=== PATIENT | male | born 2005 | race African-American/Black ===

== ENCOUNTER 2024-01-08 08:56 | Inpatient (IN) | payer OTHER, SELFPAY ==
[2024-01-08] VITALS (93 sets, daily range): BP systolic 120–158; BP diastolic 67–102; PULSE 71–142; TEMP 36.8–36.9; O2SAT 98–100; BMI 41.2; BMI 34.7
--- NOTE | 2024-01-08 09:20 | ECG_ITS ---
[facility] Test Date: 2024-01-08 Pat Name: ZAY MCFARLAND Department: Room: - Gender: Male Reel [employer]ade [employer]: : 2005 Requested By: Order Number: [id number] Reading MD: CECY ROBLEDO Measurements Intervals [place] Rate: 77 P: 54 AR: 160 QRS: 63 QRSD: 92 T: 13 QT: 366 QTc: 397 Interpretive Statements 1100 Sinus rhythm 4068 Nonspecific Tw[place] abnormality 9130 borderline ECG Compared to ECG 06/11/2020 11:23:34 No significant changes Electronically Signed On 01-08-2024 18:09:57 EDT by CECY ROBLEDO
--- NOTE | 2024-01-08 09:21 | CT_ITS ---
The [address] [address] Patient Name: ZAY MCFARLAND MRN: [id number] date: 2005 Sex: M Assigned Patient Location: ER Current Patient Location: ER Accession/Order Number: [id number] Exam Date: 01/08/2024 09:25 Report Date: 01/08/2024 11:32 At the request of: STEPHEN BERMAN Procedure: CT head/brain wo con CT head without contrast, 01/08/2024. HISTORY: Headache. Nausea and vomiting. COMPARISON: None. TECHNIQUE: Noncontrast axial CT images obtained through the head. Reconstructions obtained in the sagittal and coronal planes. Dose reduction techniques were achieved by using automated exposure control and/or adjustment of mA and/or kV according to patient size and/or use of iterative reconstruction technique. FINDINGS: The paranasal sinuses are clear. Mastoid air cells are clear. Skull base intact. No skull fracture or skull lesions. Orbital contents are unremarkable. Extracranial soft tissue structures are unremarkable. The ventricles are normal in size. There is no hydrocephalus. No mass effect. No shift of midline. There is some artifact in the posterior fossa and in the middle cranial fossa. No acute hemorrhage. No masses. No edema. [place] matter and white matter differentiation appears to be intact. CT/CT head/brain wo con IMPRESSION: Normal CT of the head. Electronically authenticated by: SOL HINSON Date: 01/08/2024 11:32
[2024-01-08 09:23] LABS: Glucometer 290 mg/dL (74-106)
[2024-01-08 09:32] LABS: Basophils Absolute Auto 0.1 10^3/uL (0.0-0.1); Basophils Percent Auto 0.5 % (0.2-2.0); Eosinophils Absolute Auto 0.1 10^3/uL (0.0-0.7); Eosinophils Percent Auto 0.7 % (0.9-7.0); Hematocrit 51.5 % (42.0-54.0); Hemoglobin 17.3 g/dL (14.0-18.0); Immature Granulocytes Abs Auto 0.08 10^3/uL (0.00-0.03); Immature Granulocytes Pct Auto 0.7 % (0.0-0.5); Lymphocytes Absolute Auto 1.6 10^3/uL (1.2-3.8); Lymphocytes Percent Auto 13.1 % (20.5-60.0); Mean Corpuscular HGB Conc 33.6 g/dL (29.9-35.2); Mean Corpuscular Hemoglobin 29.5 pg (25.9-34.0); Mean Corpuscular Volume 87.7 fL (80.0-94.0); Mean Platelet Volume 11.8 fL (9.5-13.5); Monocytes Absolute Auto 0.7 10^3/uL (0.3-0.8); Monocytes Percent Auto 5.9 % (1.7-12.0); Neutrophils Absolute Auto 9.5 10^3/uL (1.4-6.5); Neutrophils Percent Auto 79.1 % (43.0-75.0); Platelet Count 328 10^3/uL (150-450); Red Blood Count 5.87 10^6/uL (4.70-6.10); Red Cell Distribution Width 13.1 % (11.0-15.0)
[2024-01-08 09:33] LABS: Bilirubin Urine SMALL (NEGATIVE); Blood Urine LARGE (NEGATIVE); Clarity Urine CLEAR (CLEAR); Color Urine LT. YELLOW (YELLOW); Glucose Urine UA >=1000 mg/dL (NEGATIVE); Ketones Urine >=80 mg/dL (NEGATIVE); Leukocyte Esterase Urine NEGATIVE (NEGATIVE); Nitrite Urine NEGATIVE (NEGATIVE); Protein Urine 100 mg/dL (NEG/TRACE); Specific Gravity Urine >=1.030 (1.005-1.025); Urobilinogen Urine 0.2 EU/dL (0.2-1.0)
[2024-01-08 09:37] LABS: PCO2 VBG 34.5 mmHg (40.0-52.0); pH VBG 7.103 (7.330-7.430)
[2024-01-08 09:42] LABS: Urine Microscopic Indicated YES
[2024-01-08 09:44] LABS: Bacteria Urine TRACE #/HPF (NONE SEEN); RBC Urine 0-2 #/HPF (0-2); WBC Urine 0-2 #/HPF (NONE SEEN)
[2024-01-08 09:45] LABS: Cast Seen? SEEN #/LPF (NONE SEEN); Crystals Seen? None Seen #/HPF (None Seen); Hyaline Casts Urine FEW; Mucus Urine TRACE (NONE SEEN); Squamous Epithelial Cell Urine FEW #/LPF (NONE/RARE); Transitional Epi Cells Urine RARE #/LPF (NONE SEEN); Urine Culture Indicated NO
[2024-01-08] MEDS: KETOROLAC TROMETHAMINE 30 MG/ML VIAL 15 MG IVP (09:47)
[2024-01-08] MEDS: FAMOTIDINE/PF 20 MG/2 ML VIAL IV (09:47)
[2024-01-08] MEDS: ONDANSETRON PF 4 MG/2 ML VIAL IV (09:47)
[2024-01-08] MEDS: 0.9 % SODIUM CHLORIDE 1,000 ML 1000 ML IV ×3 (09:48→12:11)
[2024-01-08 09:51] LABS: Lactate/Lactic Acid 1.3 mmol/L (0.4-2.0)
[2024-01-08 10:00] LABS: Alanine Aminotransferase 67 U/L (16-63); Albumin Globulin Ratio 0.9; Albumin Level 4.3 g/dL (3.4-5.0); Alkaline Phosphatase 133 U/L (46-116); Anion Gap 28.6; Aspartate Amino Transferase 43 U/L (15-37); Bilirubin Total 0.8 mg/dL (0.2-1.0); Calcium 9.5 mg/dL (8.5-10.1); Carbon Dioxide 12.8 mmol/L (21.0-32.0); Chloride 98 mmol/L (98-107); Estimated GFR (African America >60 (>=60); Estimated GFR (Non-African Ame 56 (>=60); Globulin 4.9 g/dL; Glucose 310 mg/dL (74-106); Phosphorus 3.2 mg/dL (2.6-4.7); Potassium 4.4 mmol/L (3.5-5.1); Sodium 135 mmol/L (136-145); Total Protein 9.2 g/dL (6.4-8.2)
--- NOTE | 2024-01-08 10:07 | ED.NAVMDI1 ---
HPI - Nausea/Vomiting/Diarrhea General Chief complaint: Nausea/Vomiting/Diarrhea Stated complaint: ABDOMINAL PAIN, NAUSEA, VOMITING Time Seen by Provider: 01/08/24 09:14 Source: patient Mode of arrival: walk-in Limitations: no limitations History of Present Illness HPI Narrative: The patient is a known insulin dependent diabetic patient is coming to us after he has been having 4 to 5 days history of nausea vomiting, this was preceded by headache as well the headache was frontal associated with no other symptoms, patient also is complaining of generalized abdominal pain he mentioned that he has been able to take his medication but has not been able to eat and drink for the last 4 to 5 days Patient mucous membranes look dry Related Data Home Medications ?Medication ?Instructions ?Recorded ?Confirmed dapagliflozin propanediol 10 mg 10 mg PO QDAY 01/08/24 01/08/24 tablet (Farxiga) fluoxetine 20 mg capsule 20 mg PO QAM 01/08/24 01/08/24 insulin glargine 100 unit/mL (3 55 unit subcut .qhs 01/08/24 01/08/24 mL) subcutaneous pen (Lantus Solostar U-100 Insulin) metformin 500 mg tablet 1,000 mg PO .q12 01/08/24 01/08/24 semaglutide 1 mg/dose (4 mg/3 mL) 1 mg subcut QWEEK 01/08/24 01/08/24 subcutaneous pen injector (Ozempic) sitagliptin phosphate 100 mg 100 mg PO QAM 01/08/24 01/08/24 tablet (Januvia) Allergies Allergy/AdvReac Type Severity Reaction Status Date / Time No Known Drug Allergies Allergy Verified 01/08/24 09:07 Review of Systems ROS Status of ROS 10 or more systems reviewed and unremarkable except as noted in history and below Exam Narrative Exam Narrative: Nurses notes and vital signs reviewed and patient is not hypoxic. General: Well-appearing and in no apparent distress. With dry mucous membrane Skin: Warm, dry, no pallor noted. No rash. Head: Normocephalic, atraumatic. Neck: Supple, non-tender. Eye: Pupils are equal, round and EOMI. No scleral icterus. Ears, Nose, Mouth, and Throat: TM are clear, no nasal mucosal hypertrophy Dry mucous membranes, no posterior oropharynx erythema, uvula is mid-line Cardiovascular: Regular Rate and Rhythm without murmur, gallop or rub. Respiratory: No accessory muscle use or respiratory distress. Lungs are clear to auscultation, no wheezing, rales or rhonchi Chest Wall: no tenderness Back: No midline thoracic or lumbar vertebral tenderness. No CVA tenderness Musculoskeletal: normal ROM, no calf or popliteal tenderness, no lower extremity edema/swelling GI: Abdomen is soft, non-distended. Normal bowel sounds. No masses appreciated. No tenderness to palpation. No rebound, guarding, or rigidity noted. Neurological: A&O x4. No cranial nerve dysfunction observed. No truncal ataxia. Moves all extremities. Sensation intact. Psychiatric: Cooperative and interactive. Normal mood and affect. Constitutional Vital Signs, click to edit/add: Last Vital Signs Temp 98.2 F 01/08/24 09:03 Pulse 83 01/08/24 10:14 Resp 18 01/08/24 10:14 BP 158/85 H 01/08/24 10:14 Pulse Ox 100 01/08/24 09:03 O2 Del Method Room Air 01/08/24 09:03 Course Vital Signs Vital signs: Vital Signs Temperature 98.2 F 01/08/24 09:03 Pulse Rate 115 H 01/08/24 09:03 Respiratory Rate 20 01/08/24 09:03 Blood Pressure 155/102 H 01/08/24 09:03 Pulse Oximetry 100 01/08/24 09:03 Oxygen Delivery Method Room Air 01/08/24 09:03 Temperature 98.2 F 01/08/24 09:03 Pulse Rate 83 01/08/24 10:14 Respiratory Rate 18 01/08/24 10:14 Blood Pressure 158/85 H 01/08/24 10:14 Pulse Oximetry 100 01/08/24 09:03 Oxygen Delivery Method Room Air 01/08/24 09:03 MDM - Nausea/Vomiting/Diarrhea MDM Narrative Medical decision making narrative: The patient EKG in the ER showing sinus rhythm with a heart rate of [address] elevation or depression The patient presenting to us with a possible DKA his dry mucous membrane as well as his symptoms could be secondary to the Chemistry came after a while after the patient was started already on 1 L of IV fluid normal saline and it is showing a potassium 4.4 with a blood sugar of 300 The patient does have a anion gap of 25 CT head showed no acute pathology Bicarb in the chemistry is decreased in addition to a pH of 7.1 on the VBG's The patient was started on a second liter of fluid I spoke with and discussed the case the patient will be admitted for insulin drip after provided with 10 units of regular insulin IV in the ER Patient also will be provided with another liter of normal saline CT abdomen obtained because of the patient history of abdominal pain Lab Data Labs: Lab Results 01/08/24 01/08/24 01/08/24 Range/Units 09:07 09:09 09:15 WBC 12.0 H (4.0-11.0) 10^3/uL RBC 5.87 (4.70-6.10) 10^6/uL Hgb 17.3 (14.0-18.0) g/dL Hct 51.5 (42.0-54.0) % MCV 87.7 (80.0-94.0) fL MCH 29.5 (25.9-34.0) pg MCHC 33.6 (29.9-35.2) g/dL RDW 13.1 (11.0-15.0) % Plt Count 328 (150-450) 10^3/uL MPV 11.8 (9.5-13.5) fL Neut % (Auto) 79.1 H (43.0-75.0) % Lymph % (Auto) 13.1 L (20.5-60.0) % [place] % (Auto) 5.9 (1.7-12.0) % Eos % (Auto) 0.7 L (0.9-7.0) % Baso % (Auto) 0.5 (0.2-2.0) % Neut # (Auto) 9.5 H (1.4-6.5) 10^3/uL Lymph # (Auto) 1.6 (1.2-3.8) 10^3/uL [place] # (Auto) 0.7 (0.3-0.8) 10^3/uL Eos # (Auto) 0.1 (0.0-0.7) 10^3/uL Baso # (Auto) 0.1 (0.0-0.1) 10^3/uL Abs Immat Gran (auto) 0.08 H (0.00-0.03) 10^3/uL Imm/Tot Granulo (auto) 0.7 H (0.0-0.5) % VBG pH 7.103 L (7.330-7.430) VBG pCO2 34.5 L (40.0-52.0) mmHg Sodium 135 L (136-145) mmol/L Potassium 4.4 (3.5-5.1) mmol/L Chloride 98 (98-107) mmol/L Carbon Dioxide 12.8 L (21.0-32.0) mmol/L Anion Gap 28.6 BUN 10.0 (6.4-19.3) mg/dL Creatinine 1.60 H (0.70-1.30) mg/dL Est GFR ( Amer) >60 (>=60) Est GFR (Non-Af Amer) 56 L (>=60) BUN/Creatinine Ratio 6.3 Glucose 310 H (74-106) mg/dL Lactate 1.3 (0.4-2.0) mmol/L Calcium 9.5 (8.5-10.1) mg/dL Phosphorus 3.2 (2.6-4.7) mg/dL Magnesium 1.9 (1.8-2.4) mg/dL Total Bilirubin 0.8 (0.2-1.0) mg/dL AST 43 H (15-37) U/L ALT 67 H (16-63) U/L Alkaline Phosphatase 133 H (46-116) U/L Total Protein 9.2 H (6.4-8.2) g/dL Albumin 4.3 (3.4-5.0) g/dL Globulin 4.9 g/dL Albumin/Globulin Ratio 0.9 Urine Color Lt. yellow (YELLOW) Urine Clarity Clear (CLEAR) Urine pH 6.0 (5.0-9.0) Ur Specific [place] >=1.030 A (1.005-1.025) Urine Protein 100 A (NEG/TRACE) mg/dL Urine Glucose (UA) >=1000 A (NEGATIVE) mg/dL Urine Ketones >=80 A (NEGATIVE) mg/dL Urine Occult Blood Large A (NEGATIVE) Urine Nitrite Negative (NEGATIVE) Urine Bilirubin Small A (NEGATIVE) Urine Urobilinogen 0.2 (0.2-1.0) EU/dL Ur Leukocyte Esterase Negative (NEGATIVE) Urine RBC 0-2 (0-2) #/HPF Urine WBC 0-2 A (NONE SEEN) #/HPF Ur Squamous Epith Cells Few A (NONE/RARE) #/LPF Ur Transition Epith Cell Rare A (NONE SEEN) #/LPF Urine Crystals None seen (None Seen) #/HPF Urine Bacteria Trace A (NONE SEEN) #/HPF Urine Casts Seen A (NONE SEEN) #/LPF Hyaline Casts Few Urine Mucus Trace A (NONE SEEN) Ur Culture Indicated? No POC Glucose 290 H (74-106) mg/dL 01/08/24 Range/Units 10:50 WBC (4.0-11.0) 10^3/uL RBC (4.70-6.10) 10^6/uL Hgb (14.0-18.0) g/dL Hct (42.0-54.0) % MCV (80.0-94.0) fL MCH (25.9-34.0) pg MCHC (29.9-35.2) g/dL RDW (11.0-15.0) % Plt Count (150-450) 10^3/uL MPV (9.5-13.5) fL Neut % (Auto) (43.0-75.0) % Lymph % (Auto) (20.5-60.0) % [place] % (Auto) (1.7-12.0) % Eos % (Auto) (0.9-7.0) % Baso % (Auto) (0.2-2.0) % Neut # (Auto) (1.4-6.5) 10^3/uL Lymph # (Auto) (1.2-3.8) 10^3/uL [place] # (Auto) (0.3-0.8) 10^3/uL Eos # (Auto) (0.0-0.7) 10^3/uL Baso # (Auto) (0.0-0.1) 10^3/uL Abs Immat Gran (auto) (0.00-0.03) 10^3/uL Imm/Tot Granulo (auto) (0.0-0.5) % VBG pH (7.330-7.430) VBG pCO2 (40.0-52.0) mmHg Sodium (136-145) mmol/L Potassium (3.5-5.1) mmol/L Chloride (98-107) mmol/L Carbon Dioxide (21.0-32.0) mmol/L Anion Gap BUN (6.4-19.3) mg/dL Creatinine (0.70-1.30) mg/dL Est GFR ( Amer) (>=60) Est GFR (Non-Af Amer) (>=60) BUN/Creatinine Ratio Glucose (74-106) mg/dL Lactate (0.4-2.0) mmol/L Calcium (8.5-10.1) mg/dL Phosphorus (2.6-4.7) mg/dL Magnesium (1.8-2.4) mg/dL Total Bilirubin (0.2-1.0) mg/dL AST (15-37) U/L ALT (16-63) U/L Alkaline Phosphatase (46-116) U/L Total Protein (6.4-8.2) g/dL Albumin (3.4-5.0) g/dL Globulin g/dL Albumin/Globulin Ratio Urine Color (YELLOW) Urine Clarity (CLEAR) Urine pH (5.0-9.0) Ur Specific [place] (1.005-1.025) Urine Protein (NEG/TRACE) mg/dL Urine Glucose (UA) (NEGATIVE) mg/dL Urine Ketones (NEGATIVE) mg/dL Urine Occult Blood (NEGATIVE) Urine Nitrite (NEGATIVE) Urine Bilirubin (NEGATIVE) Urine Urobilinogen (0.2-1.0) EU/dL Ur Leukocyte Esterase (NEGATIVE) Urine RBC (0-2) #/HPF Urine WBC (NONE SEEN) #/HPF Ur Squamous Epith Cells (NONE/RARE) #/LPF Ur Transition Epith Cell (NONE SEEN) #/LPF Urine Crystals (None Seen) #/HPF Urine Bacteria (NONE SEEN) #/HPF Urine Casts (NONE SEEN) #/LPF Hyaline Casts Urine Mucus (NONE SEEN) Ur Culture Indicated? POC Glucose 274 H (74-106) mg/dL Discharge Plan Discharge Chief Complaint: Nausea/Vomiting/Diarrhea Clinical Impression: Diabetic keto-acidosis Qualifiers: Diabetes mellitus type: type 1 Diabetes mellitus complication detail: without coma Qualified Code(s): E10.10 - Type 1 diabetes mellitus with ketoacidosis without coma Patient Disposition: Admitted As Inpatient Time of Disposition Decision: 11:24 Condition: Good
[2024-01-08 10:18] LABS: BUN Creatinine Ratio 6.3; Magnesium 1.9 mg/dL (1.8-2.4)
--- NOTE | 2024-01-08 10:44 | CT_ITS ---
[address] [address] Patient Name: ZAY MCFARLAND MRN: [id number] date: 2005 Sex: M Assigned Patient Location: ER Current Patient Location: ED.MAIN Accession/Order Number: [id number] Exam Date: 01/08/2024 10:58 Report Date: 01/08/2024 11:25 At the request of: STEPHEN BERMAN Procedure: CT abdomen pelvis wo con EXAM: CT abdomen pelvis wo con HISTORY: abd pain and acidosis COMPARISON: None. TECHNIQUE: Axial soft tissue windows of the abdomen and pelvis with coronal and sagittal reformats. CT dose reduction technique was used including Automated Exposure Control. Findings: Lack of intravenous contrast limits evaluation. ABDOMEN: There is fatty infiltration of the liver. The gallbladder, knee, pancreas, and adrenal glands are unremarkable. No renal stones or collecting system dilatation. The bilateral ureters are nondilated. Evaluation of the bowel is limited given the absence of oral contrast. No bowel obstruction. The appendix is nondilated. The aorta is normal caliber. No enlarged abdominal lymph nodes or free abdominal fluid. Small fat-containing umbilicus hernia. Pelvis: Unremarkable bladder. The prostate is nonenlarged. No enlarged pelvic lymph nodes or free pelvic fluid. No aggressive sclerotic or lytic osseous lesions.] Femoral neck. CT/CT abdomen pelvis wo con IMPRESSION: 1. No acute abdominal or pelvic abnormality. 2. Fatty liver. Electronically authenticated by: DIMAS ENCINAS Date: 01/08/2024 11:25
[2024-01-08 10:51] LABS: Glucometer 274 mg/dL (74-106)
[2024-01-08] MEDS: INSULIN REGULAR, HUMAN (100 UNIT/ML) 10 ML MDV 10 UNIT IV (11:29)
[2024-01-08] MEDS: MORPHINE SULFATE 4 MG/ML VIAL IV (11:52)
[2024-01-08 11:56] LABS: Glucometer 207 mg/dL (74-106)
[2024-01-08 12:19] LABS: Estimated Average Glucose 266 mg/dL; Glycohemoglobin A1C 10.9 % (4.5-6.2)
[2024-01-08 12:22] LABS: Anion Gap 27.5; BUN Creatinine Ratio 7.4; Carbon Dioxide 11.3 mmol/L (21.0-32.0); Chloride 103 mmol/L (98-107); Estimated GFR (African America >60 (>=60); Estimated GFR (Non-African Ame >60 (>=60); Glucose 272 mg/dL (74-106); Magnesium 1.8 mg/dL (1.8-2.4); Phosphorus 2.8 mg/dL (2.6-4.7); Potassium 4.8 mmol/L (3.5-5.1); Sodium 137 mmol/L (136-145)
[2024-01-08 13:31] LABS: Glucometer 159 mg/dL (74-106)
[2024-01-08] MEDS: DEXTROSE 5 %-0.45 % SOD CHLORD 1,000 ML 200 ML IV ×3 (13:54→23:36)
[2024-01-08] MEDS: INSULIN REGULAR IN 0.9 % NACL 100 UNIT/100 ML PLAST..BAG 7.2 UNIT IV (14:04)
[2024-01-08] MEDS: ENOXAPARIN SODIUM 40 MG/0.4 ML SYRINGE SUBQ (14:07)
[2024-01-08 14:11] LABS: Acetone SMALL (NEGATIVE)
[2024-01-08 14:35] LABS: Glucometer 200 mg/dL (74-106)
--- NOTE | 2024-01-08 14:58 | P.HP_ITS ---
HPI H&P: HPI History of Present Illness Chief complaint: ABDOMINAL PAIN, NAUSEA, VOMITING, DKA Narrative: 18-year-old male with history of type 2 diabetes presented to ER with generalized weakness, nausea, vomiting and generalized abdominal pain for past 1 week. He is on insulin and oral hypoglycemics for type 2 diabetes and admitted to me that he is not always compliant with his diet and medications. He has prior history of DKA when he was originally diagnosed with type 2 diabetes 3 years ago. While his blood glucose were not significantly elevated, his workup is consistent with diabetic ketoacidosis. This is likely because he is using Farxiga and SGLT2 inhibitors are associated with euglycemic diabetic ketoacidosis. Patient received aggressive IV hydration in ER and after receiving 3 L of normal saline boluses, he was started on D5 half saline at 200 an hour along with IV insulin infusion as his blood glucose is less than 250. He will be treated as per DKA protocol with insulin infusion, and needs close monitoring in ICU with Accu-Cheks every 1 hour, BMP every 4 hour. He has not voided yet for us and appears clinically dry. Patient reports subjectively feeling better compared to when he arrived to ER. His venous blood gas showed pH of 7.1 with an anion gap of 8, bicarb of just 11. Opioid HPI Opioid Management Most Recent Pain and Opioid Data: Last Pain Scale 5 01/08/24 09:47 Last Pain Assessment 01/08/24 14:53 Last MAR Pain Assessment 01/08/24 11:52 Last ORT Total Score 8 01/08/24 12:55 Last ORT Risk Category High Risk 01/08/24 12:55 Review of Systems ROS Status of ROS 10 or more systems reviewed and unremark able except as noted in history and below PFSH PFS Medical History (Updated 01/08/24 @ 15:03 by Shaikh Vickie MD) Diabetes type 2, controlled ?E11.9 - Type 2 diabetes mellitus without complications (ICD-10) Surgical History (Updated 01/08/24 @ 13:17 by Kori Lagunas) History of hip surgery ?Z98.890 - Other specified postprocedural states (ICD-10) Family History (Updated 01/08/24 @ 13:18 by Kori Lagunas) Father Family history of diabetes mellitus Social History (Updated 01/08/24 @ 13:18 by Kori Lagunas) Within the past year, how often did you have a drink containing alcohol: never Score interpretation: A score less than 4 is consistent with normal alcohol consumption. Do you use any of these nicotine containing products: vaping products Non-prescribed substance use: denies use Highest level of school completed/degree received: high school graduate Meds Home Medications and Allergies Home Medications ?Medication ?Instructions ?Recorded ?Confirmed ?Type dapagliflozin propanediol 10 mg 10 mg PO QDAY 01/08/24 01/08/24 History tablet (Farxiga) fluoxetine 20 mg capsule 20 mg PO QAM 01/08/24 01/08/24 History insulin glargine 100 unit/mL (3 55 unit subcut .qhs 01/08/24 01/08/24 History mL) subcutaneous pen (Lantus Solostar U-100 Insulin) metformin 500 mg tablet 1,000 mg PO .q12 01/08/24 01/08/24 History semaglutide 1 mg/dose (4 mg/3 mL) 1 mg subcut QWEEK 01/08/24 01/08/24 History subcutaneous pen injector (Ozempic) sitagliptin phosphate 100 mg 100 mg PO QAM 01/08/24 01/08/24 History tablet (Januvia) Allergies Allergy/AdvReac Type Severity Reaction Status Date / Time No Known Drug Allergies Allergy Verified 01/08/24 09:07 Exam Constitutional Vital Signs, click to edit/add: Last Vital Signs Temp 98.2 F 01/08/24 09:03 Pulse 91 H 01/08/24 14:50 Resp 13 01/08/24 14:50 BP 144/80 H 01/08/24 13:55 Pulse Ox 100 01/08/24 13:00 O2 Del Method Room Air 01/08/24 12:55 Documenting provider has reviewed patient's vital signs: yes Common normals: no apparent distress and oriented x3 General appearance: cooperative HENMT Common normals: normocephalic and head/scalp atraumatic Head and scalp: normocephalic and atraumatic Eye Common normals: conjunctivae normal and no scleral icterus Conjunctiva: conjunctiva(e) normal Respiratory Common normals: normal respiratory effort and clear to auscultation bilaterally Effort & inspection: able to speak in complete sentences Auscultation: clear to auscultation bilaterally Cardio Common normals: regular rate, S1 normal heart sound and S2 normal heart sound Rate: regular rate Heart sounds: S1 normal and S2 normal GI Common normals: Normal to inspection, nondistended, normoactive bowel sounds present, soft to palpation, non-tender and no hepatosplenomegaly Palpation: soft and no hepatosplenomegaly Extremity Common normals: no clubbing, cyanosis or edema Neuro Common normals: oriented x3, moves all extremities and no focal motor deficits Psych Common normals: mental status grossly normal, denies hallucinations, denies homicidal ideation and denies suicidal ideation Results Labs Labs: Short CBC 01/08/24 Range/Units 09:07 WBC 12.0 H (4.0-11.0) 10^3/uL Hgb 17.3 (14.0-18.0) g/dL Hct 51.5 (42.0-54.0) % Plt Count 328 (150-450) 10^3/uL BMP 01/08/24 01/08/24 09:07 11:36 Sodium 135 L 137 Potassium 4.4 4.8 Chloride 98 103 Carbon Dioxide 12.8 L 11.3 L BUN 10.0 10.0 Creatinine 1.60 H 1.36 H Glucose 310 H 272 H Calcium 9.5 9.0 Liver Function 01/08/24 Range/Units 09:07 Total Bilirubin 0.8 (0.2-1.0) mg/dL AST 43 H (15-37) U/L ALT 67 H (16-63) U/L Alkaline Phosphatase 133 H (46-116) U/L Albumin 4.3 (3.4-5.0) g/dL Urine 01/08/24 Range/Units 09:15 Urine Color Lt. yellow (YELLOW) Urine Clarity Clear (CLEAR) Urine pH 6.0 (5.0-9.0) Ur Specific [place] >=1.030 A (1.005-1.025) Urine Protein 100 A (NEG/TRACE) mg/dL Urine Glucose (UA) >=1000 A (NEGATIVE) mg/dL ABG ABG results: 01/08/24 09:07 VBG pH 7.103 L VBG pCO2 34.5 L Assessment and Plan Assessment and Plan (1) Diabetic keto-acidosis: Assessment and Plan: Diabetic ketoacidosis with severe metabolic acidosis. Patient needs close inpatient monitoring and treatment for DKA with IV insulin, aggressive IV hydration, serial monitoring of BMP to ensure serum electrolytes are within normal range while on insulin drip. Currently on D5 half saline along with IV insulin drip. Continue with Accu-Cheks every 1 hour. Qualifiers: Diabetes mellitus complication detail: without coma Diabetes mellitus type: type 1 Qualified Code(s): E10.10 - Type 1 diabetes mellitus with ketoacidosis without coma (2) Poorly controlled type 2 diabetes mellitus: Assessment and Plan: A1c checked and is indicated for poorly controlled type 2 diabetes. Patient admits to being noncompliant with his medications. Discussed importance of compliance and educated patient on type 2 diabetes (3) Metabolic acidosis due to diabetes mellitus: Assessment and Plan: Presented with severe metabolic acidosis and DKA due to diabetes. Currently on IV insulin, IV fluids as per diabetic ketoacidosis protocol (4) Abnormal liver enzymes: Assessment and Plan: Mild elevation, likely secondary to dehydration and diabetic ketoacidosis. Monitor for now. If worsening transaminitis will consider ultrasound. No acute intra-abdominal finding on CT abdomen pelvis except for fatty liver disease.
[2024-01-08 15:51] LABS: Anion Gap 26.2; BUN Creatinine Ratio 6.2; Calcium 8.4 mg/dL (8.5-10.1); Carbon Dioxide 8.9 mmol/L (21.0-32.0); Chloride 104 mmol/L (98-107); Estimated GFR (African America >60 (>=60); Estimated GFR (Non-African Ame >60 (>=60); Glucose 231 mg/dL (74-106); Magnesium 1.6 mg/dL (1.8-2.4); Phosphorus 2.1 mg/dL (2.6-4.7); Potassium 4.1 mmol/L (3.5-5.1); Sodium 135 mmol/L (136-145)
[2024-01-08 15:55] LABS: Lactate/Lactic Acid 0.6 mmol/L (0.4-2.0)
--- NOTE | 2024-01-08 16:10 | PC.NURSE ---
1600 BG 188, insulin drip decreased per DKA protocol.
[2024-01-08] MEDS: PANTOPRAZOLE SODIUM 40 MG VIAL IV (16:44)
--- NOTE | 2024-01-08 18:40 | DIETREC ---
Recommend 2500 kcal CCD diet d/t pt's size and nutritional needs.
[2024-01-08 20:06] LABS: Anion Gap 15.5; BUN Creatinine Ratio 4.9; Calcium 8.2 mg/dL (8.5-10.1); Carbon Dioxide 17.1 mmol/L (21.0-32.0); Chloride 105 mmol/L (98-107); Estimated GFR (African America >60 (>=60); Estimated GFR (Non-African Ame >60 (>=60); Glucose 175 mg/dL (74-106); Magnesium 1.6 mg/dL (1.8-2.4); Phosphorus 2.1 mg/dL (2.6-4.7); Potassium 3.6 mmol/L (3.5-5.1); Sodium 134 mmol/L (136-145)
[2024-01-08 23:57] LABS: Anion Gap 15.6; BUN Creatinine Ratio 4.4; Calcium 8.2 mg/dL (8.5-10.1); Chloride 104 mmol/L (98-107); Estimated GFR (African America >60 (>=60); Estimated GFR (Non-African Ame >60 (>=60); Glucose 221 mg/dL (74-106); Magnesium 1.5 mg/dL (1.8-2.4); Phosphorus 2.2 mg/dL (2.6-4.7); Potassium 3.6 mmol/L (3.5-5.1); Sodium 134 mmol/L (136-145)
[2024-01-09] VITALS (87 sets, daily range): BP systolic 114–156; BP diastolic 69–82; PULSE 64–144; TEMP 36.8–37.1; O2SAT 96–98
[2024-01-09] MEDS: ACETAMINOPHEN 325 MG TABLET 650 MG PO (00:13)
[2024-01-09 03:47] LABS: Basophils Absolute Auto 0.1 10^3/uL (0.0-0.1); Basophils Percent Auto 0.9 % (0.2-2.0); Eosinophils Absolute Auto 0.2 10^3/uL (0.0-0.7); Eosinophils Percent Auto 2.9 % (0.9-7.0); Hematocrit 41.2 % (42.0-54.0); Hemoglobin 13.7 g/dL (14.0-18.0); Immature Granulocytes Abs Auto 0.03 10^3/uL (0.00-0.03); Immature Granulocytes Pct Auto 0.4 % (0.0-0.5); Lymphocytes Absolute Auto 1.7 10^3/uL (1.2-3.8); Lymphocytes Percent Auto 23.6 % (20.5-60.0); Mean Corpuscular HGB Conc 33.3 g/dL (29.9-35.2); Mean Corpuscular Hemoglobin 29.1 pg (25.9-34.0); Mean Corpuscular Volume 87.7 fL (80.0-94.0); Mean Platelet Volume 11.4 fL (9.5-13.5); Monocytes Absolute Auto 0.5 10^3/uL (0.3-0.8); Monocytes Percent Auto 7.7 % (1.7-12.0); Neutrophils Absolute Auto 4.5 10^3/uL (1.4-6.5); Neutrophils Percent Auto 64.5 % (43.0-75.0); Platelet Count 250 10^3/uL (150-450); Red Cell Distribution Width 13.2 % (11.0-15.0)
[2024-01-09 04:02] LABS: Alanine Aminotransferase 42 U/L (16-63); Albumin Globulin Ratio 0.8; Albumin Level 2.8 g/dL (3.4-5.0); Alkaline Phosphatase 93 U/L (46-116); Anion Gap 17.8; Aspartate Amino Transferase 18 U/L (15-37); BUN Creatinine Ratio 4.4; Bilirubin Total 0.7 mg/dL (0.2-1.0); Calcium 8.3 mg/dL (8.5-10.1); Carbon Dioxide 15.7 mmol/L (21.0-32.0); Chloride 103 mmol/L (98-107); Estimated GFR (African America >60 (>=60); Estimated GFR (Non-African Ame >60 (>=60); Globulin 3.6 g/dL; Glucose 239 mg/dL (74-106); Magnesium 1.4 mg/dL (1.8-2.4); Potassium 3.5 mmol/L (3.5-5.1); Sodium 133 mmol/L (136-145); Total Protein 6.4 g/dL (6.4-8.2)
[2024-01-09] MEDS: DEXTROSE 5 %-0.45 % SOD CHLORD 1,000 ML 200 ML IV (04:31)
[2024-01-09 07:28] LABS: Glucometer 223 mg/dL (74-106)
--- NOTE | 2024-01-09 07:53 | P.PN_ITS ---
Progress Note: Subjective Subjective Interval history: Patient denies any issues overnight. Overall is doing well. no nausea or vomiting. He reports that he is hungry this morning. It has been 4-5 days without insulin at home. He also does not check his sugars. discussed ha1c of 10.9. Exam Narrative Exam Narrative: General: Patient is alert, and oriented to person, place and time with normal affect, proper hygiene Skin: no visible rashes, or ulcers Head: atraumatic, acephalic Eyes: PERRLA, no nystagmus present, conjunctiva clear, no scleral icterus Nose: symmetric, no discharge, no maxillary or frontal sinus tenderness Mouth/Throat: no erythema, exudate, or tonsillar enlargement, normal dentition Neck: no masses palpated, normal thyroid, no JVD or audible carotid bruits Heart: Normal rate and rhythm, no murmurs/rubs/gallops Lungs: no audible wheezes, crackles and normal breath sounds all lung odon[place] Abdomen: Normal audible bowel sounds, no distension, No palpable masses, no organomegaly, no rebound/guarding/ or rigidity Musculoskeletal: no swelling bilateral lower extremities Neuro: CN II-X grossly intact Constitutional Vital Signs, click to edit/add: Last Vital Signs Temp 98.7 F 01/09/24 03:39 Pulse 71 01/09/24 06:00 Resp 17 01/09/24 05:40 BP 114/69 01/09/24 05:23 Pulse Ox 98 01/09/24 03:39 O2 Del Method Room Air 01/09/24 03:39 Progress Note: Objective Labs Labs: Short CBC 01/08/24 01/09/24 Range/Units 09:07 03:35 WBC 12.0 H 7.0 (4.0-11.0) 10^3/uL Hgb 17.3 13.7 L (14.0-18.0) g/dL Hct 51.5 41.2 L (42.0-54.0) % Plt Count 328 250 (150-450) 10^3/uL BMP 01/08/24 01/08/24 01/08/24 09:07 11:36 15:31 Sodium 135 L 137 135 L Potassium 4.4 4.8 4.1 Chloride 98 103 104 Carbon Dioxide 12.8 L 11.3 L 8.9 L BUN 10.0 10.0 8.0 Creatinine 1.60 H 1.36 H 1.30 Glucose 310 H 272 H 231 H Calcium 9.5 9.0 8.4 L 01/08/24 01/08/24 01/09/24 19:42 23:36 03:35 Sodium 134 L 134 L 133 L Potassium 3.6 3.6 3.5 Chloride 105 104 103 Carbon Dioxide 17.1 L 18.0 L 15.7 L BUN 7.0 6.0 L 6.0 L Creatinine 1.43 H 1.37 H 1.37 H Glucose 175 H 221 H 239 H Calcium 8.2 L 8.2 L 8.3 L Liver Function 01/08/24 01/09/24 Range/Units 09:07 03:35 Total Bilirubin 0.8 0.7 (0.2-1.0) mg/dL AST 43 H 18 (15-37) U/L ALT 67 H 42 (16-63) U/L Alkaline Phosphatase 133 H 93 (46-116) U/L Albumin 4.3 2.8 L (3.4-5.0) g/dL Urine 01/08/24 Range/Units 09:15 Urine Color Lt. yellow (YELLOW) Urine Clarity Clear (CLEAR) Urine pH 6.0 (5.0-9.0) Ur Specific [place] >=1.030 A (1.005-1.025) Urine Protein 100 A (NEG/TRACE) mg/dL Urine Glucose (UA) >=1000 A (NEGATIVE) mg/dL Progress Note: A&P Assessment and Plan (1) Diabetic keto-acidosis: Assessment and Plan: Anion Gap is 15 this morning, currently on 1 of insulin drip. slight decrease in mag and potassium. Sugars 280. Also has D5 1/2 normal saline. Stop fluids and drip. Start Levemir 25 units BID, may also start 2,000 diet. SSI for accuchecks qachs. Qualifiers: Diabetes mellitus complication detail: without coma Diabetes mellitus type: type 1 Qualified Code(s): E10.10 - Type 1 diabetes mellitus with ketoacidosis without coma (2) Poorly controlled type 2 diabetes mellitus: Assessment and Plan: ha1c 10.9, has working glucometer. Will resume home medications tomorrow. (3) Metabolic acidosis due to diabetes mellitus: Assessment and Plan: Anion gap normal range, symptoms subsided while on insulin drip and fluids. (4) Abnormal liver enzymes: Assessment and Plan: resolved with DKA Plan Stop drip, monitor labs, replace electrolytes. Hopeful discharge home tomorrow.
[2024-01-09 08:06] LABS: Anion Gap 19.9; BUN Creatinine Ratio 2.3; Calcium 8.3 mg/dL (8.5-10.1); Carbon Dioxide 15.9 mmol/L (21.0-32.0); Chloride 104 mmol/L (98-107); Estimated GFR (African America >60 (>=60); Estimated GFR (Non-African Ame >60 (>=60); Glucose 248 mg/dL (74-106); Magnesium 1.5 mg/dL (1.8-2.4); Phosphorus 1.9 mg/dL (2.6-4.7); Potassium 3.8 mmol/L (3.5-5.1); Sodium 136 mmol/L (136-145)
[2024-01-09] MEDS: MAGNESIUM SULFATE IN WATER 2 GM/50 ML PREMIX IV (09:50)
[2024-01-09] MEDS: INSULIN DETEMIR 300 UNIT/3 ML INSULN.PEN 25 UNIT SUBQ ×2 (10:44→21:04)
[2024-01-09] MEDS: INSULIN ASPART 300 UNIT/3 ML PEN SUBQ ×3 (11:14→21:04)
[2024-01-09 12:02] LABS: Magnesium 1.8 mg/dL (1.8-2.4); Phosphorus 2.1 mg/dL (2.6-4.7)
[2024-01-09] MEDS: PANTOPRAZOLE SODIUM 40 MG VIAL IV (16:17)
[2024-01-09] MEDS: ENOXAPARIN SODIUM 40 MG/0.4 ML SYRINGE SUBQ (16:17)
[2024-01-10] VITALS (8 sets, daily range): BP systolic 118–136; BP diastolic 73–83; PULSE 61–75; TEMP 36.8; O2SAT 96–98
[2024-01-10 06:26] LABS: Basophils Absolute Auto 0.1 10^3/uL (0.0-0.1); Basophils Percent Auto 1.2 % (0.2-2.0); Eosinophils Absolute Auto 0.3 10^3/uL (0.0-0.7); Eosinophils Percent Auto 3.6 % (0.9-7.0); Hematocrit 42.7 % (42.0-54.0); Hemoglobin 14.5 g/dL (14.0-18.0); Immature Granulocytes Pct Auto 1.5 % (0.0-0.5); Lymphocytes Absolute Auto 1.8 10^3/uL (1.2-3.8); Mean Corpuscular Hemoglobin 29.2 pg (25.9-34.0); Mean Corpuscular Volume 85.9 fL (80.0-94.0); Mean Platelet Volume 12.1 fL (9.5-13.5); Monocytes Absolute Auto 0.5 10^3/uL (0.3-0.8); Monocytes Percent Auto 6.8 % (1.7-12.0); Neutrophils Absolute Auto 4.2 10^3/uL (1.4-6.5); Neutrophils Percent Auto 60.9 % (43.0-75.0); Platelet Count 233 10^3/uL (150-450); Red Blood Count 4.97 10^6/uL (4.70-6.10); White Blood Count 6.9 10^3/uL (4.0-11.0)
[2024-01-10 06:39] LABS: Alanine Aminotransferase 38 U/L (16-63); Albumin Globulin Ratio 0.8; Alkaline Phosphatase 91 U/L (46-116); Aspartate Amino Transferase 18 U/L (15-37); BUN Creatinine Ratio 5.1; Bilirubin Total 0.6 mg/dL (0.2-1.0); Calcium 8.9 mg/dL (8.5-10.1); Carbon Dioxide 17.4 mmol/L (21.0-32.0); Chloride 103 mmol/L (98-107); Estimated GFR (African America >60 (>=60); Estimated GFR (Non-African Ame >60 (>=60); Globulin 3.6 g/dL; Glucose 212 mg/dL (74-106); Potassium 3.4 mmol/L (3.5-5.1); Sodium 139 mmol/L (136-145); Total Protein 6.6 g/dL (6.4-8.2)
[2024-01-10] MEDS: FLUOXETINE HCL 20 MG CAPSULE PO (08:14)
[2024-01-10] MEDS: INSULIN ASPART 300 UNIT/3 ML PEN SUBQ ×2 (08:14→11:38)
[2024-01-10] MEDS: INSULIN DETEMIR 300 UNIT/3 ML INSULN.PEN 25 UNIT SUBQ (08:14)
--- NOTE | 2024-01-10 08:14 | PM.DS1 ---
DS: Providers Provider Date of admission: 01/08/24 12:42 Primary care physician: Non-Staff PhysicianMD Attending physician on admission: Shaikh Vickie Attending physician on discharge: Dee Edmondson DS: Diagnosis Discharge Diagnosis (1) Diabetic keto-acidosis: Qualifiers: Diabetes mellitus complication detail: without coma Diabetes mellitus type: type 1 Qualified Code(s): E10.10 - Type 1 diabetes mellitus with ketoacidosis without coma (2) Poorly controlled type 2 diabetes mellitus: (3) Metabolic acidosis due to diabetes mellitus: (4) Abnormal liver enzymes: DS: Summary Hospital Course Hospital Course: 18-year-old male with history of type 2 diabetes presented to ER with generalized weakness, nausea, vomiting and generalized abdominal pain for past 1 week. He is on insulin and oral hypoglycemics for type 2 diabetes and admitted to me that he is not always compliant with his diet and medications. He has prior history of DKA when he was originally diagnosed with type 2 diabetes 3 years ago. While his blood glucose were not significantly elevated, his workup is consistent with diabetic ketoacidosis. Patient received aggressive IV hydration in ER and after receiving 3 L of normal saline boluses, he was started on D5 half saline at 200 an hour along with IV insulin infusion as his blood glucose is less than 250. He will be treated as per DKA protocol with insulin infusion, and needs close monitoring in ICU with Accu-Cheks every 1 hour, BMP every 4 hour. His venous blood gas showed pH of 7.1 with an anion gap of 8, bicarb of just 11. He was maintained for 24 hours on insulin drip, Anion Gap normalized and insulin drip stopped. I started Levemir 25 units BID along with SSI. He received 71 units total yesterday of insulin on diabetic diet. I discussed with him to increase his Lantus dosage to 75 units at night time. All other home medications will stay the same, his ha1c was 10.9. At the time of discharge he is not having any n/v/d, eating normally without complaints. He would benefit from intense diabetes management by [facility] in the future. He may return to the ER any other worsening signs or symptoms. Liver functions are normal, were slight elevation on admission most likely from nausea and vomiting. Status at Discharge Functional status at discharge: independent ambulation Overall status at discharge: patient is back to baseline Time Spent with Patient Time attestation: Total time spent providing and/or coordinating discharge services: Time spent: greater than 30 minutes Exam Narrative Exam Narrative: General: Patient is alert, and oriented to person, place and time with normal affect, proper hygiene Skin: no visible rashes, or ulcers Head: atraumatic, acephalic Heart: Normal rate and rhythm, no murmurs/rubs/gallops Lungs: no audible wheezes, crackles and normal breath sounds all lung odonnell Abdomen: Normal audible bowel sounds, no distension, No palpable masses, no organomegaly, no rebound/guarding/ or rigidity Musculoskeletal: no swelling bilateral lower extremities Neuro: CN II-X grossly intac Constitutional Vital Signs, click to edit/add: Last Vital Signs Temp 98.3 F 01/09/24 19:52 Pulse 63 01/10/24 07:46 Resp 18 01/10/24 03:23 BP 118/73 01/10/24 03:23 Pulse Ox 96 01/10/24 03:23 O2 Del Method Room Air 01/09/24 19:52 DS: Data Data Completed and Pending Labs on day of discharge: Labs from last 24 hours 01/10/24 01/09/24 06:05 11:26 WBC 6.9 RBC 4.97 Hgb 14.5 Hct 42.7 MCV 85.9 MCH 29.2 MCHC 34.0 RDW 13.0 Plt Count 233 MPV 12.1 Neut % (Auto) 60.9 Lymph % (Auto) 26.0 [place] % (Auto) 6.8 Eos % (Auto) 3.6 Baso % (Auto) 1.2 Neut # (Auto) 4.2 Lymph # (Auto) 1.8 [place] # (Auto) 0.5 Eos # (Auto) 0.3 Baso # (Auto) 0.1 Abs Immat Gran (auto) 0.10 H Imm/Tot Granulo (auto) 1.5 H Sodium 139 Potassium 3.4 L Chloride 103 Carbon Dioxide 17.4 L Anion Gap 22.0 BUN 6.0 L Creatinine 1.17 Est GFR ( Amer) >60 Est GFR (Non-Af Amer) >60 BUN/Creatinine Ratio 5.1 Glucose 212 H Calcium 8.9 Phosphorus 2.1 L Magnesium 1.8 Total Bilirubin 0.6 AST 18 ALT 38 Alkaline Phosphatase 91 Total Protein 6.6 Albumin 3.0 L Globulin 3.6 Albumin/Globulin Ratio 0.8 Discharge Plan Discharge Disposition: Home, Self-Care Condition: Good Discharge Medications: Continued Ozempic 1 mg/dose (4 mg/3 mL) pen injector 1 mg SUBCUT QWEEK Rx Instructions: Mondays metformin 500 mg tablet 1,000 mg PO .q12 30 Days Qty: 120 0RF fluoxetine 20 mg capsule 20 mg PO QAM 30 Days Qty: 30 0RF Januvia 100 mg tablet 100 mg PO QAM 30 Days Qty: 30 0RF dapagliflozin propanediol [Farxiga] 10 mg tablet 10 mg PO QDAY 30 Days Qty: 30 0RF Changed insulin glargine [Lantus Solostar U-100 Insulin] 100 unit/mL (3 mL) insulin pen 75 unit SUBCUT .qhs 30 Days Qty: 8 0RF Activity: increase activity as tolerated Diet: diabetic diet Print Language: Yoruba Forms: Portal Instructions Follow Up Appointments: Please call PCP office tomorrow to get appointment in 5-7 days
--- NOTE | 2024-01-11 15:16 | CM.DCFOLLOWU ---
Patient is at the [facility]
== END 2024-01-10 12:48 | disposition home or self-care (01) | DRG 420 ==
LOC: ER 11:39 → ICU 12:46 → MS 01-09 12:05
PROVIDERS: Admitting Provider Internal Medicine; Emergency Provider Emergency Medicine; Visit Provider Family Medicine
DX: E11.10 Type 2 diabetes mellitus with ketoacidosis without coma (principal); R74.9 Abnormal serum enzyme level, unspecified; Z91.119 Patient's noncompliance with dietary regimen due to unspecified reason; Z91.148 Patient's other noncompliance with medication regimen for other reason; Z79.4 Long term (current) use of insulin; Z79.84 Long term (current) use of oral hypoglycemic drugs
CPT/HCPCS: 36415; 70450; 74176; 80048; 80053; 81001; 82009; 82800; 82948; 83036; 83605; 83690; 83735; 84100; 85025; 93005; 96361; 96365; 96366; 96372; 96375; 96376; 99285; J1650; J1817; J1885; J2270; J2405; J3475

== ENCOUNTER 2024-03-30 17:41 | Inpatient (IN) | payer OTHER, SELFPAY ==
[2024-03-30 17:44] VITALS: BP 145/75; PULSE 74; TEMP 36.6; O2SAT 98; BMI 34.3
--- OUTSIDE RECORDS SUMMARY | 2024-03-30 17:52 | XMS_ITS | CCD ---
Author Organization [facility] ion Partnership [facility] Care Team Providers Care [employer] Ramp Agent Name Role Phone MARIA ISABEL ROMAN Consulting Unavailable MARIA ISABEL ROMAN Attending Unavailable [facility] Primary Care Unavailable MARIA ISABEL ROMAN Admitting Unavailable [place] Consulting Unavailable Levi INTERACTIVE MEDIA MARKETING DIRECTOR-Marlyn RIVER Primary Care Provid er MARLYN SIMS Attending Unavailable MARLYN SIMS Referring Unavailable MARLYN SIMS Primary Care Unavailable MARLYN SIMS Attending Unavailable MARLYN SIMS Referring Unavailable SIMSBETO MILLERERIStevie Dyson Primary Care Unavailable MARLYN SIMS Attending Unavailable MARLYN SIMS Referring Unavailable MARLYN SIMS Primary Care Unavailable MARLYN SIMS Attending Unavailable MARLYN SIMS Referring Unavailable SIMSBETO MILLERERIStevie Dyson Primary Care Unavailable MARLYN SIMS Attending Unavailable MARLYN SIMS Referring Unavailable BETO SIMSERIStevie Dyson Primary Care Unavailable Unallocated Gerry SCHAFFERs Provider Primary Care Provi kaela PJ SHANNON Attending Unavailable PJ SHANNON Referring Unavailable MARLYN SIMS Primary Care Unavailable KENNY ARROYO Attending Unavailable CARLOS VENTURA Admitting Unavailable XU PABON Consulting Unavailable MARLYN SIMS Primary Care Unavailable NANCI NARANJO Attending Unavailab CARLOS Flores Admitting Unavailable MARLYN SIMS Primary Care Unavailable LEVI RASMUSSEN Attending Unavailable MARLYN SIMS Primary Care Unavailable Medications Current Medications Medication Drug Class(es) Dates Sig (Normalized) Sig (Original) cetirizine hydrochloride 10 mg oral tablet (4 sources) Histamine-1 Receptor Antagonist Start: 08-26-2023 take 1 tablet by mouth in the morning cetirizine (ZyrTEC) 10 MG tablet Take 10 mg by mouth in the morning. 08/26/2023 Active dapagliflozin 10 mg oral tablet (5 sources) Sodium-Glucose Cotransporter 2 Inhibitor Start: 05-26-2023 take 1 tablet by mouth in the morning dapagliflozin propanediol (FARXIGA) 10 mg tablet Indications: Type 2 diabetes mellitus with hyperglycemia, without long-term current use of insulin ([facility]) Take 1 tablet (10 mg total) by mouth in the morning. 30 tablet 4 05/26/2023 Active dextromethorphan hydrobromide 1.5 mg/ml / pyrilamine maleate 1.5 mg/ml oral solution (1 source) Uncompetitive D-kjcwng-V-asparta te Receptor Antagonist, Sigma-1 Agonist Start: 08-05-2023 take 10 mL by mouth every eight hours as needed for cough and cough pyrilamine-dextrom ethorphan 7.5-7.5 mg/5 mL liquid Indications: Acute cough Take 10 mL by mouth every 8 (eight) hours as needed (cough). 120 mL 0 08/05/2023 Active docusate sodium 100 mg oral capsule (4 sources) Start: 02-29-2024 take 1 capsule by mouth in the morning Docusate Sodium (DSS) 100 MG capsule Take 100 mg by mouth in the morning and 100 mg in the evening. 02/29/2024 Active 0.5 ml dulaglutide 3 mg/ml auto-injector (3 sources) GLP-1 Receptor Agonist Start: 05-26-2023 End: 06-10-2023 dulaglutide (TRULICITY) 1.5 mg/0.5 mL pen injector Indications: Type 2 diabetes mellitus with hyperglycemia, without long-term current use of insulin ([facility]) Inject 1.5 mg under the skin every 7 days. 2 mL 4 06/10/2023 Active FLUoxetine 40 mg oral capsule (6 sources) Serotonin Reuptake Inhibitor Start: 01-13-2024 take 1 capsule by mouth in the morning FLUoxetine (PROzac) 40 MG capsule Take 40 mg by mouth in the morning. 01/13/2024 Active Start: 05-26-2023 take 1 capsule by mo ut in the morning FLUoxetine (PROzac) 20 mg capsule Indications: Current mild episode of major depressive disorder without prior episode ([facility]) Take 1 capsule (20 mg total) by mouth in the morning. 90 capsule 4 05/26/2023 Active 3 ml insulin glargine 100 unt/ml pen injector (6 sources) Insulin Analog Start: 01-12-2024 insulin glargi ne (Lantus SoloStar) 100 UNIT/ML pen Inject 75 Units under the skin at bedtime 01/12/2024 Active Start: 01-12-2024 insulin glargi ne (LANTUS SOLOSTAR U-100 INSULIN) 100 unit/mL (3 mL) insulin pen Inject 75 Units under the skin nightly. 15 mL 12 01/12/2024 Active Start: 05-26-2023 insulin glargi ne (LANTUS SOLOSTAR U-100 INSULIN) 100 unit/mL (3 mL) insulin pen Indications: Type 2 diabetes mellitus with hyperglycemia, without long-term current use of insulin ([facility]) Inject 35 Units under the skin nightly. 15 mL 2 05/26/2023 Active Start: 05-26-2023 insulin glargi ne (LANTUS SOLOSTAR U-100 INSULIN) 100 unit/mL (3 mL) insulin pen Indications: Type 2 diabetes mellitus with hyperglycemia, without long-term current use of insulin ([facility]) Inject 35 Units under the skin nightly. 15 mL 2 05/26/2023 Active loratadine 10 mg oral tablet (2 sources) take 1 tablet by mouth in the morning loratadine (CLARITIN) 10 mg tablet Take 1 tablet (10 mg total) by mouth in the morning. 0 Active metFORMIN hydrochloride 500 mg oral tablet (8 sources) Biguanide Start: 11-04-2023 End: 06-05-2024 take 2 tablets by mouth in the morning metFORMIN (Glucophage) 500 MG tablet Indications: Type 2 diabetes mellitus with hyperglycemia, without long-term current use of insulin ([facility]) Take 2 tablets (1,000 mg) by mouth in the morning and 2 tablets (1,000 mg) in the evening. Take with meals. 360 tablet 1 03/07/2024 06/05/2024 Active Start: 05-26-2023 take 2 tablets by mo uth in the morning, then take 2 tablets by mouth at bedtime metFORMIN (GLUCOPHAGE) 500 mg tablet Indications: Type 2 diabetes mellitus with hyperglycemia, without long-term current use of insulin ([facility]) Take 2 tablets (1,000 mg total) by mouth in the morning and 2 tablets (1,000 mg total) before bedtime. 60 tablet 4 05/26/2023 Active oxymetazoline hydrochloride 0.5 mg/ml nasal spray (1 source) Start: 08-05-2023 oxymetazoline (AFRIN) 0.05 % nasal mist Indications: Epistaxis Administer 2 sprays into each nostril daily as needed for congestion (nose bleeds). 14.7 mL 0 08/05/2023 Active SITagliptin 100 mg oral tablet (8 sources) Dipeptidyl Peptidase 4 Inhibitor Start: 11-04-2023 End: 06-05-2024 take 1 tablet by mouth in the morning SITagliptin (Januvia) 100 MG tablet Indications: Type 2 diabetes mellitus with hyperglycemia, without long-term current use of insulin ([facility]) Take 1 tablet (100 mg) by mouth in the morning. 30 tablet 1 03/07/2024 06/05/2024 Active Start: 05-26-2023 take 1 tablet by rodri th once daily in the morning SITagliptin phosphate (JANUVIA) 100 mg tablet Indications: Type 2 diabetes mellitus with hyperglycemia, without long-term current use of insulin ([facility]) Take 1 tablet (100 mg total) by mouth in the morning. Once daily . 90 tablet 4 05/26/2023 Active Completed/Discontinued Medications Medication Drug Class(es) Dates Sig (Normalized) Sig (Original) benzoyl peroxide 100 mg/ml medicated liquid soap (1 source) Start: 12-20-2020 End: 06-10-2023 benzoyl peroxide 10 % cleanser Indications: Acne vulgaris Apply 1 application topically 2 (two) times a day. 187 mL 6 12/20/2020 06/10/2023 Discontinued (Therapy completed) blood-glucose meter,continuous (FREESTYLE NISHA 3 READER) misc (1 source) Start: 11-04-2023 End: 02-29-2024 blood-glucose meter,continuous (FREESTYLE NISHA 3 READER) [facility] [place] Indications: Type 2 diabetes mellitus with microalbuminuria, without long-term current use of insulin ([facility]) 1 Device by miscellaneous route in the morning. 1 each 11/04/2023 02/29/2024 Discontinued (Therapy completed) blood-glucose sensor (FREESTYLE NISHA 3 SENSOR) device (1 source) Start: 11-04-2023 End: 02-29-2024 blood-glucose sensor (FREESTYLE NISHA 3 SENSOR) device Indications: Type 2 diabetes mellitus with microalbuminuria, without long-term current use of insulin ([facility]) 1 application. by miscellaneous route every 10 days. 3 each 6 11/04/2023 02/29/2024 Discontinued (Therapy completed) sodium bicarbonate 325 mg oral tablet (1 source) Start: 02-28-2024 End: 02-29-2024 take 1 tablet by mouth in the morning, then take 1 tablet by mouth at bedtime sodium bicarbonate 325 mg tablet Take 1 tablet (325 mg total) by mouth in the morning and 1 tablet (325 mg total) before bedtime. Do all this for 7 days. 14 tablet 02/28/2024 02/29/2024 Discontinued (Therapy completed) Problems Active Problems Problem Classification Problem Date Documented Da te Episodic/Chronic Administrative/social admission (2 sources) Patient encounter status; Translations: [Dietary counseling and surveillance] 03-07-2024 Episodic Anxiety disorders (1 source) Mental health problem Onset: 01-10-2024 Chronic Attention-deficit, conduct, and disruptive behavior disorders (3 sources) Attention deficit hyperactivity disorder, combined type; Translations: [Attention-deficit hyperactivity disorder, combined type] Onset: 12-29-2016 09-24-2021 Chronic Diabetes mellitus with complications (9 sources) Type 2 diabetes mellitus; Translations: [Type 2 diabetes mellitus with hyperglycemia] Onset: 08-26-2023 06-10-2023 Chronic Diabetes mellitus with complications (1 source) Type 2 diabetes mellitus with ketoacidosis without coma; Translations: [TYPE 2 DM KETOACIDOSIS W/O COMA] Onset: 06-13-2020 Fluid and electrolyte disorders (3 sources) Hypokalemia; Translations: [Hypokalemia] Onset: 01-11-2024 01-11-2024 Episodic Mood disorders (2 sources) Major depressive disorder, single episode, mild; Translations: [Depression] Onset: 05-26-2023 Chronic Nausea and vomiting (3 sources) Nausea with vomiting, unspecified; Translations: [NAUSEA WITH VOMITING UNSPECIFIED] Onset: 06-11-2020 Episodic Nutritional deficiencies (2 sources) Vitamin D deficiency; Translations: [Vitamin D deficiency, unspecified] 03-07-2024 Chronic Other bone disease and musculoskeletal deformities (3 sources) Slipped right upper capital femoral epiphysis; Translations: [Unspecified slipped upper femoral epiphysis (nontraumatic), right hip] Onset: 05-08-2020 05-08-2020 Chronic Other connective tissue disease (1 source) Disease suspected; Translations: [Other symptoms and signs involving the nervous system] Onset: 01-11-2024 01-11-2024 Episodic Other connective tissue disease (1 source) Pain in upper limb Onset: 03-28-2024 Episodic Other gastrointestinal disorders (1 source) Other constipation; Translations: [Other constipation] Onset: 02-29-2024 Episodic Other gastrointestinal disorders (1 source) Constipation; Translations: [Other constipation] 02-29-2024 Episodic Other lower respiratory disease (1 source) H/O: asthma; Translations: [Personal history of other diseases of the respiratory system] Onset: 01-11-2024 01-11-2024 Episodic Other nutritional; endocrine; and metabolic disorders (1 source) Severe obesity; Translations: [Class 2 severe obesity due to excess calories with serious comorbidity in adult] Onset: 01-11-2024 01-11-2024 Chronic Other nutritional; endocrine; and metabolic disorders (2 sources) Obesity caused by energy imbalance; Translations: [Class 1 obesity due to excess calories without serious comorbidity with body mass index (BMI) of 34.0 to 34.9 in adult] 03-07-2024 Chronic Other skin disorders (1 source) Localized swelling, mass and lump, left upper limb; Translations: [Localized swelling, mass and lump, left upper limb] Onset: 03-28-2024 Episodic Other skin disorders (1 source) Skin problem Onset: 03-22-2024 Episodic Other upper respiratory disease (1 source) Allergic rhinitis due to pollen; Translations: [Allergic rhinitis due to pollen] Onset: 08-26-2023 Chronic Other upper respiratory disease (1 source) Bleeding from nose; Translations: [Epistaxis] 08-05-2023 Episodic Screening and history of mental health and substance abuse codes (1 source) Personal history of other mental and behavioral disorders; Translations: [Personal history of other mental disorders] Onset: 01-11-2024 01-11-2024 Episodic Skin and subcutaneous tissue infections (1 source) Cutaneous abscess, unspecified; Translations: [Cutaneous abscess, unspecified] Onset: 03-22-2024 Episodic Suicide and intentional self-inflicted injury (1 source) Suicidal thoughts; Translations: [Suicidal ideations] Onset: 01-11-2024 01-11-2024 Episodic Unclassified (1 source) PERSONAL HISTORY OF COVID-19; Translations: [PERSONAL HISTORY OF COVID-19] Onset: 06-13-2020 Unclassified (1 source) CONTACT W/AND (SUSP) EXPOS COVID-19; Translations: [CONTACT W/AND (SUSP) EXPOS COVID-19] Onset: 06-13-2020 Unclassified (1 source) pain when bm Onset: 02-29-2024 Unclassified (2 sources) High Blood Sugar - Symptomatic Onset: 11-04-2023 Unclassified (1 source) Acute cough; Translations: [Acute cough] Onset: 08-05-2023 Unclassified (1 source) Nose Bleed Onset: 08-05-2023 Unclassified (1 source) EMS Onset: 01-10-2024 Past or Other Problems Problem Classification Problem Date Documented Da te Episodic/Chronic Diabetes mellitus without complication (1 source) Hyperglycemia, unspecified; Translations: [Hyperglycemia, unspecified] Onset: 11-04-2023 Episodic Genitourinary symptoms and ill-defined conditions (1 source) Proteinuria, unspecified; Translations: [Proteinuria, unspecified] Onset: 08-26-2023 Episodic Heart valve disorders (3 sources) Heart murmur; Translations: [Cardiac murmur, unspecified] Onset: 09-24-2021 09-24-2021 Episodic Mood disorders (3 sources) Mood disorders Onset: 05-26-2023 Resolved: 02-29-2024 05-26-2023 Other aftercare (1 source) 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 of insulin; Translations: [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 of insulin] Onset: 05-26-2023 Episodic Other lower respiratory disease (2 sources) Cough; Translations: [Acute cough] Onset: 08-05-2023 08-05-2023 Episodic Other upper respiratory disease (1 source) Epistaxis; Translations: [Epistaxis] Onset: 08-05-2023 Episodic Other upper respiratory disease (1 source) Pain in throat Onset: 08-05-2023 Episodic Other upper respiratory infections (2 sources) Sore throat symptom; Translations: [Acute pharyngitis, unspecified] Onset: 08-05-2023 08-05-2023 Episodic Unclassified (3 sources) Onset: 06-01-2023 Resolved: 02-29-2024 06-01-2023 Results Test Name Value Interpretation Reference Range Facility Glucose (Bld) [Mass/Vol]Orde red By: Alyssa Natarajan on 03-07-2024 Glucose Blood, POC 264 mg/dL [facility] CBC AND AUTO DIFFon 02-28-20 ABSOLUTE BASOPHIL 0.1 X10E9/L Normal 0.0-0.2 [facility] Comment on above: Performed By: #### D SALAS #### [facility] ([id number]) [address] [place] [address] 54107 ABSOLUTE NEUTROPHIL 4.2 X10E9/L Normal 1.5-6.6 [facility] Comment on above: Performed By: #### D SALAS #### [facility] ([id number]) [address] [place] [address] 76102 Basophils/100 WBC (Bld) 0.9 % Normal [facility] Comment on above: Performed By: #### D SALAS #### [facility] ([id number]) [address] [place] [address] 34227 Eosinophils (Bld) [#/Vol] 0.2 10*3/uL Normal 0.0-0.4 [facility] Comment on above: Performed By: #### D SALAS #### [facility] ([id number]) [address] [place] [address] 39332 Eosinophils/100 WBC (Bld) 2.3 % Normal [facility] Comment on above: Performed By: #### D SALAS #### [facility] ([id number]) [address] [place] [address] 94944 Erythrocyte distribution width (RBC) [Ratio] 15.0 % Normal 11.5-15.0 [facility] Comment on above: Performed By: #### D SALAS #### [facility] ([id number]) [address] [place] [address] 87183 Hematocrit (Bld) [Volume fraction] 43.5 % Normal 39-49 [facility] Comment on above: Performed By: #### D SALAS #### [facility] ([id number]) [address] [place] [address] 03442 Hemoglobin (Bld) [Mass/Vol] 14.4 g/dL Normal 13.0-17.0 [facility] Comment on above: Performed By: #### D SALAS #### [facility] ([id number]) [address] [place] [address] 81081 Lymphocytes (Bld) [#/Vol] 1.9 10*3/uL Normal 1.0-3.5 [facility] Comment on above: Performed By: #### D SALAS #### [facility] ([id number]) [address] [place] [address] 51623 Lymphocytes/100 WBC (Bld) 27.5 % Normal [facility] Comment on above: Performed By: #### D SALAS #### [facility] ([id number]) [address] [place] [address] 00695 MCH (RBC) [Entitic mass] 29.5 pg Normal 27-34 [facility] Comment on above: Performed By: #### D SALAS #### [facility] ([id number]) [address] [place] [address] [place] [address] MCHC (RBC) [Mass/Vol] 33.2 g/dL Normal 32-36 [facility] Comment on above: Performed By: #### D SALAS #### [facility] ([id number]) [address] [place] [address] 01441 MCV (RBC) [Entitic vol] 89 fL Normal 80-100 [facility] Comment on above: Performed By: #### D SALAS #### [facility] ([id number]) [address] [place] [address] 30025 Monocytes (Bld) [#/Vol] 0.5 10*3/uL Normal 0-0.9 [facility] Comment on above: Performed By: #### D SALAS #### [facility] ([id number]) [address] [place] [address] 81445 Monocytes/100 WBC (Bld) 7.5 % Normal [facility] Comment on above: Performed By: #### D SALAS #### [facility] ([id number]) [address] [place] [address] 77561 Neutrophils/100 WBC (Bld) 61.8 % Normal [facility] Comment on above: Performed By: #### D SALAS #### [facility] ([id number]) [address] [place] [address] 97090 Platelet mean volume (Bld) [Entitic vol] 10.3 fL Normal 7-12 [facility] Comment on above: Performed By: #### D SALAS #### [facility] ([id number]) [address] [place] [address] 38140 Platelets (Bld) [#/Vol] 169 10*3/uL Normal 150-450 [facility] Comment on above: Performed By: #### D SALAS #### [facility] ([id number]) [address] [place] [address] 91852 RBC COUNT 4.89 X10E12/L Normal 4.10-5.70 [facility] Comment on above: Performed By: #### D SALAS #### [facility] ([id number]) [address] [place] [address] 90214 WBC (Bld) [#/Vol] 6.7 10*3/uL Normal 4.0-11.0 [facility] Comment on above: Performed By: #### D SALAS #### [facility] ([id number]) [address] [place] [address] 84040 COMPREHENSIVE METABOLIC PANE Al 02-28-2024 Albumin [Mass/Vol] 3.3 g/dL Normal 3.2-5.3 [facility] Comment on above: Performed By: #### C ANA CABALLERO, 98316-5 ####[facility] ([id number])[address] [place] [address] 45249 ALP [Catalytic activity/Vol] 90 U/L Normal 39-130 [facility] Comment on above: Performed By: #### C ANA CABALLERO, 81220-5 ####[facility] ([id number])[address] [place] [address] 72314 ALT [Catalytic activity/Vol] 13 U/L Normal 0-40 [facility] Comment on above: Performed By: #### C ANA CABALLERO, 85811-3 ####[facility] ([id number])[address] [place] [address] 71676 Anion gap [Moles/Vol] 12 mmol/L Normal 5-15 [facility] Comment on above: Performed By: #### C ANA CABALLERO, 67441-9 ####[facility] ([id number])[address] [place] [address] 49554 AST [Catalytic activity/Vol] 10 U/L Normal 0-41 [facility] Comment on above: Performed By: #### C ANA CABALLERO, ####[facility] ([id number])[address] [place] [address] 44808 Bilirubin [Mass/Vol] 1.2 mg/dL Normal 0.3-1.2 [facility] Comment on above: Performed By: #### C ANA CABALLERO, ####[facility] ([id number])[address] [place] [address] 93482 Calcium [Mass/Vol] 9.6 mg/dL Normal 8.5-10.5 [facility] Comment on above: Performed By: #### C ANA CABALLERO, ####[facility] ([id number])[address] [place] [address] 68048 Chloride [Moles/Vol] 105 mmol/L Normal 98-109 [facility] Comment on above: Performed By: #### C ANA CABALLERO, ####[facility] ([id number])[address] [place] [address] 05040 CO2 [Moles/Vol] 19 mmol/L Low 22-32 [facility] Comment on above: Performed By: #### C ANA CABALLERO, ####[facility] ([id number])[address] [place] [address] 42717 Creatinine [Mass/Vol] 1.02 mg/dL Normal 0.70-1.20 [facility] Comment on above: Result Comment: METH OD TRACEABLE TO IDMS STANDARD Performed By: #### C ANA CABALLERO, ####[facility] ([id number])[address] [place] [address] 19121 eGFR (CKD-EPI) NON-RACE DEPENDENT >90 Normal >59 [facility] Comment on above: Result Comment: Reported eGFR is based on the CKD-EPI 2020 equation that does not use a race coefficient. Performed By: #### C ANA CABALLERO, ####[facility] ([id number])[address] [place] [address] 20378 Glucose [Mass/Vol] 215 mg/dL High 65-99 [facility] Comment on above: Performed By: #### C ANA CABALLERO, ####[facility] ([id number])[address] [place] [address] 48898 Potassium [Moles/Vol] 2.8 mmol/L Low 3.5-5.0 [facility] Comment on above: Performed By: #### C ANA CABALLERO, ####[facility] ([id number])[address] [place] [address] 45963 Protein [Mass/Vol] 6.5 g/dL Normal 6.0-8.0 [facility] Comment on above: Performed By: #### C ANA CABALLERO, ####[facility] ([id number])[address] [place] [address] 66796 Sodium [Moles/Vol] 136 mmol/L Normal 134-146 [facility] Comment on above: Performed By: #### C ANA CABALLERO, ####[facility] ([id number])[address] [place] [address] [place] [address] Urea nitrogen [Mass/Vol] mg/dL Low 5-23 [facility] Comment on above: Performed By: #### C ANA CABALLERO, ####[facility] ([id number])[address] [place] [address] 90410 MAGNESIUMon 02-28-2024 Magnesium [Mass/Vol] 1.7 mg/dL Low 1.8-2.6 [facility] Comment on above: Performed By: #### C MP, CBCA, ####[facility] ([id number])[address] [place] [address] 52717 POTASSIUMon 02-28-2024 Potassium [Moles/Vol] 3.5 mmol/L Normal 3.5-5.0 [facility] Comment on above: Performed By: #### 2 823-3 ####[facility] ([id number])[address] [place] [address] 47892 Beta hydroxybutyrate [Moles/ Vol]on 02-27-2024 BetaHydroxybutyrate 3.23 mmol/L High 0.02-0.27 [facility] Comment on above: Performed By: #### D SALAS #### [facility] ([id number]) [address] [place] [address] 36194 BetaHydroxybutyrate 2.63 mmol/L High 0.02-0.27 [facility] Comment on above: Performed By: #### V BG #### [facility] ([id number]) [address] [place] [address] 84718 CBC AND AUTO DIFFon 02-27-20 24 ABSOLUTE BASOPHIL 0.0 X10E9/L Normal 0.0-0.2 [facility] Comment on above: Performed By: #### V BG #### [facility] ([id number]) [address] [place] [address] 07294 ABSOLUTE NEUTROPHIL 3.2 X10E9/L Normal 1.5-6.6 [facility] Comment on above: Performed By: #### V BG #### [facility] ([id number]) [address] [place] [address] 85247 Basophils/100 WBC (Bld) 0.9 % Normal [facility] Comment on above: Performed By: #### V BG #### [facility] ([id number]) [address] [place] [address] 17493 Eosinophils (Bld) [#/Vol] 0.1 10*3/uL Normal 0.0-0.4 [facility] Comment on above: Performed By: #### V BG #### [facility] ([id number]) [address] [place] [address] 35440 Eosinophils/100 WBC (Bld) 2.2 % Normal [facility] Comment on above: Performed By: #### V BG #### [facility] ([id number]) [address] [place] [address] 40878 Erythrocyte distribution width (RBC) [Ratio] 14.8 % Normal 11.5-15.0 [facility] Comment on above: Performed By: #### V BG #### [facility] ([id number]) [address] [place] [address] 81493 Hematocrit (Bld) [Volume fraction] 44.8 % Normal 39-49 [facility] Comment on above: Performed By: #### V BG #### [facility] ([id number]) [address] [place] [address] 86146 Hemoglobin (Bld) [Mass/Vol] 15.2 g/dL Normal 13.0-17.0 [facility] Comment on above: Performed By: #### V BG #### [facility] ([id number]) [address] [place] [address] 33689 Lymphocytes (Bld) [#/Vol] 1.4 10*3/uL Normal 1.0-3.5 [facility] Comment on above: Performed By: #### V BG #### [facility] ([id number]) [address] [place] [address] 02586 Lymphocytes/100 WBC (Bld) 26.5 % Normal [facility] Comment on above: Performed By: #### V BG #### [facility] ([id number]) [address] [place] [address] 75294 MCH (RBC) [Entitic mass] 29.9 pg Normal 27-34 [facility] Comment on above: Performed By: #### V BG #### [facility] ([id number]) [address] [place] [address] 82877 MCHC (RBC) [Mass/Vol] 34.0 g/dL Normal 32-36 [facility] Comment on above: Performed By: #### V BG #### [facility] ([id number]) [address] [place] [address] 13407 MCV (RBC) [Entitic vol] 88 fL Normal 80-100 [facility] Comment on above: Performed By: #### V BG #### [facility] ([id number]) [address] [place] [address] 29030 Monocytes (Bld) [#/Vol] 0.5 10*3/uL Normal 0-0.9 [facility] Comment on above: Performed By: #### V BG #### [facility] ([id number]) [address] [place] [address] 00989 Monocytes/100 WBC (Bld) 9.4 % Normal [facility] Comment on above: Performed By: #### V BG #### [facility] ([id number]) [address] [place] [address] 85963 Neutrophils/100 WBC (Bld) 61.0 % Normal [facility] Comment on above: Performed By: #### V BG #### [facility] ([id number]) [address] [place] [address] 51450 Platelet mean volume (Bld) [Entitic vol] 10.1 fL Normal 7-12 [facility] Comment on above: Performed By: #### V BG #### [facility] ([id number]) [address] [place] [address] 62608 Platelets (Bld) [#/Vol] 187 10*3/uL Normal 150-450 [facility] Comment on above: Performed By: #### V BG #### [facility] ([id number]) [address] [place] [address] 37373 RBC COUNT 5.08 X10E12/L Normal 4.10-5.70 [facility] Comment on above: Performed By: #### V BG #### [facility] ([id number]) [address] [place] [address] 06219 WBC (Bld) [#/Vol] 5.3 10*3/uL Normal 4.0-11.0 [facility] Comment on above: Performed By: #### V BG #### [facility] ([id number]) [address] [place] [address] 50268 COMPREHENSIVE METABOLIC PANE Al 02-27-2024 Albumin [Mass/Vol] 3.3 g/dL Normal 3.2-5.3 [facility] Comment on above: Performed By: #### V BG #### [facility] ([id number]) [address] [place] [address] 69402 ALP [Catalytic activity/Vol] 92 U/L Normal 39-130 [facility] Comment on above: Performed By: #### V BG #### [facility] ([id number]) [address] [place] [address] 88844 ALT [Catalytic activity/Vol] 13 U/L Normal 0-40 [facility] Comment on above: Performed By: #### V BG #### [facility] ([id number]) [address] [place] [address] 92538 Anion gap [Moles/Vol] 7 mmol/L Normal 5-15 [facility] Comment on above: Performed By: #### V BG #### [facility] ([id number]) [address] [place] [address] 78316 AST [Catalytic activity/Vol] 12 U/L Normal 0-41 [facility] Comment on above: Performed By: #### V BG #### [facility] ([id number]) [address] [place] [address] 75682 Bilirubin [Mass/Vol] 1.1 mg/dL Normal 0.3-1.2 [facility] Comment on above: Performed By: #### V BG #### [facility] ([id number]) [address] [place] [address] 69734 Calcium [Mass/Vol] 9.3 mg/dL Normal 8.5-10.5 [facility] Comment on above: Performed By: #### V BG #### [facility] ([id number]) [address] [place] [address] 09863 Chloride [Moles/Vol] 114 mmol/L High 98-109 [facility] Comment on above: Performed By: #### V BG #### [facility] ([id number]) [address] [place] [address] 12896 CO2 [Moles/Vol] 17 mmol/L Low 22-32 [facility] Comment on above: Performed By: #### V BG #### [facility] ([id number]) [address] [place] [address] 50708 Creatinine [Mass/Vol] 1.03 mg/dL Normal 0.70-1.20 [facility] Comment on above: Result Comment: METH OD TRACEABLE TO IDMS STANDARD Performed By: #### V BG #### [facility] ([id number]) [address] [place] [address] 98662 eGFR (CKD-EPI) NON-RACE DEPENDENT >90 Normal >59 [facility] Comment on above: Result Comment: Reported eGFR is based on the CKD-EPI 2020 equation that does not use a race coefficient. Performed By: #### V BG #### [facility] ([id number]) [address] [place] [address] 83615 Glucose [Mass/Vol] 121 mg/dL High 65-99 [facility] Comment on above: Performed By: #### V BG #### [facility] ([id number]) [address] [place] [address] 30409 Potassium [Moles/Vol] 3.4 mmol/L Low 3.5-5.0 [facility] Comment on above: Performed By: #### V BG #### [facility] ([id number]) [address] [place] [address] 16069 Protein [Mass/Vol] 6.9 g/dL Normal 6.0-8.0 [facility] Comment on above: Performed By: #### V BG #### [facility] ([id number]) [address] [place] [address] 68334 Sodium [Moles/Vol] 138 mmol/L Normal 134-146 [facility] Comment on above: Performed By: #### V BG #### [facility] ([id number]) [address] [place] [address] 09142 Urea nitrogen [Mass/Vol] 6 mg/dL Normal 5-23 [facility] Comment on above: Performed By: #### V BG #### [facility] ([id number]) [address] [place] [address] 96311 ELECTROLYTESon 02-27-2024 Anion gap [Moles/Vol] 12 mmol/L Normal 5-15 [facility] Comment on above: Performed By: #### D SALAS #### [facility] ([id number]) [address] [place] [address] 66109 Chloride [Moles/Vol] 105 mmol/L Normal 98-109 [facility] Comment on above: Performed By: #### D SALAS #### [facility] ([id number]) [address] [place] [address], [place] [address] CO2 [Moles/Vol] 18 mmol/L Low 22-32 [facility] Comment on above: Performed By: #### D SALAS #### [facility] ([id number]) [address] [place] [address], [place] [address] Potassium [Moles/Vol] 3.5 mmol/L Normal 3.5-5.0 [facility] Comment on above: Performed By: #### D SALAS #### [facility] ([id number]) [address] [place] [address], [place] [address] Sodium [Moles/Vol] 135 mmol/L Normal 134-146 [facility] Comment on above: Performed By: #### D SALAS #### [facility] ([id number]) [address] [place] [address], [place] [address] Anion gap [Moles/Vol] 6 mmol/L Normal 5-15 [facility] Comment on above: Performed By: #### D SALAS #### [facility] ([id number]) [address] [place] [address], [place] [address] Chloride [Moles/Vol] 114 mmol/L High 98-109 [facility] Comment on above: Performed By: #### D SALAS #### [facility] ([id number]) [address] [place] [address], [place] [address] CO2 [Moles/Vol] 20 mmol/L Low 22-32 [facility] Comment on above: Performed By: #### D SALAS #### [facility] ([id number]) [address] [place] [address], [place] [address] Potassium [Moles/Vol] 3.7 mmol/L Normal 3.5-5.0 [facility] Comment on above: Performed By: #### D SALAS #### [facility] ([id number]) [address] [place] [address] 31035 Sodium [Moles/Vol] 140 mmol/L Normal 134-146 [facility] Comment on above: Performed By: #### D SALAS #### [facility] ([id number]) [address] [place] [address] 47051 Anion gap [Moles/Vol] 8 mmol/L Normal 5-15 [facility] Comment on above: Performed By: #### V BG #### [facility] ([id number]) [address] [place] [address] 74405 Chloride [Moles/Vol] 115 mmol/L High 98-109 [facility] Comment on above: Performed By: #### V BG #### [facility] ([id number]) [address] [place] [address] [place] [address] CO2 [Moles/Vol] 16 mmol/L Low 22-32 [facility] Comment on above: Performed By: #### V BG #### [facility] ([id number]) [address] [place] [address] [place] [address] Potassium [Moles/Vol] 3.8 mmol/L Normal 3.5-5.0 [facility] Comment on above: Performed By: #### V BG #### [facility] ([id number]) [address] [place] [address] [place] [address] Sodium [Moles/Vol] 139 mmol/L Normal 134-146 [facility] Comment on above: Performed By: #### V BG #### [facility] ([id number]) [address] [place] [address] 65271 Anion gap [Moles/Vol] 9 mmol/L Normal 5-15 [facility] Comment on above: Performed By: #### N UM #### [facility] ([id number]) [address] [place] [address] 92975 Chloride [Moles/Vol] 114 mmol/L High 98-109 [facility] Comment on above: Performed By: #### N UM #### [facility] ([id number]) [address] [place] [address] 15799 CO2 [Moles/Vol] 16 mmol/L Low 22-32 [facility] Comment on above: Performed By: #### N UM #### [facility] ([id number]) [address] [place] [address] 36385 Potassium [Moles/Vol] 3.8 mmol/L Normal 3.5-5.0 [facility] Comment on above: Performed By: #### N UM #### [facility] ([id number]) [address] [place] [address] 80742 Performed By: #### B MP, CBCA, 6873-4, 5643-2, 73562-5 #### [facility] ([id number]) [address] [place] [address] 24307 Sodium [Moles/Vol] 139 mmol/L Normal 134-146 [facility] Comment on above: Performed By: #### N UM #### [facility] ([id number]) [address] [place] [address] 96159 Glucose Glucometer (dC) [M ass/Vol]on 02-27-2024 Glucose [Mass/Vol] 219 mg/dL High 65-99 [facility] Glucose [Mass/Vol] 223 mg/dL High 65-99 [facility] Glucose [Mass/Vol] 163 mg/dL High 65-99 [facility] Glucose [Mass/Vol] 145 mg/dL High 65-99 [facility] Glucose [Mass/Vol] 155 mg/dL High 65-99 [facility] Glucose [Mass/Vol] 147 mg/dL High 65-99 [facility] Glucose [Mass/Vol] 164 mg/dL High 65-99 [facility] Glucose [Mass/Vol] 141 mg/dL High 65-99 [facility] Glucose [Mass/Vol] 107 mg/dL High 65-99 [facility] Glucose [Mass/Vol] 106 mg/dL High 65-99 [facility] Glucose [Mass/Vol] 151 mg/dL High 65-99 [facility] Glucose [Mass/Vol] 167 mg/dL High 65-99 [facility] Glucose [Mass/Vol] 163 mg/dL High 65-99 [facility] Glucose [Mass/Vol] 150 mg/dL High 65-99 [facility] MAGNESIUMon 02-27-2024 Magnesium [Mass/Vol] 2.3 mg/dL Normal 1.8-2.6 [facility] Comment on above: Performed By: #### D SALAS #### [facility] ([id number]) [address] [place] [address] 92030 Magnesium [Mass/Vol] 1.6 mg/dL Low 1.8-2.6 [facility] Comment on above: Performed By: #### V BG #### [facility] ([id number]) [address] [place] [address] 71804 Beta hydroxybutyrate [Moles/ Vol]on 02-26-2024 BetaHydroxybutyrate 4.16 mmol/L High 0.02-0.27 [facility] Comment on above: Performed By: #### N UM #### [facility] ([id number]) [address] [place] [address] 00693 BetaHydroxybutyrate 10.51 mmol/L High 0.02-0.27 [facility] Comment on above: Performed By: #### B MP, CBCA, 6873-4, 5643-2, 65822-3 #### [facility] ([id number]) [address] [place] [address] 87566 C REACTIVE PROTEINon 024 CRP [Mass/Vol] mg/L Normal 0.000-0.744 [facility] Comment on above: Performed By: #### B MP, CBCA, 6873-4, 5643-2, 69079-8 #### [facility] ([id number]) [address] [place] [address] 50846 CBC AND AUTO DIFFon 02-26-20 24 ABSOLUTE BASOPHIL 0.0 X10E9/L Normal 0.0-0.2 [facility] Comment on above: Performed By: #### B MP, CBCA, 6873-4, 5643-2, #### [facility] ([id number]) [address] [place] [address] 82524 ABSOLUTE NEUTROPHIL 5.7 X10E9/L Normal 1.5-6.6 [facility] Comment on above: Performed By: #### B MP, CBCA, 6873-4, 5643-2, #### [facility] ([id number]) [address] [place] [address] 98421 Basophils/100 WBC (Bld) 0.5 % Normal [facility] Comment on above: Performed By: #### B MP, CBCA, 6873-4, 5643-2, #### [facility] ([id number]) [address] [place] [address] 61053 Eosinophils (Bld) [#/Vol] 0.1 10*3/uL Normal 0.0-0.4 [facility] Comment on above: Performed By: #### B MP, CBCA, 6873-4, 5643-2, 41348-3 #### [facility] ([id number]) [address] [place] [address] 22104 Eosinophils/100 WBC (Bld) 0.8 % Normal [facility] Comment on above: Performed By: #### B MP, CBCA, 6873-4, 5643-2, 56865-7 #### [facility] ([id number]) [address] [place] [address] 80776 Erythrocyte distribution width (RBC) [Ratio] 15.1 % High 11.5-15.0 [facility] Comment on above: Performed By: #### B MP, CBCA, 6873-4, 5643-2, #### [facility] ([id number]) [address] [place] [address] 24454 Hematocrit (Bld) [Volume fraction] 51.9 % High 39-49 [facility] Comment on above: Performed By: #### B MP, CBCA, 6873-4, 5643-2, #### [facility] ([id number]) [address] [place] [address] 81119 Hemoglobin (Bld) [Mass/Vol] 17.5 g/dL High 13.0-17.0 [facility] Comment on above: Performed By: #### B ADA, CBCA, 6873-4, 5643-, 60120-8 #### [facility] ([id number]) [address] [place] [address] 38537 Lymphocytes (Bld) [#/Vol] 1.2 10*3/uL Normal 1.0-3.5 [facility] Comment on above: Performed By: #### B MP, CBCA, 6873-4, 5643-2, 73999-8 #### [facility] ([id number]) [address] [place] [address] 34981 Lymphocytes/100 WBC (Bld) 16.1 % Normal [facility] Comment on above: Performed By: #### B MP, CBCA, 6873-4, 5643-2, 46139-5 #### [facility] ([id number]) [address] [place] [address] 86984 MCH (RBC) [Entitic mass] 30.5 pg Normal 27-34 [facility] Comment on above: Performed By: #### B ADA, CBCA, 73-4, 43-2, #### [facility] ([id number]) [address] [place] [address] 77610 MCHC (RBC) [Mass/Vol] 33.8 g/dL Normal 32-36 [facility] Comment on above: Performed By: #### B ADA, CBCA, 73-4, 43-2, #### [facility] ([id number]) [address] [place] [address] 06032 MCV (RBC) [Entitic vol] 90 fL Normal 80-100 [facility] Comment on above: Performed By: #### B ADA, CBCA, 6872-, 5642-, #### [facility] ([id number]) [address] [place] [address] 18491 Monocytes (Bld) [#/Vol] 0.6 10*3/uL Normal 0-0.9 [facility] Comment on above: Performed By: #### B ADA, CBCA, 73-, 5642-, #### [facility] ([id number]) [address] [place] [address] 28000 Monocytes/100 WBC (Bld) 8.2 % Normal [facility] Comment on above: Performed By: #### B ADA, CBCA, 73-4, 5642-, 58161-4 #### [facility] ([id number]) [address] [place] [address] 64081 Neutrophils/100 WBC (Bld) 74.4 % Normal [facility] Comment on above: Performed By: #### B ADA, CBCA, 6873-4, 5643-2, 52901-4 #### [facility] ([id number]) [address] [place] [address] 00404 Platelet mean volume (Bld) [Entitic vol] 9.3 fL Normal 7-12 [facility] Comment on above: Performed By: #### B MP, CBCA, 6873-4, 5643-2, 85301-2 #### [facility] ([id number]) [address] [place] [address] 27275 Platelets (Bld) [#/Vol] 219 10*3/uL Normal 150-450 [facility] Comment on above: Performed By: #### B MP, CBCA, 6873-4, 5643-2, #### [facility] ([id number]) [address] [place] [address] 83969 RBC COUNT 5.76 X10E12/L High 4.10-5.70 [facility] Comment on above: Performed By: #### B MP, CBCA, 6873-4, 5643-2, 21802-7 #### [facility] ([id number]) [address] [place] [address] 03196 WBC (Bld) [#/Vol] 7.7 10*3/uL Normal 4.0-11.0 [facility] Comment on above: Performed By: #### B MP, CBCA, 6873-4, 5643-2, 25690-4 #### [facility] ([id number]) [address] [place] [address] 58809 COMPREHENSIVE METABOLIC PANE Al 02-26-2024 Albumin [Mass/Vol] 4.3 g/dL Normal 3.2-5.3 [facility] Comment on above: Performed By: #### B MP, CBCA, 6873-4, 5643-2, 22101-8 #### [facility] ([id number]) [address] [place] [address] 70021 ALP [Catalytic activity/Vol] 126 U/L Normal 39-130 [facility] Comment on above: Performed By: #### B ADA, ANA, 6873-4, 5643-2, 35893-5 #### [facility] ([id number]) [address] [place] [address] 94388 ALT [Catalytic activity/Vol] 17 U/L Normal 0-40 [facility] Comment on above: Performed By: #### B ADA, CBCTerry, 6873-4, 5643-2, 81918-3 #### [facility] ([id number]) [address] [place] [address] 47250 Anion gap [Moles/Vol] 18 mmol/L High 5-15 [facility] Comment on above: Performed By: #### B ADA, CBCTerry, 6873-4, 5643-2, 00894-5 #### [facility] ([id number]) [address] [place] [address] 21708 AST [Catalytic activity/Vol] 10 U/L Normal 0-41 [facility] Comment on above: Performed By: #### B ADA, CBCA, 6873-4, 5643-2, 42247-5 #### [facility] ([id number]) [address] [place] [address] 18009 Bilirubin [Mass/Vol] 1.2 mg/dL Normal 0.3-1.2 [facility] Comment on above: Performed By: #### B ADA, CBCTerry, 6873-4, 5643-2, 20624-5 #### [facility] ([id number]) [address] [place] [address] 63199 Calcium [Mass/Vol] 10.1 mg/dL Normal 8.5-10.5 [facility] Comment on above: Performed By: #### B ADA, CBCA, 6873-4, 5643-2, 13548-3 #### [facility] ([id number]) [address] [place] [address] 14973 Chloride [Moles/Vol] 103 mmol/L Normal 98-109 [facility] Comment on above: Performed By: #### B ANA CABALLERO, 6873-4, 5643-2, 28753-1 #### [facility] ([id number]) [address] [place] [address] 56568 CO2 [Moles/Vol] 12 mmol/L Low 22-32 [facility] Comment on above: Performed By: #### B ANA CABALLERO, 6873-4, 56-2, 71517-6 #### [facility] ([id number]) [address] [place] [address] 53662 Creatinine [Mass/Vol] 1.45 mg/dL High 0.70-1.20 [facility] Comment on above: Result Comment: METH OD TRACEABLE TO IDMS STANDARD Performed By: #### B ANA CABALLERO, 6873-4, 5643-2, 39378-2 #### [facility] ([id number]) [address] [place] [address] 50398 GFR/1.73 sq M.predicted among non-blacks MDRD (S/P/Bld) [Vol rate/Area] 71 mL/min/{1.73_m2} Normal >59 [facility] Comment on above: Result Comment: Reported eGFR is based on the CKD-EPI 2020 equation that does not use a race coefficient. Performed By: #### B ANA CABALLERO, 6873-4, 5643-2, 51399-7 #### [facility] ([id number]) [address] [place] [address] 28533 Glucose [Mass/Vol] 256 mg/dL High 65-99 [facility] Comment on above: Performed By: #### B ADA, ANA, 6873-4, 5643-2, 29460-4 #### [facility] ([id number]) [address] [place] [address] 13072 Potassium [Moles/Vol] 4.1 mmol/L Normal 3.5-5.0 [facility] Comment on above: Performed By: #### B ADA, CBCA, 6873-4, 5643-2, 19990-4 #### [facility] ([id number]) [address] [place] [address] [place] [address] Protein [Mass/Vol] 8.6 g/dL High 6.0-8.0 [facility] Comment on above: Performed By: #### B ADA, CBCA, 6873-4, 56-2, 44361-1 #### [facility] ([id number]) [address] [place] [address] 50084 Sodium [Moles/Vol] 133 mmol/L Low 134-146 [facility] Comment on above: Performed By: #### B ADA, CBCA, 6873-4, 5643-2, 74874-7 #### [facility] ([id number]) [address] [place] [address] 82645 Urea nitrogen [Mass/Vol] 8 mg/dL Normal 5-23 [facility] Comment on above: Performed By: #### B ADA, CBCA, 6873-4, 5643-2, 41209-1 #### [facility] ([id number]) [address] [place] [address], [place] [address] ELECTROLYTESon 02-26-2024 Anion gap [Moles/Vol] 8 mmol/L Normal 5-15 [facility] Comment on above: Performed By: #### N UM #### [facility] ([id number]) [address] [place] [address] 32534 Chloride [Moles/Vol] 115 mmol/L High 98-109 [facility] Comment on above: Performed By: #### N UM #### [facility] ([id number]) [address] [place] [address] 36845 CO2 [Moles/Vol] 16 mmol/L Low 22-32 [facility] Comment on above: Performed By: #### N UM #### [facility] ([id number]) [address] [place] [address] 04391 Potassium [Moles/Vol] 3.6 mmol/L Normal 3.5-5.0 [facility] Comment on above: Performed By: #### N UM #### [facility] ([id number]) [address] [place] [address] 19533 Sodium [Moles/Vol] 139 mmol/L Normal 134-146 [facility] Comment on above: Performed By: #### N UM #### [facility] ([id number]) [address] [place] [address] [place] [address] Anion gap [Moles/Vol] 12 mmol/L Normal 5-15 [facility] Comment on above: Performed By: #### B ANA CABALLERO, 6873-4, 5643-2, 66394-1 #### [facility] ([id number]) [address] [place] [address] 53855 Chloride [Moles/Vol] 113 mmol/L High 98-109 [facility] Comment on above: Performed By: #### B ADA CBCA, 6873-4, 5643-2, 11945-9 #### [facility] ([id number]) [address] [place] [address] 07608 CO2 [Moles/Vol] 14 mmol/L Low 22-32 [facility] Comment on above: Performed By: #### B MISSY CABALLEROA, 6873-4, 5643-2, 74978-5 #### [facility] ([id number]) [address] [place] [address] [place] [address] Potassium [Moles/Vol] 3.6 mmol/L Normal 3.5-5.0 [facility] Comment on above: Performed By: #### B ADA, ANA, 6873-4, 5643-2, #### [facility] ([id number]) [address] [place] [address] 18845 Sodium [Moles/Vol] 139 mmol/L Normal 134-146 [facility] Comment on above: Performed By: #### B ADA, CBCA, 6873-4, 5643-2, #### [facility] ([id number]) [address] [place] [address] Anion gap [Moles/Vol] 13 mmol/L Normal 5-15 [facility] Comment on above: Performed By: #### B ADA, CBCTerry, 6873-4, 5643-2, #### [facility] ([id number]) [address] [place] [address] 22547 Chloride [Moles/Vol] 109 mmol/L Normal 98-109 [facility] Comment on above: Performed By: #### B ADA, CBCA, 6873-4, 5643-2, #### [facility] ([id number]) [address] [place] [address] 60352 CO2 [Moles/Vol] 15 mmol/L Low 22-32 [facility] Comment on above: Performed By: #### B ADA, CBCA, 6873-4, 5643-2, #### [facility] ([id number]) [address] [place] [address] 21216 Sodium [Moles/Vol] 137 mmol/L Normal 134-146 [facility] Comment on above: Performed By: #### B ADA, CBCA, 6873-4, 5643-2, #### [facility] ([id number]) [address] [place] [address], [place] [address] Anion gap [Moles/Vol] 18 mmol/L High 5-15 [facility] Comment on above: Performed By: #### B ADA, ANA, 6873-4, 5643-2, 58616-5 #### [facility] ([id number]) [address] [place] [address], [place] [address] Chloride [Moles/Vol] 106 mmol/L Normal 98-109 [facility] Comment on above: Performed By: #### B ANA CABALLERO, 6873-4, 5643-2, 13751-5 #### [facility] ([id number]) [address] [place] [address], [place] [address] CO2 [Moles/Vol] 11 mmol/L Low 22-32 [facility] Comment on above: Performed By: #### B ANA CABALLERO, 6873-4, 5643-2, 59304-1 #### [facility] ([id number]) [address] [place] [address], [place] [address] Potassium [Moles/Vol] 3.8 mmol/L Normal 3.5-5.0 [facility] Comment on above: Performed By: #### B ANA CABALLERO, 6873-4, 5643-2, 74209-2 #### [facility] ([id number]) [address] [place] [address], [place] [address] Sodium [Moles/Vol] 135 mmol/L Normal 134-146 [facility] Comment on above: Performed By: #### B ANA CABALLERO, 6873-4, 5643-2, 03495-4 #### [facility] ([id number]) [address] [place] [address], [place] [address] Anion gap [Moles/Vol] 17 mmol/L High 5-15 [facility] Comment on above: Performed By: #### B MP, CBCTerry, 6873-4, 5643-2, 42288-3 #### [facility] ([id number]) [address] [place] [address] 29048 Chloride [Moles/Vol] 106 mmol/L Normal 98-109 [facility] Comment on above: Performed By: #### B ADA, ANA, 6873-4, 5643-2, 47089-0 #### [facility] ([id number]) [address] [place] [address] 85115 CO2 [Moles/Vol] 11 mmol/L Low 22-32 [facility] Comment on above: Performed By: #### B ANA CABALLERO, 6873-4, 5643-2, 32324-8 #### [facility] ([id number]) [address] [place] [address] 70411 Potassium [Moles/Vol] 3.8 mmol/L Normal 3.5-5.0 [facility] Comment on above: Performed By: #### B ANA CABALLERO, 6873-4, 5643-2, 79748-9 #### [facility] ([id number]) [address] [place] [address] 72481 Sodium [Moles/Vol] 134 mmol/L Normal 134-146 [facility] Comment on above: Performed By: #### B ADA CBCTerry, 6873-4, 5643-2, 23129-7 #### [facility] ([id number]) [address] [place] [address] 27944 Glucose Glucometer (dC) [M ass/Vol]on 02-26-2024 Glucose [Mass/Vol] 122 mg/dL High 65-99 [facility] Glucose [Mass/Vol] 104 mg/dL High 65-99 [facility] Glucose [Mass/Vol] 141 mg/dL High 65-99 [facility] Glucose [Mass/Vol] 142 mg/dL High 65-99 [facility] Glucose [Mass/Vol] 188 mg/dL High 65-99 [facility] Glucose [Mass/Vol] 194 mg/dL High 65-99 [facility] Glucose [Mass/Vol] 235 mg/dL High 65-99 [facility] Glucose [Mass/Vol] 256 mg/dL High 65-99 [facility] Glucose [Mass/Vol] 242 mg/dL High 65-99 [facility] Glucose [Mass/Vol] 228 mg/dL High 65-99 [facility] Glucose [Mass/Vol] 202 mg/dL High 65-99 [facility] HA1C CONFIRMATION - NO JOSEG Sanchez 02-26-2024 HbA1c (Bld) [Mass fraction] 15.4 % High <=5.6 [facility] Comment on above: Result Comment: NOTE INTERPRETIVE INFORMATION: Hemoglobin A1c HbA1c values of 5.7-6.4 percent indicate an increased risk for developing diabetes mellitus. HbA1c values greater than or equal to 6.5 percent are diagnostic of diabetes mellitus. For diagnosis of diabetes in individuals without unequivocal hyperglycemia, results should be confirmed by repeat testing. Performed By: #### B ADA, CBCA, 6873-4, 5643-2, 96741-0 #### [facility] ([id number]) [address] [place] [address] 07496 HGB A1C (GLYCO-HGB)on 2023 AVERAGE GLUCOSE >398 Normal [facility] Comment on above: Performed By: #### B MP, CBCA, 6873-4, 5643-2, 64775-7 #### [facility] ([id number]) [address] [place] [address] 18642 HbA1c (Bld) [Mass fraction] % High 4.4-5.6 [facility] Comment on above: Result Comment: NOTE ADA Guidelines Result HgbA1c Normal : less than 5.7 % Prediabetes : 5.7 % to 6.4 % Diabetes : > 6.4 % Use with caution in patients with abnormal hemoglobin variants as the half-life of red blood cells and in vivo glycation rates are affected. Performed By: #### B ANA CABALLERO, 6873-4, 5643-2, 43071-3 #### [facility] ([id number]) [address] [place] [address] 58278 HbA1c (Bld) [Mass fraction]o n 02-26-2024 Glucose [Mass/Vol] 395 mg/dL Normal [facility] Comment on above: Result Comment: NOTE Performed By: [facility] [address] [place] [address] Manager Package: Juan Manuel Greene MD, PhD CLIA Number: [id number] Performed By: #### B ANA CABALLERO, 6873-4, 5643-2, 08678-3 #### [facility] ([id number]) [address] [place] [address] 12605 Lactate (P meredith) [Moles/Vol]o n 02-26-2024 LACTATE W/REFLEX 0.9 mmol/L Normal 0.4-2.0 [facility] Comment on above: Result Comment: Result did not trigger repeat Lactate, re-order if needed. Performed By: #### B ANA CABALLERO, 6873-4, 5643-2, 16361-9 #### [facility] ([id number]) [address] [place] [address] 10224 MAGNESIUMon 02-26-2024 Magnesium [Mass/Vol] 2.0 mg/dL Normal 1.8-2.6 [facility] Comment on above: Performed By: #### B ANA CABALLERO, 6873-4, 5643-2, 00797-0 #### [facility] ([id number]) [address] [place] [address] 76050 PHOSPHORUSon 02-26-2024 Phosphate [Mass/Vol] 2.7 mg/dL Normal 2.4-4.9 [facility] Comment on above: Performed By: #### B MP, CBCA, 6873-4, 5643-2, 58201-1 #### [facility] ([id number]) [address] [facility] [place] [address] SARS/FLU A+B/RSV by NAAT/Mol ecularon 02-26-2024 SARS/FLU A+B/RSV by NAAT/Molecular FLU A PCR Negative (qualifier value) FLU B PCR Negative (qualifier value) RSV by PCR Negative (qualifier value) SARS CoV 2 Not detected (qualifier value) NOTE The Xpert Xpress SARS-CoV-2/Flu/RSV Plus test is a rapid, multiplexed real-time RT-PCR test intended for the simultaneous qualitative detection and differentiation of SARS-CoV-2, influenza A, influenza B and respiratory syncytial virus (RSV) viral RNA from individuals suspected of respiratory viral infection consistent with COVID-19 by their healthcare provider. This test has not been validated in asymptomatic patients. The Xpert Xpress SARS-CoV-2 test is intended for use by qualified and trained operators who are performing tests using either [employer] or [employer] systems and is limited to laboratories that meet the CLIA requirements to perform high and moderate complexity tests. The Xpert Xpress SARS-CoV-2/Flu/RSV Plus is only for use under the Food and Drug Administration's Emergency Use Authorization. Results are for the simultaneous detection and differentiation of SARS-CoV-2, influenza A, influenza B and RSV nucleic acids in clinical specimens. SARS-CoV-2, influenza A, influenza B and RSV RNA identified by this test are generally detectable in upper respiratory samples during the acute phase of infection. Positive results are indicative of the presence of the identified virus, but do not rule out bacterial infection or co-infection with other pathogens not detected by this test. Clinical correlation with patient history and other diagnostic information is necessary to determine patient infection status. The agent detected may not be the definite cause of disease. Negative results do not preclude SARS-CoV-2, influenza A, influenza B and RSV infection and should not be used as the sole basis for treatment or other patient management decisions. Negative results must be combined with clinical observations, patient history and epidemiological information. An Invalid result may occur with specimen-associated inhibition unable to be resolved with specimen repeat. Fact Sheet for Healthcare Providers: https://www.fda.gov /media/305831/downl oad Fact Sheet for Patients: https://www.fda.gov /media/521714/downl oad Normal [facility] Comment on above: Performed By: #### B ANA CABALLERO, 6873-4, 5643-2, 57445-2 #### [facility] ([id number]) [address] [place] [address] 58806 VENOUS BLOOD GASon 4 LINDASY'S TEST Normal [facility] Comment on above: Performed By: #### B ANA CABALLERO, 6873-4, 5643-2, #### [facility] ([id number]) [address] [place] [address] 44288 BASE,DEFICIT 16.0 MMOL/L High 0.0-2.0 [facility] Comment on above: Performed By: #### B ANA CABALLERO, 6873-4, 5643-2, #### [facility] ([id number]) [address] [place] [address] 61920 Body temperature 98.6 [degF] Normal 37.0 [facility] Comment on above: Performed By: #### B ANA CABALLERO, 6873-4, 5643-2, 54620-6 #### [facility] ([id number]) [address] [place] [address] 42844 HCO3 (Bld) [Moles/Vol] 10.9 mmol/L Low 20.0-24.0 [facility] Comment on above: Performed By: #### B ANA CABALLERO, 6873-4, 5643-2, 23000-8 #### [facility] ([id number]) [address] [place] [address] 02406 INSP. O2 CONC. 21 % Normal [facility] Comment on above: Performed By: #### B ADA, CBCA, 6873-4, 5643-2, 01571-7 #### [facility] ([id number]) [address] [place] [address], [place] [address] Oxygen saturation in Blood 57.0 % Low >80.0 [facility] Comment on above: Performed By: #### B ADA, CBCA, 6873-4, 5643-2, #### [facility] ([id number]) [address] [place] [address] [place] [address] [facility] Comment on above: Performed By: #### B ADA, CBCA, 6873-4, 5643-2, #### [facility] ([id number]) [address] [place] [address] [place] [address] PCO2, VENOUS 28.9 MMHG Low 35-50 [facility] Comment on above: Performed By: #### B ADA, CBCA, 6873-4, 5643-2, #### [facility] ([id number]) [address] [place] [address], [place] [address] PH, VENOUS 7.184 Low 7.320-7.420 [facility] Comment on above: Performed By: #### B ADA, CBCA, 6873-4, 5643-2, #### [facility] ([id number]) [address] [place] [address] [place] [address] PO2, VENOUS 36 MMHG Normal 30-50 [facility] Comment on above: Performed By: #### B ADA, CBCA, 6873-4, 5643-2, 89293-1 #### [facility] ([id number]) [address] [place] [address], [place] [address] SAMPLE SITE N/A Normal [facility] Comment on above: Performed By: #### B ADA, CBCA, 6873-4, 5643-2, 53729-1 #### [facility] ([id number]) [address] [place] [address] 60369 SAMPLE TYPE VENOUS Normal [facility] Comment on above: Performed By: #### B MP, CBCA, 6873-4, 5643-2, 65557-4 #### [facility] ([id number]) [address] [place] [address] 49113 CBC AND AUTO DIFFon 01-12-20 24 ABSOLUTE BASOPHIL 0.1 X10E9/L Normal 0.0-0.2 [facility] Comment on above: Performed By: #### B MP, CBCA, 6873-4, 5643-2, #### [facility] ([id number]) [address] [place] [address] 32011 ABSOLUTE NEUTROPHIL 4.9 X10E9/L Normal 1.5-6.6 [facility] Comment on above: Performed By: #### B MP, CBCA, 6873-4, 5643-2, 66018-1 #### [facility] ([id number]) [address] [place] [address] 31487 Basophils/100 WBC (Bld) 0.9 % Normal [facility] Comment on above: Performed By: #### B MP, CBCA, 6873-4, 5643-2, 10755-2 #### [facility] ([id number]) [address] [place] [address] 64761 Eosinophils (Bld) [#/Vol] 0.3 10*3/uL Normal 0.0-0.4 [facility] Comment on above: Performed By: #### B MP, CBCA, 6873-4, 5643-2, 93571-5 #### [facility] ([id number]) [address] [place] [address] 69790 Eosinophils/100 WBC (Bld) 3.7 % Normal [facility] Comment on above: Performed By: #### B ADA, CBCA, 6873-4, 5643-2, 04591-3 #### [facility] ([id number]) [address] [place] [address] 50986 Erythrocyte distribution width (RBC) [Ratio] 14.0 % Normal 11.5-15.0 [facility] Comment on above: Performed By: #### B MP, CBCA, 73-4, 5643-2, #### [facility] ([id number]) [address] [place] [address] 94176 Hematocrit (Bld) [Volume fraction] 43.7 % Normal 39-49 [facility] Comment on above: Performed By: #### B ADA, CBCA, 6873-4, 5642-2, #### [facility] ([id number]) [address] [place] [address] 03896 Hemoglobin (Bld) [Mass/Vol] 14.7 g/dL Normal 13.0-17.0 [facility] Comment on above: Performed By: #### B ADA, CBCA, 6873-4, 5642-, 44499-8 #### [facility] ([id number]) [address] [place] [address] 93585 Lymphocytes (Bld) [#/Vol] 2.4 10*3/uL Normal 1.0-3.5 [facility] Comment on above: Performed By: #### B MP, CBCA, 6873-4, 5643-2, 77800-2 #### [facility] ([id number]) [address] [place] [address] 37817 Lymphocytes/100 WBC (Bld) 29.1 % Normal [facility] Comment on above: Performed By: #### B ADA, CBCA, 6873-4, 5643-2, #### [facility] ([id number]) [address] [place] [address] 91277 MCH (RBC) [Entitic mass] 29.2 pg Normal 27-34 [facility] Comment on above: Performed By: #### B MP, CBCA, 6873-4, 5643-2, 35257-0 #### [facility] ([id number]) [address] [place] [address] 19821 MCHC (RBC) [Mass/Vol] 33.6 g/dL Normal 32-36 [facility] Comment on above: Performed By: #### B ADA, CBCA, 6873-4, 43-, #### [facility] ([id number]) [address] [place] [address] 35007 MCV (RBC) [Entitic vol] 87 fL Normal 80-100 [facility] Comment on above: Performed By: #### B MP, CBCA, 6873-4, 56-, #### [facility] ([id number]) [address] [place] [address] 83406 Monocytes (Bld) [#/Vol] 0.5 10*3/uL Normal 0-0.9 [facility] Comment on above: Performed By: #### B MP, CBCA, 6873-4, 5643-, #### [facility] ([id number]) [address] [place] [address] 32035 Monocytes/100 WBC (Bld) 6.3 % Normal [facility] Comment on above: Performed By: #### B MP, CBCA, 6873-4, 5643-, 77128-4 #### [facility] ([id number]) [address] [place] [address] 35095 Neutrophils/100 WBC (Bld) 60.0 % Normal [facility] Comment on above: Performed By: #### B MP, CBCA, 6873-4, 5643-2, 61170-1 #### [facility] ([id number]) [address] [place] [address] 88766 Platelet mean volume (Bld) [Entitic vol] 10.7 fL Normal 7-12 [facility] Comment on above: Performed By: #### B MP, CBCA, 6873-4, 5643-2, 50879-9 #### [facility] ([id number]) [address] [place] [address] 68296 Platelets (Bld) [#/Vol] 252 10*3/uL Normal 150-450 [facility] Comment on above: Performed By: #### B MP, CBCA, 6873-4, 5643-2, 48309-4 #### [facility] ([id number]) [address] [place] [address] 05208 RBC COUNT 5.03 X10E12/L Normal 4.10-5.70 [facility] Comment on above: Performed By: #### B MP, CBCA, 6873-4, 5643-2, 75661-4 #### [facility] ([id number]) [address] [place] [address] 18314 WBC (Bld) [#/Vol] 8.1 10*3/uL Normal 4.0-11.0 [facility] Comment on above: Performed By: #### B MP, CBCA, 6873-4, 5643-2, 03642-5 #### [facility] ([id number]) [address] [place] [address] 90733 COMPREHENSIVE METABOLIC PANE Al 01-12-2024 Albumin [Mass/Vol] 3.7 g/dL Normal 3.2-5.3 [facility] Comment on above: Performed By: #### B MP, CBCA, 6873-4, 5643-2, #### [facility] ([id number]) [address] [place] [address] 43715 ALP [Catalytic activity/Vol] 85 U/L Normal 39-130 [facility] Comment on above: Performed By: #### B ADA, CBCA, 6873-4, 5643-2, 62613-0 #### [facility] ([id number]) [address] [place] [address] 92226 ALT [Catalytic activity/Vol] 30 U/L Normal 0-40 [facility] Comment on above: Performed By: #### B ADA, CBCA, 6873-4, 5643-2, 05838-1 #### [facility] ([id number]) [address] [place] [address] 86952 Anion gap [Moles/Vol] 11 mmol/L Normal 5-15 [facility] Comment on above: Performed By: #### B ADA, CBCA, 6873-4, 5643-2, 14881-7 #### [facility] ([id number]) [address] [place] [address] 31097 AST [Catalytic activity/Vol] 16 U/L Normal 0-41 [facility] Comment on above: Performed By: #### B ADA, CBCA, 6873-4, 5643-2, 12867-8 #### [facility] ([id number]) [address] [place] [address] 81846 Bilirubin [Mass/Vol] 0.9 mg/dL Normal 0.3-1.2 [facility] Comment on above: Performed By: #### B ADA, CBCA, 6873-4, 5643-2, 44931-0 #### [facility] ([id number]) [address] [place] [address] 48306 Calcium [Mass/Vol] 9.0 mg/dL Normal 8.5-10.5 [facility] Comment on above: Performed By: #### B ANA CABALLERO, 6873-4, 5643-2, 36412-7 #### [facility] ([id number]) [address] [place] [address] 78451 Chloride [Moles/Vol] 105 mmol/L Normal 98-109 [facility] Comment on above: Performed By: #### B ADA, ANA, 6873-4, 5643-2, 21300-8 #### [facility] ([id number]) [address] [place] [address] 60180 CO2 [Moles/Vol] 20 mmol/L Low 22-32 [facility] Comment on above: Performed By: #### B ADA, ANA, 6873-4, 5643-2, 40702-3 #### [facility] ([id number]) [address] [place] [address] 23146 Creatinine [Mass/Vol] 0.88 mg/dL Normal 0.70-1.20 [facility] Comment on above: Result Comment: METH OD TRACEABLE TO IDMS STANDARD Performed By: #### B ANA CABALLERO, 6873-4, 5643-2, 05564-5 #### [facility] ([id number]) [address] [place] [address] 72472 eGFR (CKD-EPI) NON-RACE DEPENDENT >90 Normal >59 [facility] Comment on above: Result Comment: Reported eGFR is based on the CKD-EPI 2021 equation that does not use a race coefficient. Performed By: #### B ANA CABALLERO, 6873-4, 5643-2, 89859-3 #### [facility] ([id number]) [address] [place] [address] 79582 Glucose [Mass/Vol] 175 mg/dL High 65-99 [facility] Comment on above: Performed By: #### B ADA, ANA, 6873-4, 5643-2, 18849-1 #### [facility] ([id number]) [address] [place] [address] 03530 Potassium [Moles/Vol] 3.2 mmol/L Low 3.5-5.0 [facility] Comment on above: Performed By: #### B ADA, CBCA, 6873-4, 5643-2, 90054-4 #### [facility] ([id number]) [address] [place] [address] 14795 Protein [Mass/Vol] 7.2 g/dL Normal 6.0-8.0 [facility] Comment on above: Performed By: #### B ADA, CBCA, 6873-4, 5643-2, 95742-4 #### [facility] ([id number]) [address] [place] [address] 40299 Sodium [Moles/Vol] 136 mmol/L Normal 134-146 [facility] Comment on above: Performed By: #### B ADA, CBCA, 6873-4, 5643-2, 44719-0 #### [facility] ([id number]) [address] [place] [address] 30134 Urea nitrogen [Mass/Vol] 6 mg/dL Normal 5-23 [facility] Comment on above: Performed By: #### B ADA, CBCA, 6873-4, 5643-2, 50611-3 #### [facility] ([id number]) [address] [place] [address] 87135 ELECTROLYTESon 01-12-2024 Anion gap [Moles/Vol] 8 mmol/L Normal 5-15 [facility] Comment on above: Performed By: #### B ADA, CBCA, 6873-4, 5643-2, 47153-6 #### [facility] ([id number]) [address] [place] [address] 99769 Chloride [Moles/Vol] 108 mmol/L Normal 98-109 [facility] Comment on above: Performed By: #### B ADA, ANA, 6873-4, 5643-2, 48276-6 #### [facility] ([id number]) [address] [place] [address] 10346 CO2 [Moles/Vol] 22 mmol/L Normal 22-32 [facility] Comment on above: Performed By: #### B ADA, ANA, 6873-4, 5643-2, 27758-7 #### [facility] ([id number]) [address] [place] [address] 80625 Potassium [Moles/Vol] 3.6 mmol/L Normal 3.5-5.0 [facility] Comment on above: Performed By: #### B ANA CABALLERO, 6873-4, 5643-2, 37184-5 #### [facility] ([id number]) [address] [place] [address] 01010 Sodium [Moles/Vol] 138 mmol/L Normal 134-146 [facility] Comment on above: Performed By: #### B ANA CABALLERO, 6873-4, 5643-2, 19590-9 #### [facility] ([id number]) [address] [place] [address] 07909 Glucose Glucometer (BldC) [M ass/Vol]on 01-12-2024 Glucose [Mass/Vol] 151 mg/dL High 65-99 [facility] Glucose [Mass/Vol] 164 mg/dL High 65-99 [facility] MAGNESIUMon 01-12-2024 Magnesium [Mass/Vol] 1.7 mg/dL Low 1.8-2.6 [facility] Comment on above: Performed By: #### B ANA CABALLERO, 6873-4, 5643-2, 48086-1 #### [facility] ([id number]) [address] [place] [address] 63984 POTASSIUMon 01-12-2024 Potassium [Moles/Vol] 3.6 mmol/L Normal 3.5-5.0 [facility] Comment on above: Performed By: #### B ANA CABALLERO, 6873-4, 5643-2, 95362-2 #### [facility] ([id number]) [address] [place] [address] 47677 BASIC METABOLIC PANLon 01-10 Anion gap [Moles/Vol] 16 mmol/L High 5-15 [facility] Comment on above: Performed By: #### B ADA, ANA, 6873-4, 5643-2, 76322-8 #### [facility] ([id number]) [address] [place] [address] 88920 Calcium [Mass/Vol] 8.9 mg/dL Normal 8.5-10.5 [facility] Comment on above: Performed By: #### B ANA CABALLERO, 6873-4, 5643-2, #### [facility] ([id number]) [address] [place] [address] 38492 Chloride [Moles/Vol] 103 mmol/L Normal 98-109 [facility] Comment on above: Performed By: #### B ANA CABLALERO, 6873-4, 5643-2, 32173-6 #### [facility] ([id number]) [address] [place] [address] 03662 CO2 [Moles/Vol] 16 mmol/L Low 22-32 [facility] Comment on above: Performed By: #### B ADA, CBCTerry, 6873-4, 5643-2, 96563-8 #### [facility] ([id number]) [address] [place] [address] 77763 Creatinine [Mass/Vol] 1.05 mg/dL Normal 0.70-1.20 [facility] Comment on above: Result Comment: METH OD TRACEABLE TO IDMS STANDARD Performed By: #### B ANA CABALLERO, 6873-4, 5643-2, 18105-5 #### [facility] ([id number]) [address] [place] [address] 93509 eGFR (CKD-EPI) NON-RACE DEPENDENT >90 Normal >59 [facility] Comment on above: Result Comment: Reported eGFR is based on the CKD-EPI 2020 equation that does not use a race coefficient. Performed By: #### B ADA, ANA, 6873-4, 5643-2, 25133-8 #### [facility] ([id number]) [address] [place] [address] 29244 Glucose [Mass/Vol] 272 mg/dL High 65-99 [facility] Comment on above: Performed By: #### B ANA CABALLERO, 6873-4, 5643-2, 90862-7 #### [facility] ([id number]) [address] [place] [address] 93939 Potassium [Moles/Vol] 3.1 mmol/L Low 3.5-5.0 [facility] Comment on above: Performed By: #### B ANA CABALLERO, 6873-4, 5643-, 22907-3 #### [facility] ([id number]) [address] [place] [address] 96012 Sodium [Moles/Vol] 135 mmol/L Normal 134-146 [facility] Comment on above: Performed By: #### B ADA, ANA, 6873-4, 5643-2, 25436-8 #### [facility] ([id number]) [address] [place] [address] 93067 Urea nitrogen [Mass/Vol] 6 mg/dL Normal 5-23 [facility] Comment on above: Performed By: #### B ANA CABALLERO, 6873-4, 5643-2, 83632-0 #### [facility] ([id number]) [address] [place] [address] 60101 Beta hydroxybutyrate [Moles/ Vol]on 01-11-2024 BetaHydroxybutyrate 4.83 mmol/L High 0.02-0.27 [facility] Comment on above: Performed By: #### B MP, CBCA, 6873-4, 5643-2, 15685-1 #### [facility] ([id number]) [address] [place] [address] 35852 BetaHydroxybutyrate 6.27 mmol/L High 0.02-0.27 [facility] [facility] Comment on above: Performed By: #### B MP, CBCA, 6873-4, 5643-2, 03919-8 #### [facility] ([id number]) [address] [place] [address] 80170 CBC AND AUTO DIFFon 01-11-20 ABSOLUTE BASOPHIL 0.0 X10E9/L Normal 0.0-0.2 [facility] Comment on above: Performed By: #### B MP, CBCA, 6873-4, 5643-2, 02638-8 #### [facility] ([id number]) [address] [place] [address] 31314 ABSOLUTE NEUTROPHIL 4.4 X10E9/L Normal 1.5-6.6 [facility] Comment on above: Performed By: #### B MP, CBCA, 6873-4, 5643-2, 23477-5 #### [facility] ([id number]) [address] [place] [address] 87079 Basophils/100 WBC (Bld) 0.6 % Normal [facility] Comment on above: Performed By: #### B MP, CBCA, 6873-4, 5643-2, 19472-6 #### [facility] ([id number]) [address] [place] [address] 56356 Eosinophils (Bld) [#/Vol] 0.2 10*3/uL Normal 0.0-0.4 [facility] Comment on above: Performed By: #### B MP, CBCA, 6873-4, 5643-2, 70193-1 #### [facility] ([id number]) [address] [place] [address] 50188 Eosinophils/100 WBC (Bld) 2.8 % Normal [facility] Comment on above: Performed By: #### B MP, CBCA, 73-4, 5643-2, #### [facility] ([id number]) [address] [place] [address] 66773 Erythrocyte distribution width (RBC) [Ratio] 14.1 % Normal 11.5-15.0 [facility] Comment on above: Performed By: #### B MP, CBCA, 73-4, 5642-, #### [facility] ([id number]) [address] [place] [address] 42001 Hematocrit (Bld) [Volume fraction] 40.5 % Normal 39-49 [facility] Comment on above: Performed By: #### B MP, CBCA, 73-4, 5642-, #### [facility] ([id number]) [address] [place] [address] 59195 Hemoglobin (Bld) [Mass/Vol] 13.6 g/dL Normal 13.0-17.0 [facility] Comment on above: Performed By: #### B MP, CBCA, 6873-4, 5643-2, 87148-9 #### [facility] ([id number]) [address] [place] [address] 66374 Lymphocytes (Bld) [#/Vol] 1.9 10*3/uL Normal 1.0-3.5 [facility] Comment on above: Performed By: #### B MP, CBCA, 6873-4, 5643-2, #### [facility] ([id number]) [address] [place] [address] 14712 Lymphocytes/100 WBC (Bld) 26.1 % Normal [facility] Comment on above: Performed By: #### B MP, CBCA, 6873-4, 5643-2, #### [facility] ([id number]) [address] [place] [address] 39166 MCH (RBC) [Entitic mass] 29.1 pg Normal 27-34 [facility] Comment on above: Performed By: #### B MP, CBCA, 73-4, 5642-, #### [facility] ([id number]) [address] [place] [address] 22834 MCHC (RBC) [Mass/Vol] 33.6 g/dL Normal 32-36 [facility] Comment on above: Performed By: #### B MP, CBCA, 73-4, 5642-, #### [facility] ([id number]) [address] [place] [address] 84510 MCV (RBC) [Entitic vol] 87 fL Normal 80-100 [facility] Comment on above: Performed By: #### B MP, CBCA, 73-4, 43-, #### [facility] ([id number]) [address] [place] [address] 03444 Monocytes (Bld) [#/Vol] 0.7 10*3/uL Normal 0-0.9 [facility] Comment on above: Performed By: #### B MP, CBCA, 73-4, 5643-2, #### [facility] ([id number]) [address] [place] [address] 51076 Monocytes/100 WBC (Bld) 9.2 % Normal [facility] Comment on above: Performed By: #### B MP, CBCA, 6873-4, 5643-2, 92633-5 #### [facility] ([id number]) [address] [place] [address] 28644 Neutrophils/100 WBC (Bld) 61.3 % Normal [facility] Comment on above: Performed By: #### B MP, CBCA, 6873-4, 5643-2, 37100-2 #### [facility] ([id number]) [address] [place] [address] 91129 Platelet mean volume (Bld) [Entitic vol] 9.6 fL Normal 7-12 [facility] Comment on above: Performed By: #### B MP, CBCA, 6873-4, 5643-2, 89066-8 #### [facility] ([id number]) [address] [place] [address] 36826 Platelets (Bld) [#/Vol] 235 10*3/uL Normal 150-450 [facility] Comment on above: Performed By: #### B MP, CBCA, 6873-4, 5643-2, 14929-2 #### [facility] ([id number]) [address] [place] [address] 43032 RBC COUNT 4.68 X10E12/L Normal 4.10-5.70 [facility] Comment on above: Performed By: #### B MP, CBCA, 6873-4, 5643-2, 43093-1 #### [facility] ([id number]) [address] [place] [address] 41753 WBC (Bld) [#/Vol] 7.2 10*3/uL Normal 4.0-11.0 [facility] Comment on above: Performed By: #### B MP, CBCA, 6873-4, 5643-2, 96420-6 #### [facility] ([id number]) [address] [place] [address] [place] [address] COMPREHENSIVE METABOLIC PANE Al 01-11-2024 Albumin [Mass/Vol] 3.4 g/dL Normal 3.2-5.3 [facility] Comment on above: Performed By: #### B ADA, CBCA, 6873-4, 5643-2, 08276-5 #### [facility] ([id number]) [address] [place] [address] 21266 ALP [Catalytic activity/Vol] 79 U/L Normal 39-130 [facility] Comment on above: Performed By: #### B ADA, CBCA, 6873-4, 5643-2, 98504-2 #### [facility] ([id number]) [address] [place] [address] 48734 ALT [Catalytic activity/Vol] 30 U/L Normal 0-40 [facility] Comment on above: Performed By: #### B ADA, CBCA, 6873-4, 5643-2, 04223-3 #### [facility] ([id number]) [address] [place] [address] 02258 Anion gap [Moles/Vol] 13 mmol/L Normal 5-15 [facility] Comment on above: Performed By: #### B ADA, CBCA, 6873-4, 5643-2, 22873-4 #### [facility] ([id number]) [address] [place] [address] 64093 AST [Catalytic activity/Vol] 15 U/L Normal 0-41 [facility] Comment on above: Performed By: #### B ADA, CBCA, 6873-4, 5643-2, 25189-7 #### [facility] ([id number]) [address] [place] [address] 11293 Bilirubin [Mass/Vol] 1.1 mg/dL Normal 0.3-1.2 [facility] Comment on above: Performed By: #### B ADA, CBCA, 6873-4, 5643-2, 25985-9 #### [facility] ([id number]) [address] [place] [address] 73468 Calcium [Mass/Vol] 8.6 mg/dL Normal 8.5-10.5 [facility] Comment on above: Performed By: #### B ADA, ANA, 6873-4, 5643-2, 63519-1 #### [facility] ([id number]) [address] [place] [address] 16967 Chloride [Moles/Vol] 105 mmol/L Normal 98-109 [facility] Comment on above: Performed By: #### B ADA, ANA, 6873-4, 5643-2, 20320-2 #### [facility] ([id number]) [address] [place] [address] 36335 Creatinine [Mass/Vol] 0.91 mg/dL Normal 0.70-1.20 [facility] Comment on above: Result Comment: METH OD TRACEABLE TO IDMS STANDARD Performed By: #### B ADA, ANA, 6873-4, 5643-2, 41908-8 #### [facility] ([id number]) [address] [place] [address] 59208 eGFR (CKD-EPI) NON-RACE DEPENDENT >90 Normal >59 [facility] Comment on above: Result Comment: Reported eGFR is based on the CKD-EPI 2020 equation that does not use a race coefficient. Performed By: #### B ADA, ANA, 6873-4, 5643-2, 09354-5 #### [facility] ([id number]) [address] [place] [address] 98145 Glucose [Mass/Vol] 227 mg/dL High 65-99 [facility] Comment on above: Performed By: #### B ADA, ANA, 6873-4, 5643-2, 93961-4 #### [facility] ([id number]) [address] [place] [address] 74692 Potassium [Moles/Vol] 2.7 mmol/L Critically low 3.5-5.0 [facility] Comment on above: Performed By: #### B ADA, CBCA, 6873-4, 5643-2, 12496-7 #### [facility] ([id number]) [address] [place] [address] 98818 Protein [Mass/Vol] 6.8 g/dL Normal 6.0-8.0 [facility] Comment on above: Performed By: #### B ADA, CBCA, 6873-4, 5643-2, 11326-8 #### [facility] ([id number]) [address] [place] [address] 44016 Sodium [Moles/Vol] 135 mmol/L Normal 134-146 [facility] Comment on above: Performed By: #### B ADA, CBCA, 6873-4, 5643-2, 27754-9 #### [facility] ([id number]) [address] [place] [address] 75528 Urea nitrogen [Mass/Vol] 6 mg/dL Normal 5-23 [facility] Comment on above: Performed By: #### B ADA, CBCA, 6873-4, 5643-2, 45580-8 #### [facility] ([id number]) [address] [place] [address] 31288 ELECTROLYTESon 01-11-2024 Anion gap [Moles/Vol] 9 mmol/L Normal 5-15 [facility] Comment on above: Performed By: #### B ADA, CBCA, 6873-4, 5643-2, 71587-8 #### [facility] ([id number]) [address] [place] [address] 18473 Chloride [Moles/Vol] 108 mmol/L Normal 98-109 [facility] Comment on above: Performed By: #### B ADA, ANA, 6873-4, 5643-2, 26531-4 #### [facility] ([id number]) [address] [place] [address], [place] [address] CO2 [Moles/Vol] 22 mmol/L Normal 22-32 [facility] Comment on above: Performed By: #### B ADA, CBCTerry, 6873-4, 5643-2, #### [facility] ([id number]) [address] [place] [address] [place] [address] Potassium [Moles/Vol] 3.4 mmol/L Low 3.5-5.0 [facility] Comment on above: Performed By: #### B ADA, CBCTerry, 6873-4, 5643-2, #### [facility] ([id number]) [address] [place] [address] [place] [address] Sodium [Moles/Vol] 139 mmol/L Normal 134-146 [facility] Comment on above: Performed By: #### B ADA, ANA, 6873-4, 5643-2, #### [facility] ([id number]) [address] [place] [address] [place] [address] Anion gap [Moles/Vol] 10 mmol/L Normal 5-15 [facility] Comment on above: Performed By: #### B ADA, CBCTerry, 6873-4, 5643-2, 61204-4 #### [facility] ([id number]) [address] [place] [address], [place] [address] Chloride [Moles/Vol] 105 mmol/L Normal 98-109 [facility] Comment on above: Performed By: #### B ADA, CBCA, 6873-4, 5643-2, 32364-4 #### [facility] ([id number]) [address] [place] [address] [place] [address] CO2 [Moles/Vol] 20 mmol/L Low 22-32 [facility] Comment on above: Performed By: #### B ADA, ANA, 6873-4, 5643-2, 53668-2 #### [facility] ([id number]) [address] [place] [address] 01012 Potassium [Moles/Vol] 3.6 mmol/L Normal 3.5-5.0 [facility] Comment on above: Performed By: #### B ADA, CBCTerry, 6873-4, 5643-2, #### [facility] ([id number]) [address] [place] [address] 43717 Sodium [Moles/Vol] 135 mmol/L Normal 134-146 [facility] Comment on above: Performed By: #### B ADA, ANA, 6873-4, 5643-2, #### [facility] ([id number]) [address] [place] [address] 11800 Anion gap [Moles/Vol] 12 mmol/L Normal 5-15 [facility] Comment on above: Performed By: #### B ADA, ANA, 6873-4, 5643-2, 07035-4 #### [facility] ([id number]) [address] [place] [address] 45684 Chloride [Moles/Vol] 107 mmol/L Normal 98-109 [facility] Comment on above: Performed By: #### B ADA, CBCTerry, 6873-4, 5643-2, 75163-9 #### [facility] ([id number]) [address] [place] [address] 56958 CO2 [Moles/Vol] 18 mmol/L Low 22-32 [facility] Comment on above: Performed By: #### B ADA, CBCTerry, 6873-4, 5643-2, 19719-4 #### [facility] ([id number]) [address] [place] [address] 79122 Potassium [Moles/Vol] 4.0 mmol/L Normal 3.5-5.0 [facility] Comment on above: Performed By: #### B ADA, CBCA, 6873-4, 5643-2, 29419-6 #### [facility] ([id number]) [address] [place] [address] 69028 Sodium [Moles/Vol] 137 mmol/L Normal 134-146 [facility] Comment on above: Performed By: #### B AAD, CBCA, 6873-4, 5643-2, 87546-8 #### [facility] ([id number]) [address] [place] [address] 77271 Potassium [Moles/Vol] 3.8 mmol/L Normal 3.5-5.0 [facility] Comment on above: Performed By: #### B ADA, CBCA, 6873-4, 5643-2, 50217-5 #### [facility] ([id number]) [address] [place] [address] 66566 Sodium [Moles/Vol] 136 mmol/L Normal 134-146 [facility] Comment on above: Performed By: #### B ADA, CBCA, 6873-4, 5643-2, 77539-2 #### [facility] ([id number]) [address] [place] [address] 70867 CO2 [Moles/Vol] 17 mmol/L Low 22-32 [facility] Comment on above: Performed By: #### B ADA, CBCA, 6873-4, 5643-2, 94865-0 #### [facility] ([id number]) [address] [place] [address] 31419 Glucose Glucometer (BldC) [M ass/Vol]on 01-11-2024 Glucose [Mass/Vol] 216 mg/dL High 65-99 [facility] Glucose [Mass/Vol] 245 mg/dL High 65-99 [facility] Glucose [Mass/Vol] 299 mg/dL High 65-99 [facility] Glucose [Mass/Vol] 310 mg/dL High 65-99 [facility] Glucose [Mass/Vol] 288 mg/dL High 65-99 [facility] Glucose [Mass/Vol] 249 mg/dL High 65-99 [facility] Glucose [Mass/Vol] 218 mg/dL High 65-99 [facility] Glucose [Mass/Vol] 238 mg/dL High 65-99 [facility] Glucose [Mass/Vol] 226 mg/dL High 65-99 [facility] Glucose [Mass/Vol] 259 mg/dL High 65-99 [facility] HGB A1C (GLYCO-HGB)on 2023 Glucose [Mass/Vol] 335 mg/dL Normal [facility] Comment on above: Performed By: #### B ADA, CBCA, 6873-4, 5643-2, 67727-4 #### [facility] ([id number]) [address] [place] [address] 53196 HbA1c (Bld) [Mass fraction] 13.3 % High 4.4-5.6 [facility] Comment on above: Result Comment: NOTE ADA Guidelines Result HgbA1c Normal : less than 5.7 % Prediabetes : 5.7 % to 6.4 % Diabetes : > 6.4 % Use with caution in patients with abnormal hemoglobin variants as the half-life of red blood cells and in vivo glycation rates are affected. Performed By: #### B MP, CBCA, 6873-4, 5643-2, 87856-4 #### [facility] ([id number]) [address] [place] [address] 50851 MAGNESIUMon 01-11-2024 Magnesium [Mass/Vol] 1.8 mg/dL Normal 1.8-2.6 [facility] Comment on above: Performed By: #### B ADA, CBCA, 6873-4, 5643-2, 89615-7 #### [facility] ([id number]) [address] [place] [address] 43260 VENOUS BLOOD GASon 4 LINDSAY'S TEST Normal [facility] Comment on above: Performed By: #### B ADA, CBCA, 6873-4, 5643-2, #### [facility] ([id number]) [address] [place] [address] 14742 BASE,DEFICIT 9.0 MMOL/L High 0.0-2.0 [facility] Comment on above: Performed By: #### B ADA, CBCA, 6873-4, 5643-2, #### [facility] ([id number]) [address] [place] [address] 90692 Body temperature 98.6 [degF] Normal 37.0 [facility] Comment on above: Performed By: #### B ADA, CBCA, 6873-4, 5643-2, 68122-3 #### [facility] ([id number]) [address] [place] [address] 93654 HCO3 (Bld) [Moles/Vol] 15.7 mmol/L Low 20.0-24.0 [facility] Comment on above: Performed By: #### B ADA, CBCA, 6873-4, 5643-2, 98201-1 #### [facility] ([id number]) [address] [place] [address] 42550 INSP. O2 CONC. 21 % Normal [facility] Comment on above: Performed By: #### B ADA, CBCA, 6873-4, 5643-2, #### [facility] ([id number]) [address] [place] [address] 67129 Oxygen saturation in Blood 79.0 % Low >80.0 [facility] Comment on above: Performed By: #### B ANA CABALLERO, 6873-4, 5643-2, #### [facility] ([id number]) [address] [place] [address] [place] [address] [facility] Comment on above: Performed By: #### B ADA, ANA, 6873-4, 5643-2, #### [facility] ([id number]) [address] [place] [address] 64235 PCO2, VENOUS 30.6 MMHG Low 35-50 [facility] Comment on above: Performed By: #### B ANA CABALLERO, 6873-4, 5643-2, #### [facility] ([id number]) [address] [place] [address] [place] [address] PH, VENOUS 7.318 Low 7.320-7.420 [facility] Comment on above: Performed By: #### B ANA CABALLERO, 6873-4, 5643-2, #### [facility] ([id number]) [address] [place] [address] 77540 PO2, VENOUS 46 MMHG Normal 30-50 [facility] Comment on above: Performed By: #### B ANA CABALLERO, 6873-4, 5643-2, #### [facility] ([id number]) [address] [place] [address] SAMPLE SITE N/A [facility] Comment on above: Performed By: #### B ANA CABALLERO, 6873-4, 5643-2, #### [facility] ([id number]) [address] [place] [address] 03367 SAMPLE TYPE VENOUS Normal [facility] Comment on above: Performed By: #### B ADA, CBCA, 6873-4, 5643-2, 05802-0 #### [facility] ([id number]) [address] [place] [address] 73044 BASIC METABOLIC PANLon 01-09 Anion gap [Moles/Vol] 16 mmol/L High 5-15 [facility] Comment on above: Performed By: #### B ADA, CBCA, 6873-4, 5643-2, #### [facility] ([id number]) [address] [place] [address] 51237 Calcium [Mass/Vol] 9.4 mg/dL Normal 8.5-10.5 [facility] Comment on above: Performed By: #### B ADA, CBCA, 6873-4, 5643-2, #### [facility] ([id number]) [address] [place] [address] 39183 Chloride [Moles/Vol] 101 mmol/L Normal 98-109 [facility] Comment on above: Performed By: #### B ADA, CBCA, 6873-4, 5642-, #### [facility] ([id number]) [address] [place] [address] 90165 CO2 [Moles/Vol] 14 mmol/L Low 22-32 [facility] Comment on above: Performed By: #### B ADA, CBCA, 6873-4, 5643-2, 42712-9 #### [facility] ([id number]) [address] [place] [address] 74007 Creatinine [Mass/Vol] 1.13 mg/dL Normal 0.70-1.20 [facility] Comment on above: Result Comment: METH OD TRACEABLE TO IDMS STANDARD Performed By: #### B ADA, CBCA, 6873-4, 5643-2, #### [facility] ([id number]) [address] [place] [address] 79184 eGFR (CKD-EPI) NON-RACE DEPENDENT >90 Normal >59 [facility] Comment on above: Result Comment: Reported eGFR is based on the CKD-EPI 2020 equation that does not use a race coefficient. Performed By: #### B ANA CABALLERO, 6873-4, 5643-2, #### [facility] ([id number]) [address] [place] [address] 61278 Glucose [Mass/Vol] 394 mg/dL High 65-99 [facility] Comment on above: Performed By: #### B ANA CABALLERO, 6873-4, 56-, #### [facility] ([id number]) [address] [place] [address] 39289 Potassium [Moles/Vol] 3.3 mmol/L Low 3.5-5.0 [facility] Comment on above: Performed By: #### B ANA CABALLERO, 6873-4, 5643-, #### [facility] ([id number]) [address] [place] [address] 51747 Sodium [Moles/Vol] 131 mmol/L Low 134-146 [facility] Comment on above: Performed By: #### B ANA CABALLERO, 6873-4, 5643-, #### [facility] ([id number]) [address] [place] [address] 91960 Urea nitrogen [Mass/Vol] 7 mg/dL Normal 5-23 [facility] Comment on above: Performed By: #### B ANA CABALLERO, 6873-4, 5643-, 13317-7 #### [facility] ([id number]) [address] [place] [address] 39048 Beta hydroxybutyrate [Moles/ Vol]on 01-10-2024 BetaHydroxybutyrate 6.67 mmol/L High 0.02-0.27 [facility] Comment on above: Performed By: #### B MP, CBCA, 6873-4, 5643-2, 26416-5 #### [facility] ([id number]) [address] [place] [address] 41053 CBC AND AUTO DIFFon 01-10-20 ABSOLUTE BASOPHIL 0.0 X10E9/L Normal 0.0-0.2 [facility] Comment on above: Performed By: #### B MP, CBCA, 6873-4, 5643-2, 56123-9 #### [facility] ([id number]) [address] [place] [address] 64953 ABSOLUTE NEUTROPHIL 5.6 X10E9/L Normal 1.5-6.6 [facility] Comment on above: Performed By: #### B MP, CBCA, 6873-4, 5643-2, 74506-7 #### [facility] ([id number]) [address] [place] [address] 60009 Basophils/100 WBC (Bld) 0.3 % Normal [facility] Comment on above: Performed By: #### B MP, CBCA, 6873-4, 5643-2, 26340-2 #### [facility] ([id number]) [address] [place] [address] 80551 Eosinophils (Bld) [#/Vol] 0.1 10*3/uL Normal 0.0-0.4 [facility] Comment on above: Performed By: #### B MP, CBCA, 6873-4, 5643-2, 20725-4 #### [facility] ([id number]) [address] [place] [address] 95115 Eosinophils/100 WBC (Bld) 1.5 % Normal [facility] Comment on above: Performed By: #### B MP, CBCA, 6873-4, 5643-2, 54768-7 #### [facility] ([id number]) [address] [place] [address] 02705 Erythrocyte distribution width (RBC) [Ratio] 13.9 % Normal 11.5-15.0 [facility] Comment on above: Performed By: #### B MP, CBCA, 6873-4, 5643-2, #### [facility] ([id number]) [address] [place] [address] 65907 Hematocrit (Bld) [Volume fraction] 43.9 % Normal 39-49 [facility] Comment on above: Performed By: #### B MP, CBCA, 6873-4, 5643-2, #### [facility] ([id number]) [address] [place] [address] 37219 Hemoglobin (Bld) [Mass/Vol] 14.7 g/dL Normal 13.0-17.0 [facility] Comment on above: Performed By: #### B ADA, CBCA, 6873-4, 5643-, #### [facility] ([id number]) [address] [place] [address] 18179 Lymphocytes (Bld) [#/Vol] 1.5 10*3/uL Normal 1.0-3.5 [facility] Comment on above: Performed By: #### B MP, CBCA, 6873-4, 5643-2, 39686-2 #### [facility] ([id number]) [address] [place] [address] 81304 Lymphocytes/100 WBC (Bld) 18.5 % Normal [facility] Comment on above: Performed By: #### B MP, CBCA, 6873-4, 5643-2, 75741-9 #### [facility] ([id number]) [address] [place] [address] 31412 MCH (RBC) [Entitic mass] 29.1 pg Normal 27-34 [facility] Comment on above: Performed By: #### B ADA, CBCA, 6873-4, 5643-2, #### [facility] ([id number]) [address] [place] [address] 36803 MCHC (RBC) [Mass/Vol] 33.4 g/dL Normal 32-36 [facility] Comment on above: Performed By: #### B ADA, CBCA, 73-4, 5643-2, #### [facility] ([id number]) [address] [place] [address] 31278 MCV (RBC) [Entitic vol] 87 fL Normal 80-100 [facility] Comment on above: Performed By: #### B ADA, CBCA, 73-4, 5642-, #### [facility] ([id number]) [address] [place] [address] 48485 Monocytes (Bld) [#/Vol] 0.6 10*3/uL Normal 0-0.9 [facility] Comment on above: Performed By: #### B ADA, CBCA, 73-4, 5642-, 58040-8 #### [facility] ([id number]) [address] [place] [address] 61905 Monocytes/100 WBC (Bld) 7.7 % Normal [facility] Comment on above: Performed By: #### B MP, CBCA, 73-4, 43-, 42450-7 #### [facility] ([id number]) [address] [place] [address] 75416 Neutrophils/100 WBC (Bld) 72.0 % Normal [facility] Comment on above: Performed By: #### B MP, CBCA, 73-4, 5643-2, 90056-1 #### [facility] ([id number]) [address] [place] [address] 02727 Platelet mean volume (Bld) [Entitic vol] 10.0 fL Normal 7-12 [facility] Comment on above: Performed By: #### B MP, CBCA, 6873-4, 43-2, #### [facility] ([id number]) [address] [place] [address] 37705 Platelets (Bld) [#/Vol] 253 10*3/uL Normal 150-450 [facility] Comment on above: Performed By: #### B MP, CBCA, 6873-4, 5642-2, #### [facility] ([id number]) [address] [place] [address] 13617 RBC COUNT 5.04 X10E12/L Normal 4.10-5.70 [facility] Comment on above: Performed By: #### B MP, CBCA, 6873-4, 56-, #### [facility] ([id number]) [address] [place] [address] 76366 WBC (Bld) [#/Vol] 7.8 10*3/uL Normal 4.0-11.0 [facility] Comment on above: Performed By: #### B MP, CBCA, 6873-4, 5643-2, 74821-5 #### [facility] ([id number]) [address] [place] [address] 72649 DRUG SCREEN, URINEon 024 AMPHETAMINE/METHAMP Negative Normal NEG [facility] Comment on above: Result Comment: AMPH /METH screening cut off = 1000 ng/mL Performed By: #### D SALAS #### [facility] ([id number]) [address] [place] [address] 15721 BARBITURATES Negative Normal NEG [facility] Comment on above: Result Comment: Earlene iturates screening cut off value = 200 ng/mL Performed By: #### D SALAS #### [facility] ([id number]) [address] [place] [address] 88450 BENZODIAZEPINES Negative Normal NEG [facility] Comment on above: Result Comment: Kareem odiazepines screening cut off value = 200 ng/mL Performed By: #### D SALAS #### [facility] ([id number]) [address] [place] [address] 09352 CANNABINOIDS Negative Normal NEG [facility] Comment on above: Result Comment: Catalina abinoids/THC screening cut off value = 50 ng/mL Performed By: #### D SALAS #### [facility] ([id number]) [address] [place] [address] 53897 COCAINE METABOLITE Negative Normal NEG [facility] Comment on above: Result Comment: Coca ine screening cut off value = 300 ng/mL Performed By: #### D SALAS #### [facility] ([id number]) [address] [place] [address] 07842 ECSTASY Negative Normal [facility] Comment on above: Result Comment: Ecst asy screening cut off value = 500 ng/mL This report is intended for use in clinical monitoring or management of patients. Performed By: #### D SALAS #### [facility] ([id number]) [address] [place] [address] 81402 METHADONE Negative Normal NEG [facility] Comment on above: Result Comment: Meth adone screening cut off value = 300 ng/mL. Performed By: #### D SALAS #### [facility] ([id number]) [address] [place] [address] 78188 OPIATES Negative Normal NEG [facility] Comment on above: Result Comment: Opia miguel screening cut off value = 300 ng/mL NOTE: This test is used for the detection of codeine, hydrocodone (>1000 ng/mL), morphine and hydromorphone (>900 ng/mL) in urine. Performed By: #### D SALAS #### [facility] ([id number]) [address] [place] [address] 53725 OXYCODONE Negative Normal NEG [facility] Comment on above: Result Comment: Oxyc odone screening cut off value = 300 ng/mL NOTE: This test is used for the detection of oxycodone and oxymorphone in urine. Performed By: #### D SALAS #### [facility] ([id number]) [address] [place] [address] 09240 PHENCYCLIDINE Negative Normal NEG [facility] Comment on above: Result Comment: Phen cyclidine screening cut off value = 25 ng/mL Performed By: #### D SALAS #### [facility] ([id number]) [address] [place] [address] 03710 ETHANOLon 01-10-2024 Ethanol [Mass/Vol] mg/dL Normal 0.00-0.08 [facility] Comment on above: Result Comment: This report is intended for use in clinical monitoring or management of patients. Performed By: #### B ANA CABALLERO, 6873-4, 5643-2, 26028-6 #### [facility] ([id number]) [address] [place] [address] 99770 Glucose Glucometer (BldC) [M ass/Vol]on 01-10-2024 Glucose [Mass/Vol] 316 mg/dL High 65-99 [facility] MAGNESIUMon 01-10-2024 Magnesium [Mass/Vol] 1.6 mg/dL Low 1.8-2.6 [facility] Comment on above: Performed By: #### B ANA CABALLERO, 6873-4, 5643-2, 97653-7 #### [facility] ([id number]) [address] [place] [address] 16105 URN MACROSCOPIC NURon 2023 BILIRUBIN TERRELL Small Abnormal NEG [facility] Comment on above: Performed By: #### N UM #### [facility] ([id number]) [address] [place] [address] 49997 BLOOD/HGB TERRELL Negative Normal NEG [facility] Comment on above: Performed By: #### N UM #### [facility] ([id number]) [address] [place] [address] 18764 GLUCOSE TERRELL 500 mg/dL Abnormal NEG [facility] Comment on above: Performed By: #### N UM #### [facility] ([id number]) [address] [place] [address] 44353 KETONES TERRELL >=160 Abnormal NEG [facility] Comment on above: Performed By: #### N UM #### [facility] ([id number]) [address] [place] [address] [place] [address] LEUKOCYTE ESTERASE TERRELL Negative Normal NEG [facility] Comment on above: Performed By: #### N UM #### [facility] ([id number]) [address] [place] [address] 96552 NITRITE TERRELL Negative Normal NEG [facility] Comment on above: Performed By: #### N UM #### [facility] ([id number]) [address] [place] [address] 22255 PH TERRELL 5.5 Normal 5.0-8.5 [facility] Comment on above: Performed By: #### N UM #### [facility] ([id number]) [address] [place] [address] 60652 PROTEIN TERRELL 30 mg/dL Abnormal NEG [facility] Comment on above: Performed By: #### N UM #### [facility] ([id number]) [address] [place] [address] 91541 SPECIFIC GRAVITY TERRELL 1.015 Normal 1.003-1.035 [facility] Comment on above: Performed By: #### N UM #### [facility] ([id number]) [address] [place] [address] 06038 UROBILINOGEN TERRELL 0.2 eu/dL Normal <1.1 [facility] Comment on above: Performed By: #### N UM #### [facility] ([id number]) [address] [place] [address] 43611 VENOUS BLOOD GASon 4 LINDSAY'S TEST Normal [facility] Comment on above: Performed By: #### V BG #### [facility] ([id number]) [address] [place] [address] 99076 BASE,DEFICIT 11.0 MMOL/L High 0.0-2.0 [facility] Comment on above: Performed By: #### V BG #### [facility] ([id number]) [address] [place] [address] 11433 Body temperature 98.6 [degF] Normal 37.0 [facility] Comment on above: Performed By: #### V BG #### [facility] ([id number]) [address] [place] [address] 31753 HCO3 (Bld) [Moles/Vol] 13.5 mmol/L Low 20.0-24.0 [facility] Comment on above: Performed By: #### V BG #### [facility] ([id number]) [address] [place] [address] 22439 INSP. O2 CONC. 21 % Normal [facility] Comment on above: Performed By: #### V BG #### [facility] ([id number]) [address] [place] [address] 82810 Oxygen saturation in Blood 92.0 % Normal >80.0 [facility] Comment on above: Performed By: #### V BG #### [facility] ([id number]) [address] [place] [address] [place] [address] [facility] Comment on above: Performed By: #### V BG #### [facility] ([id number]) [address] [place] [address] 64625 PCO2, VENOUS 27.3 MMHG Low 35-50 [facility] Comment on above: Performed By: #### V BG #### [facility] ([id number]) [address] [place] [address] [place] [address] PH, VENOUS 7.303 Low 7.320-7.420 [facility] Comment on above: Performed By: #### V BG #### [facility] ([id number]) [address] [place] [address] 16900 PO2, VENOUS 69 MMHG High 30-50 [facility] Comment on above: Performed By: #### V BG #### [facility] ([id number]) [address] [place] [address] [place] [address] SAMPLE SITE N/A Normal [facility] Comment on above: Performed By: #### V BG #### [facility] ([id number]) [address] [place] [address] 58274 SAMPLE TYPE VENOUS Normal [facility] Comment on above: Performed By: #### V BG #### [facility] ([id number]) [address] [place] [address] 09136 POCT Influenza A/Influenza B /SARS-COV-2 [facility] 08-05-2023 External Poct Influenza A Antigen Negative [facility] External Poct Influenza B Antigen Negative [facility] SARS-CoV-2 (COVID-19) Ag IA.rapid Ql (Resp) Negative [facility] POCT rapid strep Aon 024 S. pyogenes Ag IA Ql (Unsp spec) Negative Negative [facility] ACETONE SERUMon 06-11-2020 ACETONE SMALL Abnormal NEGATIVE [facility] Comment on above: Performed By: #### A CETON #### [facility] [address] [place] [address] 33521 Latisha Gena AMYLASEon 06-11-2020 Amylase [Catalytic activity/Vol] U/L Critically low 31-110 [facility] Comment on above: Performed By: #### B MP, LIPA, ELLA, LIVER #### [facility] [address] [place] [address] 26564 Latisha Gena CBC AUTO DIFFon 06-11-2020 Basophils (Bld) [#/Vol] 0.1 103/ul Normal 0.0-0.1 [facility] Comment on above: Performed By: #### C BC #### [facility] [address] [place], [place] [phone] Latisha Gena Basophils/100 WBC (Bld) 0.4 % Normal 0.2-2.0 [facility] Comment on above: Performed By: #### C BC #### [facility] [address] [place] [address] 41238 Latisha Gena Eosinophils (Bld) [#/Vol] 0.0 103/ul Normal 0.0-0.7 [facility] Comment on above: Performed By: #### C BC #### [facility] [address] [place], [place] [phone] Latisha Gena Eosinophils/100 WBC (Bld) 0.1 % Critically low 0.9-7.0 [facility] Comment on above: Performed By: #### C BC #### [facility] [address] [place] [address] 30719 Latisha Gena Erythrocyte distribution width (RBC) [Ratio] 14.8 % Normal 11.0-15.0 [facility] Comment on above: Performed By: #### C BC #### [facility] [address] [place], [place] [phone] Latisha Gena Hematocrit (Bld) [Volume fraction] 51.7 % Normal 42.0-54.0 [facility] Comment on above: Performed By: #### C BC #### [facility] [address] [id number] Latisha Gena Hemoglobin (Bld) [Mass/Vol] 16.6 g/dL Normal 14.0-18.0 [facility] Comment on above: Performed By: #### C BC #### [facility] [address] [id number] Latisha Gena IG # 0.10 10e3/ul Critically high 0.00-0.03 [facility] Comment on above: Performed By: #### C BC #### [facility] [address] [id number] Latisha Gena IG % 0.6 % Critically high 0.0-0.5 [facility] Comment on above: Performed By: #### C BC #### [facility] [address] [place], [place] [phone] Latisha Gena Lymphocytes (Bld) [#/Vol] 0.9 103/ul Critically low 1.2-3.8 [facility] Comment on above: Performed By: #### C BC #### [facility] [address] [place], [place] [address] Latisha Gena Lymphocytes/100 WBC (Bld) 5.2 % Critically low 20.5-60.0 [facility] Comment on above: Performed By: #### C BC #### [facility] [address] [place], [place] [phone] Latisha Avery MANUAL DIFF REQ NO Normal [facility] Comment on above: Performed By: #### C BC #### [facility] [address] [place], [place] [phone] Latisha Gena MCH (RBC) [Entitic mass] 28.5 pg Normal 25.9-34.0 [facility] Comment on above: Performed By: #### C BC #### [facility] [address] [id number] Latisha Gena MCHC (RBC) [Mass/Vol] 32.1 g/dL Normal 29.9-35.2 [facility] Comment on above: Performed By: #### C BC #### [facility] [address] [place], [place] [address] Latisha Gena MCV (RBC) [Entitic vol] 88.7 fL Normal 76.3-90.1 [facility] Comment on above: Performed By: #### C BC #### [facility] [address] [place], [place] [address] Latisha Gena Monocytes (Bld) [#/Vol] 0.7 103/ul Normal 0.3-0.8 [facility] Comment on above: Performed By: #### C BC #### [facility] [address] [place] [address] 31472 Latisha Gena Monocytes/100 WBC (Bld) 4.3 % Normal 1.7-12.0 [facility] Comment on above: Performed By: #### C BC #### [facility] [address] [place] [address] 91651 Latisha Gena Neutrophils (Bld) [#/Vol] 14.6 103/ul Critically high 1.4-6.5 [facility] Comment on above: Performed By: #### C BC #### [facility] [address] [place] [address] 94056 Latisha Gena Neutrophils/100 WBC (Bld) 89.4 % Critically high 43.0-75.0 [facility] Comment on above: Performed By: #### C BC #### [facility] [address] [place] [address] 60352 Latisha Gena Platelet mean volume (Bld) [Entitic vol] 12.0 fL Normal 9.5-13.5 [facility] Comment on above: Performed By: #### C BC #### [facility] [address] [place] [address] 35859 Latisha Gena Platelets (Bld) [#/Vol] 404 103/ul Normal 150-450 [facility] Comment on above: Performed By: #### C BC #### [facility] [address] [place] [address] 60222 Latisha Gena RBC (Bld) [#/Vol] 5.83 106/ul Critically high 3.30-5.40 [facility] Comment on above: Performed By: #### C BC #### [facility] [address] [place] [address] Latisha Gena WBC (Bld) [#/Vol] 16.3 103/ul Critically high 4.0-11.0 [facility] Comment on above: Performed By: #### C BC #### [facility] [address] [place] [address] Latishaashly Avery ER URINE PROFILEon 1 Bilirubin [Mass/Vol] SMALL Abnormal NEGATIVE [facility] Comment on above: Performed By: #### ANGE FAMRO #### [facility] [address] [place] [address] Latisha Gena BLOOD MODERATE Abnormal NEGATIVE [facility] Comment on above: Performed By: #### ANGE FAMRO #### [facility] [address] [place] [address] Latisha Gena Clarity (U) CLEAR Normal CLEAR [facility] Comment on above: Performed By: #### ANGE FAMRO #### [facility] [address] [place] [address] Latisha Gena Color (U) LT. YELLOW Normal YELLOW [facility] Comment on above: Performed By: #### ANGE FAMRO #### [facility] [address] [place] [address] Latisha Gena ERUAHD A micrscopic examination will be performed if indicated. Normal [facility] Comment on above: Performed By: #### ANGE FAMRO #### [facility] [address] [place] [address] Latisha Gena Glucose [Mass/Vol] >1000 Abnormal NEGATIVE [facility] Comment on above: Performed By: #### ANGE FAMRO #### [facility] [address] [place] [address] Latisha Gena Ketones Ql (U) >=80 Abnormal NEGATIVE [facility] Comment on above: Performed By: #### KALEB FAM #### [facility] [address] [place], [place] [phone] Latisha Gena Nitrite Ql (U) Negative Normal NEGATIVE [facility] Comment on above: Performed By: #### KAELB FAM #### [facility] [address] [place], [place] [phone] Latisha Gena pH (Bld) 5.5 Normal 5-9 [facility] Comment on above: Performed By: #### KALEB FAM #### [facility] [address] [place], [place] [phone] Latisha Gena Protein (U) [Mass/Vol] 100 mg/dL Abnormal NEGAT ROMY/ TRACE [facility] Comment on above: Performed By: #### KALEB FAM #### [facility] [address] [place], [place] [address] Latisha Gena SPEC GRAVITY >=1.030 Abnormal 1.005-<=1.025 [facility] Comment on above: Performed By: #### KALEB FAM #### [facility] [address] [place], [place] [address] Latisha Gena UR MICRO IND INDICATED Normal [facility] Comment on above: Performed By: #### KALEB FAM #### [facility] [address] [place], [place] [address] Latisha Gena Urobilinogen Qn (U) 0.2 EU/dl Normal 0.2 - 1.0 [facility] Comment on above: Performed By: #### KALEB FAM #### [facility] [address] [place], [place] [phone] Latisha Gena WBC (Bld) [#/Vol] Negative Normal NEGATIVE [facility] Comment on above: Performed By: #### KALEB FAM #### [facility] [address] [place], [place] [address] Latisha Gena LIPASEon 06-11-2020 Lipase [Catalytic activity/Vol] 88.0 U/L Normal 23.0-300.0 [facility] Comment on above: Performed By: #### B MP, LIPA, ELLA, LIVER #### [facility] [address] [place], [place] [address] Latishaashly Floweren LIVER PROFILEon 06-11-2020 Albumin [Mass/Vol] 4.5 g/dL Normal 3.5-5.0 [facility] Comment on above: Performed By: #### B [id number] #### [facility] [address] [id number] Latisha Gena Albumin/Globulin [Mass ratio] 0.9 {ratio} Normal [facility] Comment on above: Performed By: #### B [id number] #### [facility] [address] [id number] Latisha Gena ALP [Catalytic activity/Vol] 438 U/L Critically high 65-260 [facility] Comment on above: Performed By: #### B [id number] #### [facility] [address] [place] [address] Latisha Gena ALT [Catalytic activity/Vol] 31 U/L Normal 21-72 [facility] Comment on above: Performed By: #### B [id number] #### [facility] [address] [place], [place] [address] Latisha Gena AST [Catalytic activity/Vol] 10 U/L Critically low 17-59 [facility] Comment on above: Performed By: #### B [id number] #### [facility] [address] [place], [place] [address] Latisha Gena BILI, CONJUGATED 0.2 mg/dL Normal 0.0-0.3 [facility] Comment on above: Performed By: #### B [id number] #### [facility] [address] [place], [place] [address] Latisha Gena Bilirubin Ql (U) 0.6 mg/dL Normal 0.2-1.3 [facility] Comment on above: Performed By: #### B [id number] #### [facility] [address] [id number] Latisha Gena Globulin (S) [Mass/Vol] 4.8 g/dL Normal T [facility] Comment on above: Performed By: #### B [id number] #### [facility] [address] [address] Latishaashly Avery Protein [Mass/Vol] 9.3 g/dL Critically high 6.1-8.2 [facility] Comment on above: Performed By: #### B [id number] #### [facility] [address] [place] [address] Latisha Gena PH VENOUS BLOODon 06-11-2020 PCO2 VENOUS 34.2 mmHg Critically low 40.0-52.0 [facility] Comment on above: Performed By: #### P HVEN #### [facility] [address] [place] [address] Latisha Gena pH VENOUS 7.09 Critically low 7.33-7.43 [facility] Comment on above: Performed By: #### P HVEN #### [facility] [address] [place] [address] Latisha Avery POINT OF CARE GLUCOSEon 05-19 Glucose [Mass/Vol] 496 mg/dL Critically high 74-106 [facility] Comment on above: Performed By: #### B [id number] #### [facility] [address] [place] [address] Latisha Gena Glucose [Mass/Vol] 491 mg/dL Critically high -106 [facility] Comment on above: Performed By: #### P OCGLUC #### [facility] [address] [place] [address] Latisha Gena Glucose [Mass/Vol] 531 mg/dL Critically high 74-106 [facility] Comment on above: Result Comment: Resu lt Not Confirmed Performed By: #### P OCGLUC #### [facility] [address] [place] [address] Latisha Gena PROF CHEM 8 (BAS METB)on Anion gap [Moles/Vol] 33.4 mmol/L Normal [facility] [place] Comment on above: Performed By: #### B [id number] #### [facility] [address] [place], [place] [address] Latisha Gena Calcium [Mass/Vol] 10.4 mg/dL Critically high 8.4-10.2 [facility] Comment on above: Performed By: #### B [id number] #### [facility] [address] [place], [place] [address] Latisha Gena Chloride [Moles/Vol] 99 mmol/L Normal 98-107 [facility] Comment on above: Performed By: #### B [id number] #### [facility] [address] [place], [place] [address] Latisha Gena CO2 [Moles/Vol] 9.7 mmol/L Critically low 22.0-30.0 [facility] Comment on above: Performed By: #### B [id number] #### [facility] [address] [place], [place] [address] Latisha Gena Creatinine [Mass/Vol] 2.20 mg/dL Critically high 0.66-1.25 [facility] Comment on above: Performed By: #### B [id number] #### [facility] [address] [place], [place] [address] Latisha Gena EGFR-AF MARTINIQUAIS 49 mL/min/1.73m2 Critically low >=60 [facility] Comment on above: Performed By: #### B [id number] #### [facility] [address] [place], [place] [address] Latisha Gena EGFR-NON AF MARTINIQUAIS 41 mL/min/1.73m2 Critically low >=60 [facility] Comment on above: Performed By: #### B [id number] #### [facility] [address] [place], [place] [address] Latisha Gena Glucose [Mass/Vol] 584 mg/dL Critically high 74-106 [facility] Comment on above: Result Comment: TEST REPEATED CRITICAL VALUE VERIFIED Performed By: #### B [id number] #### [facility] [address] [place], [place] [address] Latisha Gena Potassium [Moles/Vol] 5.1 mmol/L Critically high 3.4-5.0 [facility] Comment on above: Performed By: #### B [id number] #### [facility] [address] [id number] Latisha Avery Sodium [Moles/Vol] 137 mmol/L Normal 137-145 [facility] Comment on above: Performed By: #### B [id number] #### [facility] [address] [place], [place] [address] Latishaashly Avery Urea nitrogen [Mass/Vol] 21.0 mg/dL Critically high 6.4-19.3 [facility] Comment on above: Performed By: #### B [id number] #### [facility] [address] [place], [place] [address] Latisha Avery Urea nitrogen/Creatinine [Mass ratio] 9.5 mg/mg Normal [facility] Comment on above: Performed By: #### B [email or web address] #### [facility] [address] [place] [address] Latisha Avery Rapid Covid-19 PCR (CVDRPD)o n 06-11-2020 Tourjive LDT Info SEE BELOW Normal [facility] Comment on above: Result Comment: This test is not yet approved or cleared by the [place] Food and Drug Administration (FDA) . This test was developed by [employer], [place]. The performance characteristics of this test were validated by [facility]. The results are not intended to be used as the sole means for clinical diagnosis or patient management decisions. [facility] is authorized under Clinical Laboratory Improvement Amendments (CLIA) to perform high-complexity testing. When diagnostic testing is negative, the possibility of a false negative should be considered in the context of a patients recent exposures and the presence of clinical signs and symptoms consistent with SARS-CoV-2. Performed By: #### B [email or web address] #### [facility] [address] [place], [place] [address] Latisha Avery SARS-CoV-2 NOT DETECTED Normal NOT DETECTED [facility] Comment on above: Result Comment: . Performed By: #### B [email or web address] #### [facility] [address] [place], [place] [address] Latisha Avery URINE MICROSCOPIC ONLYon Bacteria LM.HPF (Urine sed) [#/Area] NONE SEEN Normal NONE SEEN [facility] Comment on above: Performed By: #### ANGE FAMRO #### [facility] [address] [place], [place] [id number] Latisha Gena CAST NONE SEEN Normal NONE SEEN [facility] Comment on above: Performed By: #### ANGE FAMRO #### [facility] [address] [id number] Latisha Gena Crystals LM Nom (Urine sed) NONE SEEN Normal NONE SEEN [facility] Comment on above: Performed By: #### ANGE FAMRO #### [facility] [address] [place] [address] Latisha Gena CULTURE NOT INDICATED Normal [facility] Comment on above: Performed By: #### ANGE FAMRO #### [facility] [address] [place], [place] [id number] Latisha Gena Epithelial cells LM.HPF (Urine sed) [#/Area] FEW Abnormal NONE SEEN /RARE [facility] Comment on above: Performed By: #### ANGE FAMRO #### [facility] [address] [place], [place] [id number] Latisha Gena MUCOUS SMALL Abnormal NONE SEEN [facility] Comment on above: Performed By: #### ANGE FAMRO #### [facility] [address] [place], [place] [id number] Latisha Gena RBC (U) [#/Vol] 0-2 Normal 0-2 [facility] Comment on above: Performed By: #### ANGE FAMRO #### [facility] [address] [place], [place] [phone] Latisha Gena WBC (Bld) [#/Vol] NONE SEEN Normal NONE SEEN [facility] Comment on above: Performed By: #### ANGE FAMRO #### [facility] [address] [place], [place] [id number] Latisha Gena XR CHEST 1 Von 06-11-2020 XR CHEST 1 V EXAM: XR CHEST 1 V HISTORY: CHEST PAIN, UNSPECIFIED COMPARISON: None. TECHNIQUE: Portable AP erect chest FINDINGS: Suboptimal inspiration with low lung volumes. Bronchovascular markings are accentuated. Question mild atelectasis right lung base, no definite pneumonia. Cardiac silhouette is normal. No pleural effusion or pneumothorax. No acute osseous findings. IMPRESSION: Low lung volumes. Question mild atelectasis right lung base, no definite pneumonia. Suggest follow-up PA and lateral films. Electronically authenticated by: HOOD PALMA Date: 2020-06-11 10:47 Normal [facility] Vital Signs Date Time Vital Sign Value Performing Clinician Facility 03-07-2024 13:51-0400 Body height 198.1 cm Pj Shannon MD Work Phone: [facility] 03-07-2024 13:51-0400 Body mass index (BMI) [Ratio] 34.21 kg/m2 Pj Shannon MD Work Phone: [facility] 03-07-2024 13:51-0400 Body weight 134.26 kg Pj Shannon MD Work Phone: [facility] 03-07-2024 13:51-0400 Diastolic blood pressure 82 mm[Hg] Pj Shannon MD Work Phone: [facility] 03-07-2024 13:51-0400 Heart rate 87 /min Pj Shannon MD Work Phone: [facility] 03-07-2024 13:51-0400 Respiratory rate 18 /min Pj Shannon MD Work Phone: [facility] 03-07-2024 13:51-0400 Systolic blood pressure 136 mm[Hg] Pj Shannon MD Work Phone: [facility] 02-29-2024 11:55-0400 Body height 203.2 cm Marlyn Simsmonica MCFARLANDAudio Shack Work Phone: [facility] 02-29-2024 11:55-0400 Body mass index (BMI) [Ratio] 33.18 kg/m2 Marlyn Sims APRN-SELF SEALING FUEL TANK REPAIRER Work Phone: [facility] 02-29-2024 11:55-0400 Body temperature 98.01 [degF] Marlyn Sims APRN-PERICO Work Phone: [facility] 02-29-2024 11:55-0400 Body weight 136.99 kg Marlyn Sims APRN-PERICO Work Phone: [facility] 02-29-2024 11:55-0400 Diastolic blood pressure 80 mm[Hg] Marlyn Sims APRN-PERICO Work Phone: [facility] 02-29-2024 11:55-0400 Heart rate 87 /min Marlyn Sims APRN-PERICO Work Phone: [facility] 02-29-2024 11:55-0400 Respiratory rate 18 /min Marlyn Sims APRN-PERICO Work Phone: [facility] 02-29-2024 11:55-0400 SaO2% (BldA) [Mass fraction] 98 % Marlyn Sims APRN-PERICO Work Phone: [facility] 02-29-2024 11:55-0400 Systolic blood pressure 140 mm[Hg] Marlyn Sims APRN-PERICO Work Phone: [facility] 02-26-2024 12:54-0400 SaO2% (BldA) [Mass fraction] 98 % [facility] Comment on above: Performed By: #### GLORIA, CBCA, 6873-4, 56 [id number], 28440-7 #### [facility] ([id number]) [address] [place] [address], [place] [address] 08-05-2023 08:41-0400 Body height 203.2 cm Marlyn Sims APRN-PERICO Work Phone: [facility] 08-05-2023 08:41-0400 Body mass index (BMI) [Percentile] Per age and sex 99.6 % Marlyn Sims APRN-PERICO Work Phone: [facility] 08-05-2023 08:41-0400 Body mass index (BMI) [Ratio] 41.46 kg/m2 Marlyn Sims APRN-PERICO Work Phone: [facility] 08-05-2023 08:41-0400 Body temperature 98.4 [degF] Marlyn Sims APRN-PERICO Work Phone: [facility] 08-05-2023 08:41-0400 Body weight 171.19 kg Marlyn Sims APRN-PERICO Work Phone: [facility] 08-05-2023 08:41-0400 Diastolic blood pressure 76 mm[Hg] Marlyn Sims APRN-PERICO Work Phone: [facility] 08-05-2023 08:41-0400 Heart rate 63 /min Marlyn Sims APRN-PERICO Work Phone: [facility] 08-05-2023 08:41-0400 Respiratory rate 18 /min Marlyn Sims APRN-PERICO Work Phone: [facility] 08-05-2023 08:41-0400 SaO2% (BldA) [Mass fraction] 98 % Marlyn Sims APRN-PERICO Work Phone: [facility] 08-05-2023 08:41-0400 Systolic blood pressure 126 mm[Hg] Marlyn Sims APRN-PERICO Work Phone: [facility] Encounters Encounter Date Encounter Type Care Provider Facility Start: 03-28-2024 End: 03-28-2024 Emergency department patient visit [facility] Karis [facility] Start: 03-22-2024 End: 03-22-2024 Emergency department patient visit MARLYN J [facility] Start: 03-07-2024 End: 03-07-2024 Keith flowsranjit Shannon MD Work Phone: [facility] Start: 03-07-2024 End: 03-07-2024 Bamboo flowsheet Pj Shannon MD Work Phone: [facility] Start: 03-07-2024 End: 03-07-2024 Office outpatient visit 25 minutes Pj Shannon MD Work Phone: [facility] Comment on above: Type 2 diabetes cory itus with hyperglycemia, without long-term current use of insulin ([facility]) (Primary Dx); Vitamin D deficiency; Encounter for dietary consultation; Class 1 obesity due to excess calories without serious comorbidity with body mass index (BMI) of 34.0 to 34.9 in adult Start: 03-07-2024 End: 03-07-2024 ambulatory PJ SHANNON Not Available Start: 02-29-2024 End: 02-29-2024 ambulatory [facility] Start: 02-29-2024 End: 02-29-2024 Office outpatient visit 15 minutes Marlyn [facility] INTERACTIVE MEDIA MARKETING DIRECTOR-SELF SEALING FUEL TANK REPAIRER [facility] Comment on above: Other constipation ( Primary Dx) Start: 02-26-2024 End: 02-28-2024 Evaluation and management of inpatient [facility] Start: 01-10-2024 End: 01-12-2024 Evaluation and management of inpatient [facility] Start: 11-04-2023 End: 11-04-2023 ambulatory [facility] Start: 08-26-2023 End: 08-26-2023 ambulatory [facility] Start: 08-05-2023 End: 08-05-2023 Office outpatient visit 15 minutes Marlyn Tomasillo INTERACTIVE MEDIA MARKETING DIRECTOR-SELF SEALING FUEL TANK REPAIRER Work Phone: [facility] Comment on above: Epistaxis (Primary D x); Sore throat; Acute cough Start: 08-05-2023 End: 08-05-2023 ambulatory [facility] Start: 06-10-2023 Orders Only Marlyn miller INTERACTIVE MEDIA MARKETING DIRECTOR-SELF SEALING FUEL TANK REPAIRER Work Phone: [facility] Comment on above: Type 2 diabetes cory itus with hyperglycemia, without long-term current use of insulin ([facility]) Start: 05-26-2023 End: 05-26-2023 ambulatory MARLYNELIZABET SIMS [facility] Start: 06-11-2020 End: 06-11-2020 Patient encounter procedure MARIA ISABEL ROMAN Facility: Procedures Date Procedure Procedure Detail Performing Clinician Start: 03-07-2024 Gluc bld gluc mntr d ev cleared fda spec home use Pj Shannon MD Work Phone: Start: 02-29-2024 Adult depression scr eening assessment Marlyn Sims INTERACTIVE MEDIA MARKETING DIRECTOR-SELF SEALING FUEL TANK REPAIRER Work Phone: Start: 08-26-2023 Follow-up visit Follow-up MARLYN SIMS Start: 08-05-2023 POCT INFLUENZA A/INF LUENZA B/SARS-COV-2 VERITOR Marlyn Sims INTERACTIVE MEDIA MARKETING DIRECTOR-SELF SEALING FUEL TANK REPAIRER Work Phone: Start: 08-05-2023 Iaadiadoo streptococ cus group a Marlyn Sims INTERACTIVE MEDIA MARKETING DIRECTOR-SELF SEALING FUEL TANK REPAIRER Work Phone: Start: 08-05-2023 Adult depression scr eening assessment Marlyn Sims INTERACTIVE MEDIA MARKETING DIRECTOR-SELF SEALING FUEL TANK REPAIRER Work Phone: Start: 05-26-2023 Adult depression scr eening assessment Marlyn Sims INTERACTIVE MEDIA MARKETING DIRECTOR-SELF SEALING FUEL TANK REPAIRER Work Phone: Start: 02-17-2023 Microalbumin [Mass/v olume] in Urine by Test strip Marlyn Tomasillo INTERACTIVE MEDIA MARKETING DIRECTOR-SELF SEALING FUEL TANK REPAIRER Work Phone: Start: 06-11-2020 End: 06-11-2020 Microscopic examination of blood, culture MARIA ISABEL ROMAN Comment on above: Performed By: #### B [id number] #### [facility] [address] [place] [address] Latisha Avery Plan of Treatment Date Care Activity Detail Author Start: 12-18-2026 DTaP,Tdap and Td Vaccines (7 - Td or Tdap) DTaP,Tdap and Td Vaccines (7 - Td or Tdap) [facility] Start: 02-28-2025 Adult BMI Follow Up Plan Adult BMI Follow Up Plan [facility] Start: 02-28-2025 Adult BMI Screening Adult BMI Screen ing [facility] Start: 02-28-2025 Depression Screening Depression Scre ening [facility] Start: 02-28-2025 Tobacco Screening Tobacco Screening [facility] Start: 08-04-2024 Adult BMI Screening Adult BMI Screen ing [facility] Start: 08-04-2024 Depression Screening Depression Scre ening [facility] Start: 08-04-2024 Tobacco Screening Tobacco Screening [facility] Start: 06-01-2024 Tobacco Screening Tobacco Screening [facility] Start: 05-28-2024 Hemoglobin A1c measurement Diabetes: Hemoglobin A1C [facility] Start: 05-26-2024 Adult BMI Follow Up Plan Adult BMI Follow Up Plan [facility] Start: 05-26-2024 Adult BMI Screening Adult BMI Screen ing [facility] Start: 05-26-2024 Depression Screening Depression Scre ening [facility] Start: 05-04-2024 End: 05-04-2024 Patient encounter procedure 05/04/2024 1:20 PM EST Office Visit [facility] [address] [place] [address] Pj Shannon MD [address] [place] [address] [facility] Start: 03-07-2024 End: 03-07-2025 25-hydroxyvitamin D3 [Mass/volume] in Serum or Plasma Vitamin D 25 hydroxy Total Lab Routine Vitamin D deficiency Expected: 03/07/2024 (Approximate), Expires: 03/07/2025 [facility] Comment on above: Expected: 03/07/2024 (Approximate), Expires: 03/07/2025 Start: 03-07-2024 End: 03-07-2025 C-peptide C-peptide Lab Routine Type 2 diabetes mellitus with hyperglycemia, without long-term current use of insulin ([facility]) Expected: 03/07/2024 (Approximate), Expires: 03/07/2025 [facility] Work Phone: Comment on above: Expected: 03/07/2024 (Approximate), Expires: 03/07/2025 Start: 03-07-2024 End: 03-07-2025 Lipid 1996 panel - Serum or Plasma Lipid panel Lab Routine Type 2 diabetes mellitus with hyperglycemia, without long-term current use of insulin ([facility]) Expected: 03/07/2024 (Approximate), Expires: 03/07/2025 [facility] Comment on above: Expected: 03/07/2024 (Approximate), Expires: 03/07/2025 Start: 03-07-2024 End: 03-07-2025 Microalbumin/Creatini ne panel in random Urine Microalbumin / creatinine urine ratio Lab Routine Type 2 diabetes mellitus with hyperglycemia, without long-term current use of insulin ([facility]) Expected: 03/07/2024 (Approximate), Expires: 03/07/2025 [facility] Comment on above: Expected: 03/07/2024 (Approximate), Expires: 03/07/2025 Start: 03-07-2024 End: 03-07-2024 Patient encounter procedure 03/07/2024 2:00 PM EDT Office Visit [facility] [address] [place] [address] Pj Shannon MD [address] [place] [address] Arrived [facility] Comment on above: Arrived Start: 03-07-2024 End: 03-07-2025 Renal function panel Renal function panel Lab Routine Type 2 diabetes mellitus with hyperglycemia, without long-term current use of insulin ([facility]) Expected: 03/07/2024 (Approximate), Expires: 03/07/2025 [facility] Comment on above: Expected: 03/07/2024 (Approximate), Expires: 03/07/2025 Start: 02-18-2024 Urine screening for protein [facility] Start: 01-17-2024 COVID-19 Vaccine ( season) COVID-19 Vaccine ( season) [facility] Start: 01-17-2024 Influenza vaccination P [facility] Start: 08-26-2023 End: 08-26-2023 Patient encounter procedure 08/26/2023 3:15 PM EDT [facility] [address] [place] [address] Marlyn Sims, INTERACTIVE MEDIA MARKETING DIRECTOR-SELF SEALING FUEL TANK REPAIRER [address] [place] [address] [facility] Start: 01-16-2023 COVID-19 Vaccine ( season) COVID-19 Vaccine () [facility] Start: 01-16-2023 Influenza vaccination Influenza Vacc ine [facility] Start: 2022 Diabetic foot examination Diabetic Foot Exam [facility] Start: 2014 Glaucoma screening Diabetes: R etinopathy Screening [facility] Start: 2004 Glaucoma screening Diabetic Op hthalmology Exam [facility] Immunizations Immunization Date Immunization Notes Care Provider Fa cility 10-20-2020 SARS-COV-2 (COVID-19 ) Vaccine, Unspecified Marlyn Sims INTERACTIVE MEDIA MARKETING DIRECTOR-SELF SEALING FUEL TANK REPAIRER Work Phone: [facility] 09-29-2020 SARS-COV-2 (COVID-19 ) Vaccine, Unspecified Marlyn Sims INTERACTIVE MEDIA MARKETING DIRECTOR-SELF SEALING FUEL TANK REPAIRER Work Phone: [facility] 12-16-2017 human papilloma viru s vaccine, quadrivalent Marlyn Sims INTERACTIVE MEDIA MARKETING DIRECTOR-SELF SEALING FUEL TANK REPAIRER Work Phone: [facility] 12-18-2016 human papilloma viru s vaccine, quadrivalent Marlyn Sims INTERACTIVE MEDIA MARKETING DIRECTOR-SELF SEALING FUEL TANK REPAIRER Work Phone: [facility] 12-18-2016 meningococcal oligosaccharide (groups A, C, Y and W-135) diphtheria toxoid conjugate vaccine (MCV4O) Marlyn Sims [facility] Work Phone: [facility] 12-18-2016 tetanus toxoid, redu juliane diphtheria toxoid, and acellular pertussis vaccine, adsorbed Marlynelizabet Sims [facility] Work Phone: [facility] 03-31-2011 influenza virus vacc ine, unspecified formulation Marlyn Sims [facility] Work Phone: [facility] 05-30-2010 influenza virus vacc ine, unspecified formulation Marlyn Sims [facility] Work Phone: [facility] 04-01-2010 influenza virus vacc ine, unspecified formulation Marlyn Sims [facility] Work Phone: [facility] 02-05-2009 diphtheria, tetanus toxoids and acellular pertussis vaccine Marlyn Sims [facility] Work Phone: [facility] 02-05-2009 measles, mumps and rubella virus vaccine Marlynelizabet Sims [facility] Work Phone: [facility] 02-05-2009 poliovirus vaccine, inactivated Marlynelizabet Sims [facility] Work Phone: [facility] 02-05-2009 varicella virus vaccine [place] veda Sims [facility] Work Phone: [facility] 02-11-2008 hepatitis A vaccine, adult dosage Marlyn Sims [facility] Work Phone: [facility] 01-27-2007 hepatitis A vaccine, adult dosage Marlyn Sims [facility] Work Phone: [facility] 05-08-2006 diphtheria, tetanus toxoids and acellular pertussis vaccine Marlyn Sims [facility] Work Phone: [facility] 05-08-2006 haemophilus influenz ae type b vaccine, conjugate unspecified formulation Marlyn Sims INTERACTIVE MEDIA MARKETING DIRECTOR-[facility] Work Phone: [facility] 05-08-2006 pneumococcal conjuga te vaccine, 13 valent Marlyn Sims INTERACTIVE MEDIA MARKETING DIRECTOR-[facility] Work Phone: [facility] 01-21-2006 measles, mumps and rubella virus vaccine Marlyn Sims INTERACTIVE MEDIA MARKETING DIRECTOR-[facility] Work Phone: [facility] 01-21-2006 varicella virus vaccine [place] INTERACTIVE MEDIA [facility]ING [facility] Work Phone: [facility] 07-10-2005 diphtheria, tetanus toxoids and acellular pertussis vaccine Marlyn Sims INTERACTIVE MEDIA MARKETING DIRECTOR-[facility] Work Phone: [facility] 07-10-2005 haemophilus influenz ae type b vaccine, conjugate unspecified formulation Marlyn Sims [facility] Work Phone: [facility] 07-10-2005 hepatitis B vaccine, adult dosage Marlyn Levi INTERACTIVE MEDIA MARKETING DIRECTOR-[facility] Work Phone: [facility] 07-10-2005 pneumococcal conjuga te vaccine, 13 valent Marlyn Sims INTERACTIVE MEDIA MARKETING DIRECTOR-[facility] Work Phone: [facility] 07-10-2005 poliovirus vaccine, inactivated Marlyn Sims INTERACTIVE [facility]ING [facility] Work Phone: [facility] 05-08-2005 diphtheria, tetanus toxoids and acellular pertussis vaccine Marlyn Sims INTERACTIVE MEDIA MARKETING DIRECTOR-[facility] Work Phone: [facility] 05-08-2005 haemophilus influenz ae type b vaccine, conjugate unspecified formulation Marlyn Sims INTERACTIVE MEDIA MARKETING DIRECTOR-[facility] Work Phone: [facility] 05-08-2005 hepatitis B vaccine, adult dosage Marlyn Levi INTERACTIVE MEDIA MARKETING DIRECTOR-[facility] Work Phone: [facility] 05-08-2005 pneumococcal conjuga te vaccine, 13 valent Marlyn Sims INTERACTIVE MEDIA MARKETING DIRECTOR-[facility] Work Phone: [facility] 05-08-2005 poliovirus vaccine, inactivated Marlyn Sims INTERACTIVE MEDIA MARKETING DIRECTOR-[facility] Work Phone: [facility] 02-27-2005 diphtheria, tetanus toxoids and acellular pertussis vaccine Marlyn Sims INTERACTIVE MEDIA MARKETING DIRECTOR-[facility] Work Phone: [facility] 02-27-2005 haemophilus influenz ae type b vaccine, conjugate unspecified formulation Marlyn Sims [facility] Work Phone: [facility] 02-27-2005 hepatitis B vaccine, adult dosage Marlyn Sims [facility] Work Phone: [facility] 02-27-2005 pneumococcal conjuga te vaccine, 13 valent Marlyn Sims [facility] Work Phone: [facility] 02-27-2005 poliovirus vaccine, inactivated Marlyn Sims [facility] Work Phone: [facility] Payers Date Payer Category Payer Medicaid [facility] MEDICAID HMO [id number] 2022-Present [phone] [place] [id number] 2022 Medicaid [id number] 2018 Private Health Insurance [facility] MEDICAID [id number] 2004 Unknown [id number] 2004 Unknown [id number] 1286 2004 Unknown [id number]. 1286 2004 Unknown [id number]. 1285 2004 Unknown [id number]. 1286 2004 Unknown [id number]. 1259 2004 Unknown [id number] 6 2004 Unknown [id number]. 1285 2004 Unknown [id number]. 1286 2004 Unknown [id number]. 1286 1976 Unknown [id number]. 593 1959 Unknown [id number] Social History Date Type Detail Facility Start: 12-25-2022 Tobacco smoking status [facility] Never smoked tobacco [facility] History of tobacco use Passive smoker [facility] Start: 12-25-2022 Tobacco use and exposure Smokeless tobacco non-user [facility] Start: 06-01-2023 End: 02-29-2024 Alcohol intake Current non-drinker of alcohol (finding) [facility] Start: 02-10-2020 End: 02-26-2024 History of Social function [facility] Start: 02-10-2020 End: 02-26-2024 Alcohol Use Disorder Identification Test - Consumption [AUDIT-C] [facility] Frequency of Alcohol Consumption Never [facility] Start: 12-25-2022 Tobacco Comment mother smokes, lives with grandmother who does not smoke [facility] Start: 2004 Sex Assigned At Not on file [facility] Has the electric, [employer], oil, or water company threatened to shut off services in your home in past 12Mo No [facility] Are you now , , , , never or living with a partner? Never [facility] How often to you hav e a drink containing alcohol? Never [facility] Do you feel stress - tense, restless, nervous, or anxious, or unable to sleep at night because your mind is troubled all the time - these days [OSQ] Not at all [facility] Start: 02-26-2024 Sexual orientation Heterosexual (finding) [facility] Tobacco smoking stat [facility] Tobacco smoking consumption unknown [facility] Medical Equipment Procedure Code Equipment Code Equipment Origin al Text Equipment Identifier Dates Scr Bn 115mm 8mm Cnn Lng Bn - [id number] Start: 02-15-2020 use 1 TEST STRIP to TEST BLOOD SUGAR up to five times a day [id number] Start: 07-02-2021 1 Pen Needle by miscellaneous route in the morning. [id number] Start: 02-17-2023 1 Pen Needle by miscellaneous route in the morning. [id number] Start: 11-04-2023 Goals Date Patient Goal Desired Activity /State Personal health goal Comment on above: Formatting of this n ote might be different from the original. Evaluation of progress towards goal: patient states he will return to his mother's home. Clinical Notes 08-05-2023 to 03-28-2024 Pj Shannon MD - 03/07/2024 2:00 PM MORRIS Heath - 02/29/2024 11:40 AM MORRIS Heath - 08/05/2023 9:00 AM EDT Note Date & Type Note Facility 03-28-[address] CHEST W CONT PROCEDURE: CT CHEST WITH CONTRAST CLINICAL INDICATION: . Lymphadenopathy, chest or axilla; mass in left axilla. COMPARISON: None TECHNIQUE: CT was performed of the chest using 100 mL Omnipaque 300 intravenous contrast, without complication. Coronal & sagittal MPR images were generated and reviewed. FINDINGS: No acute findings at the thoracic inlet, visualized upper abdomen. Left axillary Nonenlarged heart. No significant calcific coronary arterial disease. No acute aortic pathology. Patent great vessels. Unremarkable pulmonary arteries. No pneumothorax or pleural effusion. Mosaic attenuation of the lungs, most often seen in the setting of small airways disease.. Final moderate parenchymal details obscured by respiratory motion, no suspicious pulmonary lesion identified. No high-grade narrowing osseous spinal canal. No aggressive osseous lesions. Superficial collection spans 4.5 x 4.4 x 6.0 cm, adjacent fat stranding. IMPRESSION: 1. Left axillary peripherally enhancing collection measures up to 6 cm, correlate for clinical signs of abscess.. All CT scans at this facility use dose modulation, iterative reconstruction, and/or weight based dosing when appropriate to reduce radiation dose to as low as reasonably achievable. Finalized by Francisco Winters MD on 03/28/2024 7:52 PM [facility] 03-07-2024 History of Present illness Narrative Zay Garcia is a 18 y.o. male Pj Shannon MD presents with chief complaint of Diabetes and Follow-up HPI: Interim History : 02/2024 Followup visit on 03/07/2024 A1c >15 in the hospital , bg 264, on metformin 500 2 TABLETS twice a day, januvia 100 mg daily, off farxia 10 mg daily. Was in the hospital for recent DKA with A1c greater than 15, I am not sure if he is taking his medication at home, and we have to question his diagnosis now again, his C-peptide before were detectable in May/2022, so I will check it again to rule out type 1 diabetes. Use Ozempic for short term due to weight loss, I told her no need since he is already on Januvia. Interim History : 10/2022 Followup visit on 10/20/2022 A1c 7.1, bg 101, on metformin 500 2 TABLETS twice a day, januvia 100 mg daily, farxia 10 mg daily. Interim History : 05/2022 Followup visit on 05/20/2022 A1c 9.8, bg 168, on metformin 500 2 TABLETS twice a day, januvia 100 mg daily . was sick last month, lab on 04/2022, C PEPTIDE 3.3, TC 187, TG 175, HDL 42, LDL 110, VIT D 22, AL/CR 84, BG 311. Interim History : 10/2021 Followup visit He is OFF Lantus 40, metformin 500 2 TABLETS twice a day, januvia 100 mg daily , A1c 6.6, bg 172 Interim History : 08/06 Followup visit He is currently on Lantus 40, metformin 1000 twice a day, janvia 100 mg daily , CGM AVG 115 Interim History: 04/07 Followup visit 03/25/21 for followup of diabetes. JAMILAH less than 5, insulin antibody less than 0.4, C-peptide 3.2, so on more suggestive side 2, total cholesterol 127 and LDL 71 and triglycerides 103, HDL 35. He is currently on Lantus 70 and Humalog ICR 1:15, ISF 1:15, metformin 1000 twice a day. CGM shows 110 and standard deviation 14. HPI: 02/2021 A new patient came according to recommendation of his grandfather, which is my patient. He has diabetes diagnosed one year ago and he is morbidly obese, body mass index 45. He is only 15 years old. Currently he is on Lantus 80 and Humalog sliding scale 1:15 above 140 and meal insulin ICR 1:20 on average he takes 4-5 units every meal, but he miss sometimes. He states he takes his insulin to the school. He has Dexcom and CGM running 1% low range, 94 in good range, 5% high range, A1c in the office 6.4, blood sugar 120. SUBJECTIVE: MEDICATIONS: Current Outpatient Medications Medication Instructions cetirizine (ZYRTEC) 10 mg, Daily RT dapagliflozin (FARXIGA) 10 mg, Daily DSS 100 mg, 2 times daily FLUoxetine (PROZAC) 40 mg, Daily RT Lantus SoloStar 75 Units, Nightly metFORMIN (GLUCOPHAGE) 1,000 mg, Oral, 2 times daily with meals SITagliptin (JANUVIA) 100 mg, Oral, Daily RT ALLERGIES: No Known Allergies Past Medical History: Diagnosis Date Abnormal gait Arthralgia of pelvic region and thigh Asthma ([facility]) Attention deficit hyperactivity disorder (ADHD), combined type ([facility]) Class 2 severe obesity due to excess calories with serious comorbidity in adult ([facility]) Diabetic ketoacidosis without coma associated with other specified diabetes mellitus ([facility]) Hyperglycemia due to type 1 diabetes mellitus (HCC) ([facility]) Hypokalemia Hyponatremia Murmur Passive suicidal ideations Proteinuria, unspecified 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 REVIEW OF SYMPTOMS: 14 POINT OF SYSTEM REVIEWED AND NEGATIVE OBJECTIVE: Constitutional: Afebrile @ home; no weakness or night sweats SKIN: No change in skin color; no itching, rash or lesions; no hair loss; HEENT: No HAs or injury; no dizziness; No difficulty with vision; no eye pain, discharge or lesions; no hearing loss or difficulty; no nasal discharge, NECK: No pain, limitation of motion, lumps or swollen glands RESP: No cough, wheezing or difficulty breathing. No CP with breathing; CARDIO: No CP , SOB or fatigue, No edema, palpitations or dyspnea with exertion GI: No N/V/D or abd. pain; good appetite with no recent change. No heart burn, liver or gallbladder disease; no rectal bleeding or pain : No urinary pain , frequency or odor. MUSCULOSKELETAL: No muscle pain or cramps; no extremity weakness.No joint pain, stiffness, swelling or limitation of movement NEUROLOGY: No H/O seizures, stroke or fainting. No weakness, tremors. Hematology: No bleeding problems or excessive bruising ENDOCRINE: No increase in hunger, thirst or urination; admits compliance to medical management plan Feet: numbness tingling , ulcers or skin break Lab Results Component Value Date HGBA1C 15.4 (H) 02/26/2024 Lab Results Component Value Date GLU 264 03/07/2024 GLU 215 (H) 02/28/2024 GLU 121 (H) 02/27/2024 Visit Vitals BP 136/82 Pulse 87 Resp 18 Ht 6' 6 Wt 296 lb BMI 34.21 kg/m BSA 2.72 m ASSESSMENT AND PLAN: Assessment/Plan Diagnoses and all orders for this visit: Type 2 diabetes mellitus with hyperglycemia, without long-term current use of insulin ([facility]) - POCT glucose manually resulted - metFORMIN (Glucophage) 500 MG tablet; Take 2 tablets (1,000 mg) by mouth in the morning and 2 tablets (1,000 mg) in the evening. Take with meals. - SITagliptin (Januvia) 100 MG tablet; Take 1 tablet (100 mg) by mouth in the morning. - C-peptide; Future - Microalbumin / creatinine urine ratio; Future - Lipid panel; Future - Renal function panel; Future We will continue with metformin 1000 twice a day, Januvia 100 mg once a day. I am okay to stop Farxiga since he has recent DKA, I will check C-peptide again to re-evaluate his diagnosis, if it is low, then we will start him in insulin. C-peptide was 3.2 in May/2022 Vitamin D deficiency - Vitamin D 25 hydroxy Total; Future Encounter for dietary consultation Class 1 obesity due to excess calories without serious comorbidity with body mass index (BMI) of 34.0 to 34.9 in adult Follow up in about 6 weeks (around 04/18/2024). documented in this encounter [facility] 02-29-2024 History of Present illness Narrative Images from the original note were not included. [address] [place] [address] SUBJECTIVE: Patient ID: Zay Garcia is a 18 y.o. male. Chief Complaint Patient presents with pain when bm States when he has BM, sometimes causes pain. States he does not have BM's daily. Sometimes stools are firm. Denies blood in his stool. Constipation This is a recurrent problem. The current episode started more than 1 month ago. The problem has been waxing and waning since onset. His stool frequency is 2 to 3 times per week. The stool is described as firm. The patient is not on a high fiber diet. He Exercises regularly. There has Been adequate water intake. Associated symptoms include rectal pain. Pertinent negatives include no abdominal pain, anorexia, back pain, bloating, diarrhea, difficulty urinating, fecal incontinence, fever, flatus, hematochezia, melena, nausea, vomiting or weight loss. Risk factors include obesity. He has tried nothing for the symptoms. The treatment provided mild relief. The following portions of the patient's history were reviewed and updated as appropriate: allergies, current medications, past family history, past medical history, past social history, past surgical history and problem list. Past Surgical History: Procedure Laterality Date DENTAL SURGERY IN SITU FIXATION HIP CANNULATED SCREW Right 02/15/2020 Performed by Romero Hollins MD at [facility] Past Medical History: Diagnosis Date ADHD (attention deficit hyperactivity disorder) Asthma last more than 3 years ago Closed fracture of left foot 2016 Diabetes mellitus ([facility]) Type 2 Diabetes mellitus type 2, controlled ([facility]) DKA (diabetic ketoacidoses) 06/11/2020 Heart murmur last ECHO with normal 05/2018 SCFE (slipped capital femoral epiphysis), right 2019 Follows with Gurvinder Seasonal allergies Immunization History Administered Date(s) Administered DTaP 02/27/2005, 05/08/2005, 07/10/2005, 05/08/2006, 02/05/2009 HPV Quadrivalent 12/18/2016, 12/16/2017 Hepatitis A 01/27/2007, 02/11/2008 Hepatitis B 02/27/2005, 05/08/2005, 07/10/2005 HiB 02/27/2005, 05/08/2005, 07/10/2005, 05/08/2006 IPV 02/27/2005, 05/08/2005, 07/10/2005, 02/05/2009 Influenza, Unspecified 04/01/2010, 05/30/2010, 03/31/2011 MMR 01/21/2006, 02/05/2009 Meningococcal Conjugate 12/18/2016 Pneumococcal Conjugate 13-Valent 02/27/2005, 05/08/2005, 07/10/2005, 05/08/2006 SARS-COV-2 (COVID-19) Vaccine, Unspecified 09/29/2020, 10/20/2020 Tdap 12/18/2016 Varicella 01/21/2006, 02/05/2009 REVIEW OF SYSTEMS: Review of Systems Constitutional: Negative for chills, fatigue, fever and weight loss. HENT: Negative for hearing loss and trouble swallowing. Eyes: Negative for pain and visual disturbance. Respiratory: Negative for cough, chest tightness and shortness of breath. Cardiovascular: Negative for chest pain, palpitations and leg swelling. Gastrointestinal: Positive for constipation and rectal pain. Negative for abdominal pain, anorexia, bloating, blood in stool, diarrhea, flatus, hematochezia, melena, nausea and vomiting. Endocrine: Negative for polydipsia, polyphagia and polyuria. Genitourinary: Negative for difficulty urinating, dysuria, flank pain, hematuria, scrotal swelling and testicular pain. Musculoskeletal: Negative. Negative for back pain. Skin: Negative. Allergic/Immunologic: Negative. Neurological: Negative for seizures, syncope and headaches. Hematological: Does not bruise/bleed easily. Psychiatric/Behavioral: Negative. PHYSICAL EXAMINATION: Vitals: 02/29/24 1155 BP: 140/80 BP Site: Left Arm BP Postition: Sitting Pulse: 87 Resp: 18 Temp: 36.7 C (98 F) TempSrc: Oral SpO2: 98% Weight: (!) 137 kg (302 lb) Height: 203.2 cm (6' 8 ) Patient noted to have elevated BMI and the following intervention(s) were applied: encouragement to exercise. Physical Exam Vitals and nursing note reviewed. Constitutional: General: He is not in acute distress. Appearance: He is well-developed. HENT: Head: Normocephalic and atraumatic. Right Ear: Tympanic membrane and external ear normal. Left Ear: Tympanic membrane and external ear normal. Nose: Nose normal. Mouth/Throat: Mouth: Mucous membranes are moist. Pharynx: No oropharyngeal exudate. Eyes: General: No scleral icterus. Right eye: No discharge. Left eye: No discharge. Conjunctiva/sclera: Conjunctivae normal. Pupils: Pupils are equal, round, and reactive to light. Neck: Vascular: No JVD. Cardiovascular: Rate and Rhythm: Normal rate and regular rhythm. Heart sounds: Normal heart sounds. No murmur heard. No friction rub. No gallop. Pulmonary: Effort: Pulmonary effort is normal. No respiratory distress. Breath sounds: Normal breath sounds. Chest: Chest wall: No tenderness. Abdominal: General: Bowel sounds are normal. There is no distension. Palpations: Abdomen is soft. There is no mass. Tenderness: There is no abdominal tenderness. There is no guarding or rebound. Hernia: No hernia is present. Musculoskeletal: General: No tenderness. Normal range of motion. Cervical back: Normal range of motion and neck supple. Lymphadenopathy: Cervical: No cervical adenopathy. Skin: General: Skin is warm and dry. Capillary Refill: Capillary refill takes less than 2 seconds. Findings: No rash. Neurological: Mental Status: He is alert and oriented to person, place, and time. Deep Tendon Reflexes: Reflexes are normal and symmetric. Psychiatric: Mood and Affect: Mood normal. Behavior: Behavior normal. Thought Content: Thought content normal. Judgment: Judgment normal. ASSESSMENT/PLAN: Zay was seen today for pain when bm. Diagnoses and all orders for this visit: Other constipation - docusate sodium (COLACE) 100 mg capsule; Take 1 capsule (100 mg total) by mouth in the morning and 1 capsule (100 mg total) before bedtime. Increase fiber, water, and exercise. Start docusate sodium 100 mg oral twice daily. Body mass index is 33.18 kg/m . Patient noted to have elevated BMI and the following intervention(s) were applied: Discussed current weight today. Consider healthy food choices, portion control. Avoid sugary beverages and high concentrated sweets. Routine exercise regimen encouraged. ALL QUESTIONS ANSWERED Total time spent was 25 minutes: Preparing to see the patient (e.g., review of tests) Obtaining and/or reviewing separately obtained history Performing a medically appropriate examination and/or evaluation Counseling and educating the patient/family/caregiver Ordering medications, tests, or procedures Follow-up: Next scheduled MORRIS Reynolds 02/29/24 1240 documented in this encounter [facility] 08-05-2023 History of Present illness Narrative Images from the original note were not included[place] [address] SUBJECTIVE: Patient ID: Zay Garcia is a 17 y.o. male. Chief Complaint Patient presents with Cough Sore Throat Nose Bleed Onset of symptoms started this past week. Coughing started yesterday with sore throat. Bloody nose started Thursday, both nares. Alleviating methods tried is saline nasal spray. Fernando reports improvement with nose bleeds after using saline. No sick contacts in household. Sore Throat This is a new problem. The current episode started in the past 7 days. The problem has been waxing and waning. Neither side of throat is experiencing more pain than the other. There has been no fever. Associated symptoms include congestion, coughing and a hoarse voice. Pertinent negatives include no headaches, shortness of breath or trouble swallowing. He has had exposure to strep. He has tried nothing for the symptoms. Nose Bleed The bleeding has been from both nares. This is a new problem. The current episode started in the past 7 days. The problem occurs every several days. The problem has been waxing and waning. The bleeding is associated with dry air. Treatments tried: saline nasal spray. The treatment provided moderate relief. The following portions of the patient's history were reviewed and updated as appropriate: allergies, current medications, past family history, past medical history, past social history, past surgical history and problem list. Past Surgical History: Procedure Laterality Date DENTAL SURGERY IN SITU FIXATION HIP CANNULATED SCREW Right 02/15/2020 Performed by Romero Hollins MD at [facility] Past Medical History: Diagnosis Date ADHD (attention deficit hyperactivity disorder) Asthma last more than 3 years ago Closed fracture of left foot 2016 Diabetes mellitus ([facility]) Type 2 DKA (diabetic ketoacidoses) 06/11/2020 Heart murmur last ECHO with normal 05/2018 SCFE (slipped capital femoral epiphysis), right 2019 Follows with Gurvinder Seasonal allergies Immunization History Administered Date(s) Administered DTaP 02/27/2005, 05/08/2005, 07/10/2005, 05/08/2006, 02/05/2009 HPV Quadrivalent 12/18/2016, 12/16/2017 Hepatitis A 01/27/2007, 02/11/2008 Hepatitis B 02/27/2005, 05/08/2005, 07/10/2005 HiB 02/27/2005, 05/08/2005, 07/10/2005, 05/08/2006 IPV 02/27/2005, 05/08/2005, 07/10/2005, 02/05/2009 Influenza, Unspecified 04/01/2010, 05/30/2010, 03/31/2011 MMR 01/21/2006, 02/05/2009 Meningococcal Conjugate 12/18/2016 Pneumococcal Conjugate 13-Valent 02/27/2005, 05/08/2005, 07/10/2005, 05/08/2006 SARS-COV-2 (COVID-19) Vaccine, Unspecified 09/29/2020, 10/20/2020 Tdap 12/18/2016 Varicella 01/21/2006, 02/05/2009 REVIEW OF SYSTEMS: Review of Systems Constitutional: Negative for chills, fatigue and fever. HENT: Positive for congestion, hoarse voice, postnasal drip and sore throat. Negative for hearing loss and trouble swallowing. Nose bleeding Eyes: Negative for pain and visual disturbance. Respiratory: Positive for cough. Negative for chest tightness and shortness of breath. Cardiovascular: Negative for chest pain, palpitations and leg swelling. Gastrointestinal: Negative for blood in stool. Endocrine: Negative for polydipsia, polyphagia and polyuria. Genitourinary: Negative for difficulty urinating, dysuria, flank pain, hematuria, scrotal swelling and testicular pain. Musculoskeletal: Negative. Skin: Negative. Allergic/Immunologic: Negative. Neurological: Negative for seizures, syncope and headaches. Hematological: Does not bruise/bleed easily. Psychiatric/Behavioral: Negative. PHYSICAL EXAMINATION: Vitals: 08/05/23 0841 BP: 126/76 BP Site: Left Arm BP Postition: Sitting Pulse: 63 Resp: 18 Temp: 36.9 C (98.4 F) TempSrc: Oral SpO2: 98% Weight: (!) 171.2 kg (377 lb 6.4 oz) Height: 203.2 cm (6' 8 ) Patient noted to have elevated BMI and the following intervention(s) were applied: encouragement to exercise. Physical Exam Vitals and nursing note reviewed. Constitutional: General: He is not in acute distress. Appearance: He is well-developed. HENT: Head: Normocephalic and atraumatic. Right Ear: Tympanic membrane and external ear normal. Left Ear: Tympanic membrane and external ear normal. Nose: Nose normal. Mouth/Throat: Mouth: Mucous membranes are moist. Pharynx: No oropharyngeal exudate. Eyes: General: No scleral icterus. Right eye: No discharge. Left eye: No discharge. Conjunctiva/sclera: Conjunctivae normal. Pupils: Pupils are equal, round, and reactive to light. Neck: Vascular: No JVD. Cardiovascular: Rate and Rhythm: Normal rate and regular rhythm. Heart sounds: Normal heart sounds. No murmur heard. No friction rub. No gallop. Pulmonary: Effort: Pulmonary effort is normal. No respiratory distress. Breath sounds: Normal breath sounds. Chest: Chest wall: No tenderness. Abdominal: General: Bowel sounds are normal. There is no distension. Palpations: Abdomen is soft. There is no mass. Tenderness: There is no abdominal tenderness. There is no guarding or rebound. Hernia: No hernia is present. Musculoskeletal: General: No tenderness. Normal range of motion. Cervical back: Normal range of motion and neck supple. Lymphadenopathy: Cervical: No cervical adenopathy. Skin: General: Skin is warm and dry. Capillary Refill: Capillary refill takes less than 2 seconds. Findings: No rash. Neurological: Mental Status: He is alert and oriented to person, place, and time. Deep Tendon Reflexes: Reflexes are normal and symmetric. Psychiatric: Mood and Affect: Mood normal. Behavior: Behavior normal. Thought Content: Thought content normal. Judgment: Judgment normal. ASSESSMENT/PLAN: Zay was seen today for cough, sore throat and nose bleed. Diagnoses and all orders for this visit: Epistaxis - oxymetazoline (AFRIN) 0.05 % nasal mist; Administer 2 sprays into each nostril daily as needed for congestion (nose bleeds). Sore throat - POCT rapid strep A - POCT Influenza A/Influenza B/SARS-COV-2 Veritor Acute cough - pyrilamine-dextromethorphan 7.5-7.5 mg/5 mL liquid; Take 10 mL by mouth every 8 (eight) hours as needed (cough). Rapid POCT COVID, influenza, Rapid strep negative in office today Epistaxis- bilateral nares. Is not daily. May continue to use saline nasal spray for moisture. New orders for Afrin nasal spray PRN as directed only for epistaxis. Cough- [place] as directed PRN cough. Note written no school today. May return tomorrow if feeling better. ALL QUESTIONS ANSWERED Total time spent was 25 minutes: Preparing to see the patient (e.g., review of tests) Obtaining and/or reviewing separately obtained history Performing a medically appropriate examination and/or evaluation Counseling and educating the patient/family/caregiver Ordering medications, tests, or procedures Follow-up: Next scheduled MORRIS Reynolds 08/05/23 0935 documented in this encounter [facility] Evaluation note Diagnosis Type 2 diabetes mellitus with hyperglycemia, without long-term current use of insulin ([facility]) [facility] Diagnosis Epistaxis- Primary Sore throat Acute pharyngitis Acute cough documented [facility]* Diagnosis Other constipation- Primary [facility] Diagnosis Type 2 diabetes mellitus with hyperglycemia, without long-term current use of insulin ([facility])- Primary Vitamin D deficiency Encounter for dietary consultation Class 1 obesity due to excess calories without serious comorbidity with body mass index (BMI) of 34.0 to 34.9 in adult documented in this encounter [facility] HealthcareInstructionsNot on filedocumented in this encounterAd[facility] Hospital[facility]ructions* Attachments The following attachments cannot be sent through Care Everywhere. * Nosebleeds Discharge Instructions ([place]) * Sore Throat Discharge Instructions, Adult ([place]) [facility]* Attachments The following attachments cannot be sent through Care Everywhere. * Constipation in adults ([place]) [facility] Summary Purpose Family History No Family History Records FoundNo Family History Records FoundNo Family History Records FoundNo Family History Records Found Advance Directives No Advanced Directives Records FoundLatest Code Status on File Code Status Date Activated Date Inactivated Comments Full Code 06/11/2020 4:24 PM 06/15/2020 11:11 PM Date Activated Date Inactivated Comments 02/26/2024 4:52 PM 02/28/2024 5:12 PM Date Activated Date Inactivated Comments 01/11/2024 5:14 AM 01/12/2024 2:19 PM Date Activated Date Inactivated Comments 06/11/2020 4:24 PM 06/15/2020 11:11 PM Additional Source Comments (unrecognized sect ion and content) No Status Records FoundNo Status Records FoundNo Status Records FoundNo Status Records Found INFORMATION SOURCE (unrecogn ized section and content) DATE CREATED AUTHOR 06/20/2020 [facility] DATE CREATED AUTHOR AUTHOR'S ORGANIZ ATION 03/02/2024 [facility] DATE CREATED AUTHOR AUTHOR'S ORGANIZ ATION 03/09/2024 [facility] EPIC DATE CREATED AUTHOR AUTHOR'S ORGANIZ ATION 03/30/2024 [facility] Care Teams (unrecognized sec tion and content) [employer] Relationship Specialty Start Date End Date Marlyn Sims INTERACTIVE MEDIA MARKETING DIRECT[facility] [address] [place] [address] PCP - General Family Medicine 02/12/21 [employer] Relationship Specialty Start Date End Date Marlyn Sims [facility] [address] [place] [address] PCP - General Family Medicine 02/12/21 [employer] Relationship Specialty Start Date End Date Marlyn Sims [facility] [address] [place] [address] PCP - General Family Medicine 02/12/21 [employer] Relationship Specialty Start Date End Date Unallocated, Lucrecia Call MD [address] [facility] [place] [address] PCP - General Family Medicine 02/09/24 [employer] Relationship Specialty Start Date End Date Unallocated, Lucrecia Call MD [address] [facility] [place] [address] PCP - General Family Medicine 02/09/24 Reason for Visit (unrecogniz ed section and content) Reason Comments Cough Sore Throat Nose Bleed Reason Comments pain when bm Reason Comments Diabetes Follow-up FOR RECORDS PERTAINING TO PATIENTS WHO ARE OR HAVE BEEN ENROLLED IN A CHEMICAL DEPENDENCY/SUBSTANCEABUSE PROGRAM, SOME INFORMATION MAY BE OMITTED. This clinical summary was aggregated from multiple sources. Caution should be exercised in using it in the provision of clinical care. This summary normalizes information from multiple sources, and as a consequence, information in this document may materially change the coding, format and clinical context of patient data. In addition, data may be omitted in some cases. CLINICAL DECISIONS SHOULD BE BASED ON THE PRIMARY CLINICAL RECORDS. [facility]. provides no warranty or guarantee of the accuracy or completeness of information in this document.
--- NOTE | 2024-03-30 18:02 | US_ITS ---
The [address] [address] Patient Name: ZAY MCFARLAND MRN: [id number] date: 2005 Sex: M Assigned Patient Location: ED.MAIN Current Patient Location: ED.MAIN Accession/Order Number: [id number] Exam Date: 03/30/2024 19:00 Report Date: 03/30/2024 20:56 At the request of: GARRET MORIN Procedure: US extremity nonvascular LT Examination:US extremity nonvascular LT INDICATION:Left axilla COMPARISON:None. TECHNIQUE:Real-time sonography of the left axilla was performed in the area of clinical concern. FINDINGS:There is an ill defined complex fluid collection in the left axilla measuring 6.9 x 2.9 x 6.5 cm. There is no internal vascular flow. The imaging characteristics are concerning for abscess. US/US extremity nonvascular LT IMPRESSION: Complex fluid collection in the left axilla measuring 6.9 x 2.9 x 6.5 cm concerning for abscess. Electronically authenticated by: KO ESCALANTE Date: 03/30/2024 20:56
--- NOTE | 2024-03-30 18:05 | ED_ITS ---
HPI - Skin/Abscess/Foreign Bdy General Chief complaint: Skin/Abscess/Foreign Body Stated complaint: armpit pain Time Seen by Provider: 03/30/24 17:48 Source: patient Mode of arrival: walk-in Limitations: no limitations History of Present Illness HPI narrative: Patient is a 18-year-old male with a history of insulin-dependent type 2 diabetes who presents to the ER for continued pain in the left axilla. Patient was apparently seen at [place] emergency department yesterday and started on antibiotics for an abscess to the left axilla. They were instructed to follow- up with general surgery, however patient states that he called the general surgery office today but could not get a hold of anybody. He reports an increase in pain this afternoon. He has had no fevers or vomiting. No drainage from the area. He was started on Bactrim and Keflex from the emergency department. He states he did not receive any pain medication Related Data Home Medications ?Medication ?Instructions ?Recorded ?Confirmed semaglutide 1 mg/dose (4 mg/3 mL) 1 mg subcut QWEEK 01/08/24 03/30/24 subcutaneous pen injector (Ozempic) Previous Rx's ?Medication ?Instructions ?Recorded fluoxetine 20 mg capsule 20 mg PO QAM 30 days #30 caps 01/10/24 insulin glargine 100 unit/mL (3 75 unit (0.75 mL) subcut .qhs 30 01/10/24 mL) subcutaneous pen (Lantus days #8 pens Solostar U-100 Insulin) metformin 500 mg tablet 1,000 mg (2 x 500 mg) PO .q12 30 01/10/24 days #120 tabs sitagliptin phosphate 100 mg 100 mg PO QAM 30 days #30 tabs 01/10/24 tablet (Januvia) Allergies Allergy/AdvReac Type Severity Reaction Status Date / Time No Known Drug Allergies Allergy Verified 01/08/24 09:07 Review of Systems ROS Constitutional Denies: fever or chills Ears, nose, mouth, and throat Denies: throat pain Respiratory Denies: shortness of breath Gastrointestinal Denies: nausea or vomiting Musculoskeletal Denies: back pain Integumentary/Breast Reports: skin tenderness; Denies: rash Hematologic/Lymphatic Denies: easy bruising or easy bleeding [facility] Medical History (Updated 03/30/24 @ 20:01 by DANNIE Huggins) Diabetes type 2, controlled ?E11.9 - Type 2 diabetes mellitus without complications (ICD-10) Surgical History (Updated 01/08/24 @ 13:17 by Kori Lagunas) History of hip surgery ?Z98.890 - Other specified postprocedural states (ICD-10) Family History (Updated 01/08/24 @ 13:18 by Kori Lagunas) Father Family history of diabetes mellitus Social History Within the past year, how often did you have a drink containing alcohol: never Score interpretation: A score less than 4 is consistent with normal alcohol consumption. Do you use any of these nicotine containing products: vaping products Non-prescribed substance use: denies use Highest level of school completed/degree received: high school graduate Little interest or pleasure in doing things: not at all Feeling down, depressed, or hopeless: not at all Exam Narrative Exam Narrative: Gen.: Awake, alert, in no distress Head: Normocephalic, atraumatic ENT: Moist mucous membranes Respiratory: No respiratory distress, lungs clear bilaterally Cardio: Regular rate and rhythm Extremities: Able to lift the left arm, there is no erythema, induration or open wounds. There is a large area of swelling under the skin Psych: Normal mood and affect Neuro: No focal neuro deficit Skin: Warm, dry, intact Constitutional Vital Signs, click to edit/add: Last Vital Signs Temp 98 F 03/30/24 17:44 Pulse 74 03/30/24 17:44 Resp 16 03/30/24 17:44 BP 145/75 H 03/30/24 17:44 Pulse Ox 98 03/30/24 17:44 O2 Del Method Room Air 03/30/24 17:44 Course Vital Signs Vital signs: Vital Signs Temperature 98 F 03/30/24 17:44 Pulse Rate 74 03/30/24 17:44 Respiratory Rate 16 03/30/24 17:44 Blood Pressure 145/75 H 03/30/24 17:44 Pulse Oximetry 98 03/30/24 17:44 Oxygen Delivery Method Room Air 03/30/24 17:44 Temperature 98 F 03/30/24 17:44 Pulse Rate 74 03/30/24 17:44 Respiratory Rate 16 03/30/24 17:44 Blood Pressure 145/75 H 03/30/24 17:44 Pulse Oximetry 98 03/30/24 17:44 Oxygen Delivery Method Room Air 03/30/24 17:44 MDM - Skin/Abscess/Foreign Bdy MDM Narrative Medical decision making narrative: Case was discussed with Dr. Condon for general surgery. Patient was ordered to have IV pain medication, lab studies, IV antibiotics. He does not appear septic although blood sugar is significantly elevated at 424. Subcutaneous insulin was ordered for hyperglycemia. Ultrasound shows a 6.9 cm abscess in the left axilla. Dr. Condon recommended opening the area and placing packing material, admitting the patient to medicine for management of his blood sugar and antibiotic therapy at least overnight and he will see the patient tomorrow for general surgery evaluation to see if the patient needs an additional procedure for drainage. The abscess was opened with a small incision and packing material was placed. Please see procedure note for details. Patient was given Zosyn and vancomycin for broader antibiotic coverage. Admitted to the hospitalist service for further evaluation and treatment. Incision and drainage: A single layer of iodine was used to prep the area. Drapes were placed to ensure isolation of the abscess and surrounding skin tissue. A regional field block was performed with 1% lidocaine with epi, 3cc. Incision was made with an 11 blade, approximately 1 cm, a significant amount purulent material was expressed. Cultures were obtained and sent to the lab. Plain, 0.25 packing was placed within the abscess. A dry sterile dressing was placed. SUPERVISED APC VISIT, PHYSICIAN ATTESTATION: Based on the medical record the care appears appropriate. ? Medical Records Attestation: I reviewed the patient's medical records. Lab Data Attestation: I reviewed the patient's lab results. Labs: Lab Results 03/30/24 Range/Units 18:05 WBC 11.5 H (4.0-11.0) 10^3/uL RBC 4.88 (4.70-6.10) 10^6/uL Hgb 14.6 (14.0-18.0) g/dL Hct 44.2 (42.0-54.0) % MCV 90.6 (80.0-94.0) fL MCH 29.9 (25.9-34.0) pg MCHC 33.0 (29.9-35.2) g/dL RDW 13.1 (11.0-15.0) % Plt Count 316 (150-450) 10^3/uL MPV 11.2 (9.5-13.5) fL Neut % (Auto) 73.1 (43.0-75.0) % Lymph % (Auto) 15.3 L (20.5-60.0) % [place] % (Auto) 8.0 (1.7-12.0) % Eos % (Auto) 1.9 (0.9-7.0) % Baso % (Auto) 0.8 (0.2-2.0) % Neut # (Auto) 8.4 H (1.4-6.5) 10^3/uL Lymph # (Auto) 1.8 (1.2-3.8) 10^3/uL [place] # (Auto) 0.9 H (0.3-0.8) 10^3/uL Eos # (Auto) 0.2 (0.0-0.7) 10^3/uL Baso # (Auto) 0.1 (0.0-0.1) 10^3/uL Abs Immat Gran (auto) 0.10 H (0.00-0.03) 10^3/uL Imm/Tot Granulo (auto) 0.9 H (0.0-0.5) % ESR 53 H (<=15) mm/hr PT 10.9 (9.0-11.6) sec INR 1.03 VBG pH 7.486 H (7.330-7.430) VBG pCO2 32.4 L (40.0-52.0) mmHg Sodium 138 (136-145) mmol/L Potassium 4.3 (3.5-5.1) mmol/L Chloride 99 (98-107) mmol/L Carbon Dioxide 25.6 (21.0-32.0) mmol/L Anion Gap 17.7 BUN 8.0 (6.4-19.3) mg/dL Creatinine 1.33 H (0.70-1.30) mg/dL Est GFR ( Amer) >60 (>=60 mL/min/1.73m^2) Est GFR (Non-Af Amer) >60 (>=60 mL/min/1.73m^2) BUN/Creatinine Ratio 6.0 Glucose 424 H (74-106) mg/dL Lactate 1.0 (0.4-2.0) mmol/L Calcium 9.5 (8.5-10.1) mg/dL C-Reactive Protein 4.12 H (<=0.50) mg/dL Acetone, Qual Small A (NEGATIVE) Imaging Data US extremity: Attestation: I have reviewed the pertinent imaging results. Discharge Plan Discharge Chief Complaint: Skin/Abscess/Foreign Body Clinical Impression: Abscess of left axilla, Acute hyperglycemia Patient Disposition: Admitted As Inpatient Time of Disposition Decision: 17:54 Condition: Good
[2024-03-30] MEDS: HYDROMORPHONE HCL 1 MG/ML CARTRIDGE IV (18:13)
[2024-03-30] MEDS: ONDANSETRON PF 4 MG/2 ML VIAL IV (18:14)
[2024-03-30] MEDS: KETOROLAC TROMETHAMINE 30 MG/ML VIAL IVP (18:14)
[2024-03-30 18:16] LABS: Basophils Absolute Auto 0.1 10^3/uL (0.0-0.1); Basophils Percent Auto 0.8 % (0.2-2.0); Eosinophils Absolute Auto 0.2 10^3/uL (0.0-0.7); Eosinophils Percent Auto 1.9 % (0.9-7.0); Hematocrit 44.2 % (42.0-54.0); Hemoglobin 14.6 g/dL (14.0-18.0); Immature Granulocytes Pct Auto 0.9 % (0.0-0.5); Lymphocytes Absolute Auto 1.8 10^3/uL (1.2-3.8); Lymphocytes Percent Auto 15.3 % (20.5-60.0); Mean Corpuscular Hemoglobin 29.9 pg (25.9-34.0); Mean Corpuscular Volume 90.6 fL (80.0-94.0); Mean Platelet Volume 11.2 fL (9.5-13.5); Monocytes Absolute Auto 0.9 10^3/uL (0.3-0.8); Neutrophils Absolute Auto 8.4 10^3/uL (1.4-6.5); Neutrophils Percent Auto 73.1 % (43.0-75.0); Platelet Count 316 10^3/uL (150-450); Red Blood Count 4.88 10^6/uL (4.70-6.10); Red Cell Distribution Width 13.1 % (11.0-15.0); White Blood Count 11.5 10^3/uL (4.0-11.0)
[2024-03-30 18:20] LABS: PCO2 VBG 32.4 mmHg (40.0-52.0); pH VBG 7.486 (7.330-7.430)
[2024-03-30 18:29] LABS: Anion Gap 17.7; C Reactive Protein 4.12 mg/dL (<=0.50); Calcium 9.5 mg/dL (8.5-10.1); Carbon Dioxide 25.6 mmol/L (21.0-32.0); Chloride 99 mmol/L (98-107); Estimated GFR (African America >60 (>=60 mL/min/1.73m^2); Estimated GFR (Non-African Ame >60 (>=60 mL/min/1.73m^2); Glucose 424 mg/dL (74-106); Sodium 138 mmol/L (136-145)
[2024-03-30 18:30] LABS: Potassium 4.3 mmol/L (3.5-5.1)
[2024-03-30 18:35] LABS: Erythrocyte Sedimentation Rate 53 mm/hr (<=15)
[2024-03-30 18:36] LABS: Acetone SMALL (NEGATIVE)
[2024-03-30 18:47] LABS: INR 1.03; Prothrombin Time 10.9 sec (9.0-11.6)
[2024-03-30] MEDS: INSULIN REGULAR, HUMAN (100 UNIT/ML) 10 ML MDV 15 UNIT SUBQ (19:57)
[2024-03-30] MEDS: PIPERACILLIN SODIUM/TAZOBACTAM 4.5 GM in 0.9 % SODIUM CHLORIDE 50 ML IV (20:02)
[2024-03-30] MEDS: LIDOCAINE HCL 1%-EPINEPHRINE 1:100,000 20 ML MDV INJ (20:04)
[2024-03-30] MEDS: VANCOMYCIN HCL 2,000 MG in 0.9 % SODIUM CHLORIDE 500 ML 250 MG IV (20:44)
[2024-03-30 21:05] VITALS: BP 114/90; PULSE 79; O2SAT 100
--- OUTSIDE RECORDS SUMMARY | 2024-03-30 21:23 | XMS_ITS | CCD ---
Author Organization [facility] ion Partnership [facility] Care Team Providers Care Gis Mapping Technician Name Role Phone MARIA ISABEL ROMAN Consulting Unavailable MARIA ISABEL ROMAN Attending Unavailable [facility] Primary Care Unavailable MARIA ISABEL ROMAN Admitting Unavailable [facility] Consulting Unavailable Levi CORPORATE COORDINATOR-Marlyn RIVER Primary Care Provid er MARLYN SIMS [...] hyperglycemia, without long-term current use of insulin ([facility]) Take 1 tablet (10 mg total) by mouth in the morning. 30 tablet 4 05/26/2023 Active dextromethorphan hydrobromide 1.5 mg/ml / pyrilamine maleate 1.5 mg/ml oral solution (1 source) Uncompetitive D-rufjnl-N-asparta te Receptor Antagonist, Sigma-1 Agonist Start: 08-05-2023 [...] hyperglycemia, without long-term current use of insulin ([facility]) Inject 1.5 mg under the skin [...] of major depressive disorder without prior episode ([facility]) Take 1 capsule (20 mg total) [...] hyperglycemia, without long-term current use of insulin ([facility]) Inject 35 Units under the skin nightly. 15 mL 2 05/26/2023 Active Start: 05-26-2023 insulin glargi ne (LANTUS SOLOSTAR U-100 INSULIN) 100 unit/mL (3 mL) insulin pen Indications: Type 2 diabetes mellitus with hyperglycemia, without long-term current use of insulin ([facility]) Inject 35 Units under the skin [...] hyperglycemia, without long-term current use of insulin ([facility]) Take 2 tablets (1,000 mg) by [...] hyperglycemia, without long-term current use of insulin ([facility]) Take 2 tablets (1,000 mg total) [...] hyperglycemia, without long-term current use of insulin ([facility]) Take 1 tablet (100 mg) by mouth in the morning. 30 tablet 1 03/07/2024 06/05/2024 Active Start: 05-26-2023 take 1 tablet by rodri th once daily in the morning SITagliptin phosphate (JANUVIA) 100 mg tablet Indications: Type 2 diabetes mellitus with hyperglycemia, without long-term current use of insulin ([facility]) Take 1 tablet (100 mg total) [...] 02-29-2024 blood-glucose meter,continuous (FREESTYLE NISHA 3 READER) [facility] [place] Indications: Type 2 diabetes mellitus with microalbuminuria, without long-term current use of insulin ([facility]) 1 Device by miscellaneous route in the morning. 1 each 11/04/2023 02/29/2024 Discontinued (Therapy completed) blood-glucose sensor (FREESTYLE NISHA 3 SENSOR) device (1 source) Start: 11-04-2023 End: 02-29-2024 blood-glucose sensor (FREESTYLE NISHA 3 SENSOR) device Indications: Type 2 diabetes mellitus with microalbuminuria, without long-term current use of insulin ([facility]) 1 application. by miscellaneous route every 10 [...] Resolved: 02-29-2024 05-26-2023 Other aftercare (1 source) long term care pharmacist (current) use of insulin; Translations: [long term care pharmacist (current) use of insulin] Onset: 05-26-2023 Episodic [...] on 03-07-2024 Glucose Blood, POC 264 mg/dL [facility] CBC AND AUTO DIFFon 02-28-20 ABSOLUTE BASOPHIL 0.1 X10E9/L Normal 0.0-0.2 [facility] Comment on above: Performed By: #### D SALAS #### [facility] ([id number]) [address] [place] [address] 39558 ABSOLUTE NEUTROPHIL 4.2 X10E9/L Normal 1.5-6.6 [facility] Comment on above: Performed By: #### D SALAS #### [facility] ([id number]) [address] [place] [address] 63133 Basophils/100 WBC (Bld) 0.9 % Normal [facility] Comment on above: Performed By: #### D SALAS #### [facility] ([id number]) [address] [place] [address] 46608 Eosinophils (Bld) [#/Vol] 0.2 10*3/uL Normal 0.0-0.4 [facility] Comment on above: Performed By: #### D SALAS #### [facility] ([id number]) [address] [place] [address] 16426 Eosinophils/100 WBC (Bld) 2.3 % Normal [facility] Comment on above: Performed By: #### D SALAS #### [facility] ([id number]) [address] [place] [address] 90948 Erythrocyte distribution width (RBC) [Ratio] 15.0 % Normal 11.5-15.0 [facility] Comment on above: Performed By: #### D SALAS #### [facility] ([id number]) [address] [place] [address] 90671 Hematocrit (Bld) [Volume fraction] 43.5 % Normal 39-49 [facility] Comment on above: Performed By: #### D SALAS #### [facility] ([id number]) [address] [place] [address] 04377 Hemoglobin (Bld) [Mass/Vol] 14.4 g/dL Normal 13.0-17.0 [facility] Comment on above: Performed By: #### D SALAS #### [facility] ([id number]) [address] [place] [address] 59871 Lymphocytes (Bld) [#/Vol] 1.9 10*3/uL Normal 1.0-3.5 [facility] Comment on above: Performed By: #### D SALAS #### [facility] ([id number]) [address] [place] [address] 82207 Lymphocytes/100 WBC (Bld) 27.5 % Normal [facility] Comment on above: Performed By: #### D SALAS #### [facility] ([id number]) [address] [place] [address] 74064 MCH (RBC) [Entitic mass] 29.5 pg Normal 27-34 [facility] Comment on above: Performed By: #### D SALAS #### [facility] ([id number]) [address] [place] [address] [place] [address] MCHC (RBC) [Mass/Vol] 33.2 g/dL Normal 32-36 [facility] Comment on above: Performed By: #### D SALAS #### [facility] ([id number]) [address] [place] [address] 17945 MCV (RBC) [Entitic vol] 89 fL Normal 80-100 [facility] Comment on above: Performed By: #### D SALAS #### [facility] ([id number]) [address] [place] [address] 82818 Monocytes (Bld) [#/Vol] 0.5 10*3/uL Normal 0-0.9 [facility] Comment on above: Performed By: #### D SALAS #### [facility] ([id number]) [address] [place] [address] 94617 Monocytes/100 WBC (Bld) 7.5 % Normal [facility] Comment on above: Performed By: #### D SALAS #### [facility] ([id number]) [address] [place] [address] 11531 Neutrophils/100 WBC (Bld) 61.8 % Normal [facility] Comment on above: Performed By: #### D SALAS #### [facility] ([id number]) [address] [place] [address] 84483 Platelet mean volume (Bld) [Entitic vol] 10.3 fL Normal 7-12 [facility] Comment on above: Performed By: #### D SALAS #### [facility] ([id number]) [address] [place] [address] 53108 Platelets (Bld) [#/Vol] 169 10*3/uL Normal 150-450 [facility] Comment on above: Performed By: #### D SALAS #### [facility] ([id number]) [address] [place] [address] 49767 RBC COUNT 4.89 X10E12/L Normal 4.10-5.70 [facility] Comment on above: Performed By: #### D SALAS #### [facility] ([id number]) [address] [place] [address] 39654 WBC (Bld) [#/Vol] 6.7 10*3/uL Normal 4.0-11.0 [facility] Comment on above: Performed By: #### D SALAS #### [facility] ([id number]) [address] [place] [address] 79774 COMPREHENSIVE METABOLIC PANE Al 02-28-2024 Albumin [Mass/Vol] 3.3 g/dL Normal 3.2-5.3 [facility] Comment on above: Performed By: #### C ANA CABALLERO, 82822-6 ####[facility] ([id number])[address] [place] [address] 79244 ALP [Catalytic activity/Vol] 90 U/L Normal 39-130 [facility] Comment on above: Performed By: #### C ANA CABALLERO, 47017-6 ####[facility] ([id number])[address] [place] [address] 95369 ALT [Catalytic activity/Vol] 13 U/L Normal 0-40 [facility] Comment on above: Performed By: #### C ANA CABALLERO, 19640-0 ####[facility] ([id number])[address] [place] [address] 39948 Anion gap [Moles/Vol] 12 mmol/L Normal 5-15 [facility] Comment on above: Performed By: #### C ANA CABALLERO, 03015-9 ####[facility] ([id number])[address] [place] [address] 53051 AST [Catalytic activity/Vol] 10 U/L Normal 0-41 [facility] Comment on above: Performed By: #### C ANA CABALLERO, ####[facility] ([id number])[address] [place] [address] 22248 Bilirubin [Mass/Vol] 1.2 mg/dL Normal 0.3-1.2 [facility] Comment on above: Performed By: #### C ANA CABALLERO, ####[facility] ([id number])[address] [place] [address] 27440 Calcium [Mass/Vol] 9.6 mg/dL Normal 8.5-10.5 [facility] Comment on above: Performed By: #### C ANA CABALLERO, ####[facility] ([id number])[address] [place] [address] 45358 Chloride [Moles/Vol] 105 mmol/L Normal 98-109 [facility] Comment on above: Performed By: #### C ANA CABALLERO, ####[facility] ([id number])[address] [place] [address] 64426 CO2 [Moles/Vol] 19 mmol/L Low 22-32 [facility] Comment on above: Performed By: #### C ANA CABALLERO, ####[facility] ([id number])[address] [place] [address] 40343 Creatinine [Mass/Vol] 1.02 mg/dL Normal 0.70-1.20 [facility] Comment on above: Result Comment: METH OD TRACEABLE TO IDMS STANDARD Performed By: #### C ANA CABALLERO, ####[facility] ([id number])[address] [place] [address] 03413 eGFR (CKD-EPI) NON-RACE DEPENDENT >90 Normal >59 [facility] Comment on above: Result Comment: Reported eGFR is based on the CKD-EPI 2020 equation that does not use a race coefficient. Performed By: #### C ANA CABALLERO, ####[facility] ([id number])[address] [place] [address] 80169 Glucose [Mass/Vol] 215 mg/dL High 65-99 [facility] Comment on above: Performed By: #### C ANA CABALLERO, ####[facility] ([id number])[address] [place] [address] 67917 Potassium [Moles/Vol] 2.8 mmol/L Low 3.5-5.0 [facility] Comment on above: Performed By: #### C ANA CABALLERO, ####[facility] ([id number])[address] [place] [address] 42211 Protein [Mass/Vol] 6.5 g/dL Normal 6.0-8.0 [facility] Comment on above: Performed By: #### C ANA CABALLERO, ####[facility] ([id number])[address] [place] [address] 18348 Sodium [Moles/Vol] 136 mmol/L Normal 134-146 [facility] Comment on above: Performed By: #### C ANA CABALLERO, ####[facility] ([id number])[address] [place] [address] [place] [address] Urea nitrogen [Mass/Vol] mg/dL Low 5-23 [facility] Comment on above: Performed By: #### C ANA CABALLERO, ####[facility] ([id number])[address] [place] [address] 11881 MAGNESIUMon 02-28-2024 Magnesium [Mass/Vol] 1.7 mg/dL Low 1.8-2.6 [facility] Comment on above: Performed By: #### C MP, CBCA, ####[facility] ([id number])[address] [place] [address] 24257 POTASSIUMon 02-28-2024 Potassium [Moles/Vol] 3.5 mmol/L Normal 3.5-5.0 [facility] Comment on above: Performed By: #### 2 823-3 ####[facility] ([id number])[address] [place] [address] 74899 Beta hydroxybutyrate [Moles/ Vol]on 02-27-2024 BetaHydroxybutyrate 3.23 mmol/L High 0.02-0.27 [facility] Comment on above: Performed By: #### D SALAS #### [facility] ([id number]) [address] [place] [address] 59251 BetaHydroxybutyrate 2.63 mmol/L High 0.02-0.27 [facility] Comment on above: Performed By: #### V BG #### [facility] ([id number]) [address] [place] [address] 46381 CBC AND AUTO DIFFon 02-27-20 24 ABSOLUTE BASOPHIL 0.0 X10E9/L Normal 0.0-0.2 [facility] Comment on above: Performed By: #### V BG #### [facility] ([id number]) [address] [place] [address] 63595 ABSOLUTE NEUTROPHIL 3.2 X10E9/L Normal 1.5-6.6 [facility] Comment on above: Performed By: #### V BG #### [facility] ([id number]) [address] [place] [address] 97489 Basophils/100 WBC (Bld) 0.9 % Normal [facility] Comment on above: Performed By: #### V BG #### [facility] ([id number]) [address] [place] [address] 77276 Eosinophils (Bld) [#/Vol] 0.1 10*3/uL Normal 0.0-0.4 [facility] Comment on above: Performed By: #### V BG #### [facility] ([id number]) [address] [place] [address] 00130 Eosinophils/100 WBC (Bld) 2.2 % Normal [facility] Comment on above: Performed By: #### V BG #### [facility] ([id number]) [address] [place] [address] 53529 Erythrocyte distribution width (RBC) [Ratio] 14.8 % Normal 11.5-15.0 [facility] Comment on above: Performed By: #### V BG #### [facility] ([id number]) [address] [place] [address] 78749 Hematocrit (Bld) [Volume fraction] 44.8 % Normal 39-49 [facility] Comment on above: Performed By: #### V BG #### [facility] ([id number]) [address] [place] [address] 60805 Hemoglobin (Bld) [Mass/Vol] 15.2 g/dL Normal 13.0-17.0 [facility] Comment on above: Performed By: #### V BG #### [facility] ([id number]) [address] [place] [address] 46405 Lymphocytes (Bld) [#/Vol] 1.4 10*3/uL Normal 1.0-3.5 [facility] Comment on above: Performed By: #### V BG #### [facility] ([id number]) [address] [place] [address] 34191 Lymphocytes/100 WBC (Bld) 26.5 % Normal [facility] Comment on above: Performed By: #### V BG #### [facility] ([id number]) [address] [place] [address] 15666 MCH (RBC) [Entitic mass] 29.9 pg Normal 27-34 [facility] Comment on above: Performed By: #### V BG #### [facility] ([id number]) [address] [place] [address] 29995 MCHC (RBC) [Mass/Vol] 34.0 g/dL Normal 32-36 [facility] Comment on above: Performed By: #### V BG #### [facility] ([id number]) [address] [place] [address] 68454 MCV (RBC) [Entitic vol] 88 fL Normal 80-100 [facility] Comment on above: Performed By: #### V BG #### [facility] ([id number]) [address] [place] [address] 27912 Monocytes (Bld) [#/Vol] 0.5 10*3/uL Normal 0-0.9 [facility] Comment on above: Performed By: #### V BG #### [facility] ([id number]) [address] [place] [address] 70113 Monocytes/100 WBC (Bld) 9.4 % Normal [facility] Comment on above: Performed By: #### V BG #### [facility] ([id number]) [address] [place] [address] 48510 Neutrophils/100 WBC (Bld) 61.0 % Normal [facility] Comment on above: Performed By: #### V BG #### [facility] ([id number]) [address] [place] [address] 84958 Platelet mean volume (Bld) [Entitic vol] 10.1 fL Normal 7-12 [facility] Comment on above: Performed By: #### V BG #### [facility] ([id number]) [address] [place] [address] 58679 Platelets (Bld) [#/Vol] 187 10*3/uL Normal 150-450 [facility] Comment on above: Performed By: #### V BG #### [facility] ([id number]) [address] [place] [address] 09627 RBC COUNT 5.08 X10E12/L Normal 4.10-5.70 [facility] Comment on above: Performed By: #### V BG #### [facility] ([id number]) [address] [place] [address] 90271 WBC (Bld) [#/Vol] 5.3 10*3/uL Normal 4.0-11.0 [facility] Comment on above: Performed By: #### V BG #### [facility] ([id number]) [address] [place] [address] 34727 COMPREHENSIVE METABOLIC PANE Al 02-27-2024 Albumin [Mass/Vol] 3.3 g/dL Normal 3.2-5.3 [facility] Comment on above: Performed By: #### V BG #### [facility] ([id number]) [address] [place] [address] 94409 ALP [Catalytic activity/Vol] 92 U/L Normal 39-130 [facility] Comment on above: Performed By: #### V BG #### [facility] ([id number]) [address] [place] [address] 89499 ALT [Catalytic activity/Vol] 13 U/L Normal 0-40 [facility] Comment on above: Performed By: #### V BG #### [facility] ([id number]) [address] [place] [address] 10899 Anion gap [Moles/Vol] 7 mmol/L Normal 5-15 [facility] Comment on above: Performed By: #### V BG #### [facility] ([id number]) [address] [place] [address] 90292 AST [Catalytic activity/Vol] 12 U/L Normal 0-41 [facility] Comment on above: Performed By: #### V BG #### [facility] ([id number]) [address] [place] [address] 99916 Bilirubin [Mass/Vol] 1.1 mg/dL Normal 0.3-1.2 [facility] Comment on above: Performed By: #### V BG #### [facility] ([id number]) [address] [place] [address] 07479 Calcium [Mass/Vol] 9.3 mg/dL Normal 8.5-10.5 [facility] Comment on above: Performed By: #### V BG #### [facility] ([id number]) [address] [place] [address] 26760 Chloride [Moles/Vol] 114 mmol/L High 98-109 [facility] Comment on above: Performed By: #### V BG #### [facility] ([id number]) [address] [place] [address] 55982 CO2 [Moles/Vol] 17 mmol/L Low 22-32 [facility] Comment on above: Performed By: #### V BG #### [facility] ([id number]) [address] [place] [address] 71341 Creatinine [Mass/Vol] 1.03 mg/dL Normal 0.70-1.20 [facility] Comment on above: Result Comment: METH OD TRACEABLE TO IDMS STANDARD Performed By: #### V BG #### [facility] ([id number]) [address] [place] [address] 31887 eGFR (CKD-EPI) NON-RACE DEPENDENT >90 Normal >59 [facility] Comment on above: Result Comment: Reported eGFR is based on the CKD-EPI 2020 equation that does not use a race coefficient. Performed By: #### V BG #### [facility] ([id number]) [address] [place] [address] 44288 Glucose [Mass/Vol] 121 mg/dL High 65-99 [facility] Comment on above: Performed By: #### V BG #### [facility] ([id number]) [address] [place] [address] 38833 Potassium [Moles/Vol] 3.4 mmol/L Low 3.5-5.0 [facility] Comment on above: Performed By: #### V BG #### [facility] ([id number]) [address] [place] [address] 52696 Protein [Mass/Vol] 6.9 g/dL Normal 6.0-8.0 [facility] Comment on above: Performed By: #### V BG #### [facility] ([id number]) [address] [place] [address] 52064 Sodium [Moles/Vol] 138 mmol/L Normal 134-146 [facility] Comment on above: Performed By: #### V BG #### [facility] ([id number]) [address] [place] [address] 79709 Urea nitrogen [Mass/Vol] 6 mg/dL Normal 5-23 [facility] Comment on above: Performed By: #### V BG #### [facility] ([id number]) [address] [place] [address] 10517 ELECTROLYTESon 02-27-2024 Anion gap [Moles/Vol] 12 mmol/L Normal 5-15 [facility] Comment on above: Performed By: #### D SALAS #### [facility] ([id number]) [address] [place] [address] 80917 Chloride [Moles/Vol] 105 mmol/L Normal 98-109 [facility] Comment on above: Performed By: #### D SALAS #### [facility] ([id number]) [address] [place] [address], [place] [address] CO2 [Moles/Vol] 18 mmol/L Low 22-32 [facility] Comment on above: Performed By: #### D SALAS #### [facility] ([id number]) [address] [place] [address], [place] [address] Potassium [Moles/Vol] 3.5 mmol/L Normal 3.5-5.0 [facility] Comment on above: Performed By: #### D SALAS #### [facility] ([id number]) [address] [place] [address], [place] [address] Sodium [Moles/Vol] 135 mmol/L Normal 134-146 [facility] Comment on above: Performed By: #### D SALAS #### [facility] ([id number]) [address] [place] [address], [place] [address] Anion gap [Moles/Vol] 6 mmol/L Normal 5-15 [facility] Comment on above: Performed By: #### D SALAS #### [facility] ([id number]) [address] [place] [address], [place] [address] Chloride [Moles/Vol] 114 mmol/L High 98-109 [facility] Comment on above: Performed By: #### D SALAS #### [facility] ([id number]) [address] [place] [address], [place] [address] CO2 [Moles/Vol] 20 mmol/L Low 22-32 [facility] Comment on above: Performed By: #### D SALAS #### [facility] ([id number]) [address] [place] [address], [place] [address] Potassium [Moles/Vol] 3.7 mmol/L Normal 3.5-5.0 [facility] Comment on above: Performed By: #### D SALAS #### [facility] ([id number]) [address] [place] [address] 29004 Sodium [Moles/Vol] 140 mmol/L Normal 134-146 [facility] Comment on above: Performed By: #### D SALAS #### [facility] ([id number]) [address] [place] [address] 26054 Anion gap [Moles/Vol] 8 mmol/L Normal 5-15 [facility] Comment on above: Performed By: #### V BG #### [facility] ([id number]) [address] [place] [address] 25011 Chloride [Moles/Vol] 115 mmol/L High 98-109 [facility] Comment on above: Performed By: #### V BG #### [facility] ([id number]) [address] [place] [address] [place] [address] CO2 [Moles/Vol] 16 mmol/L Low 22-32 [facility] Comment on above: Performed By: #### V BG #### [facility] ([id number]) [address] [place] [address] [place] [address] Potassium [Moles/Vol] 3.8 mmol/L Normal 3.5-5.0 [facility] Comment on above: Performed By: #### V BG #### [facility] ([id number]) [address] [place] [address] [place] [address] Sodium [Moles/Vol] 139 mmol/L Normal 134-146 [facility] Comment on above: Performed By: #### V BG #### [facility] ([id number]) [address] [place] [id number] Anion gap [Moles/Vol] 9 mmol/L Normal 5-15 [facility] Comment on above: Performed By: #### N UM #### [facility] ([id number]) [address] [place] [id number] Chloride [Moles/Vol] 114 mmol/L High 98-109 [facility] Comment on above: Performed By: #### N UM #### [facility] ([id number]) [address] [place] [address] CO2 [Moles/Vol] 16 mmol/L Low 22-32 [facility] Comment on above: Performed By: #### N UM #### [facility] ([id number]) [address] [place] [address] Potassium [Moles/Vol] 3.8 mmol/L Normal 3.5-5.0 [facility] Comment on above: Performed By: #### N UM #### [facility] ([id number]) [address] [place] [address] 43569 Performed By: #### B MP, CBCA, 6873-4, 5643-2, 67899-8 #### [facility] ([id number]) [address] [place] [address] 43922 Sodium [Moles/Vol] 139 mmol/L Normal 134-146 [facility] Comment on above: Performed By: #### N UM #### [facility] ([id number]) [address] [place] [address] 16737 Glucose Glucometer (dC) [M ass/Vol]on 02-27-2024 Glucose [Mass/Vol] 219 mg/dL High 65-99 [facility] Glucose [Mass/Vol] 223 mg/dL High 65-99 [facility] Glucose [Mass/Vol] 163 mg/dL High 65-99 [facility] Glucose [Mass/Vol] 145 mg/dL High 65-99 [facility] Glucose [Mass/Vol] 155 mg/dL High 65-99 [facility] Glucose [Mass/Vol] 147 mg/dL High 65-99 [facility] Glucose [Mass/Vol] 164 mg/dL High 65-99 [facility] Glucose [Mass/Vol] 141 mg/dL High 65-99 [facility] Glucose [Mass/Vol] 107 mg/dL High 65-99 [facility] Glucose [Mass/Vol] 106 mg/dL High 65-99 [facility] Glucose [Mass/Vol] 151 mg/dL High 65-99 [facility] Glucose [Mass/Vol] 167 mg/dL High 65-99 [facility] Glucose [Mass/Vol] 163 mg/dL High 65-99 [facility] Glucose [Mass/Vol] 150 mg/dL High 65-99 [facility] MAGNESIUMon 02-27-2024 Magnesium [Mass/Vol] 2.3 mg/dL Normal 1.8-2.6 [facility] Comment on above: Performed By: #### D SALAS #### [facility] ([id number]) [address] [place] [address] 88794 Magnesium [Mass/Vol] 1.6 mg/dL Low 1.8-2.6 [facility] Comment on above: Performed By: #### V BG #### [facility] ([id number]) [address] [place] [address] 91435 Beta hydroxybutyrate [Moles/ Vol]on 02-26-2024 BetaHydroxybutyrate 4.16 mmol/L High 0.02-0.27 [facility] Comment on above: Performed By: #### N UM #### [facility] ([id number]) [address] [place] [address] 73956 BetaHydroxybutyrate 10.51 mmol/L High 0.02-0.27 [facility] Comment on above: Performed By: #### B MP, CBCA, 6873-4, 5643-2, 68990-3 #### [facility] ([id number]) [address] [place] [address] 41280 C REACTIVE PROTEINon 024 CRP [Mass/Vol] mg/L Normal 0.000-0.744 [facility] Comment on above: Performed By: #### B MP, CBCA, 6873-4, 5643-2, 87031-0 #### [facility] ([id number]) [address] [place] [address] 22520 CBC AND AUTO DIFFon 02-26-20 24 ABSOLUTE BASOPHIL 0.0 X10E9/L Normal 0.0-0.2 [facility] Comment on above: Performed By: #### B MP, CBCA, 6873-4, 5643-2, #### [facility] ([id number]) [address] [place] [address] 64112 ABSOLUTE NEUTROPHIL 5.7 X10E9/L Normal 1.5-6.6 [facility] Comment on above: Performed By: #### B MP, CBCA, 6873-4, 5643-2, #### [facility] ([id number]) [address] [place] [address] 86563 Basophils/100 WBC (Bld) 0.5 % Normal [facility] Comment on above: Performed By: #### B MP, CBCA, 6873-4, 5643-2, #### [facility] ([id number]) [address] [place] [address] 15166 Eosinophils (Bld) [#/Vol] 0.1 10*3/uL Normal 0.0-0.4 [facility] Comment on above: Performed By: #### B MP, CBCA, 6873-4, 5643-2, 75259-3 #### [facility] ([id number]) [address] [place] [address] 52180 Eosinophils/100 WBC (Bld) 0.8 % Normal [facility] Comment on above: Performed By: #### B MP, CBCA, 6873-4, 5643-2, 97948-1 #### [facility] ([id number]) [address] [place] [address] 53129 Erythrocyte distribution width (RBC) [Ratio] 15.1 % High 11.5-15.0 [facility] Comment on above: Performed By: #### B MP, CBCA, 6873-4, 5643-2, #### [facility] ([id number]) [address] [place] [address] 31796 Hematocrit (Bld) [Volume fraction] 51.9 % High 39-49 [facility] Comment on above: Performed By: #### B MP, CBCA, 6873-4, 5643-2, #### [facility] ([id number]) [address] [place] [address] 26417 Hemoglobin (Bld) [Mass/Vol] 17.5 g/dL High 13.0-17.0 [facility] Comment on above: Performed By: #### B ADA, CBCA, 6873-4, 5643-, 71695-5 #### [facility] ([id number]) [address] [place] [address] 16020 Lymphocytes (Bld) [#/Vol] 1.2 10*3/uL Normal 1.0-3.5 [facility] Comment on above: Performed By: #### B MP, CBCA, 6873-4, 5643-2, 99261-4 #### [facility] ([id number]) [address] [place] [address] 21254 Lymphocytes/100 WBC (Bld) 16.1 % Normal [facility] Comment on above: Performed By: #### B MP, CBCA, 6873-4, 5643-2, 55599-2 #### [facility] ([id number]) [address] [place] [address] 53816 MCH (RBC) [Entitic mass] 30.5 pg Normal 27-34 [facility] Comment on above: Performed By: #### B ADA, CBCA, 73-4, 43-2, #### [facility] ([id number]) [address] [place] [address] 19956 MCHC (RBC) [Mass/Vol] 33.8 g/dL Normal 32-36 [facility] Comment on above: Performed By: #### B ADA, CBCA, 73-4, 43-2, #### [facility] ([id number]) [address] [place] [address] 78174 MCV (RBC) [Entitic vol] 90 fL Normal 80-100 [facility] Comment on above: Performed By: #### B ADA, CBCA, 6872-, 5642-, #### [facility] ([id number]) [address] [place] [address] 60971 Monocytes (Bld) [#/Vol] 0.6 10*3/uL Normal 0-0.9 [facility] Comment on above: Performed By: #### B ADA, CBCA, 73-, 5642-, #### [facility] ([id number]) [address] [place] [address] 78950 Monocytes/100 WBC (Bld) 8.2 % Normal [facility] Comment on above: Performed By: #### B ADA, CBCA, 73-4, 5642-, 40499-2 #### [facility] ([id number]) [address] [place] [address] 89707 Neutrophils/100 WBC (Bld) 74.4 % Normal [facility] Comment on above: Performed By: #### B ADA, CBCA, 6873-4, 5643-2, 39669-5 #### [facility] ([id number]) [address] [place] [address] 94950 Platelet mean volume (Bld) [Entitic vol] 9.3 fL Normal 7-12 [facility] Comment on above: Performed By: #### B MP, CBCA, 6873-4, 5643-2, 71798-6 #### [facility] ([id number]) [address] [place] [address] 77511 Platelets (Bld) [#/Vol] 219 10*3/uL Normal 150-450 [facility] Comment on above: Performed By: #### B MP, CBCA, 6873-4, 5643-2, #### [facility] ([id number]) [address] [place] [address] 27364 RBC COUNT 5.76 X10E12/L High 4.10-5.70 [facility] Comment on above: Performed By: #### B MP, CBCA, 6873-4, 5643-2, 84558-7 #### [facility] ([id number]) [address] [place] [address] 66279 WBC (Bld) [#/Vol] 7.7 10*3/uL Normal 4.0-11.0 [facility] Comment on above: Performed By: #### B MP, CBCA, 6873-4, 5643-2, 12185-8 #### [facility] ([id number]) [address] [place] [address] 55689 COMPREHENSIVE METABOLIC PANE Al 02-26-2024 Albumin [Mass/Vol] 4.3 g/dL Normal 3.2-5.3 [facility] Comment on above: Performed By: #### B MP, CBCA, 6873-4, 5643-2, 62657-5 #### [facility] ([id number]) [address] [place] [address] 10234 ALP [Catalytic activity/Vol] 126 U/L Normal 39-130 [facility] Comment on above: Performed By: #### B ADA, ANA, 6873-4, 5643-2, 48878-2 #### [facility] ([id number]) [address] [place] [address] 71332 ALT [Catalytic activity/Vol] 17 U/L Normal 0-40 [facility] Comment on above: Performed By: #### B ADA, CBCTerry, 6873-4, 5643-2, 40307-3 #### [facility] ([id number]) [address] [place] [address] 88873 Anion gap [Moles/Vol] 18 mmol/L High 5-15 [facility] Comment on above: Performed By: #### B ADA, CBCTerry, 6873-4, 5643-2, 11594-4 #### [facility] ([id number]) [address] [place] [address] 30058 AST [Catalytic activity/Vol] 10 U/L Normal 0-41 [facility] Comment on above: Performed By: #### B ADA, CBCA, 6873-4, 5643-2, 12161-3 #### [facility] ([id number]) [address] [place] [address] 23906 Bilirubin [Mass/Vol] 1.2 mg/dL Normal 0.3-1.2 [facility] Comment on above: Performed By: #### B ADA, CBCTerry, 6873-4, 5643-2, 48970-1 #### [facility] ([id number]) [address] [place] [address] 29821 Calcium [Mass/Vol] 10.1 mg/dL Normal 8.5-10.5 [facility] Comment on above: Performed By: #### B ADA, CBCA, 6873-4, 5643-2, 89411-5 #### [facility] ([id number]) [address] [place] [address] 32409 Chloride [Moles/Vol] 103 mmol/L Normal 98-109 [facility] Comment on above: Performed By: #### B ANA CABALLERO, 6873-4, 5643-2, 96030-8 #### [facility] ([id number]) [address] [place] [address] 09237 CO2 [Moles/Vol] 12 mmol/L Low 22-32 [facility] Comment on above: Performed By: #### B ANA CABALLERO, 6873-4, 56-2, 13612-7 #### [facility] ([id number]) [address] [place] [address] 87579 Creatinine [Mass/Vol] 1.45 mg/dL High 0.70-1.20 [facility] Comment on above: Result Comment: METH OD TRACEABLE TO IDMS STANDARD Performed By: #### B ANA CABALLERO, 6873-4, 5643-2, 18055-2 #### [facility] ([id number]) [address] [place] [address] 61680 GFR/1.73 sq M.predicted among non-blacks MDRD (S/P/Bld) [Vol rate/Area] 71 mL/min/{1.73_m2} Normal >59 [facility] Comment on above: Result Comment: Reported eGFR is based on the CKD-EPI 2020 equation that does not use a race coefficient. Performed By: #### B ANA CABALLERO, 6873-4, 5643-2, 14776-1 #### [facility] ([id number]) [address] [place] [address] 57273 Glucose [Mass/Vol] 256 mg/dL High 65-99 [facility] Comment on above: Performed By: #### B ADA, ANA, 6873-4, 5643-2, 65805-1 #### [facility] ([id number]) [address] [place] [address] 17020 Potassium [Moles/Vol] 4.1 mmol/L Normal 3.5-5.0 [facility] Comment on above: Performed By: #### B ADA, CBCA, 6873-4, 5643-2, 47494-4 #### [facility] ([id number]) [address] [place] [address] [place] [address] Protein [Mass/Vol] 8.6 g/dL High 6.0-8.0 [facility] Comment on above: Performed By: #### B ADA, CBCA, 6873-4, 56-2, 32307-6 #### [facility] ([id number]) [address] [place] [address] 93201 Sodium [Moles/Vol] 133 mmol/L Low 134-146 [facility] Comment on above: Performed By: #### B ADA, CBCA, 6873-4, 5643-2, 21746-7 #### [facility] ([id number]) [address] [place] [address] 52197 Urea nitrogen [Mass/Vol] 8 mg/dL Normal 5-23 [facility] Comment on above: Performed By: #### B ADA, CBCA, 6873-4, 5643-2, 93445-6 #### [facility] ([id number]) [address] [place] [address], [place] [address] ELECTROLYTESon 02-26-2024 Anion gap [Moles/Vol] 8 mmol/L Normal 5-15 [facility] Comment on above: Performed By: #### N UM #### [facility] ([id number]) [address] [place] [address] 21539 Chloride [Moles/Vol] 115 mmol/L High 98-109 [facility] Comment on above: Performed By: #### N UM #### [facility] ([id number]) [address] [place] [address] 41669 CO2 [Moles/Vol] 16 mmol/L Low 22-32 [facility] Comment on above: Performed By: #### N UM #### [facility] ([id number]) [address] [place] [address] 92378 Potassium [Moles/Vol] 3.6 mmol/L Normal 3.5-5.0 [facility] Comment on above: Performed By: #### N UM #### [facility] ([id number]) [address] [place] [address] 46112 Sodium [Moles/Vol] 139 mmol/L Normal 134-146 [facility] Comment on above: Performed By: #### N UM #### [facility] ([id number]) [address] [place] [address] [place] [address] Anion gap [Moles/Vol] 12 mmol/L Normal 5-15 [facility] Comment on above: Performed By: #### B ANA CABALLERO, 6873-4, 5643-2, 54924-8 #### [facility] ([id number]) [address] [place] [address] 67144 Chloride [Moles/Vol] 113 mmol/L High 98-109 [facility] Comment on above: Performed By: #### B ADA CBCA, 6873-4, 5643-2, 33721-7 #### [facility] ([id number]) [address] [place] [address] 14679 CO2 [Moles/Vol] 14 mmol/L Low 22-32 [facility] Comment on above: Performed By: #### B MISSY CABALLEROA, 6873-4, 5643-2, 74436-3 #### [facility] ([id number]) [address] [place] [address] [place] [address] Potassium [Moles/Vol] 3.6 mmol/L Normal 3.5-5.0 [facility] Comment on above: Performed By: #### B ADA, ANA, 6873-4, 5643-2, #### [facility] ([id number]) [address] [place] [address] 65428 Sodium [Moles/Vol] 139 mmol/L Normal 134-146 [facility] Comment on above: Performed By: #### B ADA, CBCA, 6873-4, 5643-2, #### [facility] ([id number]) [address] [place] [address] 23123 Anion gap [Moles/Vol] 13 mmol/L Normal 5-15 [facility] Comment on above: Performed By: #### B ADA, CBCTerry, 6873-4, 5643-2, #### [facility] ([id number]) [address] [place] [address] 52242 Chloride [Moles/Vol] 109 mmol/L Normal 98-109 [facility] Comment on above: Performed By: #### B ADA, CBCA, 6873-4, 5643-2, #### [facility] ([id number]) [address] [place] [address] 02053 CO2 [Moles/Vol] 15 mmol/L Low 22-32 [facility] Comment on above: Performed By: #### B ADA, CBCA, 6873-4, 5643-2, #### [facility] ([id number]) [address] [place] [address] 34489 Sodium [Moles/Vol] 137 mmol/L Normal 134-146 [facility] Comment on above: Performed By: #### B ADA, CBCA, 6873-4, 5643-2, #### [facility] ([id number]) [address] [place] [address], [place] [address] Anion gap [Moles/Vol] 18 mmol/L High 5-15 [facility] Comment on above: Performed By: #### B ADA, ANA, 6873-4, 5643-2, 58909-2 #### [facility] ([id number]) [address] [place] [address], [place] [address] Chloride [Moles/Vol] 106 mmol/L Normal 98-109 [facility] Comment on above: Performed By: #### B ANA CABALLERO, 6873-4, 5643-2, 76535-3 #### [facility] ([id number]) [address] [place] [address], [place] [address] CO2 [Moles/Vol] 11 mmol/L Low 22-32 [facility] Comment on above: Performed By: #### B ANA CABALLERO, 6873-4, 5643-2, 92349-8 #### [facility] ([id number]) [address] [place] [address], [place] [address] Potassium [Moles/Vol] 3.8 mmol/L Normal 3.5-5.0 [facility] Comment on above: Performed By: #### B ANA CABALLERO, 6873-4, 5643-2, 87496-8 #### [facility] ([id number]) [address] [place] [address], [place] [address] Sodium [Moles/Vol] 135 mmol/L Normal 134-146 [facility] Comment on above: Performed By: #### B ANA CABALLERO, 6873-4, 5643-2, 93843-4 #### [facility] ([id number]) [address] [place] [address], [place] [address] Anion gap [Moles/Vol] 17 mmol/L High 5-15 [facility] Comment on above: Performed By: #### B MP, CBCTerry, 6873-4, 5643-2, 56072-6 #### [facility] ([id number]) [address] [place] [address] 90830 Chloride [Moles/Vol] 106 mmol/L Normal 98-109 [facility] Comment on above: Performed By: #### B ADA, ANA, 6873-4, 5643-2, 91212-7 #### [facility] ([id number]) [address] [place] [address] 87446 CO2 [Moles/Vol] 11 mmol/L Low 22-32 [facility] Comment on above: Performed By: #### B ANA CABALLERO, 6873-4, 5643-2, 08622-2 #### [facility] ([id number]) [address] [place] [address] 16981 Potassium [Moles/Vol] 3.8 mmol/L Normal 3.5-5.0 [facility] Comment on above: Performed By: #### B ANA CABALLERO, 6873-4, 5643-2, 64652-6 #### [facility] ([id number]) [address] [place] [address] 98230 Sodium [Moles/Vol] 134 mmol/L Normal 134-146 [facility] Comment on above: Performed By: #### B ADA CBCTerry, 6873-4, 5643-2, 08040-7 #### [facility] ([id number]) [address] [place] [address] 69469 Glucose Glucometer (dC) [M ass/Vol]on 02-26-2024 Glucose [Mass/Vol] 122 mg/dL High 65-99 [facility] Glucose [Mass/Vol] 104 mg/dL High 65-99 [facility] Glucose [Mass/Vol] 141 mg/dL High 65-99 [facility] Glucose [Mass/Vol] 142 mg/dL High 65-99 [facility] Glucose [Mass/Vol] 188 mg/dL High 65-99 [facility] Glucose [Mass/Vol] 194 mg/dL High 65-99 [facility] Glucose [Mass/Vol] 235 mg/dL High 65-99 [facility] Glucose [Mass/Vol] 256 mg/dL High 65-99 [facility] Glucose [Mass/Vol] 242 mg/dL High 65-99 [facility] Glucose [Mass/Vol] 228 mg/dL High 65-99 [facility] Glucose [Mass/Vol] 202 mg/dL High 65-99 [facility] HA1C CONFIRMATION - NO JOSEG Sanchez 02-26-2024 HbA1c (Bld) [Mass fraction] 15.4 % High <=5.6 [facility] Comment on above: Result Comment: NOTE INTERPRETIVE INFORMATION: Hemoglobin A1c HbA1c values of 5.7-6.4 percent indicate an increased risk for developing diabetes mellitus. HbA1c values greater than or equal to 6.5 percent are diagnostic of diabetes mellitus. For diagnosis of diabetes in individuals without unequivocal hyperglycemia, results should be confirmed by repeat testing. Performed By: #### B ADA, CBCA, 6873-4, 5643-2, 68348-4 #### [facility] ([id number]) [address] [place] [address] 33483 HGB A1C (GLYCO-HGB)on 2023 AVERAGE GLUCOSE >398 Normal [facility] Comment on above: Performed By: #### B MP, CBCA, 6873-4, 5643-2, 69874-6 #### [facility] ([id number]) [address] [place] [address] 93457 HbA1c (Bld) [Mass fraction] % High 4.4-5.6 [facility] Comment on above: Result Comment: NOTE ADA Guidelines Result HgbA1c Normal : less than 5.7 % Prediabetes : 5.7 % to 6.4 % Diabetes : > 6.4 % Use with caution in patients with abnormal hemoglobin variants as the half-life of red blood cells and in vivo glycation rates are affected. Performed By: #### B ANA CABALLERO, 6873-4, 5643-2, 72281-6 #### [facility] ([id number]) [address] [place] [address] 09379 HbA1c (Bld) [Mass fraction]o n 02-26-2024 Glucose [Mass/Vol] 395 mg/dL Normal [facility] Comment on above: Result Comment: NOTE Performed By: [employer] [address] [place] [address] 24386 Clinical Staff Pharmacist: Juan Manuel Greene MD, PhD CLIA Number: [id number] Performed By: #### B ANA CABALLERO, 6873-4, 5643-2, 27526-9 #### [facility] ([id number]) [address] [place] [address] 34857 Lactate (P meredith) [Moles/Vol]o n 02-26-2024 LACTATE W/REFLEX 0.9 mmol/L Normal 0.4-2.0 [facility] Comment on above: Result Comment: Result did not trigger repeat Lactate, re-order if needed. Performed By: #### B ANA CABALLERO, 6873-4, 5643-2, 93050-6 #### [facility] ([id number]) [address] [place] [address] 15502 MAGNESIUMon 02-26-2024 Magnesium [Mass/Vol] 2.0 mg/dL Normal 1.8-2.6 [facility] Comment on above: Performed By: #### B ANA CABALLERO, 6873-4, 5643-2, 94562-4 #### [facility] ([id number]) [address] [place] [address] 09667 PHOSPHORUSon 02-26-2024 Phosphate [Mass/Vol] 2.7 mg/dL Normal 2.4-4.9 [facility] Comment on above: Performed By: #### B MP, CBCA, 6873-4, 5643-2, 88730-9 #### [facility] ([id number]) [address] [facility] [place] [address] SARS/FLU A+B/RSV by NAAT/Mol ecularon 02-26-2024 SARS/FLU [...] operators who are performing tests using either [employer] or [employer] systems and is limited to laboratories that [...] repeat. Fact Sheet for Healthcare Providers: https://www.fda.gov /media/793510/downl oad Fact Sheet for Patients: https://www.fda.gov /media/826614/downl oad Normal [facility] Comment on above: Performed By: #### B ANA CABALLERO, 6873-4, 5643-2, 49671-9 #### [facility] ([id number]) [address] [place] [address] 70668 VENOUS BLOOD GASon 4 LINDSAY'S TEST Normal [facility] Comment on above: Performed By: #### B ANA CABALLERO, 6873-4, 5643-2, #### [facility] ([id number]) [address] [place] [address] 84188 BASE,DEFICIT 16.0 MMOL/L High 0.0-2.0 [facility] Comment on above: Performed By: #### B ANA CABALLERO, 6873-4, 5643-2, #### [facility] ([id number]) [address] [place] [address] 42106 Body temperature 98.6 [degF] Normal 37.0 [facility] Comment on above: Performed By: #### B ANA CABALLERO, 6873-4, 5643-2, 86447-6 #### [facility] ([id number]) [address] [place] [address] HCO3 (Bld) [Moles/Vol] 10.9 mmol/L Low 20.0-24.0 P [facility] Comment on above: Performed By: #### B ANA CABALLERO, 6873-4, 5643-2, 56271-7 #### [facility] ([id number]) [address] [place] [address] INSP. O2 CONC. 21 % Normal [facility] Comment on above: Performed By: #### B ADA, CBCA, 6873-4, 5643-2, 87751-1 #### [facility] ([id number]) [address] [place] [address], [place] [address] Oxygen saturation in Blood 57.0 % Low >80.0 [facility] Comment on above: Performed By: #### B ADA, CBCA, 6873-4, 5643-2, #### [facility] ([id number]) [address] [place] [address] [place] [address] OXYGEN SOURCE [facility] Comment on above: Performed By: #### B ADA, CBCA, 6873-4, 5643-2, #### [facility] ([id number]) [address] [place] [address] [place] [address] PCO2, VENOUS 28.9 MMHG Low 35-50 [facility] Comment on above: Performed By: #### B ADA, CBCA, 6873-4, 5643-2, #### [facility] ([id number]) [address] [place] [address], [place] [address] PH, VENOUS 7.184 Low 7.320-7.420 [facility] Comment on above: Performed By: #### B ADA, CBCA, 6873-4, 5643-2, #### [facility] ([id number]) [address] [place] [address] [place] [address] PO2, VENOUS 36 MMHG Normal 30-50 [facility] Comment on above: Performed By: #### B ADA, CBCA, 6873-4, 5643-2, 00582-3 #### [facility] ([id number]) [address] [place] [address], [place] [address] SAMPLE SITE N/A Normal [facility] Comment on above: Performed By: #### B ADA, CBCA, 6873-4, 5643-2, 75132-1 #### [facility] ([id number]) [address] [place] [address] 62969 SAMPLE TYPE VENOUS Normal [facility] Comment on above: Performed By: #### B MP, CBCA, 6873-4, 5643-2, 87412-4 #### [facility] ([id number]) [address] [place] [address] 23843 CBC AND AUTO DIFFon 01-12-20 24 ABSOLUTE BASOPHIL 0.1 X10E9/L Normal 0.0-0.2 [facility] Comment on above: Performed By: #### B MP, CBCA, 6873-4, 5643-2, #### [facility] ([id number]) [address] [place] [address] 83303 ABSOLUTE NEUTROPHIL 4.9 X10E9/L Normal 1.5-6.6 [facility] Comment on above: Performed By: #### B MP, CBCA, 6873-4, 5643-2, 84339-6 #### [facility] ([id number]) [address] [place] [address] 43189 Basophils/100 WBC (Bld) 0.9 % Normal [facility] Comment on above: Performed By: #### B MP, CBCA, 6873-4, 5643-2, 63681-4 #### [facility] ([id number]) [address] [place] [address] 86055 Eosinophils (Bld) [#/Vol] 0.3 10*3/uL Normal 0.0-0.4 [facility] Comment on above: Performed By: #### B MP, CBCA, 6873-4, 5643-2, 42761-6 #### [facility] ([id number]) [address] [place] [address] 47251 Eosinophils/100 WBC (Bld) 3.7 % Normal [facility] Comment on above: Performed By: #### B ADA, CBCA, 6873-4, 5643-2, 87302-3 #### [facility] ([id number]) [address] [place] [address] 45114 Erythrocyte distribution width (RBC) [Ratio] 14.0 % Normal 11.5-15.0 [facility] Comment on above: Performed By: #### B MP, CBCA, 73-4, 5643-2, #### [facility] ([id number]) [address] [place] [address] 10520 Hematocrit (Bld) [Volume fraction] 43.7 % Normal 39-49 [facility] Comment on above: Performed By: #### B ADA, CBCA, 6873-4, 5642-2, #### [facility] ([id number]) [address] [place] [address] 14292 Hemoglobin (Bld) [Mass/Vol] 14.7 g/dL Normal 13.0-17.0 [facility] Comment on above: Performed By: #### B ADA, CBCA, 6873-4, 5642-, 42293-2 #### [facility] ([id number]) [address] [place] [address] 86438 Lymphocytes (Bld) [#/Vol] 2.4 10*3/uL Normal 1.0-3.5 [facility] Comment on above: Performed By: #### B MP, CBCA, 6873-4, 5643-2, 32518-6 #### [facility] ([id number]) [address] [place] [address] 83925 Lymphocytes/100 WBC (Bld) 29.1 % Normal [facility] Comment on above: Performed By: #### B ADA, CBCA, 6873-4, 5643-2, #### [facility] ([id number]) [address] [place] [address] 00496 MCH (RBC) [Entitic mass] 29.2 pg Normal 27-34 [facility] Comment on above: Performed By: #### B MP, CBCA, 6873-4, 5643-2, 04849-5 #### [facility] ([id number]) [address] [place] [address] 21736 MCHC (RBC) [Mass/Vol] 33.6 g/dL Normal 32-36 [facility] Comment on above: Performed By: #### B ADA, CBCA, 6873-4, 43-, #### [facility] ([id number]) [address] [place] [address] 91826 MCV (RBC) [Entitic vol] 87 fL Normal 80-100 [facility] Comment on above: Performed By: #### B MP, CBCA, 6873-4, 56-, #### [facility] ([id number]) [address] [place] [address] 63748 Monocytes (Bld) [#/Vol] 0.5 10*3/uL Normal 0-0.9 [facility] Comment on above: Performed By: #### B MP, CBCA, 6873-4, 5643-, #### [facility] ([id number]) [address] [place] [address] 55641 Monocytes/100 WBC (Bld) 6.3 % Normal [facility] Comment on above: Performed By: #### B MP, CBCA, 6873-4, 5643-, 24911-1 #### [facility] ([id number]) [address] [place] [address] 06350 Neutrophils/100 WBC (Bld) 60.0 % Normal [facility] Comment on above: Performed By: #### B MP, CBCA, 6873-4, 5643-2, 96762-9 #### [facility] ([id number]) [address] [place] [address] 94138 Platelet mean volume (Bld) [Entitic vol] 10.7 fL Normal 7-12 [facility] Comment on above: Performed By: #### B MP, CBCA, 6873-4, 5643-2, 93695-7 #### [facility] ([id number]) [address] [place] [address] 33777 Platelets (Bld) [#/Vol] 252 10*3/uL Normal 150-450 [facility] Comment on above: Performed By: #### B MP, CBCA, 6873-4, 5643-2, 95287-9 #### [facility] ([id number]) [address] [place] [address] 56005 RBC COUNT 5.03 X10E12/L Normal 4.10-5.70 [facility] Comment on above: Performed By: #### B MP, CBCA, 6873-4, 5643-2, 27719-7 #### [facility] ([id number]) [address] [place] [address] 01152 WBC (Bld) [#/Vol] 8.1 10*3/uL Normal 4.0-11.0 [facility] Comment on above: Performed By: #### B MP, CBCA, 6873-4, 5643-2, 48203-5 #### [facility] ([id number]) [address] [place] [address] 85091 COMPREHENSIVE METABOLIC PANE Al 01-12-2024 Albumin [Mass/Vol] 3.7 g/dL Normal 3.2-5.3 [facility] Comment on above: Performed By: #### B MP, CBCA, 6873-4, 5643-2, #### [facility] ([id number]) [address] [place] [address] 48962 ALP [Catalytic activity/Vol] 85 U/L Normal 39-130 [facility] Comment on above: Performed By: #### B ADA, CBCA, 6873-4, 5643-2, 79377-9 #### [facility] ([id number]) [address] [place] [address] 80136 ALT [Catalytic activity/Vol] 30 U/L Normal 0-40 [facility] Comment on above: Performed By: #### B ADA, CBCA, 6873-4, 5643-2, 34053-1 #### [facility] ([id number]) [address] [place] [address] 49702 Anion gap [Moles/Vol] 11 mmol/L Normal 5-15 [facility] Comment on above: Performed By: #### B ADA, CBCA, 6873-4, 5643-2, 09906-0 #### [facility] ([id number]) [address] [place] [address] 11086 AST [Catalytic activity/Vol] 16 U/L Normal 0-41 [facility] Comment on above: Performed By: #### B ADA, CBCA, 6873-4, 5643-2, 20095-1 #### [facility] ([id number]) [address] [place] [address] 84854 Bilirubin [Mass/Vol] 0.9 mg/dL Normal 0.3-1.2 [facility] Comment on above: Performed By: #### B ADA, CBCA, 6873-4, 5643-2, 39982-4 #### [facility] ([id number]) [address] [place] [address] 49637 Calcium [Mass/Vol] 9.0 mg/dL Normal 8.5-10.5 [facility] Comment on above: Performed By: #### B ANA CABALLERO, 6873-4, 5643-2, 74641-4 #### [facility] ([id number]) [address] [place] [address] 06872 Chloride [Moles/Vol] 105 mmol/L Normal 98-109 [facility] Comment on above: Performed By: #### B ADA, ANA, 6873-4, 5643-2, 34040-5 #### [facility] ([id number]) [address] [place] [address] 64557 CO2 [Moles/Vol] 20 mmol/L Low 22-32 [facility] Comment on above: Performed By: #### B ADA, ANA, 6873-4, 5643-2, 41508-4 #### [facility] ([id number]) [address] [place] [address] 61939 Creatinine [Mass/Vol] 0.88 mg/dL Normal 0.70-1.20 [facility] Comment on above: Result Comment: METH OD TRACEABLE TO IDMS STANDARD Performed By: #### B ANA CABALLERO, 6873-4, 5643-2, 14890-2 #### [facility] ([id number]) [address] [place] [address] 88527 eGFR (CKD-EPI) NON-RACE DEPENDENT >90 Normal >59 [facility] Comment on above: Result Comment: Reported eGFR is based on the CKD-EPI 2021 equation that does not use a race coefficient. Performed By: #### B ANA CABALLERO, 6873-4, 5643-2, 84237-6 #### [facility] ([id number]) [address] [place] [address] 12602 Glucose [Mass/Vol] 175 mg/dL High 65-99 [facility] Comment on above: Performed By: #### B ADA, ANA, 6873-4, 5643-2, 19274-1 #### [facility] ([id number]) [address] [place] [address] 48712 Potassium [Moles/Vol] 3.2 mmol/L Low 3.5-5.0 [facility] Comment on above: Performed By: #### B ADA, CBCA, 6873-4, 5643-2, 46425-9 #### [facility] ([id number]) [address] [place] [address] 07717 Protein [Mass/Vol] 7.2 g/dL Normal 6.0-8.0 [facility] Comment on above: Performed By: #### B ADA, CBCA, 6873-4, 5643-2, 59437-1 #### [facility] ([id number]) [address] [place] [address] 69771 Sodium [Moles/Vol] 136 mmol/L Normal 134-146 [facility] Comment on above: Performed By: #### B ADA, CBCA, 6873-4, 5643-2, 93859-8 #### [facility] ([id number]) [address] [place] [address] 32868 Urea nitrogen [Mass/Vol] 6 mg/dL Normal 5-23 [facility] Comment on above: Performed By: #### B ADA, CBCA, 6873-4, 5643-2, 43564-8 #### [facility] ([id number]) [address] [place] [address] 42866 ELECTROLYTESon 01-12-2024 Anion gap [Moles/Vol] 8 mmol/L Normal 5-15 [facility] Comment on above: Performed By: #### B ADA, CBCA, 6873-4, 5643-2, 44902-8 #### [facility] ([id number]) [address] [place] [address] 37936 Chloride [Moles/Vol] 108 mmol/L Normal 98-109 [facility] Comment on above: Performed By: #### B ADA, ANA, 6873-4, 5643-2, 51437-6 #### [facility] ([id number]) [address] [place] [address] 88470 CO2 [Moles/Vol] 22 mmol/L Normal 22-32 [facility] Comment on above: Performed By: #### B ADA, ANA, 6873-4, 5643-2, 34858-4 #### [facility] ([id number]) [address] [place] [address] 19556 Potassium [Moles/Vol] 3.6 mmol/L Normal 3.5-5.0 [facility] Comment on above: Performed By: #### B ANA CABALLERO, 6873-4, 5643-2, 39748-1 #### [facility] ([id number]) [address] [place] [address] 45479 Sodium [Moles/Vol] 138 mmol/L Normal 134-146 [facility] Comment on above: Performed By: #### B ANA CABALLERO, 6873-4, 5643-2, 30585-3 #### [facility] ([id number]) [address] [place] [address] 96665 Glucose Glucometer (BldC) [M ass/Vol]on 01-12-2024 Glucose [Mass/Vol] 151 mg/dL High 65-99 [facility] Glucose [Mass/Vol] 164 mg/dL High 65-99 [facility] MAGNESIUMon 01-12-2024 Magnesium [Mass/Vol] 1.7 mg/dL Low 1.8-2.6 [facility] Comment on above: Performed By: #### B ANA CABALLERO, 6873-4, 5643-2, 93004-4 #### [facility] ([id number]) [address] [place] [address] 15581 POTASSIUMon 01-12-2024 Potassium [Moles/Vol] 3.6 mmol/L Normal 3.5-5.0 [facility] Comment on above: Performed By: #### B ANA CABALLERO, 6873-4, 5643-2, 28540-7 #### [facility] ([id number]) [address] [place] [address] 26459 BASIC METABOLIC PANLon 01-10 Anion gap [Moles/Vol] 16 mmol/L High 5-15 [facility] Comment on above: Performed By: #### B ADA, ANA, 6873-4, 5643-2, 90801-4 #### [facility] ([id number]) [address] [place] [address] 62540 Calcium [Mass/Vol] 8.9 mg/dL Normal 8.5-10.5 [facility] Comment on above: Performed By: #### B ANA CABALLERO, 6873-4, 5643-2, #### [facility] ([id number]) [address] [place] [address] 96486 Chloride [Moles/Vol] 103 mmol/L Normal 98-109 [facility] Comment on above: Performed By: #### B ANA CABALLERO, 6873-4, 5643-2, 73876-6 #### [facility] ([id number]) [address] [place] [address] 30139 CO2 [Moles/Vol] 16 mmol/L Low 22-32 [facility] Comment on above: Performed By: #### B ADA, CBCTerry, 6873-4, 5643-2, 16593-8 #### [facility] ([id number]) [address] [place] [address] 23692 Creatinine [Mass/Vol] 1.05 mg/dL Normal 0.70-1.20 [facility] Comment on above: Result Comment: METH OD TRACEABLE TO IDMS STANDARD Performed By: #### B ANA CABALLERO, 6873-4, 5643-2, 21539-8 #### [facility] ([id number]) [address] [place] [address] 85277 eGFR (CKD-EPI) NON-RACE DEPENDENT >90 Normal >59 [facility] Comment on above: Result Comment: Reported eGFR is based on the CKD-EPI 2020 equation that does not use a race coefficient. Performed By: #### B DAA, ANA, 6873-4, 5643-2, 04677-5 #### [facility] ([id number]) [address] [place] [address] 86322 Glucose [Mass/Vol] 272 mg/dL High 65-99 [facility] Comment on above: Performed By: #### B ANA CABALLERO, 6873-4, 5643-2, 08157-9 #### [facility] ([id number]) [address] [place] [address] 59386 Potassium [Moles/Vol] 3.1 mmol/L Low 3.5-5.0 [facility] Comment on above: Performed By: #### B ANA CABALLERO, 6873-4, 5643-, 67620-9 #### [facility] ([id number]) [address] [place] [address] 47930 Sodium [Moles/Vol] 135 mmol/L Normal 134-146 [facility] Comment on above: Performed By: #### B ADA, ANA, 6873-4, 5643-2, 58474-5 #### [facility] ([id number]) [address] [place] [address] 55036 Urea nitrogen [Mass/Vol] 6 mg/dL Normal 5-23 [facility] Comment on above: Performed By: #### B ANA CABALLERO, 6873-4, 5643-2, 87400-1 #### [facility] ([id number]) [address] [place] [address] 21191 Beta hydroxybutyrate [Moles/ Vol]on 01-11-2024 BetaHydroxybutyrate 4.83 mmol/L High 0.02-0.27 [facility] Comment on above: Performed By: #### B MP, CBCA, 6873-4, 5643-2, 39588-0 #### [facility] ([id number]) [address] [place] [address] 04683 BetaHydroxybutyrate 6.27 mmol/L High 0.02-0.27 [facility] Comment on above: Performed By: #### B MP, CBCA, 6873-4, 5643-2, 90003-9 #### [facility] ([id number]) [address] [place] [address] 79872 CBC AND AUTO DIFFon 01-11-20 ABSOLUTE BASOPHIL 0.0 X10E9/L Normal 0.0-0.2 [facility] Comment on above: Performed By: #### B MP, CBCA, 6873-4, 5643-2, 11773-2 #### [facility] ([id number]) [address] [place] [address] 90267 ABSOLUTE NEUTROPHIL 4.4 X10E9/L Normal 1.5-6.6 [facility] Comment on above: Performed By: #### B MP, CBCA, 6873-4, 5643-2, 09076-4 #### [facility] ([id number]) [address] [place] [address] 18332 Basophils/100 WBC (Bld) 0.6 % Normal [facility] Comment on above: Performed By: #### B MP, CBCA, 6873-4, 5643-2, 14259-1 #### [facility] ([id number]) [address] [place] [address] 55767 Eosinophils (Bld) [#/Vol] 0.2 10*3/uL Normal 0.0-0.4 [facility] Comment on above: Performed By: #### B MP, CBCA, 6873-4, 5643-2, 69716-0 #### [facility] ([id number]) [address] [place] [address] 85534 Eosinophils/100 WBC (Bld) 2.8 % Normal [facility] Comment on above: Performed By: #### B MP, CBCA, 73-4, 5643-2, #### [facility] ([id number]) [address] [place] [address] 59033 Erythrocyte distribution width (RBC) [Ratio] 14.1 % Normal 11.5-15.0 [facility] Comment on above: Performed By: #### B MP, CBCA, 73-4, 5642-, #### [facility] ([id number]) [address] [place] [address] 92109 Hematocrit (Bld) [Volume fraction] 40.5 % Normal 39-49 [facility] Comment on above: Performed By: #### B MP, CBCA, 73-4, 5642-, #### [facility] ([id number]) [address] [place] [address] 21879 Hemoglobin (Bld) [Mass/Vol] 13.6 g/dL Normal 13.0-17.0 [facility] Comment on above: Performed By: #### B MP, CBCA, 6873-4, 5643-2, 88754-4 #### [facility] ([id number]) [address] [place] [address] 17355 Lymphocytes (Bld) [#/Vol] 1.9 10*3/uL Normal 1.0-3.5 [facility] Comment on above: Performed By: #### B MP, CBCA, 6873-4, 5643-2, #### [facility] ([id number]) [address] [place] [address] 65451 Lymphocytes/100 WBC (Bld) 26.1 % Normal [facility] Comment on above: Performed By: #### B MP, CBCA, 6873-4, 5643-2, #### [facility] ([id number]) [address] [place] [address] 26048 MCH (RBC) [Entitic mass] 29.1 pg Normal 27-34 [facility] Comment on above: Performed By: #### B MP, CBCA, 73-4, 5642-, #### [facility] ([id number]) [address] [place] [address] 44517 MCHC (RBC) [Mass/Vol] 33.6 g/dL Normal 32-36 [facility] Comment on above: Performed By: #### B MP, CBCA, 73-4, 5642-, #### [facility] ([id number]) [address] [place] [address] 96111 MCV (RBC) [Entitic vol] 87 fL Normal 80-100 [facility] Comment on above: Performed By: #### B MP, CBCA, 73-4, 43-, #### [facility] ([id number]) [address] [place] [address] 32201 Monocytes (Bld) [#/Vol] 0.7 10*3/uL Normal 0-0.9 [facility] Comment on above: Performed By: #### B MP, CBCA, 73-4, 5643-2, #### [facility] ([id number]) [address] [place] [address] 83756 Monocytes/100 WBC (Bld) 9.2 % Normal [facility] Comment on above: Performed By: #### B MP, CBCA, 6873-4, 5643-2, 45731-5 #### [facility] ([id number]) [address] [place] [address] 93835 Neutrophils/100 WBC (Bld) 61.3 % Normal [facility] Comment on above: Performed By: #### B MP, CBCA, 6873-4, 5643-2, 16610-5 #### [facility] ([id number]) [address] [place] [address] 58419 Platelet mean volume (Bld) [Entitic vol] 9.6 fL Normal 7-12 [facility] Comment on above: Performed By: #### B MP, CBCA, 6873-4, 5643-2, 65697-3 #### [facility] ([id number]) [address] [place] [address] 25236 Platelets (Bld) [#/Vol] 235 10*3/uL Normal 150-450 [facility] Comment on above: Performed By: #### B MP, CBCA, 6873-4, 5643-2, 66382-4 #### [facility] ([id number]) [address] [place] [address] 05313 RBC COUNT 4.68 X10E12/L Normal 4.10-5.70 [facility] Comment on above: Performed By: #### B MP, CBCA, 6873-4, 5643-2, 56987-3 #### [facility] ([id number]) [address] [place] [address] 42647 WBC (Bld) [#/Vol] 7.2 10*3/uL Normal 4.0-11.0 [facility] Comment on above: Performed By: #### B MP, CBCA, 6873-4, 5643-2, 12160-1 #### [facility] ([id number]) [address] [place] [address] [place] [address] COMPREHENSIVE METABOLIC PANE Al 01-11-2024 Albumin [Mass/Vol] 3.4 g/dL Normal 3.2-5.3 [facility] Comment on above: Performed By: #### B ADA, CBCA, 6873-4, 5643-2, 51324-5 #### [facility] ([id number]) [address] [place] [address] 32677 ALP [Catalytic activity/Vol] 79 U/L Normal 39-130 [facility] Comment on above: Performed By: #### B ADA, CBCA, 6873-4, 5643-2, 73286-0 #### [facility] ([id number]) [address] [place] [address] 63199 ALT [Catalytic activity/Vol] 30 U/L Normal 0-40 [facility] Comment on above: Performed By: #### B ADA, CBCA, 6873-4, 5643-2, 14160-4 #### [facility] ([id number]) [address] [place] [address] 15957 Anion gap [Moles/Vol] 13 mmol/L Normal 5-15 [facility] Comment on above: Performed By: #### B ADA, CBCA, 6873-4, 5643-2, 09531-5 #### [facility] ([id number]) [address] [place] [address] 90747 AST [Catalytic activity/Vol] 15 U/L Normal 0-41 [facility] Comment on above: Performed By: #### B ADA, CBCA, 6873-4, 5643-2, 67670-2 #### [facility] ([id number]) [address] [place] [address] 56064 Bilirubin [Mass/Vol] 1.1 mg/dL Normal 0.3-1.2 [facility] Comment on above: Performed By: #### B ADA, CBCA, 6873-4, 5643-2, 43761-3 #### [facility] ([id number]) [address] [place] [address] 95879 Calcium [Mass/Vol] 8.6 mg/dL Normal 8.5-10.5 [facility] Comment on above: Performed By: #### B ADA, ANA, 6873-4, 5643-2, 76922-1 #### [facility] ([id number]) [address] [place] [address] 50841 Chloride [Moles/Vol] 105 mmol/L Normal 98-109 [facility] Comment on above: Performed By: #### B ADA, ANA, 6873-4, 5643-2, 42829-7 #### [facility] ([id number]) [address] [place] [address] 07824 Creatinine [Mass/Vol] 0.91 mg/dL Normal 0.70-1.20 [facility] Comment on above: Result Comment: METH OD TRACEABLE TO IDMS STANDARD Performed By: #### B ADA, ANA, 6873-4, 5643-2, 35892-2 #### [facility] ([id number]) [address] [place] [address] 44331 eGFR (CKD-EPI) NON-RACE DEPENDENT >90 Normal >59 [facility] Comment on above: Result Comment: Reported eGFR is based on the CKD-EPI 2020 equation that does not use a race coefficient. Performed By: #### B ADA, ANA, 6873-4, 5643-2, 71814-9 #### [facility] ([id number]) [address] [place] [address] 07380 Glucose [Mass/Vol] 227 mg/dL High 65-99 [facility] Comment on above: Performed By: #### B ADA, ANA, 6873-4, 5643-2, 59423-0 #### [facility] ([id number]) [address] [place] [address] 40610 Potassium [Moles/Vol] 2.7 mmol/L Critically low 3.5-5.0 [facility] Comment on above: Performed By: #### B ADA, CBCA, 6873-4, 5643-2, 35057-6 #### [facility] ([id number]) [address] [place] [address] 96195 Protein [Mass/Vol] 6.8 g/dL Normal 6.0-8.0 [facility] Comment on above: Performed By: #### B ADA, CBCA, 6873-4, 5643-2, 86314-1 #### [facility] ([id number]) [address] [place] [address] 88708 Sodium [Moles/Vol] 135 mmol/L Normal 134-146 [facility] Comment on above: Performed By: #### B ADA, CBCA, 6873-4, 5643-2, 77760-5 #### [facility] ([id number]) [address] [place] [address] 02890 Urea nitrogen [Mass/Vol] 6 mg/dL Normal 5-23 [facility] Comment on above: Performed By: #### B ADA, CBCA, 6873-4, 5643-2, 20805-4 #### [facility] ([id number]) [address] [place] [address] 12658 ELECTROLYTESon 01-11-2024 Anion gap [Moles/Vol] 9 mmol/L Normal 5-15 [facility] Comment on above: Performed By: #### B ADA, CBCA, 6873-4, 5643-2, 56543-0 #### [facility] ([id number]) [address] [place] [address] 99545 Chloride [Moles/Vol] 108 mmol/L Normal 98-109 [facility] Comment on above: Performed By: #### B ADA, ANA, 6873-4, 5643-2, 43006-3 #### [facility] ([id number]) [address] [place] [address], [place] [address] CO2 [Moles/Vol] 22 mmol/L Normal 22-32 [facility] Comment on above: Performed By: #### B ADA, CBCTerry, 6873-4, 5643-2, #### [facility] ([id number]) [address] [place] [address] [place] [address] Potassium [Moles/Vol] 3.4 mmol/L Low 3.5-5.0 [facility] Comment on above: Performed By: #### B ADA, CBCTerry, 6873-4, 5643-2, #### [facility] ([id number]) [address] [place] [address] [place] [address] Sodium [Moles/Vol] 139 mmol/L Normal 134-146 [facility] Comment on above: Performed By: #### B ADA, ANA, 6873-4, 5643-2, #### [facility] [facility] ([id number]) [address] [place] [address] [place] [address] Anion gap [Moles/Vol] 10 mmol/L Normal 5-15 [facility] Comment on above: Performed By: #### B ADA, CBCTerry, 6873-4, 5643-2, 90731-2 #### [facility] ([id number]) [address] [place] [address], [place] [address] Chloride [Moles/Vol] 105 mmol/L Normal 98-109 [facility] Comment on above: Performed By: #### B ADA, CBCA, 6873-4, 5643-2, 37833-3 #### [facility] ([id number]) [address] [place] [address] [place] [address] CO2 [Moles/Vol] 20 mmol/L Low 22-32 [facility] Comment on above: Performed By: #### B ADA, ANA, 6873-4, 5643-2, 80519-5 #### [facility] ([id number]) [address] [place] [address] 19542 Potassium [Moles/Vol] 3.6 mmol/L Normal 3.5-5.0 [facility] Comment on above: Performed By: #### B ADA, CBCTerry, 6873-4, 5643-2, #### [facility] ([id number]) [address] [place] [address] 18985 Sodium [Moles/Vol] 135 mmol/L Normal 134-146 [facility] Comment on above: Performed By: #### B ADA, ANA, 6873-4, 5643-2, #### [facility] ([id number]) [address] [place] [address] 22737 Anion gap [Moles/Vol] 12 mmol/L Normal 5-15 [facility] Comment on above: Performed By: #### B ADA, ANA, 6873-4, 5643-2, 01640-1 #### [facility] ([id number]) [address] [place] [address] 96417 Chloride [Moles/Vol] 107 mmol/L Normal 98-109 [facility] Comment on above: Performed By: #### B ADA, CBCTerry, 6873-4, 5643-2, 76977-6 #### [facility] ([id number]) [address] [place] [address] 49581 CO2 [Moles/Vol] 18 mmol/L Low 22-32 [facility] Comment on above: Performed By: #### B ADA, CBCTerry, 6873-4, 5643-2, 61236-3 #### [facility] ([id number]) [address] [place] [address] 33254 Potassium [Moles/Vol] 4.0 mmol/L Normal 3.5-5.0 [facility] Comment on above: Performed By: #### B ADA, CBCA, 6873-4, 5643-2, 99913-7 #### [facility] ([id number]) [address] [place] [address] 63163 Sodium [Moles/Vol] 137 mmol/L Normal 134-146 [facility] Comment on above: Performed By: #### B ADA, CBCA, 6873-4, 5643-2, 62491-8 #### [facility] ([id number]) [address] [place] [address] 43184 Potassium [Moles/Vol] 3.8 mmol/L Normal 3.5-5.0 [facility] Comment on above: Performed By: #### B ADA, CBCA, 6873-4, 5643-2, 61954-8 #### [facility] ([id number]) [address] [place] [address] 38706 Sodium [Moles/Vol] 136 mmol/L Normal 134-146 [facility] Comment on above: Performed By: #### B ADA, CBCA, 6873-4, 5643-2, 22068-7 #### [facility] ([id number]) [address] [place] [address] 60373 CO2 [Moles/Vol] 17 mmol/L Low 22-32 [facility] Comment on above: Performed By: #### B ADA, CBCA, 6873-4, 5643-2, 26604-3 #### [facility] ([id number]) [address] [place] [address] 50045 Glucose Glucometer (BldC) [M ass/Vol]on 01-11-2024 Glucose [Mass/Vol] 216 mg/dL High 65-99 [facility] Glucose [Mass/Vol] 245 mg/dL High 65-99 [facility] Glucose [Mass/Vol] 299 mg/dL High 65-99 [facility] Glucose [Mass/Vol] 310 mg/dL High 65-99 [facility] Glucose [Mass/Vol] 288 mg/dL High 65-99 [facility] Glucose [Mass/Vol] 249 mg/dL High 65-99 [facility] Glucose [Mass/Vol] 218 mg/dL High 65-99 [facility] Glucose [Mass/Vol] 238 mg/dL High 65-99 [facility] Glucose [Mass/Vol] 226 mg/dL High 65-99 [facility] Glucose [Mass/Vol] 259 mg/dL High 65-99 [facility] HGB A1C (GLYCO-HGB)on 2023 Glucose [Mass/Vol] 335 mg/dL Normal [facility] Comment on above: Performed By: #### B ADA, CBCA, 6873-4, 5643-2, 95084-3 #### [facility] ([id number]) [address] [place] [address] 41460 HbA1c (Bld) [Mass fraction] 13.3 % High 4.4-5.6 [facility] Comment on above: Result Comment: NOTE ADA Guidelines Result HgbA1c Normal : less than 5.7 % Prediabetes : 5.7 % to 6.4 % Diabetes : > 6.4 % Use with caution in patients with abnormal hemoglobin variants as the half-life of red blood cells and in vivo glycation rates are affected. Performed By: #### B MP, CBCA, 6873-4, 5643-2, 49948-9 #### [facility] ([id number]) [address] [place] [address] 43079 MAGNESIUMon 01-11-2024 Magnesium [Mass/Vol] 1.8 mg/dL Normal 1.8-2.6 [facility] Comment on above: Performed By: #### B ADA, CBCA, 6873-4, 5643-2, 42060-2 #### [facility] ([id number]) [address] [place] [address] 09785 VENOUS BLOOD GASon 4 LINDSAY'S TEST Normal [facility] Comment on above: Performed By: #### B ADA, CBCA, 6873-4, 5643-2, #### [facility] ([id number]) [address] [place] [address] 24944 BASE,DEFICIT 9.0 MMOL/L High 0.0-2.0 [facility] Comment on above: Performed By: #### B ADA, CBCA, 6873-4, 5643-2, #### [facility] ([id number]) [address] [place] [address] 35585 Body temperature 98.6 [degF] Normal 37.0 [facility] Comment on above: Performed By: #### B ADA, CBCA, 6873-4, 5643-2, 64395-5 #### [facility] ([id number]) [address] [place] [address] 93901 HCO3 (Bld) [Moles/Vol] 15.7 mmol/L Low 20.0-24.0 [facility] Comment on above: Performed By: #### B ADA, CBCA, 6873-4, 5643-2, 56694-4 #### [facility] ([id number]) [address] [place] [address] 15365 INSP. O2 CONC. 21 % Normal [facility] Comment on above: Performed By: #### B ADA, CBCA, 6873-4, 5643-2, #### [facility] ([id number]) [address] [place] [address] 31684 Oxygen saturation in Blood 79.0 % Low >80.0 [facility] Comment on above: Performed By: #### B ANA CABALLERO, 6873-4, 5643-2, #### [facility] ([id number]) [address] [place] [address] [place] [address] OXYGEN SOURCE [facility] Comment on above: Performed By: #### B ADA, ANA, 6873-4, 5643-2, #### [facility] ([id number]) [address] [place] [address] 50837 PCO2, VENOUS 30.6 MMHG Low 35-50 [facility] Comment on above: Performed By: #### B ANA CABALLERO, 6873-4, 5643-2, #### [facility] ([id number]) [address] [place] [address] [place] [address] PH, VENOUS 7.318 Low 7.320-7.420 [facility] Comment on above: Performed By: #### B ANA CABALLERO, 6873-4, 5643-2, #### [facility] ([id number]) [address] [place] [address] 51224 PO2, VENOUS 46 MMHG Normal 30-50 [facility] Comment on above: Performed By: #### B ANA CABALLERO, 6873-4, 5643-2, #### [facility] ([id number]) [address] [place] [address] 21455 SAMPLE SITE N/A [facility] Comment on above: Performed By: #### B ANA CABALLERO, 6873-4, 5643-2, #### [facility] ([id number]) [address] [place] [address] 55937 SAMPLE TYPE VENOUS Normal [facility] Comment on above: Performed By: #### B ADA, CBCA, 6873-4, 5643-2, 53134-7 #### [facility] ([id number]) [address] [place] [address] 28296 BASIC METABOLIC PANLon 01-09 Anion gap [Moles/Vol] 16 mmol/L High 5-15 [facility] Comment on above: Performed By: #### B ADA, CBCA, 6873-4, 5643-2, #### [facility] ([id number]) [address] [place] [address] 02265 Calcium [Mass/Vol] 9.4 mg/dL Normal 8.5-10.5 [facility] Comment on above: Performed By: #### B ADA, CBCA, 6873-4, 5643-2, #### [facility] ([id number]) [address] [place] [address] 82866 Chloride [Moles/Vol] 101 mmol/L Normal 98-109 [facility] Comment on above: Performed By: #### B ADA, CBCA, 6873-4, 5642-, #### [facility] ([id number]) [address] [place] [address] 87999 CO2 [Moles/Vol] 14 mmol/L Low 22-32 [facility] Comment on above: Performed By: #### B ADA, CBCA, 6873-4, 5643-2, 06508-0 #### [facility] ([id number]) [address] [place] [address] 15002 Creatinine [Mass/Vol] 1.13 mg/dL Normal 0.70-1.20 [facility] Comment on above: Result Comment: METH OD TRACEABLE TO IDMS STANDARD Performed By: #### B ADA, CBCA, 6873-4, 5643-2, #### [facility] ([id number]) [address] [place] [address] 37237 eGFR (CKD-EPI) NON-RACE DEPENDENT >90 Normal >59 [facility] Comment on above: Result Comment: Reported eGFR is based on the CKD-EPI 2020 equation that does not use a race coefficient. Performed By: #### B ANA CABALLERO, 6873-4, 5643-2, #### [facility] ([id number]) [address] [place] [address] 15373 Glucose [Mass/Vol] 394 mg/dL High 65-99 [facility] Comment on above: Performed By: #### B ANA CABALLERO, 6873-4, 56-, #### [facility] ([id number]) [address] [place] [address] 82847 Potassium [Moles/Vol] 3.3 mmol/L Low 3.5-5.0 [facility] Comment on above: Performed By: #### B ANA CABALLERO, 6873-4, 5643-, #### [facility] ([id number]) [address] [place] [address] 98767 Sodium [Moles/Vol] 131 mmol/L Low 134-146 [facility] Comment on above: Performed By: #### B ANA CABALLERO, 6873-4, 5643-, #### [facility] ([id number]) [address] [place] [address] 14952 Urea nitrogen [Mass/Vol] 7 mg/dL Normal 5-23 [facility] Comment on above: Performed By: #### B ANA CABALLERO, 6873-4, 5643-, 02962-8 #### [facility] ([id number]) [address] [place] [address] 32441 Beta hydroxybutyrate [Moles/ Vol]on 01-10-2024 BetaHydroxybutyrate 6.67 mmol/L High 0.02-0.27 [facility] Comment on above: Performed By: #### B MP, CBCA, 6873-4, 5643-2, 17663-2 #### [facility] ([id number]) [address] [place] [address] 24850 CBC AND AUTO DIFFon 01-10-20 ABSOLUTE BASOPHIL 0.0 X10E9/L Normal 0.0-0.2 [facility] Comment on above: Performed By: #### B MP, CBCA, 6873-4, 5643-2, 81737-3 #### [facility] ([id number]) [address] [place] [address] 14900 ABSOLUTE NEUTROPHIL 5.6 X10E9/L Normal 1.5-6.6 [facility] Comment on above: Performed By: #### B MP, CBCA, 6873-4, 5643-2, 01897-8 #### [facility] ([id number]) [address] [place] [address] 72741 Basophils/100 WBC (Bld) 0.3 % Normal [facility] Comment on above: Performed By: #### B MP, CBCA, 6873-4, 5643-2, 23182-0 #### [facility] ([id number]) [address] [place] [address] 24988 Eosinophils (Bld) [#/Vol] 0.1 10*3/uL Normal 0.0-0.4 [facility] Comment on above: Performed By: #### B MP, CBCA, 6873-4, 5643-2, 85519-9 #### [facility] ([id number]) [address] [place] [address] 32525 Eosinophils/100 WBC (Bld) 1.5 % Normal [facility] Comment on above: Performed By: #### B MP, CBCA, 6873-4, 5643-2, 58673-5 #### [facility] ([id number]) [address] [place] [address] 56842 Erythrocyte distribution width (RBC) [Ratio] 13.9 % Normal 11.5-15.0 [facility] Comment on above: Performed By: #### B MP, CBCA, 6873-4, 5643-2, #### [facility] ([id number]) [address] [place] [address] 20365 Hematocrit (Bld) [Volume fraction] 43.9 % Normal 39-49 [facility] Comment on above: Performed By: #### B MP, CBCA, 6873-4, 5643-2, #### [facility] ([id number]) [address] [place] [address] 31530 Hemoglobin (Bld) [Mass/Vol] 14.7 g/dL Normal 13.0-17.0 [facility] Comment on above: Performed By: #### B ADA, CBCA, 6873-4, 5643-, #### [facility] ([id number]) [address] [place] [address] 38368 Lymphocytes (Bld) [#/Vol] 1.5 10*3/uL Normal 1.0-3.5 [facility] Comment on above: Performed By: #### B MP, CBCA, 6873-4, 5643-2, 18987-1 #### [facility] ([id number]) [address] [place] [address] 03277 Lymphocytes/100 WBC (Bld) 18.5 % Normal [facility] Comment on above: Performed By: #### B MP, CBCA, 6873-4, 5643-2, 49189-3 #### [facility] ([id number]) [address] [place] [address] 49727 MCH (RBC) [Entitic mass] 29.1 pg Normal 27-34 [facility] Comment on above: Performed By: #### B ADA, CBCA, 6873-4, 5643-2, #### [facility] ([id number]) [address] [place] [address] 86397 MCHC (RBC) [Mass/Vol] 33.4 g/dL Normal 32-36 [facility] Comment on above: Performed By: #### B ADA, CBCA, 73-4, 5643-2, #### [facility] ([id number]) [address] [place] [address] 71695 MCV (RBC) [Entitic vol] 87 fL Normal 80-100 [facility] Comment on above: Performed By: #### B ADA, CBCA, 73-4, 5642-, #### [facility] ([id number]) [address] [place] [address] 40416 Monocytes (Bld) [#/Vol] 0.6 10*3/uL Normal 0-0.9 [facility] Comment on above: Performed By: #### B ADA, CBCA, 73-4, 5642-, 44663-5 #### [facility] ([id number]) [address] [place] [address] 75366 Monocytes/100 WBC (Bld) 7.7 % Normal [facility] Comment on above: Performed By: #### B MP, CBCA, 73-4, 43-, 87651-1 #### [facility] ([id number]) [address] [place] [address] 13899 Neutrophils/100 WBC (Bld) 72.0 % Normal [facility] Comment on above: Performed By: #### B MP, CBCA, 73-4, 5643-2, 78689-2 #### [facility] ([id number]) [address] [place] [address] 74451 Platelet mean volume (Bld) [Entitic vol] 10.0 fL Normal 7-12 [facility] Comment on above: Performed By: #### B MP, CBCA, 6873-4, 43-2, #### [facility] ([id number]) [address] [place] [address] 89359 Platelets (Bld) [#/Vol] 253 10*3/uL Normal 150-450 [facility] Comment on above: Performed By: #### B MP, CBCA, 6873-4, 5642-2, #### [facility] ([id number]) [address] [place] [address] 68567 RBC COUNT 5.04 X10E12/L Normal 4.10-5.70 [facility] Comment on above: Performed By: #### B MP, CBCA, 6873-4, 56-, #### [facility] ([id number]) [address] [place] [address] 68881 WBC (Bld) [#/Vol] 7.8 10*3/uL Normal 4.0-11.0 [facility] Comment on above: Performed By: #### B MP, CBCA, 6873-4, 5643-2, 14643-0 #### [facility] ([id number]) [address] [place] [address] 06266 DRUG SCREEN, URINEon 024 AMPHETAMINE/METHAMP Negative Normal NEG [facility] Comment on above: Result Comment: AMPH /METH screening cut off = 1000 ng/mL Performed By: #### D SALAS #### [facility] ([id number]) [address] [place] [address] 29872 BARBITURATES Negative Normal NEG [facility] Comment on above: Result Comment: Earlene iturates screening cut off value = 200 ng/mL Performed By: #### D SALAS #### [facility] ([id number]) [address] [place] [address] 45122 BENZODIAZEPINES Negative Normal NEG [facility] Comment on above: Result Comment: Kareem odiazepines screening cut off value = 200 ng/mL Performed By: #### D SALAS #### [facility] ([id number]) [address] [place] [address] 10394 CANNABINOIDS Negative Normal NEG [facility] Comment on above: Result Comment: Catalina abinoids/THC screening cut off value = 50 ng/mL Performed By: #### D SALAS #### [facility] ([id number]) [address] [place] [address] 23918 COCAINE METABOLITE Negative Normal NEG [facility] Comment on above: Result Comment: Coca ine screening cut off value = 300 ng/mL Performed By: #### D SALAS #### [facility] ([id number]) [address] [place] [address] 38158 ECSTASY Negative Normal [facility] Comment on above: Result Comment: Ecst asy screening cut off value = 500 ng/mL This report is intended for use in clinical monitoring or management of patients. Performed By: #### D SALAS #### [facility] ([id number]) [address] [place] [address] 79695 METHADONE Negative Normal NEG [facility] Comment on above: Result Comment: Meth adone screening cut off value = 300 ng/mL. Performed By: #### D SALAS #### [facility] ([id number]) [address] [place] [address] 19989 OPIATES Negative Normal NEG [facility] Comment on above: Result Comment: Opia miguel screening cut off value = 300 ng/mL NOTE: This test is used for the detection of codeine, hydrocodone (>1000 ng/mL), morphine and hydromorphone (>900 ng/mL) in urine. Performed By: #### D SALAS #### [facility] ([id number]) [address] [place] [address] 52458 OXYCODONE Negative Normal NEG [facility] Comment on above: Result Comment: Oxyc odone screening cut off value = 300 ng/mL NOTE: This test is used for the detection of oxycodone and oxymorphone in urine. Performed By: #### D SALAS #### [facility] ([id number]) [address] [place] [address] 57517 PHENCYCLIDINE Negative Normal NEG [facility] Comment on above: Result Comment: Phen cyclidine screening cut off value = 25 ng/mL Performed By: #### D SALAS #### [facility] ([id number]) [address] [place] [address] 37720 ETHANOLon 01-10-2024 Ethanol [Mass/Vol] mg/dL Normal 0.00-0.08 [facility] Comment on above: Result Comment: This report is intended for use in clinical monitoring or management of patients. Performed By: #### B ANA CABALLERO, 6873-4, 5643-2, 04182-7 #### [facility] ([id number]) [address] [place] [address] 43171 Glucose Glucometer (BldC) [M ass/Vol]on 01-10-2024 Glucose [Mass/Vol] 316 mg/dL High 65-99 [facility] MAGNESIUMon 01-10-2024 Magnesium [Mass/Vol] 1.6 mg/dL Low 1.8-2.6 [facility] Comment on above: Performed By: #### B ANA CABALLERO, 6873-4, 5643-2, 16107-2 #### [facility] ([id number]) [address] [place] [address] 48260 URN MACROSCOPIC NURon 2023 BIL[address]UB[address] TERRELL Small Abnormal NEG [facility] Comment on above: Performed By: #### N UM #### [facility] ([id number]) [address] [place] [address] 77563 BLOOD/HGB TERRELL Negative Normal NEG [facility] Comment on above: Performed By: #### N UM #### [facility] ([id number]) [address] [place] [address] 90331 GLUCOSE TERRELL 500 mg/dL Abnormal NEG [facility] Comment on above: Performed By: #### N UM #### [facility] ([id number]) [address] [place] [address] 11084 KETONES TERRELL >=160 Abnormal NEG [facility] Comment on above: Performed By: #### N UM #### [facility] ([id number]) [address] [place] [address] [place] [address] LEUKOCYTE ESTERASE TERRELL Negative Normal NEG [facility] Comment on above: Performed By: #### N UM #### [facility] ([id number]) [address] [place] [address] 37655 NITRITE TERRELL Negative Normal NEG [facility] Comment on above: Performed By: #### N UM #### [facility] ([id number]) [address] [place] [address] 07636 PH TERRELL 5.5 Normal 5.0-8.5 [facility] Comment on above: Performed By: #### N UM #### [facility] ([id number]) [address] [place] [address] 28391 PROTEIN TERRELL 30 mg/dL Abnormal NEG [facility] Comment on above: Performed By: #### N UM #### [facility] ([id number]) [address] [place] [address] 54400 SPECIFIC GRAVITY TERRELL 1.015 Normal 1.003-1.035 [facility] Comment on above: Performed By: #### N UM #### [facility] ([id number]) [address] [place] [address] 25795 UROBILINOGEN TERRELL 0.2 eu/dL Normal <1.1 [facility] Comment on above: Performed By: #### N UM #### [facility] ([id number]) [address] [place] [address] 08162 VENOUS BLOOD GASon 4 LINDSAY'S TEST Normal [facility] Comment on above: Performed By: #### V BG #### [facility] ([id number]) [address] [place] [address] 30895 BASE,DEFICIT 11.0 MMOL/L High 0.0-2.0 [facility] Comment on above: Performed By: #### V BG #### [facility] ([id number]) [address] [place] [address] 29271 Body temperature 98.6 [degF] Normal 37.0 [facility] Comment on above: Performed By: #### V BG #### [facility] ([id number]) [address] [place] [address] 33142 HCO3 (Bld) [Moles/Vol] 13.5 mmol/L Low 20.0-24.0 [facility] Comment on above: Performed By: #### V BG #### [facility] ([id number]) [address] [place] [address] 03079 INSP. O2 CONC. 21 % Normal [facility] Comment on above: Performed By: #### V BG #### [facility] ([id number]) [address] [place] [address] 20469 Oxygen saturation in Blood 92.0 % Normal >80.0 [facility] Comment on above: Performed By: #### V BG #### [facility] ([id number]) [address] [place] [address] [place] [address] OXYGEN SOURCE [facility] Comment on above: Performed By: #### V BG #### [facility] ([id number]) [address] [place] [id number] PCO2, VENOUS 27.3 MMHG Low 35-50 [facility] Comment on above: Performed By: #### V BG #### [facility] ([id number]) [address] [place] [address] [place] [address] PH, VENOUS 7.303 Low 7.320-7.420 [facility] Comment on above: Performed By: #### V BG #### [facility] ([id number]) [address] [place] [address] PO2, VENOUS 69 MMHG High 30-50 [facility] Comment on above: Performed By: #### V BG #### [facility] ([id number]) [address] [place] [address] [place] [address] SAMPLE SITE N/A Normal [facility] Comment on above: Performed By: #### V BG #### [facility] ([id number]) [address] [place] [address] SAMPLE TYPE VENOUS Normal [facility] Comment on above: Performed By: #### V BG #### [facility] ([id number]) [address] [place] [address] POCT Influenza A/Influenza B /SARS-COV-2 [facility] 08-05-2023 External Poct Influenza A Antigen Negative [facility] External Poct Influenza B Antigen Negative [facility] SARS-CoV-2 (COVID-19) Ag IA.rapid Ql (Resp) Negative [facility] POCT rapid strep Aon 024 S. pyogenes Ag IA Ql (Unsp spec) Negative Negative [facility] ACETONE SERUMon 06-11-2020 ACETONE SMALL Abnormal NEGATIVE [facility] Comment on above: Performed By: #### A CETON #### [facility] [address] [place] [address] Latisha Gena AMYLASEon 06-11-2020 Amylase [Catalytic activity/Vol] U/L Critically low 31-110 [facility] Comment on above: Performed By: #### B MP, LIPA, ELLA, LIVER #### [facility] [address] [place] [address] Latisha Gena CBC AUTO DIFFon 06-11-2020 Basophils (Bld) [#/Vol] 0.1 103/ul Normal 0.0-0.[address] [facility] Comment on above: Performed By: #### C BC #### [facility] [address] [place], [place] [address] Latisha Gena Basophils/100 WBC (Bld) 0.4 % Normal 0.2-2.[address] [facility] Comment on above: Performed By: #### C BC #### [facility] [address] [place] [address] Latisha Gena Eosinophils (Bld) [#/Vol] 0.0 103/ul Normal 0.0-0.7 [facility] Comment on above: Performed By: #### C BC #### [facility] [address] [place], [place] [address] Latisha Gena Eosinophils/100 WBC (Bld) 0.1 % Critically low 0.9-7.0 [facility] Comment on above: Performed By: #### C BC #### [facility] [address] [place] [address] Latisha Gena Erythrocyte distribution width (RBC) [Ratio] 14.8 % Normal 11.0-15.0 [facility] Comment on above: Performed By: #### C BC #### [facility] [address] [place], [place] [address] Latisha Gena Hematocrit (Bld) [Volume fraction] 51.7 % Normal 42.0-54.0 [facility] Comment on above: Performed By: #### C BC #### [facility] [address] [id number] Latisha Gena Hemoglobin (Bld) [Mass/Vol] 16.6 g/dL Normal 14.0-18.0 [facility] Comment on above: Performed By: #### C BC #### [facility] [address] [id number] Latisha Gena IG # 0.10 10e3/ul Critically high 0.00-0.03 [facility] Comment on above: Performed By: #### C BC #### [facility] [address] [id number] Latisha Gena IG % 0.6 % Critically high 0.0-0.5 [facility] Comment on above: Performed By: #### C BC #### [facility] [address] [place], [place] [address] Latisha Gena Lymphocytes (Bld) [#/Vol] 0.9 103/ul Critically low 1.2-3.8 [facility] Comment on above: Performed By: #### C BC #### [facility] [address] [place], [place] [address] Latisha Gena Lymphocytes/100 WBC (Bld) 5.2 % Critically low 20.5-60.0 [facility] Comment on above: Performed By: #### C BC #### [facility] [address] [place], [place] [address] Latisha Avery MANUAL DIFF REQ NO Normal [facility] [place] Comment on above: Performed By: #### C BC #### [facility] [address] [place], [place] [address] Latisha Gena MCH (RBC) [Entitic mass] 28.5 pg Normal 25.9-34.0 [facility] Comment on above: Performed By: #### C BC #### [facility] [address] [id number] Latisha Gena MCHC (RBC) [Mass/Vol] 32.1 g/dL Normal 29.9-35.2 [facility] Comment on above: Performed By: #### C BC #### [facility] [address] [place], [place] [address] Latisha Gena MCV (RBC) [Entitic vol] 88.7 fL Normal 76.3-90.[address] [facility] Comment on above: Performed By: #### C BC #### [facility] [address] [place], [place] [address] Latisha Gena Monocytes (Bld) [#/Vol] 0.7 103/ul Normal 0.3-0.[address] [facility] Comment on above: Performed By: #### C BC #### [facility] [address] [place] [address] Latisha Gena Monocytes/100 WBC (Bld) 4.3 % Normal 1.7-12.[address] [facility] Comment on above: Performed By: #### C BC #### [facility] [address] [place] [address] Latisha Gena Neutrophils (Bld) [#/Vol] 14.6 103/ul Critically high 1.4-6.5 [facility] Comment on above: Performed By: #### C BC #### [facility] [address] [place] [address] Latisha Gena Neutrophils/100 WBC (Bld) 89.4 % Critically high 43.0-75.0 [facility] Comment on above: Performed By: #### C BC #### [facility] [address] [place] [address] Latisha Gena Platelet mean volume (Bld) [Entitic vol] 12.0 fL Normal 9.5-13.5 [facility] Comment on above: Performed By: #### C BC #### [facility] [address] [place] [address] Latisha Gena Platelets (Bld) [#/Vol] 404 103/ul Normal 150-[address] [facility] Comment on above: Performed By: #### C BC #### [facility] [address] [place] [address] Latisha Gena RBC (Bld) [#/Vol] 5.83 106/ul Critically high 3.30-5.[address] [facility] Comment on above: Performed By: #### C BC #### [facility] [address] [place] [address] Latisha Gena WBC (Bld) [#/Vol] 16.3 103/ul Critically high 4.0-11.[address] [facility] Comment on above: Performed By: #### C BC #### [facility] [address] [place] [address] Latishaashly Avery ER URINE PROFILEon 1 Bilirubin [Mass/Vol] SMALL Abnormal NEGATIVE [facility] Comment on above: Performed By: #### ANGE FAMRO #### [facility] [address] [place] [address] Latisha Gena BLOOD MODERATE Abnormal NEGATIVE [facility] Comment on above: Performed By: #### ANGE FAMRO #### [facility] [address] [place] [address] Latisha Gena Clarity (U) CLEAR Normal CLEAR [facility] Comment on above: Performed By: #### ANGE FAMRO #### [facility] [address] [place] [address] Latisha Gena Color (U) LT. YELLOW Normal YELLOW [facility] Comment on above: Performed By: #### ANGE FAMRO #### [facility] [address] [place] [address] Latisha Gena ERUAHD A micrscopic examination will be performed if indicated. Normal [facility] Comment on above: Performed By: #### ANGE FAMRO #### [facility] [address] [place] [address] Latisha Gena Glucose [Mass/Vol] >1000 Abnormal NEGATIVE [facility] Comment on above: Performed By: #### ANGE FAMRO #### [facility] [address] [place] [address] Latisha Gena Ketones Ql (U) >=80 Abnormal NEGATIVE [facility] Comment on above: Performed By: #### KALEB FAM #### [facility] [address] [place], [place] [address] Latisha Gena Nitrite Ql (U) Negative Normal NEGATIVE [facility] Comment on above: Performed By: #### KAELB FAM #### [facility] [address] [place], [place] [address] Latisha Gena pH (Bld) 5.5 Normal 5-9 [facility] Comment on above: Performed By: #### KALEB FAM #### [facility] [address] [place], [place] [address] Latisha Gena Protein (U) [Mass/Vol] 100 mg/dL Abnormal NEGAT ROMY/ TRACE [facility] Comment on above: Performed By: #### KALEB FAM #### [facility] [address] [place], [place] [address] Latisha Gena SPEC GRAVITY >=1.030 Abnormal 1.005-<=1.025 [facility] Comment on above: Performed By: #### KALEB FAM #### [facility] [address] [place], [place] [address] Latisha Gena UR MICRO IND INDICATED Normal [facility] Comment on above: Performed By: #### KALEB FAM #### [facility] [address] [place], [place] [address] Latisha Gena Urobilinogen Qn (U) 0.2 EU/dl Normal 0.2 - 1.0 [facility] Comment on above: Performed By: #### KALEB FAM #### [facility] [address] [place], [place] [address] Latisha Gena WBC (Bld) [#/Vol] Negative Normal NEGATIVE [facility] Comment on above: Performed By: #### KALEB FAM #### [facility] [address] [place], [place] [address] Latisha Gena LIPASEon 06-11-2020 Lipase [Catalytic activity/Vol] 88.0 U/L Normal 23.0-300.0 [facility] Comment on above: Performed By: #### B MP, LIPA, ELLA, LIVER #### [facility] [address] [place], [place] [address] Latishaashly Floweren LIVER PROFILEon 06-11-2020 Albumin [Mass/Vol] 4.5 g/dL Normal 3.5-5.0 [facility] [place] [facility] Comment on above: Performed By: #### B LDCX1 #### [facility] [address] [phone] Latisha Gena Albumin/Globulin [Mass ratio] 0.9 {ratio} Normal [facility] Comment on above: Performed By: #### B LDCX1 #### [facility] [address] [phone] Latisha Gena ALP [Catalytic activity/Vol] 438 U/L Critically high 65-260 [facility] Comment on above: Performed By: #### B LDCX1 #### [facility] [address] [place] [address] Latisha Gena ALT [Catalytic activity/Vol] 31 U/L Normal 21-72 [facility] Comment on above: Performed By: #### B LDCX1 #### [facility] [address] [place], [place] [address] Latisha Gena AST [Catalytic activity/Vol] 10 U/L Critically low 17-59 [facility] Comment on above: Performed By: #### B LDCX1 #### [facility] [address] [place], [place] [address] Latisha Gena BILI, CONJUGATED 0.2 mg/dL Normal 0.0-0.3 [facility] Comment on above: Performed By: #### B LDCX1 #### [facility] [address] [place], [place] [address] Latisha Gena Bilirubin Ql (U) 0.6 mg/dL Normal 0.2-1.3 [facility] Comment on above: Performed By: #### B [id number] #### [facility] [address] [phone] Latisha Gena Globulin (S) [Mass/Vol] 4.8 g/dL Normal [facility] Comment on above: Performed By: #### B LDCX1 #### [facility] [address] [address] Latishaashly Avery Protein [Mass/Vol] 9.3 g/dL Critically high 6.1-8.[address] [facility] Comment on above: Performed By: #### B LDCX1 #### [facility] [address] [place] [address] Latisha Gena PH VENOUS BLOODon 06-11-2020 PCO2 VENOUS 34.2 mmHg Critically low 40.0-52.0 [facility] Comment on above: Performed By: #### P HVEN #### [facility] [address] [place] [address] Latisha Gena pH VENOUS 7.09 Critically low 7.33-7.43 [facility] Comment on above: Performed By: #### P HVEN #### [facility] [address] [place] [address] Latisha Avery POINT OF CARE GLUCOSEon 05-19 Glucose [Mass/Vol] 496 mg/dL Critically high 74-[address] [facility] Comment on above: Performed By: #### B [id number] #### [facility] [address] [place] [address] Latisha Gena Glucose [Mass/Vol] 491 mg/dL Critically high -[address] [facility] Comment on above: Performed By: #### P OCGLUC #### [facility] [address] [place] [address] Latisha Gena Glucose [Mass/Vol] 531 mg/dL Critically high 74-[address] [facility] Comment on above: Result Comment: Resu lt Not Confirmed Performed By: #### P OCGLUC #### [facility] [address] [place] [address] Latisha Gena PROF CHEM 8 (BAS METB)on Anion gap [Moles/Vol] 33.4 mmol/L Normal [facility] Comment on above: Performed By: #### B [id number] #### [facility] [address] [place], [place] [address] Latisha Gena Calcium [Mass/Vol] 10.4 mg/dL Critically high 8.4-10.[address] [facility] Comment on above: Performed By: #### B [id number] #### [facility] [address] [place], [place] [address] Latisha Gena Chloride [Moles/Vol] 99 mmol/L Normal 98-107 [facility] Comment on above: Performed By: #### B LDCX1 #### [facility] [address] [place], [place] [address] Latisha Gena CO2 [Moles/Vol] 9.7 mmol/L Critically low 22.0-30.0 [facility] Comment on above: Performed By: #### B LDCX1 #### [facility] [address] [place], [place] [address] Latisha Gena Creatinine [Mass/Vol] 2.20 mg/dL Critically high 0.66-1.25 [facility] Comment on above: Performed By: #### B LDCX1 #### [facility] [address] [place], [place] [address] Latisha Gena EGFR-AF JORDANIAN 49 mL/min/1.73m2 Critically low >=60 [facility] Comment on above: Performed By: #### B LDCX1 #### [facility] [address] [place], [place] [address] Latisha Gena EGFR-NON AF JORDANIAN 41 mL/min/1.73m2 Critically low >=60 [facility] Comment on above: Performed By: #### B LDCX1 #### [facility] [address] [place], [place] [address] Latisha Gena Glucose [Mass/Vol] 584 mg/dL Critically high 74-[address] [facility] Comment on above: Result Comment: TEST REPEATED CRITICAL VALUE VERIFIED Performed By: #### B LDCX1 #### [facility] [address] [place], [place] [address] Latisha Gena Potassium [Moles/Vol] 5.1 mmol/L Critically high 3.4-5.0 [facility] Comment on above: Performed By: #### B LDCX1 #### [facility] [address] [id number] Latisha Avery Sodium [Moles/Vol] 137 mmol/L Normal 137-145 [facility] Comment on above: Performed By: #### B LDCX1 #### [facility] [address] [place], [place] [address] Latishaashly Avery Urea nitrogen [Mass/Vol] 21.0 mg/dL Critically high 6.4-19.3 [facility] Comment on above: Performed By: #### B LDCX1 #### [facility] [address] [place], [place] [address] Latisha Avery Urea nitrogen/Creatinine [Mass ratio] 9.5 mg/mg Normal [facility] Comment on above: Performed By: #### B LDCX1 #### [facility] [address] [place] [address] Latisha Avery Rapid Covid-19 PCR (CVDRPD)o n 06-11-2020 [employer] LDT Info SEE BELOW Normal [facility] Comment on above: Result Comment: This test is not yet approved or cleared by the [place] Food and Drug Administration (FDA) . This test was developed by [employer], [place]. The performance characteristics of this test were validated by The [facility]. The results are not intended to be used as the sole means for clinical diagnosis or patient management decisions. The [facility] is authorized under Clinical Laboratory Improvement Amendments (CLIA) to perform high-complexity testing. When diagnostic testing is negative, the possibility of a false negative should be considered in the context of a patients recent exposures and the presence of clinical signs and symptoms consistent with SARS-CoV-2. Performed By: #### B LDCX1 #### [facility] [address] [place], [place] [address] Latisha Avery SARS-CoV-2 NOT DETECTED Normal NOT DETECTED [facility] Comment on above: Result Comment: . Performed By: #### B LDCX1 #### [facility] [address] [place], [place] [address] Latisha Avery URINE MICROSCOPIC ONLYon Bacteria LM.HPF (Urine sed) [#/Area] NONE SEEN Normal NONE SEEN [facility] Comment on above: Performed By: #### ANGE FAMRO #### [facility] [address] [place], [place] [address] Latisha Gena CAST NONE SEEN Normal NONE SEEN [facility] Comment on above: Performed By: #### ANGE FAMRO #### [facility] [address] [id number] Latisha Gena Crystals LM Nom (Urine sed) NONE SEEN Normal NONE SEEN [facility] Comment on above: Performed By: #### ANGE FAMRO #### [facility] [address] [place] [address] Latisha Gena CULTURE NOT INDICATED Normal [facility] Comment on above: Performed By: #### ANGE FAMRO #### [facility] [address] [place], [place] [address] Latisha Gena Epithelial cells LM.HPF (Urine sed) [#/Area] FEW Abnormal NONE SEEN /RARE [facility] Comment on above: Performed By: #### ANGE FAMRO #### [facility] [address] [place], [place] [address] Latisha Gena MUCOUS SMALL Abnormal NONE SEEN [facility] Comment on above: Performed By: #### ANGE FAMRO #### [facility] [address] [place], [place] [address] Latisha Gena RBC (U) [#/Vol] 0-2 Normal 0-2 [facility] Comment on above: Performed By: #### ANGE FAMRO #### [facility] [address] [place], [place] [address] Latisha Gena WBC (Bld) [#/Vol] NONE SEEN Normal NONE SEEN [facility] Comment on above: Performed By: #### ANGE FAMRO #### [facility] [address] [place], [place] [address] Latisha Gena XR CHEST 1 Von 06-11-2020 [...] by: HOOD PALMA Date: 2020-06-11 10:47 Normal [facility] Vital Signs Date Time Vital Sign Value Performing Clinician Facility 03-07-2024 13:51-0400 Body height 198.1 cm Pj Shannon MD Work Phone: [facility] 03-07-2024 13:51-0400 Body mass index (BMI) [Ratio] 34.21 kg/m2 Pj Shannon MD Work Phone: [facility] 03-07-2024 13:51-0400 Body weight 134.26 kg Pj Shannon MD Work Phone: [facility] 03-07-2024 13:51-0400 Diastolic blood pressure 82 mm[Hg] Pj Shannon MD Work Phone: [facility] 03-07-2024 13:51-0400 Heart rate 87 /min Pj Shannon MD Work Phone: [facility] 03-07-2024 13:51-0400 Respiratory rate 18 /min Pj Shannon MD Work Phone: [facility] 03-07-2024 13:51-0400 Systolic blood pressure 136 mm[Hg] Pj Shannon MD Work Phone: [facility] 02-29-2024 11:55-0400 Body height 203.2 cm Marlyn Simsmonica MCFARLANDQewz Work Phone: [facility] 02-29-2024 11:55-0400 Body mass index (BMI) [Ratio] 33.18 kg/m2 Marlyn Sims APRN-LIMOUSINE DRIVER Work Phone: [facility] 02-29-2024 11:55-0400 Body temperature 98.01 [degF] Marlyn Sims APRN-PERICO Work Phone: [facility] 02-29-2024 11:55-0400 Body weight 136.99 kg Marlyn Sims APRN-PERICO Work Phone: [facility] 02-29-2024 11:55-0400 Diastolic blood pressure 80 mm[Hg] Marlny Sims APRN-PERICO Work Phone: [facility] 02-29-2024 11:55-0400 Heart rate 87 /min Marlyn Sims APRN-PERICO Work Phone: [facility] 02-29-2024 11:55-0400 Respiratory rate 18 /min Marlyn Sims APRN-PERICO Work Phone: [facility] 02-29-2024 11:55-0400 SaO2% (BldA) [Mass fraction] 98 % Marlyn Sims APRN-PERICO Work Phone: [facility] 02-29-2024 11:55-0400 Systolic blood pressure 140 mm[Hg] Marlyn Sims APRN-PERICO Work Phone: [facility] 02-26-2024 12:54-0400 SaO2% (BldA) [Mass fraction] 98 % [facility] Comment on above: Performed By: #### GLORIA, CBCA, 6873-4, 56 43-2, [id number] #### [facility] ([id number]) [address] [place] [address], [place] [address] 08-05-2023 08:41-0400 Body height 203.2 cm Marlyn Sims APRN-PERICO Work Phone: [facility] 08-05-2023 08:41-0400 Body mass index (BMI) [Percentile] Per age and sex 99.6 % Marlyn Sims APRN-PERICO Work Phone: [facility] 08-05-2023 08:41-0400 Body mass index (BMI) [Ratio] 41.46 kg/m2 Marlyn Sims APRN-PERICO Work Phone: [facility] 08-05-2023 08:41-0400 Body temperature 98.4 [degF] Marlyn Sims APRN-PERICO Work Phone: [facility] 08-05-2023 08:41-0400 Body weight 171.19 kg Marlyn Sims APRN-PERICO Work Phone: [facility] 08-05-2023 08:41-0400 Diastolic blood pressure 76 mm[Hg] Marlyn Sims APRN-PERICO Work Phone: [facility] 08-05-2023 08:41-0400 Heart rate 63 /min Marlyn Sims APRN-PERICO Work Phone: [facility] 08-05-2023 08:41-0400 Respiratory rate 18 /min Marlyn Sims APRN-PERICO Work Phone: [facility] 08-05-2023 08:41-0400 SaO2% (BldA) [Mass fraction] 98 % Marlyn Sims APRN-PERICO Work Phone: [facility] 08-05-2023 08:41-0400 Systolic blood pressure 126 mm[Hg] Marlyn Sims APRN-PERICO Work Phone: [facility] Encounters Encounter Date Encounter Type Care Provider Facility Start: 03-28-2024 End: 03-28-2024 Emergency department patient visit [facility] Start: 03-22-2024 End: 03-22-2024 Emergency department patient visit MARLYN J [facility] Start: 03-07-2024 End: 03-07-2024 Keith flowsranjit Shannon MD Work Phone: [facility] Start: 03-07-2024 End: 03-07-2024 Bamboo flowsheet Pj Shannon MD Work Phone: [facility] Start: 03-07-2024 End: 03-07-2024 Office outpatient visit 25 minutes Pj Shannon MD Work Phone: [facility] Comment on above: Type 2 diabetes cory itus with hyperglycemia, without long-term current use of insulin ([facility]) (Primary Dx); Vitamin D deficiency; Encounter for dietary consultation; Class 1 obesity due to excess calories without serious comorbidity with body mass index (BMI) of 34.0 to 34.9 in adult Start: 03-07-2024 End: 03-07-2024 ambulatory PJ SHANNON Not Available Start: 02-29-2024 End: 02-29-2024 ambulatory [facility] Start: 02-29-2024 End: 02-29-2024 Office outpatient visit 15 minutes Marlyn [facility] 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 Comment on above: Other constipation ( Primary Dx) Start: 02-26-2024 End: 02-28-2024 Evaluation and management of inpatient [facility] Start: 01-10-2024 End: 01-12-2024 Evaluation and management of inpatient [facility] Start: 11-04-2023 End: 11-04-2023 ambulatory [facility] Start: 08-26-2023 End: 08-26-2023 ambulatory [facility] Start: 08-05-2023 End: 08-05-2023 Office outpatient visit 15 minutes Marlyn Tomasillo 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 Phone: [facility] Comment on above: Epistaxis (Primary D x); Sore throat; Acute cough Start: 08-05-2023 End: 08-05-2023 ambulatory [facility] Start: 06-10-2023 Orders Only 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 miller 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 Phone: [facility] Comment on above: Type 2 diabetes cory itus with hyperglycemia, without long-term current use of insulin ([facility]) Start: 05-26-2023 End: 05-26-2023 ambulatory MARLYNELIZABET SIMS [facility] Start: 06-11-2020 End: 06-11-2020 Patient encounter procedure MARIA ISABEL ROMAN Facility: Procedures Date Procedure Procedure Detail Performing Clinician Start: 03-07-2024 Gluc bld gluc mntr d ev cleared fda spec home use Pj Shannon MD Work Phone: Start: 02-29-2024 Adult depression scr eening assessment Marlyn Sims 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 Phone: Start: 08-26-2023 Follow-up visit Follow-up MARLYN SIMS Start: 08-05-2023 POCT INFLUENZA A/INF LUENZA B/SARS-COV-2 VERITOR Marlyn Sims 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 Phone: Start: 08-05-2023 Iaadiadoo streptococ cus group a Marlyn Sims 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 Phone: Start: 08-05-2023 Adult depression scr eening assessment Marlyn Sims 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 Phone: Start: 05-26-2023 Adult depression scr eening assessment Marlyn Sims 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 Phone: Start: 02-17-2023 Microalbumin [Mass/v olume] in Urine by Test strip Marlyn Tomasillo 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 Phone: Start: 06-11-2020 End: 06-11-2020 Microscopic examination of blood, culture MARIA ISABLE ROMAN Comment on above: Performed By: #### B [id number] #### [facility] [address] [place] [address] Latisha Avery Plan of Treatment Date Care Activity Detail Author Start: 12-18-2026 DTaP,Tdap and Td Vaccines (7 - Td or Tdap) DTaP,Tdap and Td Vaccines (7 - Td or Tdap) [facility] Start: 02-28-2025 Adult BMI Follow Up Plan Adult BMI Follow Up Plan [facility] Start: 02-28-2025 Adult BMI Screening Adult BMI Screen ing [facility] Start: 02-28-2025 Depression Screening Depression Scre ening [facility] Start: 02-28-2025 Tobacco Screening Tobacco Screening [facility] Start: 08-04-2024 Adult BMI Screening Adult BMI Screen ing [facility] Start: 08-04-2024 Depression Screening Depression Scre ening [facility] Start: 08-04-2024 Tobacco Screening Tobacco Screening [facility] Start: 06-01-2024 Tobacco Screening Tobacco Screening [facility] Start: 05-28-2024 Hemoglobin A1c measurement Diabetes: Hemoglobin A1C [facility] Start: 05-26-2024 Adult BMI Follow Up Plan Adult BMI Follow Up Plan [facility] Start: 05-26-2024 Adult BMI Screening Adult BMI Screen ing [facility] Start: 05-26-2024 Depression Screening Depression Scre ening [facility] Start: 05-04-2024 End: 05-04-2024 Patient encounter procedure 05/04/2024 1:20 PM EST Office Visit [facility] [address] [place] [address] Pj Shannon MD [address] [place] [address] [facility] Start: 03-07-2024 End: 03-07-2025 25-hydroxyvitamin D3 [Mass/volume] in Serum or Plasma Vitamin D 25 hydroxy Total Lab Routine Vitamin D deficiency Expected: 03/07/2024 (Approximate), Expires: 03/07/2025 [facility] Comment on above: Expected: 03/07/2024 (Approximate), Expires: 03/07/2025 Start: 03-07-2024 End: 03-07-2025 C-peptide C-peptide Lab Routine Type 2 diabetes mellitus with hyperglycemia, without long-term current use of insulin ([facility]) Expected: 03/07/2024 (Approximate), Expires: 03/07/2025 [facility] Work Phone: Comment on above: Expected: 03/07/2024 (Approximate), Expires: 03/07/2025 Start: 03-07-2024 End: 03-07-2025 Lipid 1996 panel - Serum or Plasma Lipid panel Lab Routine Type 2 diabetes mellitus with hyperglycemia, without long-term current use of insulin ([facility]) Expected: 03/07/2024 (Approximate), Expires: 03/07/2025 [facility] Comment on above: Expected: 03/07/2024 (Approximate), Expires: 03/07/2025 Start: 03-07-2024 End: 03-07-2025 Microalbumin/Creatini ne panel in random Urine Microalbumin / creatinine urine ratio Lab Routine Type 2 diabetes mellitus with hyperglycemia, without long-term current use of insulin ([facility]) Expected: 03/07/2024 (Approximate), Expires: 03/07/2025 [facility] Comment on above: Expected: 03/07/2024 (Approximate), Expires: 03/07/2025 Start: 03-07-2024 End: 03-07-2024 Patient encounter procedure 03/07/2024 2:00 PM EDT Office Visit [facility] [address] [place] [address] Pj Shannon MD [address] [place] [address] Arrived [facility] Comment on above: Arrived Start: 03-07-2024 End: 03-07-2025 Renal function panel Renal function panel Lab Routine Type 2 diabetes mellitus with hyperglycemia, without long-term current use of insulin ([facility]) Expected: 03/07/2024 (Approximate), Expires: 03/07/2025 [facility] Comment on above: Expected: 03/07/2024 (Approximate), Expires: 03/07/2025 Start: 02-18-2024 Urine screening for protein [facility] Start: 01-17-2024 COVID-19 Vaccine ( season) COVID-19 Vaccine ( season) [facility] Start: 01-17-2024 Influenza vaccination P [facility] Start: 08-26-2023 End: 08-26-2023 Patient encounter procedure 08/26/2023 3:15 PM EDT [facility] [address] [place] [address] Marlyn Sims, CORPORATE COORDINATOR-LIMOUSINE DRIVER [address] [place] [address] [facility] Internal Medicine - Family Medicine Start: 01-16-2023 COVID-19 Vaccine ( season) COVID-19 Vaccine () [facility] Start: 01-16-2023 Influenza vaccination Influenza Vacc ine [facility] Start: 2022 Diabetic foot examination Diabetic Foot Exam [facility] Start: 2014 Glaucoma screening Diabetes: R etinopathy Screening [facility] Start: 2004 Glaucoma screening Diabetic Op hthalmology Exam [facility] Immunizations Immunization Date Immunization Notes Care Provider Fa cility 10-20-2020 SARS-COV-2 (COVID-19 ) Vaccine, Unspecified Marlyn Sims 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 Phone: [facility] 09-29-2020 SARS-COV-2 (COVID-19 ) Vaccine, Unspecified Marlyn Sims 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 Phone: [facility] 12-16-2017 human papilloma viru s vaccine, quadrivalent Marlyn Sims 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 Phone: [facility] 12-18-2016 human papilloma viru s vaccine, quadrivalent Marlyn Sims 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 Phone: [facility] 12-18-2016 meningococcal oligosaccharide (groups A, C, Y and W-135) diphtheria toxoid conjugate vaccine (MCV4O) Marlyn Sims [facility] Work Phone: [facility] 12-18-2016 tetanus toxoid, redu juliane diphtheria toxoid, and acellular pertussis vaccine, adsorbed Marlynelizabet Sims [facility] Work Phone: [facility] 03-31-2011 influenza virus vacc ine, unspecified formulation Marlyn Sims [facility] Work Phone: [facility] 05-30-2010 influenza virus vacc ine, unspecified formulation Marlyn Sims [facility] Work Phone: [facility] 04-01-2010 influenza virus vacc ine, unspecified formulation Marlyn Sims [facility] Work Phone: [facility] 02-05-2009 diphtheria, tetanus toxoids and acellular pertussis vaccine Marlyn Sims [facility] Work Phone: [facility] 02-05-2009 measles, mumps and rubella virus vaccine Marlynelizabet Sims [facility] Work Phone: [facility] 02-05-2009 poliovirus vaccine, inactivated Marlynelizabet Sims [facility] Work Phone: [facility] 02-05-2009 varicella virus vaccine [place] veda Sims [facility] Work Phone: [facility] 02-11-2008 hepatitis A vaccine, adult dosage Marlyn Sims [facility] Work Phone: [facility] 01-27-2007 hepatitis A vaccine, adult dosage Marlyn Sims [facility] Work Phone: [facility] 05-08-2006 diphtheria, tetanus toxoids and acellular pertussis vaccine Marlyn Sims [facility] Work Phone: [facility] 05-08-2006 haemophilus influenz ae type b vaccine, conjugate unspecified formulation Marlyn Sims CORPORATE COORDINATOR-[facility] Work Phone: [facility] 05-08-2006 pneumococcal conjuga te vaccine, 13 valent Marlyn Sims CORPORATE COORDINATOR-[facility] Work Phone: [facility] 01-21-2006 measles, mumps and rubella virus vaccine Marlyn Sims CORPORATE COORDINATOR-[facility] Work Phone: [facility] 01-21-2006 varicella virus vaccine [place] [facility] Work Phone: [facility] 07-10-2005 diphtheria, tetanus toxoids and acellular pertussis vaccine Marlyn Sims CORPORATE COORDINATOR[facility] Work Phone: [facility] 07-10-2005 haemophilus influenz ae type b vaccine, conjugate unspecified formulation Marlyn Sims [facility] Work Phone: [facility] 07-10-2005 hepatitis B vaccine, adult dosage Marlyn Levi CORPORATE COORDINATOR-[facility] Work Phone: [facility] 07-10-2005 pneumococcal conjuga te vaccine, 13 valent Marlyn Sims CORPORATE COORDINATOR[facility] Work Phone: [facility] 07-10-2005 poliovirus vaccine, inactivated Marlyn Sims [facility] Work Phone: [facility] 05-08-2005 diphtheria, tetanus toxoids and acellular pertussis vaccine Marlyn Sims CORPORATE COORDINATOR[facility] Work Phone: [facility] 05-08-2005 haemophilus influenz ae type b vaccine, conjugate unspecified formulation Marlyn Sims CORPORATE COORDINATOR[facility] Work Phone: [facility] 05-08-2005 hepatitis B vaccine, adult dosage Marlyn Levi CORPORATE COORDINATOR-[facility] Work Phone: [facility] 05-08-2005 pneumococcal conjuga te vaccine, 13 valent Marlyn Sims CORPORATE COORDINATOR[facility] Work Phone: [facility] 05-08-2005 poliovirus vaccine, inactivated Marlyn Sims CORPORATE COORDINATOR[facility] Work Phone: [facility] 02-27-2005 diphtheria, tetanus toxoids and acellular pertussis vaccine Marlyn Sims CORPORATE COORDINATOR[facility] Work Phone: [facility] 02-27-2005 haemophilus influenz ae type b vaccine, conjugate unspecified formulation Marlyn Sims [facility] Work Phone: [facility] 02-27-2005 hepatitis B vaccine, adult dosage Marlyn Sims [facility] Work Phone: [facility] 02-27-2005 pneumococcal conjuga te vaccine, 13 valent Marlyn Sims [facility] Work Phone: [facility] 02-27-2005 poliovirus vaccine, inactivated Marlyn Sims [facility] Work Phone: [facility] Payers Date Payer Category Payer Medicaid [facility] MEDICAID HMO [id number] 2022-Present [phone] [place] [id number] 2022 Medicaid [id number] 2018 Private Health Insurance [facility] MEDICAID [id number] 2004 Unknown [id number] 1286 2004 Unknown [id number]. 1286 2004 Unknown [id number]. 1286 2004 Unknown [id number]. 1285 2004 Unknown [id number]. 1286 2004 Unknown [id number] [id number]. 1259 2004 Unknown [id number] 6 2004 Unknown [id number]. 1285 2004 Unknown [id number]. 1286 2004 Unknown [id number]. 1286 1976 Unknown [id number] 593 1959 Unknown [id number] Social History Date Type Detail Facility Start: 12-25-2022 Tobacco smoking status [facility] Never smoked tobacco [facility] History of tobacco use Passive smoker [facility] Start: 12-25-2022 Tobacco use and exposure Smokeless tobacco non-user [facility] Start: 06-01-2023 End: 02-29-2024 Alcohol intake Current non-drinker of alcohol (finding) [facility] Start: 02-10-2020 End: 02-26-2024 History of Social function [facility] Start: 02-10-2020 End: 02-26-2024 Alcohol Use Disorder Identification Test - Consumption [AUDIT-C] [facility] Frequency of Alcohol Consumption Never [facility] Start: 12-25-2022 Tobacco Comment mother smokes, lives with grandmother who does not smoke [facility] Start: 2004 Sex Assigned At Not on file [facility] Has the electric, [employer], oil, or water company threatened to shut off services in your home in past 12Mo No [facility] Are you now , , , , never or living with a partner? Never [facility] How often to you hav e a drink containing alcohol? Never [facility] Do you feel stress - tense, restless, nervous, or anxious, or unable to sleep at night because your mind is troubled all the time - these days [OSQ] Not at all [facility] Start: 02-26-2024 Sexual orientation Heterosexual (finding) [facility] Tobacco smoking stat [facility] Tobacco smoking consumption unknown [facility] Medical Equipment Procedure Code Equipment Code Equipment Origin al Text Equipment Identifier Dates Scr Bn 115mm 8mm Cnn Lng Bn - [id number] Start: 02-15-2020 use 1 TEST STRIP to TEST BLOOD SUGAR up to five times a day [id number] Start: 07-02-2021 1 Pen Needle by miscellaneous route in the morning. [id number] Start: 02-17-2023 1 Pen Needle by miscellaneous route in the morning. [id number] Start: 11-04-2023 Goals Date Patient Goal Desired [...] Francisco Winters MD on 03/28/2024 7:52 PM [facility] 03-07-2024 History of Present illness Narrative Zay [...] Arthralgia of pelvic region and thigh Asthma ([facility]) Attention deficit hyperactivity disorder (ADHD), combined type ([facility]) Class 2 severe obesity due to excess calories with serious comorbidity in adult ([facility]) Diabetic ketoacidosis without coma associated with other specified diabetes mellitus ([facility]) Hyperglycemia due to type 1 diabetes mellitus (HCC) ([facility]) Hypokalemia Hyponatremia Murmur Passive suicidal ideations Proteinuria, unspecified 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 documented in this encounter [facility] 02-29-2024 History of Present illness Narrative Images from the original note were not included. [address] [place] [address] SUBJECTIVE: Patient ID: Zay Garcia is a [...] 02/15/2020 Performed by Romero Hollins MD at [facility] Past Medical History: Diagnosis Date ADHD (attention deficit hyperactivity disorder) Asthma last more than 3 years ago Closed fracture of left foot 2016 Diabetes mellitus ([facility]) Type 2 Diabetes mellitus type 2, controlled ([facility]) DKA (diabetic ketoacidoses) 06/11/2020 Heart murmur last [...] Reynolds 02/29/24 1240 documented in this encounter [facility] 08-05-2023 History of Present illness Narrative Images from the original note were not included[place] [address] SUBJECTIVE: Patient ID: Zay Garcia is a [...] 02/15/2020 Performed by Romero Hollins MD at [facility] Past Medical History: Diagnosis Date ADHD (attention deficit hyperactivity disorder) Asthma last more than 3 years ago Closed fracture of left foot 2016 Diabetes mellitus ([facility]) Type 2 DKA (diabetic ketoacidoses) 06/11/2020 [...] PRN as directed only for epistaxis. Cough- [place] as directed PRN cough. Note written no [...] Reynolds 08/05/23 0935 documented in this encounter [facility] Evaluation note Diagnosis Type 2 diabetes mellitus with hyperglycemia, without long-term current use of insulin ([facility]) [facility] Diagnosis Epistaxis- Primary Sore throat Acute pharyngitis Acute cough documented in this encounter [facility]* Diagnosis Other constipation- Primary [facility] Diagnosis Type 2 diabetes mellitus with hyperglycemia, without long-term current use of insulin ([facility])- Primary Vitamin D deficiency Encounter for dietary consultation Class 1 obesity due to excess calories without serious comorbidity with body mass index (BMI) of 34.0 to 34.9 in adult documented in this encounter [facility] HealthcareInstructionsNot on filedocumented in this encounterMet[facility] Center[facility]ructions* Attachments The following attachments cannot be sent through Care Everywhere. * Nosebleeds Discharge Instructions (Armenian) * Sore Throat Discharge Instructions, Adult (Armenian) documented in [facility]* Attachments The following attachments cannot be sent through Care Everywhere. * Constipation in adults (Armenian) [facility] Summary Purpose Family History No Family History [...] DATE CREATED AUTHOR AUTHOR'S ORGANIZ ATION 03/09/2024 [facility] dical Specialists EPIC DATE CREATED AUTHOR AUTHOR'S ORGANIZ ATION 03/30/2024 [facility] Care Teams (unrecognized sec tion and content) Gis Mapping Technician Relationship Specialty Start Date End Date Marlyn Sims [facility] [address] [place] [address] PCP - General Family Medicine 02/12/21 Gis Mapping Technician Relationship Specialty Start Date End Date Marlyn Sims [facility] [address] [place] [address] PCP - General Family Medicine 02/12/21 Gis Mapping Technician Relationship Specialty Start Date End Date Marlyn Sims [facility] [address] [place] [address] PCP - General Family Medicine 02/12/21 Gis Mapping Technician Relationship Specialty Start Date End Date Unallocated, Lucrecia Call MD [address] [place] [address] PCP - General Family Medicine 02/09/24 Gis Mapping Technician Relationship Specialty Start Date End Date Unallocated, Lucrecia Call MD [address] [facility] [address] PCP - General Family Medicine 02/09/24 Reason [...] BE BASED ON THE PRIMARY CLINICAL RECORDS. [facility] [employer] [facility] provides no warranty or guarantee of the accuracy or completeness of information in this document.
[2024-03-30 21:42] LABS: Glucometer 449 mg/dL (74-106)
[2024-03-30 21:55] VITALS: BP 130/73; PULSE 82; TEMP 36.8; O2SAT 96; BMI 34.1
[2024-03-30] MEDS: INSULIN GLARGINE 300 UNIT/3 ML INSULN.PEN 75 UNIT SQ (22:51)
[2024-03-30] MEDS: INSULIN ASPART 300 UNIT/3 ML PEN SUBQ (22:51)
[2024-03-31] VITALS (11 sets, daily range): BP systolic 118–134; BP diastolic 71–88; PULSE 48–98; TEMP 36.3–37; O2SAT 93–97
[2024-03-31] MEDS: DEXTROSE 5 %-0.45 % SOD CHLORD 1,000 ML 100 ML IV (00:07)
[2024-03-31] MEDS: PIPERACILLIN SODIUM/TAZOBACTAM 3.375 GM in 0.9 % SODIUM CHLORIDE 50 ML IV ×3 (01:30→19:44)
[2024-03-31] MEDS: OXYCODONE HCL 5 MG TABLET PO (01:30)
[2024-03-31 05:38] LABS: Basophils Absolute Auto 0.1 10^3/uL (0.0-0.1); Basophils Percent Auto 0.9 % (0.2-2.0); Eosinophils Absolute Auto 0.3 10^3/uL (0.0-0.7); Eosinophils Percent Auto 2.6 % (0.9-7.0); Hematocrit 41.7 % (42.0-54.0); Hemoglobin 13.6 g/dL (14.0-18.0); Lymphocytes Absolute Auto 1.8 10^3/uL (1.2-3.8); Lymphocytes Percent Auto 18.6 % (20.5-60.0); Mean Corpuscular HGB Conc 32.6 g/dL (29.9-35.2); Mean Corpuscular Hemoglobin 29.8 pg (25.9-34.0); Mean Corpuscular Volume 91.2 fL (80.0-94.0); Mean Platelet Volume 10.7 fL (9.5-13.5); Monocytes Absolute Auto 0.9 10^3/uL (0.3-0.8); Monocytes Percent Auto 8.8 % (1.7-12.0); Neutrophils Absolute Auto 6.7 10^3/uL (1.4-6.5); Neutrophils Percent Auto 68.1 % (43.0-75.0); Platelet Count 296 10^3/uL (150-450); Red Blood Count 4.57 10^6/uL (4.70-6.10); Red Cell Distribution Width 13.1 % (11.0-15.0); White Blood Count 9.9 10^3/uL (4.0-11.0)
[2024-03-31 05:59] LABS: PCO2 VBG 42.3 mmHg (40.0-52.0); pH VBG 7.431 (7.330-7.430)
[2024-03-31 06:16] LABS: Alanine Aminotransferase 17 U/L (16-63); Albumin Globulin Ratio 0.7; Albumin Level 2.6 g/dL (3.4-5.0); Alkaline Phosphatase 100 U/L (46-116); Anion Gap 16.5; Aspartate Amino Transferase 14 U/L (15-37); BUN Creatinine Ratio 5.1; Bilirubin Total 0.6 mg/dL (0.2-1.0); Calcium 8.8 mg/dL (8.5-10.1); Carbon Dioxide 26.2 mmol/L (21.0-32.0); Chloride 102 mmol/L (98-107); Estimated GFR (African America >60 (>=60 mL/min/1.73m^2); Estimated GFR (Non-African Ame >60 (>=60 mL/min/1.73m^2); Globulin 3.9 g/dL; Potassium 3.7 mmol/L (3.5-5.1); Sodium 141 mmol/L (136-145); Total Protein 6.5 g/dL (6.4-8.2)
[2024-03-31 06:25] LABS: Glucose 531 mg/dL (74-106)
[2024-03-31] MEDS: 0.9 % SODIUM CHLORIDE 1,000 ML 100 ML IV (06:58)
--- NOTE | 2024-03-31 07:32 | P.GSCN_ITS ---
History of Present Illness Consult details Consult date: 03/31/24 Narrative: 18 yo M presented with left axillary swelling and BG in 400 range. Hx of type 2 DM. Left axilla US revealed large fluid collection consistent with abscess. Pt states he has only had the swelling a couple days. Denies any f/c, n/v, sob or chest pain. Denies ever having anything like this before. He said his BG usually runs in the 200s. Discussed need for incision and drainage of the left axilla and patient agreed, RN witnessed. [facility] Medical History (Updated 03/30/24 @ 20:01 by DANNIE Huggins) Diabetes type 2, controlled ?E11.9 - Type 2 diabetes mellitus without complications (ICD-10) Surgical History (Updated 01/08/24 @ 13:17 by Kori Lagunas) History of hip surgery ?Z98.890 - Other specified postprocedural states (ICD-10) Family History (Updated 01/08/24 @ 13:18 by Kori Lagunas) Father Family history of diabetes mellitus Social History Within the past year, how often did you have a drink containing alcohol: never Score interpretation: A score less than 4 is consistent with normal alcohol consumption. Do you use any of these nicotine containing products: vaping products Non-prescribed substance use: denies use Highest level of school completed/degree received: high school graduate Little interest or pleasure in doing things: not at all Feeling down, depressed, or hopeless: not at all Meds Home Medications and Allergies Home Medications ?Medication ?Instructions ?Recorded ?Confirmed ?Type insulin glargine 100 unit/mL (3 75 unit (0.75 mL) subcut .qhs 30 01/10/24 03/30/24 Rx mL) subcutaneous pen (Lantus days #8 pens Solostar U-100 Insulin) Allergies Allergy/AdvReac Type Severity Reaction Status Date / Time No Known Drug Allergies Allergy Verified 01/08/24 09:07 Exam Narrative Exam Narrative: General: awake, alert, no distress Head: normocephalic, atraumatic Neck: supple, no tracheal deviation Heart: RRR Lungs: equal chest rise and fall, non labored breathing Abdomen: soft, non tender, no rebound or guarding Extremities: left axillary swelling noted with small area of drainage from a stab incision made in the ER the night prior, no crepitance or erythema noted, otherwise extremities grossly normal Skin: intact aside for left axilla, no cyanosis Psychological: no apparent speech or mood disorder, appropriate for encounter Constitutional Vital Signs, click to edit/add: Last Vital Signs Temp 97.7 F 03/31/24 03:51 Pulse 48 L 03/31/24 03:51 Resp 18 03/31/24 03:51 BP 129/79 03/31/24 03:51 Pulse Ox 95 03/31/24 03:51 O2 Del Method Room Air 03/31/24 03:51 Results Labs Labs: Abnormal lab results 03/30/24 03/30/24 03/31/24 Range/Units 18:05 21:40 05:26 WBC 11.5 H (4.0-11.0) 10^3/uL RBC 4.57 L (4.70-6.10) 10^6/uL Hgb 13.6 L (14.0-18.0) g/dL Hct 41.7 L (42.0-54.0) % Lymph % (Auto) 15.3 L 18.6 L (20.5-60.0) % Neut # (Auto) 8.4 H 6.7 H (1.4-6.5) 10^3/uL [place] # (Auto) 0.9 H 0.9 H (0.3-0.8) 10^3/uL Abs Immat Gran (auto) 0.10 H 0.10 H (0.00-0.03) 10^3/uL Imm/Tot Granulo (auto) 0.9 H 1.0 H (0.0-0.5) % ESR 53 H (<=15) mm/hr VBG pH 7.486 H (7.330-7.430) VBG pCO2 32.4 L (40.0-52.0) mmHg Creatinine 1.33 H 1.38 H (0.70-1.30) mg/dL Glucose 424 H 531 H* (74-106) mg/dL AST 14 L (15-37) U/L C-Reactive Protein 4.12 H (<=0.50) mg/dL Albumin 2.6 L (3.4-5.0) g/dL Acetone, Qual Small A (NEGATIVE) POC Glucose 449 H (74-106) mg/dL 03/31/24 Range/Units 05:53 WBC (4.0-11.0) 10^3/uL RBC (4.70-6.10) 10^6/uL Hgb (14.0-18.0) g/dL Hct (42.0-54.0) % Lymph % (Auto) (20.5-60.0) % Neut # (Auto) (1.4-6.5) 10^3/uL [place] # (Auto) (0.3-0.8) 10^3/uL Abs Immat Gran (auto) (0.00-0.03) 10^3/uL Imm/Tot Granulo (auto) (0.0-0.5) % ESR (<=15) mm/hr VBG pH 7.431 H (7.330-7.430) VBG pCO2 (40.0-52.0) mmHg Creatinine (0.70-1.30) mg/dL Glucose (74-106) mg/dL AST (15-37) U/L C-Reactive Protein (<=0.50) mg/dL Albumin (3.4-5.0) g/dL Acetone, Qual (NEGATIVE) POC Glucose (74-106) mg/dL Diabetes panel 03/30/24 03/31/24 Range/Units 18:05 05:26 Sodium 138 141 (136-145) mmol/L Potassium 4.3 3.7 (3.5-5.1) mmol/L Chloride 99 102 (98-107) mmol/L Carbon Dioxide 25.6 26.2 (21.0-32.0) mmol/L BUN 8.0 7.0 (6.4-19.3) mg/dL Creatinine 1.33 H 1.38 H (0.70-1.30) mg/dL Glucose 424 H 531 H* (74-106) mg/dL Calcium 9.5 8.8 (8.5-10.1) mg/dL AST 14 L (15-37) U/L ALT 17 (16-63) U/L Alkaline Phosphatase 100 (46-116) U/L Total Protein 6.5 (6.4-8.2) g/dL Albumin 2.6 L (3.4-5.0) g/dL Calcium panel 03/30/24 03/31/24 Range/Units 18:05 05:26 Calcium 9.5 8.8 (8.5-10.1) mg/dL Albumin 2.6 L (3.4-5.0) g/dL Pituitary panel 03/30/24 03/31/24 Range/Units 18:05 05:26 Sodium 138 141 (136-145) mmol/L Potassium 4.3 3.7 (3.5-5.1) mmol/L Chloride 99 102 (98-107) mmol/L Carbon Dioxide 25.6 26.2 (21.0-32.0) mmol/L BUN 8.0 7.0 (6.4-19.3) mg/dL Creatinine 1.33 H 1.38 H (0.70-1.30) mg/dL Glucose 424 H 531 H* (74-106) mg/dL Calcium 9.5 8.8 (8.5-10.1) mg/dL Adrenal panel 03/30/24 03/31/24 Range/Units 18:05 05:26 Sodium 138 141 (136-145) mmol/L Potassium 4.3 3.7 (3.5-5.1) mmol/L Chloride 99 102 (98-107) mmol/L Carbon Dioxide 25.6 26.2 (21.0-32.0) mmol/L BUN 8.0 7.0 (6.4-19.3) mg/dL Creatinine 1.33 H 1.38 H (0.70-1.30) mg/dL Glucose 424 H 531 H* (74-106) mg/dL Calcium 9.5 8.8 (8.5-10.1) mg/dL Total Bilirubin 0.6 (0.2-1.0) mg/dL AST 14 L (15-37) U/L ALT 17 (16-63) U/L Alkaline Phosphatase 100 (46-116) U/L Total Protein 6.5 (6.4-8.2) g/dL Albumin 2.6 L (3.4-5.0) g/dL All other labs normal. Imaging Additional studies: US reviewed Assessment and Plan Assessment and Plan (1) Poorly controlled type 2 diabetes mellitus: (2) Abscess of left axilla: Assessment and Plan: 1. Incision and drainage of left axillary abscess, please see procedure note for details 2. Patient or nursing to remove 1-2 inches of packing every day from axilla and cut it to leave the remainder in the cavity. Continue this daily until all packing is gone, may take 10-14 days. Transition to oral antibiotics for a total course of 14 days on discharge. Ok for patient to shower with soap and water to get over the area. He has been instructed to take care to not pull all the packing out while showering. Once all the packing is removed patient is to shower twice daily with soap and water to the area. I can see the patient in 3 weeks for a wound check 3. Ok for discharge from gen surg stance once blood glucoses better controlled 4. Nursing to change dressings as needed throughout the day/night 5. Encouraged patient to ambulate and be active. Stressed the importance of good blood glucose control in order to heal his wound and avoid a worsening infection. (3) Acute hyperglycemia:
[2024-03-31] MEDS: INSULIN ASPART 300 UNIT/3 ML PEN SUBQ ×4 (08:00→21:59)
--- NOTE | 2024-03-31 08:00 | PC.NURSE ---
Dr. Condon at bedside doing bedside procedure
[2024-03-31] MEDS: HYDROMORPHONE HCL 0.5 MG/0.5 ML SYRINGE IVP (08:02)
[2024-03-31] MEDS: LIDOCAINE HCL 1% 100 MG/10 ML MDV INJ (08:09)
--- NOTE | 2024-03-31 08:18 | CM.NOTE ---
Rounds made with Dr. Elam. Continue with current plan of care. Await surgery recommendations.
--- NOTE | 2024-03-31 08:23 | W.PM.PROCNOT ---
Date of procedure: 03/31/24 Pre-op diagnosis: Lext axilla abscess Post-op diagnosis: same as pre-op Procedure: Incision and drainage of left axilla abscess Procedure Details The patient was identified as the correct patient and the procedure verified. A Time Out was held and the above information confirmed. The patient was placed in supine position with his left arm above his head. The left axilla region was prepped and draped in a sterile fashion. The area of planned incision was injected with 1% lidocaine with epi, approximately 10ml was used. An 11 blade was used to make a stellate style incision. It was approximately 6 cm in length. The incision was through the dermis and into the subcutaneous tissues. Use of careful sharp and blunt dissection was carried out to break up all loculations and obtain adequate abscess drainage. There was opaque fowl smelling fluid present at the time of procedure consistent with abscess fluid/ wound class 4. The cavity was irrigated with sterile saline and dried. Hemostasis was confirmed and the wound was packed with gauze followed by placement of a dressing over top. Instrument, sponge, and needle counts were correct at the conclusion of the case. Patient tolerated the procedure well without any complications.? Patient or nursing to remove 1-2 inches of packing every day from axilla and cut it to leave the remainder in the cavity. Continue this daily until all packing is gone, may take 10-14 days. Oral antibiotics for 14 days. Ok for patient to shower and soap and water to get over the area. He has been instructed to take care to not pull all the packing out while showering. Once all the packing is removed patient is to shower twice daily with soap and water to the area. I can see the patient in 3 weeks for a wound check as needed. Anesthesia: Local Surgeon: Sunday Condon Estimated blood loss (mL): 5 Pathology: none sent Condition: stable Disposition: floor
--- NOTE | 2024-03-31 08:52 | P.HP_ITS ---
HPI H&P: HPI History of Present Illness Chief complaint: armpit pain Abscess LT axilla Hyperglycemia Narrative: Patient was seen and evaluated as an outpatient through emergency room outside of this facility for abscess left axilla treated with Keflex and doxycycline, since that time and has been increasing in size. Presented here and had essentially the size of 7 x 3 x 6-1/2 cm. Case was discussed with general surgery, he recommended I&D in the emergency room packing. This was ac complished. When I saw patient up in the medical surgical floor, resting comfortably in bed. Has had pain in the axilla but does feel overall improved since has been drained Opioid HPI Opioid Management Most Recent Pain and Opioid Data: Last Pain Scale 6 03/31/24 12:00 03/31/24 Last Pain Assessment 03/31/24 12:00 Last MAR Pain Assessment 03/31/24 09:18 Last ORT Total Score 2 03/30/24 21:55 03/30/24 Last ORT Risk Category Low Risk 03/30/24 21:55 03/30/24 Review of Systems ROS Status of ROS 10 or more systems reviewed and unremark able except as noted in history and below [facility] Medical History (Updated 03/30/24 @ 20:01 by DANNIE Huggins) Diabetes type 2, controlled ?E11.9 - Type 2 diabetes mellitus without complications (ICD-10) Surgical History (Updated 01/08/24 @ 13:17 by Kori Lagunas) History of hip surgery ?Z98.890 - Other specified postprocedural states (ICD-10) Family History (Updated 01/08/24 @ 13:18 by Kori Lagunas) Father Family history of diabetes mellitus Social History Within the past year, how often did you have a drink containing alcohol: never Score interpretation: A score less than 4 is consistent with normal alcohol consumption. Do you use any of these nicotine containing products: vaping products Non-prescribed substance use: denies use Highest level of school completed/degree received: high school graduate Little interest or pleasure in doing things: not at all Feeling down, depressed, or hopeless: not at all Meds Home Medications and Allergies Home Medications ?Medication ?Instructions ?Recorded ?Confirmed ?Type insulin glargine 100 unit/mL (3 75 unit (0.75 mL) subcut .qhs 30 01/10/24 03/30/24 Rx mL) subcutaneous pen (Lantus days #8 pens Solostar U-100 Insulin) Allergies Allergy/AdvReac Type Severity Reaction Status Date / Time No Known Drug Allergies Allergy Verified 01/08/24 09:07 Exam Constitutional Vital Signs, click to edit/add: Last Vital Signs Temp 97.7 F 03/31/24 03:51 Pulse 48 L 03/31/24 03:51 Resp 18 03/31/24 03:51 BP 129/79 03/31/24 03:51 Pulse Ox 93 L 03/31/24 08:00 O2 Del Method Room Air 03/31/24 03:51 Documenting provider has reviewed patient's vital signs: yes Common normals: no apparent distress Chest Common normals: inspection of chest normal Respiratory Common normals: normal respiratory effort and no retractions Cardio Common normals: regular rate and regular rhythm Extremity Common normals: abnormal to inspection (Left axilla with purulent drainage, dressing in place, foul-smelling) Results Labs Labs: Short CBC 03/30/24 03/31/24 Range/Units 18:05 05:26 WBC 11.5 H 9.9 (4.0-11.0) 10^3/uL Hgb 14.6 13.6 L (14.0-18.0) g/dL Hct 44.2 41.7 L (42.0-54.0) % Plt Count 316 296 (150-450) 10^3/uL BMP 03/30/24 03/31/24 18:05 05:26 Sodium 138 141 Potassium 4.3 3.7 Chloride 99 102 Carbon Dioxide 25.6 26.2 BUN 8.0 7.0 Creatinine 1.33 H 1.38 H Glucose 424 H 531 H* Calcium 9.5 8.8 Liver Function 03/31/24 Range/Units 05:26 Total Bilirubin 0.6 (0.2-1.0) mg/dL AST 14 L (15-37) U/L ALT 17 (16-63) U/L Alkaline Phosphatase 100 (46-116) U/L Albumin 2.6 L (3.4-5.0) g/dL ABG ABG results: 03/30/24 03/31/24 18:05 05:53 VBG pH 7.486 H 7.431 H VBG pCO2 32.4 L 42.3 Assessment and Plan Assessment and Plan (1) Poorly controlled type 2 diabetes mellitus: (2) Abscess of left axilla: (3) Acute hyperglycemia: Plan Findings: Patient with significant elevated hyperglycemia and large left axillary abscess as outlined above, leukocytosis secondary to the abscess concerning for sepsis Left axillary abscess-continue with antibiotics failed outpatient treatment with oral medications. Sounds like it was Keflex and Bactrim. Patient currently on Zosyn and vancomycin. Blood cultures pending. Wound culture pending. Uncontrolled diabetes mellitus with sugars are usually around 200 at home. Insulin sliding scale while he is here. Likely to be complicated secondary to the infection. Admission status: Patient with large abscess in need of surgical intervention, surgery consulted, continue with current antibiotics, cultures pending this is failed outpatient treatment. Medically necessary treatment will span at least 2 midnights, likely 3. Unable to discharge secondary to the poorly controlled diabetes and unable to improve as an outpatient with oral medications
[2024-03-31] MEDS: VANCOMYCIN HCL 2,000 MG in 0.9 % SODIUM CHLORIDE 500 ML 250 MG IV ×2 (09:17→21:54)
[2024-03-31 09:27] LABS: Glucometer 351 mg/dL (74-106)
[2024-03-31 11:21] LABS: Glucometer 345 mg/dL (74-106)
[2024-03-31 16:43] LABS: Glucometer 217 mg/dL (74-106)
[2024-03-31 21:23] LABS: Glucometer 265 mg/dL (74-106)
[2024-03-31] MEDS: INSULIN GLARGINE 300 UNIT/3 ML INSULN.PEN 75 UNIT SQ (22:00)
[2024-04-01] MEDS: 0.9 % SODIUM CHLORIDE 1,000 ML 10 ML IV (02:16)
[2024-04-01] MEDS: PIPERACILLIN SODIUM/TAZOBACTAM 3.375 GM in 0.9 % SODIUM CHLORIDE 50 ML IV ×2 (02:17→11:08)
[2024-04-01 04:00] VITALS: BP 139/85; PULSE 44; TEMP 36.6; O2SAT 96
[2024-04-01 05:55] LABS: Basophils Absolute Auto 0.1 10^3/uL (0.0-0.1); Basophils Percent Auto 1.1 % (0.2-2.0); Eosinophils Absolute Auto 0.4 10^3/uL (0.0-0.7); Eosinophils Percent Auto 4.6 % (0.9-7.0); Hematocrit 41.5 % (42.0-54.0); Hemoglobin 13.4 g/dL (14.0-18.0); Immature Granulocytes Abs Auto 0.09 10^3/uL (0.00-0.03); Immature Granulocytes Pct Auto 1.1 % (0.0-0.5); Lymphocytes Absolute Auto 1.9 10^3/uL (1.2-3.8); Lymphocytes Percent Auto 22.9 % (20.5-60.0); Mean Corpuscular HGB Conc 32.3 g/dL (29.9-35.2); Mean Corpuscular Hemoglobin 29.4 pg (25.9-34.0); Mean Platelet Volume 11.8 fL (9.5-13.5); Monocytes Absolute Auto 0.7 10^3/uL (0.3-0.8); Monocytes Percent Auto 8.6 % (1.7-12.0); Neutrophils Absolute Auto 5.1 10^3/uL (1.4-6.5); Neutrophils Percent Auto 61.7 % (43.0-75.0); Platelet Count 297 10^3/uL (150-450); Red Blood Count 4.56 10^6/uL (4.70-6.10); White Blood Count 8.2 10^3/uL (4.0-11.0)
[2024-04-01 06:02] LABS: Anion Gap 13.3; BUN Creatinine Ratio 7.5; Calcium 9.2 mg/dL (8.5-10.1); Carbon Dioxide 27.1 mmol/L (21.0-32.0); Chloride 104 mmol/L (98-107); Estimated GFR (African America >60 (>=60 mL/min/1.73m^2); Estimated GFR (Non-African Ame >60 (>=60 mL/min/1.73m^2); Glucose 313 mg/dL (74-106); Potassium 3.4 mmol/L (3.5-5.1); Sodium 141 mmol/L (136-145)
--- NOTE | 2024-04-01 06:21 | P.PN_ITS ---
Exam Constitutional Vital Signs, click to edit/add: Last Vital Signs Temp 97.8 F 04/01/24 04:00 Pulse 44 L 04/01/24 04:00 Resp 18 04/01/24 04:00 BP 139/85 04/01/24 04:00 Pulse Ox 96 04/01/24 04:00 O2 Del Method Room Air 04/01/24 04:00 Progress Note: Objective Labs Labs: Short CBC 04/01/24 Range/Units 04:49 WBC 8.2 (4.0-11.0) 10^3/uL Hgb 13.4 L (14.0-18.0) g/dL Hct 41.5 L (42.0-54.0) % Plt Count 297 (150-450) 10^3/uL BMP 03/31/24 04/01/24 05:26 04:49 Sodium 141 141 Potassium 3.7 3.4 L Chloride 102 104 Carbon Dioxide 26.2 27.1 BUN 7.0 7.0 Creatinine 1.38 H 0.93 Glucose 531 H* 313 H Calcium 8.8 9.2 Liver Function 03/31/24 Range/Units 05:26 Total Bilirubin 0.6 (0.2-1.0) mg/dL AST 14 L (15-37) U/L ALT 17 (16-63) U/L Alkaline Phosphatase 100 (46-116) U/L Albumin 2.6 L (3.4-5.0) g/dL Progress Note: A&P Assessment and Plan (1) Poorly controlled type 2 diabetes mellitus: (2) Abscess of left axilla: (3) Acute hyperglycemia: Plan Findings: Patient with significant elevated hyperglycemia and large left axillary abscess as outlined above, leukocytosis secondary to the abscess concerning for sepsis Left axillary abscess-continue with antibiotics failed outpatient treatment with oral medications. Sounds like it was Keflex and Bactrim. Patient currently on Zosyn and vancomycin. Blood cultures pending. Wound culture pending. Uncontrolled diabetes mellitus with sugars are usually around 200 at home. Insulin sliding scale while he is here. Likely to be complicated secondary to the infection. Admission status: Patient with large abscess in need of surgical intervention, surgery consulted, continue with current antibiotics, cultures pending this is failed outpatient treatment. Medically necessary treatment will span at least 2 midnights, likely 3. Unable to discharge secondary to the poorly controlled diabetes and unable to improve as an outpatient with oral medications ?
--- NOTE | 2024-04-01 08:18 | CM.NOTE ---
Rounds made with Dr. Elam, pt will discharge to home today. Discussed with pt about dressing changes, pt voices that his mom would be able to do dressing changes at home. Pt will call mother to see if she would be available to come in today for education on dressing changes.
[2024-04-01] MEDS: INSULIN ASPART 300 UNIT/3 ML PEN SUBQ ×2 (08:47→12:43)
[2024-04-01] MEDS: POTASSIUM CHLORIDE 10 MEQ ER TABLET PO (08:48)
[2024-04-01] MEDS: VANCOMYCIN HCL 2,000 MG in 0.9 % SODIUM CHLORIDE 500 ML 250 MG IV (08:48)
--- NOTE | 2024-04-01 09:02 | P.DS_ITS ---
DS: Providers Provider Date of admission: 03/31/24 05:54 Primary care physician: Non-Staff Physician, Consults: 03/31/24 07:00 Consult to General Surgeon Routine Consulting Provider: Sunday Condon Reason for consultation: Left axilla abscess Has provider been notified: Yes DS: Diagnosis Discharge Diagnosis (1) Poorly controlled type 2 diabetes mellitus: (2) Abscess of left axilla: (3) Acute hyperglycemia: Plan Findings: Patient with significant elevated hyperglycemia and large left axillary abscess as outlined above, leukocytosis secondary to the abscess concerning for sepsis Left axillary abscess-continue with antibiotics failed outpatient treatment with oral medications. Sounds like it was Keflex and Bactrim. Patient currently on Zosyn and vancomycin. Blood cultures pending. Wound culture pending. Uncontrolled diabetes mellitus with sugars are usually around 200 at home. Insulin sliding scale while he is here. Likely to be complicated secondary to the infection. Admission status: Patient with large abscess in need of surgical intervention, surgery consulted, continue with current antibiotics, cultures pending this is failed outpatient treatment. Medically necessary treatment will span at least 2 midnights, likely 3. Unable to discharge secondary to the poorly controlled diabetes and unable to improve as an outpatient with oral medications ? DS: Summary Hospital Course Hospital Course: Patient was seen in outside side facility approximately for 5 days prior to presenting here with left axillary mass. Despite his obvious appearance he was told they are not sure what it was. Was placed on antibiotics. As the mass grew he presented here. Found to have significant abscess. It was drained in the emergency room. Surgical intervention evaluated and change the dressing. Packing placed. Patient was maintained on IV antibiotics throughout the hospitalization. With the failed outpatient treatment he received 2 days worth of IV antibiotics for cultures are still pending he is much improved on those medications will be transition to oral agents, follow-up with his PCP within the next week, follow-up with general surgery in the next couple weeks. Him and mother were shown how to do dressing changes. Status at Discharge Overall status at discharge: patient is not back to baseline Time Spent with Patient Time attestation: Total time spent providing and/or coordinating discharge services: Time spent: greater than 30 minutes Exam Constitutional Vital Signs, click to edit/add: Last Vital Signs Temp 97.8 F 04/01/24 04:00 Pulse 44 L 04/01/24 04:00 Resp 18 04/01/24 04:00 BP 139/85 04/01/24 04:00 Pulse Ox 96 04/01/24 04:00 O2 Del Method Room Air 04/01/24 04:00 Documenting provider has reviewed patient's vital signs: yes Common normals: no apparent distress Chest Common normals: inspection of chest normal Respiratory Common normals: normal respiratory effort and no retractions Cardio Common normals: regular rate and regular rhythm Extremity Common normals: abnormal to inspection (Left axilla with purulent drainage, dressing in place, foul-smelling) DS: Data Data Completed and Pending Labs on day of discharge: Labs from last 24 hours 04/01/24 03/31/24 03/31/24 04:49 21:13 16:41 WBC 8.2 RBC 4.56 L Hgb 13.4 L Hct 41.5 L MCV 91.0 MCH 29.4 MCHC 32.3 RDW 13.0 Plt Count 297 MPV 11.8 Neut % (Auto) 61.7 Lymph % (Auto) 22.9 [place] % (Auto) 8.6 Eos % (Auto) 4.6 Baso % (Auto) 1.1 Neut # (Auto) 5.1 Lymph # (Auto) 1.9 [place] # (Auto) 0.7 Eos # (Auto) 0.4 Baso # (Auto) 0.1 Abs Immat Gran (auto) 0.09 H Imm/Tot Granulo (auto) 1.1 H Sodium 141 Potassium 3.4 L Chloride 104 Carbon Dioxide 27.1 Anion Gap 13.3 BUN 7.0 Creatinine 0.93 Est GFR ( Amer) >60 Est GFR (Non-Af Amer) >60 BUN/Creatinine Ratio 7.5 Glucose 313 H Calcium 9.2 POC Glucose 265 H 217 H 03/31/24 03/31/24 11:20 09:25 WBC RBC Hgb Hct MCV MCH MCHC RDW Plt Count MPV Neut % (Auto) Lymph % (Auto) [place] % (Auto) Eos % (Auto) Baso % (Auto) Neut # (Auto) Lymph # (Auto) [place] # (Auto) Eos # (Auto) Baso # (Auto) Abs Immat Gran (auto) Imm/Tot Granulo (auto) Sodium Potassium Chloride Carbon Dioxide Anion Gap BUN Creatinine Est GFR ( Amer) Est GFR (Non-Af Amer) BUN/Creatinine Ratio Glucose Calcium POC Glucose 345 H 351 H Discharge Plan Discharge Disposition: Home, Self-Care Condition: Good Discharge Medications: New ciprofloxacin HCl [Cipro] 500 mg tablet 500 mg PO BID Qty: 30 0RF doxycycline monohydrate 100 mg capsule 100 mg PO BID Qty: 30 0RF Continued insulin glargine [Lantus Solostar U-100 Insulin] 100 unit/mL (3 mL) insulin pen 75 unit SUBCUT .qhs 30 Days Qty: 8 0RF Activity: resume usual activities as tolerated Activity Detail: Patient to remove 1-2 inches of packing every day from axilla and cut it to leave the remainder in the cavity. Continue this daily until all packing is gone, may take 10-14 days. Oral antibiotics for 14 days. Ok for patient to shower and soap and water to get over the area. He has been instructed to take care to not pull all the packing out while showering. Once all the packing is removed patient is to shower twice daily with soap and water to the area. Diet: diabetic diet Print Language: [place] Patient Instructions: Ciprofloxacin (By mouth), Doxycycline (By mouth), Abscess (ED), Abscess Incision and Drainage (DC) Forms: Portal Instructions Follow Up Appointments: [facility] Dr. Condon ThursdayApr 18 @ 9:30 [address] [facility] [address] Follow up with Teresa Sims on 04/11/24 at 3:40 pm. Phone number is [phone] Discharge Date/Time: 04/01/24 13:22
--- NOTE | 2024-04-01 09:16 | P.GSPN_ITS ---
Progress Note: A&P Assessment and Plan (1) Poorly controlled type 2 diabetes mellitus: (2) Abscess of left axilla: Assessment and Plan: 1. Patient or nursing to remove 1-2 inches of packing every day from axilla and cut it to leave the remainder in the cavity. Continue this daily until all p acking is gone, may take 10-14 days. Transition to oral antibiotics for a total course of 14 days on discharge. Ok for patient to shower with soap and water to get over the area. He has been instructed to take care to not pull all the packing out while showering. Once all the packing is removed patient is to shower twice daily with soap and water to the area. I can see the patient in 3 weeks for a wound check 2. Ok for discharge from gen surg stance once blood glucoses better controlled 3. Nursing to change dressings as needed throughout the day/night 4. Encouraged patient to ambulate and be active. Stressed the importance of good blood glucose control in order to heal his wound and avoid a worsening infection (3) Acute hyperglycemia: Subjective Subjective Interval history: Doing better today. Swelling and discomfort of LUE improved. No current complaints. Discussed importance of wound care to the area and washing daily with soap and water. Educated on importance of blood glucose control for wound healing and avoiding a worsening infection and future events like this. Exam Narrative Exam Narrative: General: awake, alert, no distress Head: normocephalic, atraumatic Neck: supple, no tracheal deviation Heart: RRR Lungs: equal chest rise and fall, non labored breathing Abdomen: soft, non tender, no rebound or guarding Extremities: left axillary swelling significantly reduced, packing in place, no crepitance or erythema noted, otherwise extremities grossly normal Skin: intact aside for left axilla, no cyanosis Psychological: no apparent speech or mood disorder, appropriate for encounter Constitutional Vital Signs, click to edit/add: Last Vital Signs Temp 97.8 F 04/01/24 04:00 Pulse 44 L 04/01/24 04:00 Resp 18 04/01/24 04:00 BP 139/85 04/01/24 04:00 Pulse Ox 96 04/01/24 04:00 O2 Del Method Room Air 04/01/24 04:00
--- NOTE | 2024-04-01 10:38 | SWNOTE1 ---
Pt's PCP was not answering phones. SW assisted nurse with calling to set up follow up. SW was able to set up follow up apt and put information in the dc paperwork.
[2024-04-01 10:55] VITALS: BP 124/83; PULSE 61; TEMP 36.7; O2SAT 93
--- NOTE | 2024-04-01 11:39 | SWNOTE1 ---
SW stopped in to speak with pt about his dressing changes. SW asked if he spoke to his mother to see if she can do dressing changes. Pt voiced that he is sure she will be able to and if not then his friend that is a nurse will be able to. RIMA asked if we need to call anyone or if there was anything SW can assist with. He requested that SW assist with calling his grandma as he could not get the phone to work. SW called his grandma for him and he spoke with her on the phone. At this time pt has no further needs and has voiced he will have someone that can do dressing changes.
[2024-04-01 11:40] LABS: Glucometer 250 mg/dL (74-106)
[2024-04-01 11:54] VITALS: O2SAT 100
--- NOTE | 2024-04-01 13:21 | PC.NURSE ---
RN was going to call mom to give her instructions on dressing changed over the phone but patient stated she was at work. instructed patient thoroughly and patient verbalized understanding
--- NOTE | 2024-04-01 15:20 | CM.NOTE ---
Called pt, no answer. Pt has left all discharge instructions, including dressing change instructions. Instructed pt to knot picker cloth discharge instructions at nursing station on [facility].
--- NOTE | 2024-04-04 11:54 | CM.DCFOLLOWU ---
04/04- 1st attempt. No answer
--- NOTE | 2024-04-05 13:09 | CM.DCFOLLOWU ---
2nd attempt. No answer
--- NOTE | 2024-04-06 14:39 | CM.DCFOLLOWU ---
3rd attempt. No answer
== END 2024-04-01 13:22 | disposition home or self-care (01) | DRG 383 ==
LOC: ER 20:01 → MS 21:20
PROVIDERS: Physician Assistant; Registered Nurse; Admitting Provider Family Medicine; Emergency Provider Emergency Medicine; Visit Provider Family Medicine
DX: L02.412 Cutaneous abscess of left axilla (principal); E11.65 Type 2 diabetes mellitus with hyperglycemia; F17.290 Nicotine dependence, other tobacco product, uncomplicated; Z79.4 Long term (current) use of insulin; Z98.890 Other specified postprocedural states
CPT/HCPCS: 10060; 36415; 76882; 80048; 80053; 80202; 82009; 82800; 82948; 83605; 85025; 85610; 85652; 86140; 87040; 87070; 87075; 87150; 87186; 94761; 96365; 96367; 96375; 99285; G0378; J1171; J1817; J1885; J2405; J2543; J3370

== ENCOUNTER 2024-04-11 04:30 | Inpatient (IN) | payer OTHER, SELFPAY ==
[2024-04-11] VITALS (99 sets, daily range): BP systolic 129–158; BP diastolic 71–109; PULSE 69–121; TEMP 36.7–36.8; O2SAT 96–100; BMI 34.0; BMI 33.3
--- NOTE | 2024-04-11 04:51 | PC.NURSE ---
per EMS this patient unable to get in the house to take his insulin tonight, and does not check his glucose daily because he does not have a machine to check his glucose. this patient voices I am tired and weak now this patient voices no other complaints at this time and shows no signs of distress
--- OUTSIDE RECORDS SUMMARY | 2024-04-11 04:52 | XMS_ITS | CCD ---
Author Organization [facility] ion Partnership [facility] Care Team Providers Care Aviation Electrical Technician Name Role Phone MARIA ISABEL ROMAN Consulting Unavailable MARIA ISABEL ROMAN Attending Unavailable [facility] Primary Care Unavailable MARIA ISABEL ROMAN Admitting Unavailable Hood Palma Consulting Unavailable Levi [employer] Primary Care Provid er MARLYN SIMS [...] hyperglycemia, without long-term current use of insulin ([facility]) Take 1 tablet (10 mg total) by mouth in the morning. 30 tablet 4 05/26/2023 Active dextromethorphan hydrobromide 1.5 mg/ml / pyrilamine maleate 1.5 mg/ml oral solution (1 source) Uncompetitive M-lkdcrv-J-asparta te Receptor Antagonist, Sigma-1 Agonist Start: 08-05-2023 [...] hyperglycemia, without long-term current use of insulin ([facility]) Inject 1.5 mg under the skin every [...] of major depressive disorder without prior episode ([facility]) Take 1 capsule (20 mg total) by [...] hyperglycemia, without long-term current use of insulin ([facility]) Inject 35 Units under the skin nightly. 15 mL 2 05/26/2023 Active Start: 05-26-2023 insulin glargi ne (LANTUS SOLOSTAR U-100 INSULIN) 100 unit/mL (3 mL) insulin pen Indications: Type 2 diabetes mellitus with hyperglycemia, without long-term current use of insulin ([facility]) Inject 35 Units under the skin nightly. [...] hyperglycemia, without long-term current use of insulin ([facility]) Take 2 tablets (1,000 mg) by mouth [...] hyperglycemia, without long-term current use of insulin ([facility]) Take 2 tablets (1,000 mg total) by [...] hyperglycemia, without long-term current use of insulin ([facility]) Take 1 tablet (100 mg) by mouth in the morning. 30 tablet 1 03/07/2024 06/05/2024 Active Start: 05-26-2023 take 1 tablet by rodri th once daily in the morning SITagliptin phosphate (JANUVIA) 100 mg tablet Indications: Type 2 diabetes mellitus with hyperglycemia, without long-term current use of insulin ([facility]) Take 1 tablet (100 mg total) by [...] 02-29-2024 blood-glucose meter,continuous (FREESTYLE NISHA 3 READER) [facility] [place] Indications: Type 2 diabetes mellitus with microalbuminuria, without long-term current use of insulin ([facility]) 1 Device by miscellaneous route in the morning. 1 each 11/04/2023 02/29/2024 Discontinued (Therapy completed) blood-glucose sensor (FREESTYLE NISHA 3 SENSOR) device (1 source) Start: 11-04-2023 End: 02-29-2024 blood-glucose sensor (FREESTYLE NISHA 3 SENSOR) device Indications: Type 2 diabetes mellitus with microalbuminuria, without long-term current use of insulin ([facility]) 1 application. 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) use of insulin] Onset: 05-26-2023 Episodic [...] on 03-07-2024 Glucose Blood, POC 264 mg/dL [facility] CBC AND AUTO DIFFon 02-28-20 ABSOLUTE BASOPHIL 0.1 X10E9/L Normal 0.0-0.2 [facility] Comment on above: Performed By: #### D SALAS #### [facility] ([id number]) [address] [place] [address] 40377 ABSOLUTE NEUTROPHIL 4.2 X10E9/L Normal 1.5-6.6 [facility] Comment on above: Performed By: #### D SALAS #### [facility] ([id number]) [address] [place] [address] 15275 Basophils/100 WBC (Bld) 0.9 % Normal [facility] Comment on above: Performed By: #### D SALAS #### [facility] ([id number]) [address] [place] [address] 79010 Eosinophils (Bld) [#/Vol] 0.2 10*3/uL Normal 0.0-0.4 [facility] Comment on above: Performed By: #### D SALAS #### [facility] ([id number]) [address] [place] [address] 50772 Eosinophils/100 WBC (Bld) 2.3 % Normal [facility] Comment on above: Performed By: #### D SALAS #### [facility] ([id number]) [address] [place] [address] 26837 Erythrocyte distribution width (RBC) [Ratio] 15.0 % Normal 11.5-15.0 [facility] Comment on above: Performed By: #### D SALAS #### [facility] ([id number]) [address] [place] [address] 76783 Hematocrit (Bld) [Volume fraction] 43.5 % Normal 39-49 [facility] Comment on above: Performed By: #### D SALAS #### [facility] ([id number]) [address] [place] [address] 97596 Hemoglobin (Bld) [Mass/Vol] 14.4 g/dL Normal 13.0-17.0 [facility] Comment on above: Performed By: #### D SALAS #### [facility] ([id number]) [address] [place] [address] 51469 Lymphocytes (Bld) [#/Vol] 1.9 10*3/uL Normal 1.0-3.5 [facility] Comment on above: Performed By: #### D SALAS #### [facility] ([id number]) [address] [place] [address] 05734 Lymphocytes/100 WBC (Bld) 27.5 % Normal [facility] Comment on above: Performed By: #### D SALAS #### [facility] ([id number]) [address] [place] [address] 78866 MCH (RBC) [Entitic mass] 29.5 pg Normal 27-34 [facility] Comment on above: Performed By: #### D SALAS #### [facility] ([id number]) [address] [place] [address] [place] [address] MCHC (RBC) [Mass/Vol] 33.2 g/dL Normal 32-36 [facility] Comment on above: Performed By: #### D SALAS #### [facility] ([id number]) [address] [place] [address] 42661 MCV (RBC) [Entitic vol] 89 fL Normal 80-100 [facility] Comment on above: Performed By: #### D SALAS #### [facility] ([id number]) [address] [place] [address] 92626 Monocytes (Bld) [#/Vol] 0.5 10*3/uL Normal 0-0.9 [facility] Comment on above: Performed By: #### D SALAS #### [facility] ([id number]) [address] [place] [address] 16005 Monocytes/100 WBC (Bld) 7.5 % Normal [facility] Comment on above: Performed By: #### D SALAS #### [facility] ([id number]) [address] [place] [address] 77141 Neutrophils/100 WBC (Bld) 61.8 % Normal [facility] Comment on above: Performed By: #### D SALAS #### [facility] ([id number]) [address] [place] [address] 24644 Platelet mean volume (Bld) [Entitic vol] 10.3 fL Normal 7-12 [facility] Comment on above: Performed By: #### D SALAS #### [facility] ([id number]) [address] [place] [address] 28236 Platelets (Bld) [#/Vol] 169 10*3/uL Normal 150-450 [facility] Comment on above: Performed By: #### D SALAS #### [facility] ([id number]) [address] [place] [address] 41904 RBC COUNT 4.89 X10E12/L Normal 4.10-5.70 [facility] Comment on above: Performed By: #### D SALAS #### [facility] ([id number]) [address] [place] [address] 17991 WBC (Bld) [#/Vol] 6.7 10*3/uL Normal 4.0-11.0 [facility] Comment on above: Performed By: #### D SALAS #### [facility] ([id number]) [address] [place] [address] 78827 COMPREHENSIVE METABOLIC PANE Al 02-28-2024 Albumin [Mass/Vol] 3.3 g/dL Normal 3.2-5.3 [facility] Comment on above: Performed By: #### C ANA CABALLERO, 71322-8 ####[facility] ([id number])[address] [place] [address] 23113 ALP [Catalytic activity/Vol] 90 U/L Normal 39-130 [facility] Comment on above: Performed By: #### C ANA CABALLERO, 48644-3 ####[facility] ([id number])[address] [place] [address] 29268 ALT [Catalytic activity/Vol] 13 U/L Normal 0-40 [facility] Comment on above: Performed By: #### C ANA CABALLERO, 10400-4 ####[facility] ([id number])[address] [place] [address] 09872 Anion gap [Moles/Vol] 12 mmol/L Normal 5-15 [facility] Comment on above: Performed By: #### C ANA CABALLERO, 72562-0 ####[facility] ([id number])[address] [place] [address] 90320 AST [Catalytic activity/Vol] 10 U/L Normal 0-41 [facility] Comment on above: Performed By: #### C ANA CABALLERO, ####[facility] ([id number])[address] [place] [address] 67633 Bilirubin [Mass/Vol] 1.2 mg/dL Normal 0.3-1.2 [facility] Comment on above: Performed By: #### C ANA CABALLERO, ####[facility] ([id number])[address] [place] [address] 45678 Calcium [Mass/Vol] 9.6 mg/dL Normal 8.5-10.5 [facility] Comment on above: Performed By: #### C ANA CABALLERO, ####[facility] ([id number])[address] [place] [address] 89011 Chloride [Moles/Vol] 105 mmol/L Normal 98-109 [facility] [place] Comment on above: Performed By: #### C ANA CABALLERO, ####[facility] ([id number])[address] [place] [address] 75924 CO2 [Moles/Vol] 19 mmol/L Low 22-32 [facility] Comment on above: Performed By: #### C ANA CABALLERO, ####[facility] ([id number])[address] [place] [address] 98574 Creatinine [Mass/Vol] 1.02 mg/dL Normal 0.70-1.20 [facility] Comment on above: Result Comment: METH OD TRACEABLE TO IDMS STANDARD Performed By: #### C ANA CABALLERO, ####[facility] ([id number])[address] [place] [address] 81767 eGFR (CKD-EPI) NON-RACE DEPENDENT >90 Normal >59 [facility] Comment on above: Result Comment: Reported eGFR is based on the CKD-EPI 2020 equation that does not use a race coefficient. Performed By: #### C ANA CABALLERO, ####[facility] ([id number])[address] [place] [address] 50257 Glucose [Mass/Vol] 215 mg/dL High 65-99 [facility] Comment on above: Performed By: #### C ANA CABALLERO, ####[facility] ([id number])[address] [place] [address] 30866 Potassium [Moles/Vol] 2.8 mmol/L Low 3.5-5.0 [facility] Comment on above: Performed By: #### C ANA CABALLERO, ####[facility] ([id number])[address] [place] [address] 15556 Protein [Mass/Vol] 6.5 g/dL Normal 6.0-8.0 [facility] Comment on above: Performed By: #### C ANA CABALLERO, ####[facility] ([id number])[address] [place] [address] 51332 Sodium [Moles/Vol] 136 mmol/L Normal 134-146 [facility] Comment on above: Performed By: #### C ANA CABALLERO, ####[facility] ([id number])[address] [place] [address] [place] [address] Urea nitrogen [Mass/Vol] mg/dL Low 5-23 [facility] Comment on above: Performed By: #### C ANA CABALLERO, ####[facility] ([id number])[address] [place] [address] 82840 MAGNESIUMon 02-28-2024 Magnesium [Mass/Vol] 1.7 mg/dL Low 1.8-2.6 [facility] Comment on above: Performed By: #### C MP, CBCA, ####[facility] ([id number])[address] [place] [address] 78407 POTASSIUMon 02-28-2024 Potassium [Moles/Vol] 3.5 mmol/L Normal 3.5-5.0 [facility] Comment on above: Performed By: #### 2 823-3 ####[facility] ([id number])[address] [place] [address] 78184 Beta hydroxybutyrate [Moles/ Vol]on 02-27-2024 BetaHydroxybutyrate 3.23 mmol/L High 0.02-0.27 [facility] Comment on above: Performed By: #### D SALAS #### [facility] ([id number]) [address] [place] [address] 88373 BetaHydroxybutyrate 2.63 mmol/L High 0.02-0.27 [facility] Comment on above: Performed By: #### V BG #### [facility] ([id number]) [address] [place] [address] 33259 CBC AND AUTO DIFFon 02-27-20 24 ABSOLUTE BASOPHIL 0.0 X10E9/L Normal 0.0-0.2 [facility] Comment on above: Performed By: #### V BG #### [facility] ([id number]) [address] [place] [address] 31231 ABSOLUTE NEUTROPHIL 3.2 X10E9/L Normal 1.5-6.6 [facility] Comment on above: Performed By: #### V BG #### [facility] ([id number]) [address] [place] [address] 30587 Basophils/100 WBC (Bld) 0.9 % Normal [facility] Comment on above: Performed By: #### V BG #### [facility] ([id number]) [address] [place] [address] 31086 Eosinophils (Bld) [#/Vol] 0.1 10*3/uL Normal 0.0-0.4 [facility] Comment on above: Performed By: #### V BG #### [facility] ([id number]) [address] [place] [address] 22033 Eosinophils/100 WBC (Bld) 2.2 % Normal [facility] Comment on above: Performed By: #### V BG #### [facility] ([id number]) [address] [place] [address] 37977 Erythrocyte distribution width (RBC) [Ratio] 14.8 % Normal 11.5-15.0 [facility] Comment on above: Performed By: #### V BG #### [facility] ([id number]) [address] [place] [address] 66800 Hematocrit (Bld) [Volume fraction] 44.8 % Normal 39-49 [facility] Comment on above: Performed By: #### V BG #### [facility] ([id number]) [address] [place] [address] 29295 Hemoglobin (Bld) [Mass/Vol] 15.2 g/dL Normal 13.0-17.0 [facility] Comment on above: Performed By: #### V BG #### [facility] ([id number]) [address] [place] [address] 14863 Lymphocytes (Bld) [#/Vol] 1.4 10*3/uL Normal 1.0-3.5 [facility] Comment on above: Performed By: #### V BG #### [facility] ([id number]) [address] [place] [address] 53061 Lymphocytes/100 WBC (Bld) 26.5 % Normal [facility] Comment on above: Performed By: #### V BG #### [facility] ([id number]) [address] [place] [address] 64919 MCH (RBC) [Entitic mass] 29.9 pg Normal 27-34 [facility] Comment on above: Performed By: #### V BG #### [facility] ([id number]) [address] [place] [address] 04281 MCHC (RBC) [Mass/Vol] 34.0 g/dL Normal 32-36 [facility] Comment on above: Performed By: #### V BG #### [facility] ([id number]) [address] [place] [address] 97557 MCV (RBC) [Entitic vol] 88 fL Normal 80-100 [facility] Comment on above: Performed By: #### V BG #### [facility] ([id number]) [address] [place] [address] 73288 Monocytes (Bld) [#/Vol] 0.5 10*3/uL Normal 0-0.9 [facility] Comment on above: Performed By: #### V BG #### [facility] ([id number]) [address] [place] [address] 95222 Monocytes/100 WBC (Bld) 9.4 % Normal [facility] Comment on above: Performed By: #### V BG #### [facility] ([id number]) [address] [place] [address] 91440 Neutrophils/100 WBC (Bld) 61.0 % Normal [facility] Comment on above: Performed By: #### V BG #### [facility] ([id number]) [address] [place] [address] 30127 Platelet mean volume (Bld) [Entitic vol] 10.1 fL Normal 7-12 [facility] Comment on above: Performed By: #### V BG #### [facility] ([id number]) [address] [place] [address] 36512 Platelets (Bld) [#/Vol] 187 10*3/uL Normal 150-450 [facility] Comment on above: Performed By: #### V BG #### [facility] ([id number]) [address] [place] [address] 50511 RBC COUNT 5.08 X10E12/L Normal 4.10-5.70 [facility] Comment on above: Performed By: #### V BG #### [facility] ([id number]) [address] [place] [address] 43977 WBC (Bld) [#/Vol] 5.3 10*3/uL Normal 4.0-11.0 [facility] Comment on above: Performed By: #### V BG #### [facility] ([id number]) [address] [place] [address] 15713 COMPREHENSIVE METABOLIC PANE Al 02-27-2024 Albumin [Mass/Vol] 3.3 g/dL Normal 3.2-5.3 [facility] Comment on above: Performed By: #### V BG #### [facility] ([id number]) [address] [place] [address] 26284 ALP [Catalytic activity/Vol] 92 U/L Normal 39-130 [facility] Comment on above: Performed By: #### V BG #### [facility] ([id number]) [address] [place] [address] 48526 ALT [Catalytic activity/Vol] 13 U/L Normal 0-40 [facility] Comment on above: Performed By: #### V BG #### [facility] ([id number]) [address] [place] [address] 66358 Anion gap [Moles/Vol] 7 mmol/L Normal 5-15 [facility] Comment on above: Performed By: #### V BG #### [facility] ([id number]) [address] [place] [address] 02833 AST [Catalytic activity/Vol] 12 U/L Normal 0-41 [facility] Comment on above: Performed By: #### V BG #### [facility] ([id number]) [address] [place] [address] 15148 Bilirubin [Mass/Vol] 1.1 mg/dL Normal 0.3-1.2 [facility] Comment on above: Performed By: #### V BG #### [facility] ([id number]) [address] [place] [address] 55349 Calcium [Mass/Vol] 9.3 mg/dL Normal 8.5-10.5 [facility] Comment on above: Performed By: #### V BG #### [facility] ([id number]) [address] [place] [address] 12019 Chloride [Moles/Vol] 114 mmol/L High 98-109 [facility] Comment on above: Performed By: #### V BG #### [facility] ([id number]) [address] [place] [address] 98953 CO2 [Moles/Vol] 17 mmol/L Low 22-32 [facility] Comment on above: Performed By: #### V BG #### [facility] ([id number]) [address] [place] [address] 99104 Creatinine [Mass/Vol] 1.03 mg/dL Normal 0.70-1.20 [facility] Comment on above: Result Comment: METH OD TRACEABLE TO IDMS STANDARD Performed By: #### V BG #### [facility] ([id number]) [address] [place] [address] 71341 eGFR (CKD-EPI) NON-RACE DEPENDENT >90 Normal >59 [facility] Comment on above: Result Comment: Reported eGFR is based on the CKD-EPI 2020 equation that does not use a race coefficient. Performed By: #### V BG #### [facility] ([id number]) [address] [place] [address] 05964 Glucose [Mass/Vol] 121 mg/dL High 65-99 [facility] Comment on above: Performed By: #### V BG #### [facility] ([id number]) [address] [place] [address] 47845 Potassium [Moles/Vol] 3.4 mmol/L Low 3.5-5.0 [facility] Comment on above: Performed By: #### V BG #### [facility] ([id number]) [address] [place] [address] 55503 Protein [Mass/Vol] 6.9 g/dL Normal 6.0-8.0 [facility] Comment on above: Performed By: #### V BG #### [facility] ([id number]) [address] [place] [address] 48851 Sodium [Moles/Vol] 138 mmol/L Normal 134-146 [facility] Comment on above: Performed By: #### V BG #### [facility] ([id number]) [address] [place] [address] 31365 Urea nitrogen [Mass/Vol] 6 mg/dL Normal 5-23 [facility] Comment on above: Performed By: #### V BG #### [facility] ([id number]) [address] [place] [address] 60982 ELECTROLYTESon 02-27-2024 Anion gap [Moles/Vol] 12 mmol/L Normal 5-15 [facility] Comment on above: Performed By: #### D SALAS #### [facility] ([id number]) [address] [place] [address] 94138 Chloride [Moles/Vol] 105 mmol/L Normal 98-109 [facility] Comment on above: Performed By: #### D SALAS #### [facility] ([id number]) [address] [place] [address], [place] [address] CO2 [Moles/Vol] 18 mmol/L Low 22-32 [facility] Comment on above: Performed By: #### D SALAS #### [facility] ([id number]) [address] [place] [address], [place] [address] Potassium [Moles/Vol] 3.5 mmol/L Normal 3.5-5.0 [facility] Comment on above: Performed By: #### D SALAS #### [facility] ([id number]) [address] [place] [address], [place] [address] Sodium [Moles/Vol] 135 mmol/L Normal 134-146 [facility] Comment on above: Performed By: #### D SALAS #### [facility] ([id number]) [address] [place] [address], [place] [address] Anion gap [Moles/Vol] 6 mmol/L Normal 5-15 [facility] Comment on above: Performed By: #### D SALAS #### [facility] ([id number]) [address] [place] [address], [place] [address] Chloride [Moles/Vol] 114 mmol/L High 98-109 [facility] Comment on above: Performed By: #### D SALAS #### [facility] ([id number]) [address] [place] [address], [place] [address] CO2 [Moles/Vol] 20 mmol/L Low 22-32 [facility] Comment on above: Performed By: #### D SALAS #### [facility] ([id number]) [address] [place] [address], [place] [address] Potassium [Moles/Vol] 3.7 mmol/L Normal 3.5-5.0 [facility] Comment on above: Performed By: #### D SALAS #### [facility] ([id number]) [address] [place] [address] 28401 Sodium [Moles/Vol] 140 mmol/L Normal 134-146 [facility] Comment on above: Performed By: #### D SALAS #### [facility] ([id number]) [address] [place] [address] 84023 Anion gap [Moles/Vol] 8 mmol/L Normal 5-15 [facility] Comment on above: Performed By: #### V BG #### [facility] ([id number]) [address] [place] [address] 71470 Chloride [Moles/Vol] 115 mmol/L High 98-109 [facility] Comment on above: Performed By: #### V BG #### [facility] ([id number]) [address] [place] [address] [place] [address] CO2 [Moles/Vol] 16 mmol/L Low 22-32 [facility] Comment on above: Performed By: #### V BG #### [facility] ([id number]) [address] [place] [address] [place] [address] Potassium [Moles/Vol] 3.8 mmol/L Normal 3.5-5.0 [facility] Comment on above: Performed By: #### V BG #### [facility] ([id number]) [address] [place] [address] [place] [address] Sodium [Moles/Vol] 139 mmol/L Normal 134-146 [facility] Comment on above: Performed By: #### V BG #### [facility] ([id number]) [address] [place] [address] 07360 Anion gap [Moles/Vol] 9 mmol/L Normal 5-15 [facility] Comment on above: Performed By: #### N UM #### [facility] ([id number]) [address] [place] [address] 55240 Chloride [Moles/Vol] 114 mmol/L High 98-109 [facility] [place] Comment on above: Performed By: #### N UM #### [facility] ([id number]) [address] [place] [address] 73858 CO2 [Moles/Vol] 16 mmol/L Low 22-32 [facility] Comment on above: Performed By: #### N UM #### [facility] ([id number]) [address] [place] [address] 03710 Potassium [Moles/Vol] 3.8 mmol/L Normal 3.5-5.0 [facility] Comment on above: Performed By: #### N UM #### [facility] ([id number]) [address] [place] [address] 20544 Performed By: #### B MP, CBCA, 6873-4, 5643-2, 25265-9 #### [facility] ([id number]) [address] [place] [address] 88940 Sodium [Moles/Vol] 139 mmol/L Normal 134-146 [facility] Comment on above: Performed By: #### N UM #### [facility] ([id number]) [address] [place] [address] 56578 Glucose Glucometer (dC) [M ass/Vol]on 02-27-2024 Glucose [Mass/Vol] 219 mg/dL High 65-99 [facility] Glucose [Mass/Vol] 223 mg/dL High 65-99 [facility] Glucose [Mass/Vol] 163 mg/dL High 65-99 [facility] Glucose [Mass/Vol] 145 mg/dL High 65-99 [facility] Glucose [Mass/Vol] 155 mg/dL High 65-99 [facility] Glucose [Mass/Vol] 147 mg/dL High 65-99 [facility] Glucose [Mass/Vol] 164 mg/dL High 65-99 [facility] Glucose [Mass/Vol] 141 mg/dL High 65-99 [facility] Glucose [Mass/Vol] 107 mg/dL High 65-99 [facility] Glucose [Mass/Vol] 106 mg/dL High 65-99 [facility] Glucose [Mass/Vol] 151 mg/dL High 65-99 [facility] Glucose [Mass/Vol] 167 mg/dL High 65-99 [facility] Glucose [Mass/Vol] 163 mg/dL High 65-99 [facility] Glucose [Mass/Vol] 150 mg/dL High 65-99 [facility] MAGNESIUMon 02-27-2024 Magnesium [Mass/Vol] 2.3 mg/dL Normal 1.8-2.6 [facility] [place] Comment on above: Performed By: #### D SALAS #### [facility] ([id number]) [address] [place] [address] 06856 Magnesium [Mass/Vol] 1.6 mg/dL Low 1.8-2.6 [facility] [place] Comment on above: Performed By: #### V BG #### [facility] ([id number]) [address] [place] [address] 19023 Beta hydroxybutyrate [Moles/ Vol]on 02-26-2024 BetaHydroxybutyrate 4.16 mmol/L High 0.02-0.27 [facility] [place] Comment on above: Performed By: #### N UM #### [facility] ([id number]) [address] [place] [address] 92857 BetaHydroxybutyrate 10.51 mmol/L High 0.02-0.27 [facility] Comment on above: Performed By: #### B MP, CBCA, 6873-4, 5643-2, 04144-7 #### [facility] ([id number]) [address] [place] [address] 98120 C REACTIVE PROTEINon 024 CRP [Mass/Vol] mg/L Normal 0.000-0.744 [facility] Comment on above: Performed By: #### B MP, CBCA, 6873-4, 5643-2, 74260-2 #### [facility] ([id number]) [address] [place] [address] 50077 CBC AND AUTO DIFFon 02-26-20 24 ABSOLUTE BASOPHIL 0.0 X10E9/L Normal 0.0-0.2 [facility] Comment on above: Performed By: #### B MP, CBCA, 6873-4, 5643-2, #### [facility] ([id number]) [address] [place] [address] 23243 ABSOLUTE NEUTROPHIL 5.7 X10E9/L Normal 1.5-6.6 [facility] [place] Comment on above: Performed By: #### B MP, CBCA, 6873-4, 5643-2, #### [facility] ([id number]) [address] [place] [address] 80587 Basophils/100 WBC (Bld) 0.5 % Normal [facility] Comment on above: Performed By: #### B MP, CBCA, 6873-4, 5643-2, #### [facility] ([id number]) [address] [place] [address] 65187 Eosinophils (Bld) [#/Vol] 0.1 10*3/uL Normal 0.0-0.4 [facility] Comment on above: Performed By: #### B MP, CBCA, 6873-4, 5643-2, 91447-8 #### [facility] ([id number]) [address] [place] [address] 64118 Eosinophils/100 WBC (Bld) 0.8 % Normal [facility] Comment on above: Performed By: #### B MP, CBCA, 6873-4, 5643-2, 82249-5 #### [facility] ([id number]) [address] [place] [address] 49137 Erythrocyte distribution width (RBC) [Ratio] 15.1 % High 11.5-15.0 [facility] Comment on above: Performed By: #### B MP, CBCA, 6873-4, 5643-2, #### [facility] ([id number]) [address] [place] [address] 48949 Hematocrit (Bld) [Volume fraction] 51.9 % High 39-49 [facility] Comment on above: Performed By: #### B MP, CBCA, 6873-4, 5643-2, #### [facility] ([id number]) [address] [place] [address] 53768 Hemoglobin (Bld) [Mass/Vol] 17.5 g/dL High 13.0-17.0 [facility] Comment on above: Performed By: #### B ADA, CBCA, 6873-4, 5643-, 70118-8 #### [facility] ([id number]) [address] [place] [address] 25332 Lymphocytes (Bld) [#/Vol] 1.2 10*3/uL Normal 1.0-3.5 [facility] Comment on above: Performed By: #### B MP, CBCA, 6873-4, 5643-2, 41254-3 #### [facility] ([id number]) [address] [place] [address] 71160 Lymphocytes/100 WBC (Bld) 16.1 % Normal [facility] Comment on above: Performed By: #### B MP, CBCA, 6873-4, 5643-2, 67965-0 #### [facility] ([id number]) [address] [place] [address] 93086 MCH (RBC) [Entitic mass] 30.5 pg Normal 27-34 [facility] Comment on above: Performed By: #### B ADA, CBCA, 73-4, 43-2, #### [facility] ([id number]) [address] [place] [address] 15084 MCHC (RBC) [Mass/Vol] 33.8 g/dL Normal 32-36 [facility] Comment on above: Performed By: #### B ADA, CBCA, 73-4, 43-2, #### [facility] ([id number]) [address] [place] [address] 14356 MCV (RBC) [Entitic vol] 90 fL Normal 80-100 [facility] Comment on above: Performed By: #### B ADA, CBCA, 6872-, 5642-, #### [facility] ([id number]) [address] [place] [address] 96701 Monocytes (Bld) [#/Vol] 0.6 10*3/uL Normal 0-0.9 [facility] Comment on above: Performed By: #### B ADA, CBCA, 73-, 5642-, #### [facility] ([id number]) [address] [place] [address] 73095 Monocytes/100 WBC (Bld) 8.2 % Normal [facility] Comment on above: Performed By: #### B ADA, CBCA, 73-4, 5642-, 90159-3 #### [facility] ([id number]) [address] [place] [address] 62721 Neutrophils/100 WBC (Bld) 74.4 % Normal [facility] Comment on above: Performed By: #### B ADA, CBCA, 6873-4, 5643-2, 02930-0 #### [facility] ([id number]) [address] [place] [address] 71559 Platelet mean volume (Bld) [Entitic vol] 9.3 fL Normal 7-12 [facility] Comment on above: Performed By: #### B MP, CBCA, 6873-4, 5643-2, 76223-2 #### [facility] ([id number]) [address] [place] [address] 59060 Platelets (Bld) [#/Vol] 219 10*3/uL Normal 150-450 [facility] Comment on above: Performed By: #### B MP, CBCA, 6873-4, 5643-2, #### [facility] ([id number]) [address] [place] [address] 00245 RBC COUNT 5.76 X10E12/L High 4.10-5.70 [facility] Comment on above: Performed By: #### B MP, CBCA, 6873-4, 5643-2, 91833-9 #### [facility] ([id number]) [address] [place] [address] 63087 WBC (Bld) [#/Vol] 7.7 10*3/uL Normal 4.0-11.0 [facility] Comment on above: Performed By: #### B MP, CBCA, 6873-4, 5643-2, 85218-6 #### [facility] ([id number]) [address] [place] [address] 16433 COMPREHENSIVE METABOLIC PANE Al 02-26-2024 Albumin [Mass/Vol] 4.3 g/dL Normal 3.2-5.3 [facility] Comment on above: Performed By: #### B MP, CBCA, 6873-4, 5643-2, 56927-6 #### [facility] ([id number]) [address] [place] [address] 53246 ALP [Catalytic activity/Vol] 126 U/L Normal 39-130 [facility] Comment on above: Performed By: #### B ADA, ANA, 6873-4, 5643-2, 12196-2 #### [facility] ([id number]) [address] [place] [address] 57173 ALT [Catalytic activity/Vol] 17 U/L Normal 0-40 [facility] Comment on above: Performed By: #### B ADA, CBCTerry, 6873-4, 5643-2, 28689-9 #### [facility] ([id number]) [address] [place] [address] 55082 Anion gap [Moles/Vol] 18 mmol/L High 5-15 [facility] Comment on above: Performed By: #### B ADA, CBCTerry, 6873-4, 5643-2, 57127-4 #### [facility] ([id number]) [address] [place] [address] 13131 AST [Catalytic activity/Vol] 10 U/L Normal 0-41 [facility] Comment on above: Performed By: #### B ADA, CBCA, 6873-4, 5643-2, 30882-3 #### [facility] ([id number]) [address] [place] [address] 45381 Bilirubin [Mass/Vol] 1.2 mg/dL Normal 0.3-1.2 [facility] [place] Comment on above: Performed By: #### B ADA, CBCTerry, 6873-4, 5643-2, 82951-6 #### [facility] ([id number]) [address] [place] [address] 15387 Calcium [Mass/Vol] 10.1 mg/dL Normal 8.5-10.5 [facility] Comment on above: Performed By: #### B ADA, CBCA, 6873-4, 5643-2, 77010-6 #### [facility] ([id number]) [address] [place] [address] 57134 Chloride [Moles/Vol] 103 mmol/L Normal 98-109 [facility] [place] Comment on above: Performed By: #### B ANA CABALLERO, 6873-4, 5643-2, 79845-3 #### [facility] ([id number]) [address] [place] [address] 02796 CO2 [Moles/Vol] 12 mmol/L Low 22-32 [facility] Comment on above: Performed By: #### B ANA CABALLERO, 6873-4, 56-2, 89234-2 #### [facility] ([id number]) [address] [place] [address] 66830 Creatinine [Mass/Vol] 1.45 mg/dL High 0.70-1.20 [facility] Comment on above: Result Comment: METH OD TRACEABLE TO IDMS STANDARD Performed By: #### B ANA CABALLERO, 6873-4, 5643-2, 92846-3 #### [facility] ([id number]) [address] [place] [address] 51739 GFR/1.73 sq M.predicted among non-blacks MDRD (S/P/Bld) [Vol rate/Area] 71 mL/min/{1.73_m2} Normal >59 [facility] Comment on above: Result Comment: Reported eGFR is based on the CKD-EPI 2020 equation that does not use a race coefficient. Performed By: #### B ANA CABALLERO, 6873-4, 5643-2, 18626-7 #### [facility] ([id number]) [address] [place] [address] 18526 Glucose [Mass/Vol] 256 mg/dL High 65-99 [facility] Comment on above: Performed By: #### B ADA, ANA, 6873-4, 5643-2, 41974-2 #### [facility] ([id number]) [address] [place] [address] 04480 Potassium [Moles/Vol] 4.1 mmol/L Normal 3.5-5.0 [facility] Comment on above: Performed By: #### B ADA, CBCA, 6873-4, 5643-2, 24001-2 #### [facility] ([id number]) [address] [place] [address] [place] [address] Protein [Mass/Vol] 8.6 g/dL High 6.0-8.0 [facility] Comment on above: Performed By: #### B ADA, CBCA, 6873-4, 56-2, 90980-0 #### [facility] ([id number]) [address] [place] [address] 34650 Sodium [Moles/Vol] 133 mmol/L Low 134-146 [facility] Comment on above: Performed By: #### B ADA, CBCA, 6873-4, 5643-2, 73798-7 #### [facility] ([id number]) [address] [place] [address] 74645 Urea nitrogen [Mass/Vol] 8 mg/dL Normal 5-23 [facility] Comment on above: Performed By: #### B ADA, CBCA, 6873-4, 5643-2, 31959-1 #### [facility] ([id number]) [address] [place] [address], [place] [address] ELECTROLYTESon 02-26-2024 Anion gap [Moles/Vol] 8 mmol/L Normal 5-15 [facility] Comment on above: Performed By: #### N UM #### [facility] ([id number]) [address] [place] [address] 05301 Chloride [Moles/Vol] 115 mmol/L High 98-109 [facility] [place] Comment on above: Performed By: #### N UM #### [facility] ([id number]) [address] [place] [address] 56728 CO2 [Moles/Vol] 16 mmol/L Low 22-32 [facility] Comment on above: Performed By: #### N UM #### [facility] ([id number]) [address] [place] [address] 58302 Potassium [Moles/Vol] 3.6 mmol/L Normal 3.5-5.0 [facility] Comment on above: Performed By: #### N UM #### [facility] ([id number]) [address] [place] [address] 39824 Sodium [Moles/Vol] 139 mmol/L Normal 134-146 [facility] Comment on above: Performed By: #### N UM #### [facility] ([id number]) [address] [place] [address] [place] [address] Anion gap [Moles/Vol] 12 mmol/L Normal 5-15 [facility] Comment on above: Performed By: #### B ANA CABALLERO, 6873-4, 5643-2, 63830-2 #### [facility] ([id number]) [address] [place] [address] 41706 Chloride [Moles/Vol] 113 mmol/L High 98-109 [facility] [place] Comment on above: Performed By: #### B ADA CBCA, 6873-4, 5643-2, 96063-3 #### [facility] ([id number]) [address] [place] [address] 50363 CO2 [Moles/Vol] 14 mmol/L Low 22-32 [facility] Comment on above: Performed By: #### B MISSY CABALLEROA, 6873-4, 5643-2, 31135-8 #### [facility] ([id number]) [address] [place] [address] [place] [address] Potassium [Moles/Vol] 3.6 mmol/L Normal 3.5-5.0 [facility] Comment on above: Performed By: #### B ADA, ANA, 6873-4, 5643-2, #### [facility] ([id number]) [address] [place] [address] 30137 Sodium [Moles/Vol] 139 mmol/L Normal 134-146 [facility] Comment on above: Performed By: #### B ADA, CBCA, 6873-4, 5643-2, #### [facility] ([id number]) [address] [place] [address] 00346 Anion gap [Moles/Vol] 13 mmol/L Normal 5-15 [facility] Comment on above: Performed By: #### B ADA, CBCTerry, 6873-4, 5643-2, #### [facility] ([id number]) [address] [place] [address] 89698 Chloride [Moles/Vol] 109 mmol/L Normal 98-109 [facility] [place] Comment on above: Performed By: #### B ADA, CBCA, 6873-4, 5643-2, #### [facility] ([id number]) [address] [place] [address] 90775 CO2 [Moles/Vol] 15 mmol/L Low 22-32 [facility] Comment on above: Performed By: #### B ADA, CBCA, 6873-4, 5643-2, #### [facility] ([id number]) [address] [place] [address] 56942 Sodium [Moles/Vol] 137 mmol/L Normal 134-146 [facility] Comment on above: Performed By: #### B ADA, CBCA, 6873-4, 5643-2, #### [facility] ([id number]) [address] [place] [address], [place] [address] Anion gap [Moles/Vol] 18 mmol/L High 5-15 [facility] Comment on above: Performed By: #### B ADA, ANA, 6873-4, 5643-2, 16048-3 #### [facility] ([id number]) [address] [place] [address], [place] [address] Chloride [Moles/Vol] 106 mmol/L Normal 98-109 [facility] Comment on above: Performed By: #### B ANA CABALLERO, 6873-4, 5643-2, 66958-1 #### [facility] ([id number]) [address] [place] [address], [place] [address] CO2 [Moles/Vol] 11 mmol/L Low 22-32 [facility] Comment on above: Performed By: #### B ANA CABALLERO, 6873-4, 5643-2, 76039-1 #### [facility] ([id number]) [address] [place] [address], [place] [address] Potassium [Moles/Vol] 3.8 mmol/L Normal 3.5-5.0 [facility] Comment on above: Performed By: #### B ANA CABALLERO, 6873-4, 5643-2, 82070-1 #### [facility] ([id number]) [address] [place] [address], [place] [address] Sodium [Moles/Vol] 135 mmol/L Normal 134-146 [facility] Comment on above: Performed By: #### B ANA CABALLERO, 6873-4, 5643-2, 35806-5 #### [facility] ([id number]) [address] [place] [address], [place] [address] Anion gap [Moles/Vol] 17 mmol/L High 5-15 [facility] Comment on above: Performed By: #### B MP, CBCTerry, 6873-4, 5643-2, 85758-8 #### [facility] ([id number]) [address] [place] [address] 11971 Chloride [Moles/Vol] 106 mmol/L Normal 98-109 [facility] Comment on above: Performed By: #### B ADA, ANA, 6873-4, 5643-2, 72481-7 #### [facility] ([id number]) [address] [place] [address] 63693 CO2 [Moles/Vol] 11 mmol/L Low 22-32 [facility] Comment on above: Performed By: #### B ANA CABALLERO, 6873-4, 5643-2, 17490-0 #### [facility] ([id number]) [address] [place] [address] 24671 Potassium [Moles/Vol] 3.8 mmol/L Normal 3.5-5.0 [facility] Comment on above: Performed By: #### B ANA CABALLERO, 6873-4, 5643-2, 32240-3 #### [facility] ([id number]) [address] [place] [address] 94176 Sodium [Moles/Vol] 134 mmol/L Normal 134-146 [facility] Comment on above: Performed By: #### B ADA CBCTerry, 6873-4, 5643-2, 57418-9 #### [facility] ([id number]) [address] [place] [address] 41978 Glucose Glucometer (dC) [M ass/Vol]on 02-26-2024 Glucose [Mass/Vol] 122 mg/dL High 65-99 [facility] Glucose [Mass/Vol] 104 mg/dL High 65-99 [facility] Glucose [Mass/Vol] 141 mg/dL High 65-99 [facility] Glucose [Mass/Vol] 142 mg/dL High 65-99 [facility] Glucose [Mass/Vol] 188 mg/dL High 65-99 [facility] Glucose [Mass/Vol] 194 mg/dL High 65-99 [facility] Glucose [Mass/Vol] 235 mg/dL High 65-99 [facility] Glucose [Mass/Vol] 256 mg/dL High 65-99 [facility] Glucose [Mass/Vol] 242 mg/dL High 65-99 [facility] Glucose [Mass/Vol] 228 mg/dL High 65-99 [facility] Glucose [Mass/Vol] 202 mg/dL High 65-99 [facility] HA1C CONFIRMATION - NO JOSEG Sanchez 02-26-2024 HbA1c (Bld) [Mass fraction] 15.4 % High <=5.6 [facility] Comment on above: Result Comment: NOTE INTERPRETIVE INFORMATION: Hemoglobin A1c HbA1c values of 5.7-6.4 percent indicate an increased risk for developing diabetes mellitus. HbA1c values greater than or equal to 6.5 percent are diagnostic of diabetes mellitus. For diagnosis of diabetes in individuals without unequivocal hyperglycemia, results should be confirmed by repeat testing. Performed By: #### B ADA, CBCA, 6873-4, 5643-2, 95819-9 #### [facility] ([id number]) [address] [place] [address] 26615 HGB A1C (GLYCO-HGB)on 2023 AVERAGE GLUCOSE >398 Normal [facility] Comment on above: Performed By: #### B MP, CBCA, 6873-4, 5643-2, 84861-2 #### [facility] ([id number]) [address] [place] [address] 63537 HbA1c (Bld) [Mass fraction] % High 4.4-5.6 [facility] Comment on above: Result Comment: NOTE ADA Guidelines Result HgbA1c Normal : less than 5.7 % Prediabetes : 5.7 % to 6.4 % Diabetes : > 6.4 % Use with caution in patients with abnormal hemoglobin variants as the half-life of red blood cells and in vivo glycation rates are affected. Performed By: #### B ANA CABALLERO, 6873-4, 5643-2, 50096-9 #### [facility] ([id number]) [address] [place] [address] 73139 HbA1c (Bld) [Mass fraction]o n 02-26-2024 Glucose [Mass/Vol] 395 mg/dL Normal [facility] Comment on above: Result Comment: NOTE Performed By: [employer] [address] [place] [address] 71977 Business Liaison Manager: Juan Manuel Greene MD, PhD CLIA Number: [id number] Performed By: #### B ANA CABALLERO, 6873-4, 5643-2, 09948-8 #### [facility] ([id number]) [address] [place] [address] 95799 Lactate (P meredith) [Moles/Vol]o n 02-26-2024 LACTATE W/REFLEX 0.9 mmol/L Normal 0.4-2.0 [facility] Comment on above: Result Comment: Result did not trigger repeat Lactate, re-order if needed. Performed By: #### B ANA CABALLERO, 6873-4, 5643-2, 63720-4 #### [facility] ([id number]) [address] [place] [address] 95594 MAGNESIUMon 02-26-2024 Magnesium [Mass/Vol] 2.0 mg/dL Normal 1.8-2.6 [facility] Comment on above: Performed By: #### B ANA CABALLERO, 6873-4, 5643-2, 64004-1 #### [facility] ([id number]) [address] [place] [address] 47205 PHOSPHORUSon 02-26-2024 Phosphate [Mass/Vol] 2.7 mg/dL Normal 2.4-4.9 [facility] Comment on above: Performed By: #### B MP, CBCA, 6873-4, 5643-2, 09801-5 #### [facility] ([id number]) [address] [facility], [place] [address] SARS/FLU A+B/RSV by NAAT/Mol ecularon 02-26-2024 SARS/FLU [...] operators who are performing tests using either [facility] or [employer] systems and is limited to laboratories that [...] repeat. Fact Sheet for Healthcare Providers: https://www.fda.gov /media/325729/downl oad Fact Sheet for Patients: https://www.fda.gov /media/114270/downl oad Normal [facility] Comment on above: Performed By: #### B ANA CABALLERO, 6873-4, 5643-2, 49355-4 #### [facility] ([id number]) [address] [place] [address] 43229 VENOUS BLOOD GASon 4 LINDSAY'S TEST Normal [facility] Comment on above: Performed By: #### B ANA CABALLERO, 6873-4, 5643-2, #### [facility] ([id number]) [address] [place] [address] 20223 BASE,DEFICIT 16.0 MMOL/L High 0.0-2.0 [facility] Comment on above: Performed By: #### B ANA CABALLERO, 6873-4, 5643-2, #### [facility] ([id number]) [address] [place] [address]10 Body temperature 98.6 [degF] Normal 37.0 [facility] Comment on above: Performed By: #### B ANA CABALLERO, 6873-4, 5643-2, 06958-8 #### [facility] ([id number]) [address] [place] [address] 40359 HCO3 (Bld) [Moles/Vol] 10.9 mmol/L Low 20.0-24.[address] [facility] Comment on above: Performed By: #### B ANA CABALLERO, 6873-4, 5643-2, 47302-4 #### [facility] ([id number]) [address] [place] [address] 10683 INSP. O2 CONC. 21 % Normal [facility] Comment on above: Performed By: #### B ADA, CBCA, 6873-4, 5643-2, 99238-4 #### [facility] ([id number]) [address] [place] [address], [place] [address] Oxygen saturation in Blood 57.0 % Low >80.0 [facility] Comment on above: Performed By: #### B ADA, CBCA, 6873-4, 5643-2, #### [facility] ([id number]) [address] [place] [address] [place] [address] OXYGEN SOURCE [facility] [facility] Comment on above: Performed By: #### B ADA, CBCA, 6873-4, 5643-2, #### [facility] ([id number]) [address] [place] [address] [place] [address] PCO2, VENOUS 28.9 MMHG Low 35-50 [facility] Comment on above: Performed By: #### B ADA, CBCA, 6873-4, 5643-2, #### [facility] ([id number]) [address] [place] [address], [place] [address] PH, VENOUS 7.184 Low 7.320-7.420 [facility] Comment on above: Performed By: #### B ADA, CBCA, 6873-4, 5643-2, #### [facility] ([id number]) [address] [place] [address] [place] [address] PO2, VENOUS 36 MMHG Normal 30-50 [facility] Comment on above: Performed By: #### B ADA, CBCA, 6873-4, 5643-2, 76357-7 #### [facility] ([id number]) [address] [place] [address], [place] [address] SAMPLE SITE N/A Normal [facility] Comment on above: Performed By: #### B ADA, CBCA, 6873-4, 5643-2, 65188-9 #### [facility] ([id number]) [address] [place] [address] 46940 SAMPLE TYPE VENOUS Normal [facility] Comment on above: Performed By: #### B MP, CBCA, 6873-4, 5643-2, 23907-1 #### [facility] ([id number]) [address] [place] [address] 77648 CBC AND AUTO DIFFon 01-12-20 24 ABSOLUTE BASOPHIL 0.1 X10E9/L Normal 0.0-0.2 [facility] Comment on above: Performed By: #### B MP, CBCA, 6873-4, 5643-2, #### [facility] ([id number]) [address] [place] [address] 13018 ABSOLUTE NEUTROPHIL 4.9 X10E9/L Normal 1.5-6.6 [facility] Comment on above: Performed By: #### B MP, CBCA, 6873-4, 5643-2, 54990-5 #### [facility] ([id number]) [address] [place] [address] 51432 Basophils/100 WBC (Bld) 0.9 % Normal [facility] Comment on above: Performed By: #### B MP, CBCA, 6873-4, 5643-2, 91989-8 #### [facility] ([id number]) [address] [place] [address] 43553 Eosinophils (Bld) [#/Vol] 0.3 10*3/uL Normal 0.0-0.4 [facility] Comment on above: Performed By: #### B MP, CBCA, 6873-4, 5643-2, 20929-5 #### [facility] ([id number]) [address] [place] [address] 32350 Eosinophils/100 WBC (Bld) 3.7 % Normal [facility] Comment on above: Performed By: #### B ADA, CBCA, 6873-4, 5643-2, 55119-6 #### [facility] ([id number]) [address] [place] [address] 35430 Erythrocyte distribution width (RBC) [Ratio] 14.0 % Normal 11.5-15.0 [facility] Comment on above: Performed By: #### B MP, CBCA, 73-4, 5643-2, #### [facility] ([id number]) [address] [place] [address] 90383 Hematocrit (Bld) [Volume fraction] 43.7 % Normal 39-49 [facility] Comment on above: Performed By: #### B ADA, CBCA, 6873-4, 5642-2, #### [facility] ([id number]) [address] [place] [address] 90152 Hemoglobin (Bld) [Mass/Vol] 14.7 g/dL Normal 13.0-17.0 [facility] Comment on above: Performed By: #### B ADA, CBCA, 6873-4, 5642-, 40462-8 #### [facility] ([id number]) [address] [place] [address] 46289 Lymphocytes (Bld) [#/Vol] 2.4 10*3/uL Normal 1.0-3.5 [facility] Comment on above: Performed By: #### B MP, CBCA, 6873-4, 5643-2, 06460-3 #### [facility] ([id number]) [address] [place] [address] 85736 Lymphocytes/100 WBC (Bld) 29.1 % Normal [facility] Comment on above: Performed By: #### B ADA, CBCA, 6873-4, 5643-2, #### [facility] ([id number]) [address] [place] [address] 51351 MCH (RBC) [Entitic mass] 29.2 pg Normal 27-34 [facility] Comment on above: Performed By: #### B MP, CBCA, 6873-4, 5643-2, 91126-0 #### [facility] ([id number]) [address] [place] [address] 82469 MCHC (RBC) [Mass/Vol] 33.6 g/dL Normal 32-36 [facility] Comment on above: Performed By: #### B ADA, CBCA, 6873-4, 43-, #### [facility] ([id number]) [address] [place] [address] 05833 MCV (RBC) [Entitic vol] 87 fL Normal 80-[address] [facility] Comment on above: Performed By: #### B MP, CBCA, 6873-4, 56-, #### [facility] ([id number]) [address] [place] [address] 92603 Monocytes (Bld) [#/Vol] 0.5 10*3/uL Normal 0-0.9 [facility] Comment on above: Performed By: #### B MP, CBCA, 6873-4, 5643-, #### [facility] ([id number]) [address] [place] [address] 27519 Monocytes/100 WBC (Bld) 6.3 % Normal [facility] Comment on above: Performed By: #### B MP, CBCA, 6873-4, 5643-, 05943-3 #### [facility] ([id number]) [address] [place] [address] 85783 Neutrophils/100 WBC (Bld) 60.0 % Normal [facility] Comment on above: Performed By: #### B MP, CBCA, 6873-4, 5643-2, 21833-6 #### [facility] ([id number]) [address] [place] [address] 77813 Platelet mean volume (Bld) [Entitic vol] 10.7 fL Normal 7-12 [facility] Comment on above: Performed By: #### B MP, CBCA, 6873-4, 5643-2, 22068-9 #### [facility] ([id number]) [address] [place] [address] 54202 Platelets (Bld) [#/Vol] 252 10*3/uL Normal 150-450 [facility] Comment on above: Performed By: #### B MP, CBCA, 6873-4, 5643-2, 69668-2 #### [facility] ([id number]) [address] [place] [address] 86127 RBC COUNT 5.03 X10E12/L Normal 4.10-5.70 [facility] Comment on above: Performed By: #### B MP, CBCA, 6873-4, 5643-2, 06794-8 #### [facility] ([id number]) [address] [place] [address] 20139 WBC (Bld) [#/Vol] 8.1 10*3/uL Normal 4.0-11.0 [facility] Comment on above: Performed By: #### B MP, CBCA, 6873-4, 5643-2, 83897-3 #### [facility] ([id number]) [address] [place] [address] 33328 COMPREHENSIVE METABOLIC PANE Al 01-12-2024 Albumin [Mass/Vol] 3.7 g/dL Normal 3.2-5.3 [facility] Comment on above: Performed By: #### B MP, CBCA, 6873-4, 5643-2, #### [facility] ([id number]) [address] [place] [address] 36912 ALP [Catalytic activity/Vol] 85 U/L Normal 39-130 [facility] Comment on above: Performed By: #### B ADA, CBCA, 6873-4, 5643-2, 01968-0 #### [facility] ([id number]) [address] [place] [address] 98685 ALT [Catalytic activity/Vol] 30 U/L Normal 0-40 [facility] Comment on above: Performed By: #### B ADA, CBCA, 6873-4, 5643-2, 11942-3 #### [facility] ([id number]) [address] [place] [address] 36113 Anion gap [Moles/Vol] 11 mmol/L Normal 5-15 [facility] Comment on above: Performed By: #### B ADA, CBCA, 6873-4, 5643-2, 95955-6 #### [facility] ([id number]) [address] [place] [address] 29561 AST [Catalytic activity/Vol] 16 U/L Normal 0-41 [facility] Comment on above: Performed By: #### B ADA, CBCA, 6873-4, 5643-2, 60675-7 #### [facility] ([id number]) [address] [place] [address] 21698 Bilirubin [Mass/Vol] 0.9 mg/dL Normal 0.3-1.2 [facility] Comment on above: Performed By: #### B ADA, CBCA, 6873-4, 5643-2, 08999-2 #### [facility] ([id number]) [address] [place] [address] 06291 Calcium [Mass/Vol] 9.0 mg/dL Normal 8.5-10.5 [facility] Comment on above: Performed By: #### B ANA CABALLERO, 6873-4, 5643-2, 03937-2 #### [facility] ([id number]) [address] [place] [address] 44658 Chloride [Moles/Vol] 105 mmol/L Normal 98-109 [facility] Comment on above: Performed By: #### B ADA, ANA, 6873-4, 5643-2, 43701-6 #### [facility] ([id number]) [address] [place] [address] 95004 CO2 [Moles/Vol] 20 mmol/L Low 22-32 [facility] Comment on above: Performed By: #### B ADA, ANA, 6873-4, 5643-2, 24988-8 #### [facility] ([id number]) [address] [place] [address] 50384 Creatinine [Mass/Vol] 0.88 mg/dL Normal 0.70-1.20 [facility] Comment on above: Result Comment: METH OD TRACEABLE TO IDMS STANDARD Performed By: #### B ANA CABALLERO, 6873-4, 5643-2, 69263-8 #### [facility] ([id number]) [address] [place] [address] 07107 eGFR (CKD-EPI) NON-RACE DEPENDENT >90 Normal >59 [facility] Comment on above: Result Comment: Reported eGFR is based on the CKD-EPI 2021 equation that does not use a race coefficient. Performed By: #### B ANA CABALLERO, 6873-4, 5643-2, 09836-8 #### [facility] ([id number]) [address] [place] [address] 05892 Glucose [Mass/Vol] 175 mg/dL High 65-99 [facility] Comment on above: Performed By: #### B ADA, ANA, 6873-4, 5643-2, 31347-8 #### [facility] ([id number]) [address] [place] [address] 64021 Potassium [Moles/Vol] 3.2 mmol/L Low 3.5-5.0 [facility] Comment on above: Performed By: #### B ADA, CBCA, 6873-4, 5643-2, 75573-8 #### [facility] ([id number]) [address] [place] [address] 16131 Protein [Mass/Vol] 7.2 g/dL Normal 6.0-8.0 [facility] Comment on above: Performed By: #### B ADA, CBCA, 6873-4, 5643-2, 78532-0 #### [facility] ([id number]) [address] [place] [address] 49878 Sodium [Moles/Vol] 136 mmol/L Normal 134-146 [facility] Comment on above: Performed By: #### B ADA, CBCA, 6873-4, 5643-2, 51327-2 #### [facility] ([id number]) [address] [place] [address] 54788 Urea nitrogen [Mass/Vol] 6 mg/dL Normal 5-23 [facility] Comment on above: Performed By: #### B ADA, CBCA, 6873-4, 5643-2, 68091-1 #### [facility] ([id number]) [address] [place] [address] 75209 ELECTROLYTESon 01-12-2024 Anion gap [Moles/Vol] 8 mmol/L Normal 5-15 [facility] Comment on above: Performed By: #### B ADA, CBCA, 6873-4, 5643-2, 48005-6 #### [facility] ([id number]) [address] [place] [address] 11428 Chloride [Moles/Vol] 108 mmol/L Normal 98-109 [facility] Comment on above: Performed By: #### B ADA, ANA, 6873-4, 5643-2, 94900-8 #### [facility] ([id number]) [address] [place] [address] 31021 CO2 [Moles/Vol] 22 mmol/L Normal 22-32 [facility] Comment on above: Performed By: #### B ADA, ANA, 6873-4, 5643-2, 22997-4 #### [facility] ([id number]) [address] [place] [address] 35164 Potassium [Moles/Vol] 3.6 mmol/L Normal 3.5-5.0 [facility] Comment on above: Performed By: #### B ANA CABALLERO, 6873-4, 5643-2, 65735-6 #### [facility] ([id number]) [address] [place] [address] 66227 Sodium [Moles/Vol] 138 mmol/L Normal 134-146 [facility] Comment on above: Performed By: #### B ANA CABALLERO, 6873-4, 5643-2, 59611-0 #### [facility] ([id number]) [address] [place] [address] 42364 Glucose Glucometer (BldC) [M ass/Vol]on 01-12-2024 Glucose [Mass/Vol] 151 mg/dL High 65-99 [facility] Glucose [Mass/Vol] 164 mg/dL High 65-99 [facility] MAGNESIUMon 01-12-2024 Magnesium [Mass/Vol] 1.7 mg/dL Low 1.8-2.6 [facility] Comment on above: Performed By: #### B ANA CABALLERO, 6873-4, 5643-2, 05915-9 #### [facility] ([id number]) [address] [place] [address] 90754 POTASSIUMon 01-12-2024 Potassium [Moles/Vol] 3.6 mmol/L Normal 3.5-5.0 [facility] Comment on above: Performed By: #### B ANA CABALLERO, 6873-4, 5643-2, 08937-7 #### [facility] ([id number]) [address] [place] [address] 70608 BASIC METABOLIC PANLon 01-10 Anion gap [Moles/Vol] 16 mmol/L High 5-15 [facility] Comment on above: Performed By: #### B ADA, ANA, 6873-4, 5643-2, 12018-2 #### [facility] ([id number]) [address] [place] [address] 47417 Calcium [Mass/Vol] 8.9 mg/dL Normal 8.5-10.5 [facility] Comment on above: Performed By: #### B ANA CABALLERO, 6873-4, 5643-2, #### [facility] ([id number]) [address] [place] [address] 81891 Chloride [Moles/Vol] 103 mmol/L Normal 98-109 [facility] Comment on above: Performed By: #### B ANA CABALLERO, 6873-4, 5643-2, 45595-9 #### [facility] ([id number]) [address] [place] [address] 98096 CO2 [Moles/Vol] 16 mmol/L Low 22-32 [facility] Comment on above: Performed By: #### B ADA, CBCTerry, 6873-4, 5643-2, 35054-3 #### [facility] ([id number]) [address] [place] [address] 56724 Creatinine [Mass/Vol] 1.05 mg/dL Normal 0.70-1.20 [facility] Comment on above: Result Comment: METH OD TRACEABLE TO IDMS STANDARD Performed By: #### B ANA CABALLERO, 6873-4, 5643-2, 52587-7 #### [facility] ([id number]) [address] [place] [address] 96317 eGFR (CKD-EPI) NON-RACE DEPENDENT >90 Normal >59 [facility] Comment on above: Result Comment: Reported eGFR is based on the CKD-EPI 2020 equation that does not use a race coefficient. Performed By: #### B ADA, ANA, 6873-4, 5643-2, 48873-5 #### [facility] ([id number]) [address] [place] [address] 08518 Glucose [Mass/Vol] 272 mg/dL High 65-99 [facility] Comment on above: Performed By: #### B ANA CABALLERO, 6873-4, 5643-2, 77644-2 #### [facility] ([id number]) [address] [place] [address] 69244 Potassium [Moles/Vol] 3.1 mmol/L Low 3.5-5.0 [facility] Comment on above: Performed By: #### B ANA CABALLERO, 6873-4, 5643-, 94477-0 #### [facility] ([id number]) [address] [place] [address] 24827 Sodium [Moles/Vol] 135 mmol/L Normal 134-146 [facility] Comment on above: Performed By: #### B ADA, ANA, 6873-4, 5643-2, 00856-8 #### [facility] ([id number]) [address] [place] [address] 69151 Urea nitrogen [Mass/Vol] 6 mg/dL Normal 5-23 [facility] Comment on above: Performed By: #### B ANA CABALLERO, 6873-4, 5643-2, 97372-3 #### [facility] ([id number]) [address] [place] [address] 78286 Beta hydroxybutyrate [Moles/ Vol]on 01-11-2024 BetaHydroxybutyrate 4.83 mmol/L High 0.02-0.27 [facility] Comment on above: Performed By: #### B MP, CBCA, 6873-4, 5643-2, 76135-5 #### [facility] ([id number]) [address] [place] [address] 22150 BetaHydroxybutyrate 6.27 mmol/L High 0.02-0.27 [facility] Comment on above: Performed By: #### B MP, CBCA, 6873-4, 5643-2, 10642-6 #### [facility] ([id number]) [address] [place] [address] 71281 CBC AND AUTO DIFFon 01-11-20 ABSOLUTE BASOPHIL 0.0 X10E9/L Normal 0.0-0.2 [facility] Comment on above: Performed By: #### B MP, CBCA, 6873-4, 5643-2, 22477-7 #### [facility] ([id number]) [address] [place] [address] 93062 ABSOLUTE NEUTROPHIL 4.4 X10E9/L Normal 1.5-6.6 [facility] Comment on above: Performed By: #### B MP, CBCA, 6873-4, 5643-2, 10310-2 #### [facility] ([id number]) [address] [place] [address] 84936 Basophils/100 WBC (Bld) 0.6 % Normal [facility] Comment on above: Performed By: #### B MP, CBCA, 6873-4, 5643-2, 32496-3 #### [facility] ([id number]) [address] [place] [address] 69351 Eosinophils (Bld) [#/Vol] 0.2 10*3/uL Normal 0.0-0.4 [facility] Comment on above: Performed By: #### B MP, CBCA, 6873-4, 5643-2, 59832-8 #### [facility] ([id number]) [address] [place] [address] 96795 Eosinophils/100 WBC (Bld) 2.8 % Normal [facility] Comment on above: Performed By: #### B MP, CBCA, 73-4, 5643-2, #### [facility] ([id number]) [address] [place] [address] 90466 Erythrocyte distribution width (RBC) [Ratio] 14.1 % Normal 11.5-15.0 [facility] Comment on above: Performed By: #### B MP, CBCA, 73-4, 5642-, #### [facility] ([id number]) [address] [place] [address] 27313 Hematocrit (Bld) [Volume fraction] 40.5 % Normal 39-49 [facility] Comment on above: Performed By: #### B MP, CBCA, 73-4, 5642-, #### [facility] ([id number]) [address] [place] [address] 69401 Hemoglobin (Bld) [Mass/Vol] 13.6 g/dL Normal 13.0-17.0 [facility] Comment on above: Performed By: #### B MP, CBCA, 6873-4, 5643-2, 76516-7 #### [facility] ([id number]) [address] [place] [address] 62061 Lymphocytes (Bld) [#/Vol] 1.9 10*3/uL Normal 1.0-3.5 [facility] Comment on above: Performed By: #### B MP, CBCA, 6873-4, 5643-2, #### [facility] ([id number]) [address] [place] [address] 81317 Lymphocytes/100 WBC (Bld) 26.1 % Normal [facility] Comment on above: Performed By: #### B MP, CBCA, 6873-4, 5643-2, #### [facility] ([id number]) [address] [place] [address] 32813 MCH (RBC) [Entitic mass] 29.1 pg Normal 27-34 [facility] Comment on above: Performed By: #### B MP, CBCA, 73-4, 5642-, #### [facility] ([id number]) [address] [place] [address] 85368 MCHC (RBC) [Mass/Vol] 33.6 g/dL Normal 32-36 [facility] Comment on above: Performed By: #### B MP, CBCA, 73-4, 5642-, #### [facility] ([id number]) [address] [place] [address] 05228 MCV (RBC) [Entitic vol] 87 fL Normal 80-100 [facility] Comment on above: Performed By: #### B MP, CBCA, 73-4, 43-, #### [facility] ([id number]) [address] [place] [address] 36643 Monocytes (Bld) [#/Vol] 0.7 10*3/uL Normal 0-0.9 [facility] Comment on above: Performed By: #### B MP, CBCA, 73-4, 5643-2, #### [facility] ([id number]) [address] [place] [address] 49085 Monocytes/100 WBC (Bld) 9.2 % Normal [facility] Comment on above: Performed By: #### B MP, CBCA, 6873-4, 5643-2, 90691-0 #### [facility] ([id number]) [address] [place] [address] 56541 Neutrophils/100 WBC (Bld) 61.3 % Normal [facility] Comment on above: Performed By: #### B MP, CBCA, 6873-4, 5643-2, 73913-9 #### [facility] ([id number]) [address] [place] [address] 09189 Platelet mean volume (Bld) [Entitic vol] 9.6 fL Normal 7-12 [facility] Comment on above: Performed By: #### B MP, CBCA, 6873-4, 5643-2, 35044-6 #### [facility] ([id number]) [address] [place] [address] 61982 Platelets (Bld) [#/Vol] 235 10*3/uL Normal 150-450 [facility] Comment on above: Performed By: #### B MP, CBCA, 6873-4, 5643-2, 48332-9 #### [facility] ([id number]) [address] [place] [address] 87987 RBC COUNT 4.68 X10E12/L Normal 4.10-5.70 [facility] Comment on above: Performed By: #### B MP, CBCA, 6873-4, 5643-2, 17771-8 #### [facility] ([id number]) [address] [place] [address] 12261 WBC (Bld) [#/Vol] 7.2 10*3/uL Normal 4.0-11.0 [facility] Comment on above: Performed By: #### B MP, CBCA, 6873-4, 5643-2, 73115-3 #### [facility] ([id number]) [address] [place] [address] [place] [address] COMPREHENSIVE METABOLIC PANE Al 01-11-2024 Albumin [Mass/Vol] 3.4 g/dL Normal 3.2-5.3 [facility] Comment on above: Performed By: #### B ADA, CBCA, 6873-4, 5643-2, 83416-7 #### [facility] ([id number]) [address] [place] [address] 15457 ALP [Catalytic activity/Vol] 79 U/L Normal 39-130 [facility] Comment on above: Performed By: #### B ADA, CBCA, 6873-4, 5643-2, 04258-5 #### [facility] ([id number]) [address] [place] [address] 04167 ALT [Catalytic activity/Vol] 30 U/L Normal 0-40 [facility] Comment on above: Performed By: #### B ADA, CBCA, 6873-4, 5643-2, 59390-3 #### [facility] ([id number]) [address] [place] [address] 99399 Anion gap [Moles/Vol] 13 mmol/L Normal 5-15 [facility] Comment on above: Performed By: #### B ADA, CBCA, 6873-4, 5643-2, 63178-0 #### [facility] ([id number]) [address] [place] [address] 93064 AST [Catalytic activity/Vol] 15 U/L Normal 0-41 [facility] Comment on above: Performed By: #### B ADA, CBCA, 6873-4, 5643-2, 21626-3 #### [facility] ([id number]) [address] [place] [address] 05714 Bilirubin [Mass/Vol] 1.1 mg/dL Normal 0.3-1.2 [facility] Comment on above: Performed By: #### B ADA, CBCA, 6873-4, 5643-2, 22266-2 #### [facility] ([id number]) [address] [place] [address] 53835 Calcium [Mass/Vol] 8.6 mg/dL Normal 8.5-10.5 [facility] Comment on above: Performed By: #### B ADA, ANA, 6873-4, 5643-2, 19826-8 #### [facility] ([id number]) [address] [place] [address] 71038 Chloride [Moles/Vol] 105 mmol/L Normal 98-109 [facility] [place] Comment on above: Performed By: #### B ADA, ANA, 6873-4, 5643-2, 62592-6 #### [facility] ([id number]) [address] [place] [address] 66389 Creatinine [Mass/Vol] 0.91 mg/dL Normal 0.70-1.20 [facility] Comment on above: Result Comment: METH OD TRACEABLE TO IDMS STANDARD Performed By: #### B ADA, ANA, 6873-4, 5643-2, 15810-9 #### [facility] ([id number]) [address] [place] [address] 17107 eGFR (CKD-EPI) NON-RACE DEPENDENT >90 Normal >59 [facility] Comment on above: Result Comment: Reported eGFR is based on the CKD-EPI 2020 equation that does not use a race coefficient. Performed By: #### B ADA, NAA, 6873-4, 5643-2, 24955-8 #### [facility] ([id number]) [address] [place] [address] 08091 Glucose [Mass/Vol] 227 mg/dL High 65-99 [facility] Comment on above: Performed By: #### B ADA, ANA, 6873-4, 5643-2, 98705-6 #### [facility] ([id number]) [address] [place] [address] 95567 Potassium [Moles/Vol] 2.7 mmol/L Critically low 3.5-5.0 [facility] Comment on above: Performed By: #### B ADA, CBCA, 6873-4, 5643-2, 50374-8 #### [facility] ([id number]) [address] [place] [address] 78466 Protein [Mass/Vol] 6.8 g/dL Normal 6.0-8.0 [facility] Comment on above: Performed By: #### B ADA, CBCA, 6873-4, 5643-2, 57836-0 #### [facility] ([id number]) [address] [place] [address] 55022 Sodium [Moles/Vol] 135 mmol/L Normal 134-146 [facility] Comment on above: Performed By: #### B ADA, CBCA, 6873-4, 5643-2, 40233-6 #### [facility] ([id number]) [address] [place] [address] 70945 Urea nitrogen [Mass/Vol] 6 mg/dL Normal 5-23 [facility] [facility] Comment on above: Performed By: #### B ADA, CBCA, 6873-4, 5643-2, 49197-6 #### [facility] ([id number]) [address] [place] [address] 76733 ELECTROLYTESon 01-11-2024 Anion gap [Moles/Vol] 9 mmol/L Normal 5-15 [facility] Comment on above: Performed By: #### B ADA, CBCA, 6873-4, 5643-2, 51331-1 #### [facility] ([id number]) [address] [place] [address] 71726 Chloride [Moles/Vol] 108 mmol/L Normal 98-109 [facility] [place] Comment on above: Performed By: #### B ADA, ANA, 6873-4, 5643-2, 28322-7 #### [facility] ([id number]) [address] [place] [address], [place] [address] CO2 [Moles/Vol] 22 mmol/L Normal 22-32 [facility] Comment on above: Performed By: #### B ADA, CBCTerry, 6873-4, 5643-2, #### [facility] ([id number]) [address] [place] [address] [place] [address] Potassium [Moles/Vol] 3.4 mmol/L Low 3.5-5.0 [facility] Comment on above: Performed By: #### B ADA, CBCTerry, 6873-4, 5643-2, #### [facility] ([id number]) [address] [place] [address] [place] [address] Sodium [Moles/Vol] 139 mmol/L Normal 134-146 [facility] Comment on above: Performed By: #### B ADA, ANA, 6873-4, 5643-2, #### [facility] ([id number]) [address] [place] [address] [place] [address] Anion gap [Moles/Vol] 10 mmol/L Normal 5-15 [facility] Comment on above: Performed By: #### B ADA, CBCTerry, 6873-4, 5643-2, 91870-8 #### [facility] ([id number]) [address] [place] [address], [place] [address] Chloride [Moles/Vol] 105 mmol/L Normal 98-109 [facility] [place] Comment on above: Performed By: #### B ADA, CBCA, 6873-4, 5643-2, 70425-9 #### [facility] ([id number]) [address] [place] [address] [place] [address] CO2 [Moles/Vol] 20 mmol/L Low 22-32 [facility] Comment on above: Performed By: #### B ADA, ANA, 6873-4, 5643-2, 02533-1 #### [facility] ([id number]) [address] [place] [address] 59524 Potassium [Moles/Vol] 3.6 mmol/L Normal 3.5-5.0 [facility] Comment on above: Performed By: #### B ADA, CBCTerry, 6873-4, 5643-2, #### [facility] ([id number]) [address] [place] [address] 04428 Sodium [Moles/Vol] 135 mmol/L Normal 134-146 [facility] Comment on above: Performed By: #### B ADA, ANA, 6873-4, 5643-2, #### [facility] ([id number]) [address] [place] [address] 10220 Anion gap [Moles/Vol] 12 mmol/L Normal 5-15 [facility] Comment on above: Performed By: #### B ADA, ANA, 6873-4, 5643-2, 07936-9 #### [facility] ([id number]) [address] [place] [address] 48669 Chloride [Moles/Vol] 107 mmol/L Normal 98-109 [facility] [place] Comment on above: Performed By: #### B ADA, CBCTerry, 6873-4, 5643-2, 02604-7 #### [facility] ([id number]) [address] [place] [address] 28235 CO2 [Moles/Vol] 18 mmol/L Low 22-32 [facility] Comment on above: Performed By: #### B ADA, CBCTerry, 6873-4, 5643-2, 87394-9 #### [facility] ([id number]) [address] [place] [address] 85336 Potassium [Moles/Vol] 4.0 mmol/L Normal 3.5-5.0 [facility] Comment on above: Performed By: #### B ADA, CBCA, 6873-4, 5643-2, 69839-5 #### [facility] ([id number]) [address] [place] [address] 52809 Sodium [Moles/Vol] 137 mmol/L Normal 134-146 [facility] Comment on above: Performed By: #### B ADA, CBCA, 6873-4, 5643-2, 32119-7 #### [facility] ([id number]) [address] [place] [address] 55695 Potassium [Moles/Vol] 3.8 mmol/L Normal 3.5-5.0 [facility] Comment on above: Performed By: #### B ADA, CBCA, 6873-4, 5643-2, 56129-4 #### [facility] ([id number]) [address] [place] [address] 69433 Sodium [Moles/Vol] 136 mmol/L Normal 134-146 [facility] Comment on above: Performed By: #### B ADA, CBCA, 6873-4, 5643-2, 38322-3 #### [facility] ([id number]) [address] [place] [address] 11425 CO2 [Moles/Vol] 17 mmol/L Low 22-32 [facility] Comment on above: Performed By: #### B ADA, CBCA, 6873-4, 5643-2, 07451-5 #### [facility] ([id number]) [address] [place] [address] 03914 Glucose Glucometer (BldC) [M ass/Vol]on 01-11-2024 Glucose [Mass/Vol] 216 mg/dL High 65-99 [facility] Glucose [Mass/Vol] 245 mg/dL High 65-99 [facility] Glucose [Mass/Vol] 299 mg/dL High 65-99 [facility] Glucose [Mass/Vol] 310 mg/dL High 65-99 [facility] Glucose [Mass/Vol] 288 mg/dL High 65-99 [facility] Glucose [Mass/Vol] 249 mg/dL High 65-99 [facility] Glucose [Mass/Vol] 218 mg/dL High 65-99 [facility] Glucose [Mass/Vol] 238 mg/dL High 65-99 [facility] Glucose [Mass/Vol] 226 mg/dL High 65-99 [facility] Glucose [Mass/Vol] 259 mg/dL High 65-99 [facility] HGB A1C (GLYCO-HGB)on 2023 Glucose [Mass/Vol] 335 mg/dL Normal [facility] Comment on above: Performed By: #### B ADA, CBCA, 6873-4, 5643-2, 25222-4 #### [facility] ([id number]) [address] [place] [address] 17852 HbA1c (Bld) [Mass fraction] 13.3 % High 4.4-5.6 [facility] Comment on above: Result Comment: NOTE ADA Guidelines Result HgbA1c Normal : less than 5.7 % Prediabetes : 5.7 % to 6.4 % Diabetes : > 6.4 % Use with caution in patients with abnormal hemoglobin variants as the half-life of red blood cells and in vivo glycation rates are affected. Performed By: #### B MP, CBCA, 6873-4, 5643-2, 71919-1 #### [facility] ([id number]) [address] [place] [address] 88796 MAGNESIUMon 01-11-2024 Magnesium [Mass/Vol] 1.8 mg/dL Normal 1.8-2.6 [facility] [place] Comment on above: Performed By: #### B ADA, CBCA, 6873-4, 5643-2, 35866-3 #### [facility] ([id number]) [address] [place] [address] 91183 VENOUS BLOOD GASon 4 LINDSAY'S TEST Normal [facility] Comment on above: Performed By: #### B AAD, CBCA, 6873-4, 5643-2, #### [facility] ([id number]) [address] [place] [address] 36948 BASE,DEFICIT 9.0 MMOL/L High 0.0-2.0 [facility] Comment on above: Performed By: #### B ADA, CBCA, 6873-4, 5643-2, #### [facility] ([id number]) [address] [place] [address] 57640 Body temperature 98.6 [degF] Normal 37.0 [facility] Comment on above: Performed By: #### B ADA, CBCA, 6873-4, 5643-2, 49553-5 #### [facility] ([id number]) [address] [place] [address] 68536 HCO3 (Bld) [Moles/Vol] 15.7 mmol/L Low 20.0-24.[address] [facility] Comment on above: Performed By: #### B ADA, CBCA, 6873-4, 5643-2, 03279-6 #### [facility] ([id number]) [address] [place] [address] 96296 INSP. O2 CONC. 21 % Normal [facility] Comment on above: Performed By: #### B ADA, CBCA, 6873-4, 5643-2, #### [facility] ([id number]) [address] [place] [address] 80687 Oxygen saturation in Blood 79.0 % Low >80.0 [facility] Comment on above: Performed By: #### B ANA CABALLERO, 6873-4, 5643-2, #### [facility] ([id number]) [address] [place] [address] [place] [address] OXYGEN SOURCE [employer] [facility] Comment on above: Performed By: #### B ADA, ANA, 6873-4, 5643-2, #### [facility] ([id number]) [address] [place] [address] 38188 PCO2, VENOUS 30.6 MMHG Low 35-50 [facility] Comment on above: Performed By: #### B ANA CABALLERO, 6873-4, 5643-2, #### [facility] ([id number]) [address] [place] [address] [place] [address] PH, VENOUS 7.318 Low 7.320-7.420 [facility] Comment on above: Performed By: #### B ANA CABALLERO, 6873-4, 5643-2, #### [facility] ([id number]) [address] [place] [address] 63306 PO2, VENOUS 46 MMHG Normal 30-50 [facility] Comment on above: Performed By: #### B ANA CABALLERO, 6873-4, 5643-2, #### [facility] ([id number]) [address] [place] [address] 39152 SAMPLE SITE N/A [facility] Comment on above: Performed By: #### B ANA CABALLERO, 6873-4, 5643-2, #### [facility] ([id number]) [address] [place] [address] 66922 SAMPLE TYPE VENOUS Normal [facility] Comment on above: Performed By: #### B ADA, CBCA, 6873-4, 5643-2, 41501-5 #### [facility] ([id number]) [address] [place] [address] 73946 BASIC METABOLIC PANLon 01-09 Anion gap [Moles/Vol] 16 mmol/L High 5-15 [facility] Comment on above: Performed By: #### B ADA, CBCA, 6873-4, 5643-2, #### [facility] ([id number]) [address] [place] [address] 72733 Calcium [Mass/Vol] 9.4 mg/dL Normal 8.5-10.5 [facility] Comment on above: Performed By: #### B ADA, CBCA, 6873-4, 5643-2, #### [facility] ([id number]) [address] [place] [address] 15337 Chloride [Moles/Vol] 101 mmol/L Normal 98-109 [facility] Comment on above: Performed By: #### B ADA, CBCA, 6873-4, 5642-, #### [facility] ([id number]) [address] [place] [address] 79151 CO2 [Moles/Vol] 14 mmol/L Low 22-32 [facility] Comment on above: Performed By: #### B ADA, CBCA, 6873-4, 5643-2, 79479-5 #### [facility] ([id number]) [address] [place] [address] 50477 Creatinine [Mass/Vol] 1.13 mg/dL Normal 0.70-1.20 [facility] Comment on above: Result Comment: METH OD TRACEABLE TO IDMS STANDARD Performed By: #### B ADA, CBCA, 6873-4, 5643-2, #### [facility] ([id number]) [address] [place] [address] 44538 eGFR (CKD-EPI) NON-RACE DEPENDENT >90 Normal >59 [facility] Comment on above: Result Comment: Reported eGFR is based on the CKD-EPI 2020 equation that does not use a race coefficient. Performed By: #### B ANA CABALLERO, 6873-4, 5643-2, #### [facility] ([id number]) [address] [place] [address] 43102 Glucose [Mass/Vol] 394 mg/dL High 65-99 [facility] Comment on above: Performed By: #### B ANA CABALLERO, 6873-4, 56-, #### [facility] ([id number]) [address] [place] [address] 07893 Potassium [Moles/Vol] 3.3 mmol/L Low 3.5-5.0 [facility] Comment on above: Performed By: #### B ANA CABALLERO, 6873-4, 5643-, #### [facility] ([id number]) [address] [place] [address] 21358 Sodium [Moles/Vol] 131 mmol/L Low 134-146 [facility] Comment on above: Performed By: #### B ANA CABALLERO, 6873-4, 5643-, #### [facility] ([id number]) [address] [place] [address] 37401 Urea nitrogen [Mass/Vol] 7 mg/dL Normal 5-23 [facility] Comment on above: Performed By: #### B ANA CABALLERO, 6873-4, 5643-, 88424-6 #### [facility] ([id number]) [address] [place] [address] 59678 Beta hydroxybutyrate [Moles/ Vol]on 01-10-2024 BetaHydroxybutyrate 6.67 mmol/L High 0.02-0.27 [facility] Comment on above: Performed By: #### B MP, CBCA, 6873-4, 5643-2, 50786-0 #### [facility] ([id number]) [address] [place] [address] 30229 CBC AND AUTO DIFFon 01-10-20 ABSOLUTE BASOPHIL 0.0 X10E9/L Normal 0.0-0.2 [facility] Comment on above: Performed By: #### B MP, CBCA, 6873-4, 5643-2, 69813-8 #### [facility] ([id number]) [address] [place] [address] 46610 ABSOLUTE NEUTROPHIL 5.6 X10E9/L Normal 1.5-6.6 [facility] Comment on above: Performed By: #### B MP, CBCA, 6873-4, 5643-2, 87504-1 #### [facility] ([id number]) [address] [place] [address] 42129 Basophils/100 WBC (Bld) 0.3 % Normal [facility] Comment on above: Performed By: #### B MP, CBCA, 6873-4, 5643-2, 72317-8 #### [facility] ([id number]) [address] [place] [address] 04421 Eosinophils (Bld) [#/Vol] 0.1 10*3/uL Normal 0.0-0.4 [facility] Comment on above: Performed By: #### B MP, CBCA, 6873-4, 5643-2, 95660-6 #### [facility] ([id number]) [address] [place] [address] 65318 Eosinophils/100 WBC (Bld) 1.5 % Normal [facility] Comment on above: Performed By: #### B MP, CBCA, 6873-4, 5643-2, 88646-7 #### [facility] ([id number]) [address] [place] [address] 83720 Erythrocyte distribution width (RBC) [Ratio] 13.9 % Normal 11.5-15.0 [facility] Comment on above: Performed By: #### B MP, CBCA, 6873-4, 5643-2, #### [facility] ([id number]) [address] [place] [address] 83470 Hematocrit (Bld) [Volume fraction] 43.9 % Normal 39-49 [facility] Comment on above: Performed By: #### B MP, CBCA, 6873-4, 5643-2, #### [facility] ([id number]) [address] [place] [address] 03018 Hemoglobin (Bld) [Mass/Vol] 14.7 g/dL Normal 13.0-17.0 [facility] Comment on above: Performed By: #### B ADA, CBCA, 6873-4, 5643-, #### [facility] ([id number]) [address] [place] [address] 00834 Lymphocytes (Bld) [#/Vol] 1.5 10*3/uL Normal 1.0-3.5 [facility] Comment on above: Performed By: #### B MP, CBCA, 6873-4, 5643-2, 04806-0 #### [facility] ([id number]) [address] [place] [address] 52796 Lymphocytes/100 WBC (Bld) 18.5 % Normal [facility] Comment on above: Performed By: #### B MP, CBCA, 6873-4, 5643-2, 92760-8 #### [facility] ([id number]) [address] [place] [address] 31663 MCH (RBC) [Entitic mass] 29.1 pg Normal 27-34 [facility] Comment on above: Performed By: #### B ADA, CBCA, 6873-4, 5643-2, #### [facility] ([id number]) [address] [place] [address] 34020 MCHC (RBC) [Mass/Vol] 33.4 g/dL Normal 32-36 [facility] Comment on above: Performed By: #### B ADA, CBCA, 73-4, 5643-2, #### [facility] ([id number]) [address] [place] [address] 26471 MCV (RBC) [Entitic vol] 87 fL Normal 80-100 [facility] Comment on above: Performed By: #### B ADA, CBCA, 73-4, 5642-, #### [facility] ([id number]) [address] [place] [address] 71924 Monocytes (Bld) [#/Vol] 0.6 10*3/uL Normal 0-0.9 [facility] Comment on above: Performed By: #### B ADA, CBCA, 73-4, 5642-, 55473-8 #### [facility] ([id number]) [address] [place] [address] 93149 Monocytes/100 WBC (Bld) 7.7 % Normal [facility] Comment on above: Performed By: #### B MP, CBCA, 73-4, 43-, 22589-3 #### [facility] ([id number]) [address] [place] [address] 46119 Neutrophils/100 WBC (Bld) 72.0 % Normal [facility] Comment on above: Performed By: #### B MP, CBCA, 73-4, 5643-2, 70442-5 #### [facility] ([id number]) [address] [place] [address] 44960 Platelet mean volume (Bld) [Entitic vol] 10.0 fL Normal 7-12 [facility] Comment on above: Performed By: #### B MP, CBCA, 6873-4, 43-2, #### [facility] ([id number]) [address] [place] [address] 70051 Platelets (Bld) [#/Vol] 253 10*3/uL Normal 150-450 [facility] Comment on above: Performed By: #### B MP, CBCA, 6873-4, 5642-2, #### [facility] ([id number]) [address] [place] [address] 55072 RBC COUNT 5.04 X10E12/L Normal 4.10-5.70 [facility] Comment on above: Performed By: #### B MP, CBCA, 6873-4, 56-, #### [facility] ([id number]) [address] [place] [address] 50152 WBC (Bld) [#/Vol] 7.8 10*3/uL Normal 4.0-11.0 [facility] Comment on above: Performed By: #### B MP, CBCA, 6873-4, 5643-2, 45341-2 #### [facility] ([id number]) [address] [place] [address] 94661 DRUG SCREEN, URINEon 024 AMPHETAMINE/METHAMP Negative Normal NEG [facility] Comment on above: Result Comment: AMPH /METH screening cut off = 1000 ng/mL Performed By: #### D SALAS #### [facility] ([id number]) [address] [place] [address] 55877 BARBITURATES Negative Normal NEG [facility] Comment on above: Result Comment: Earlene iturates screening cut off value = 200 ng/mL Performed By: #### D SALAS #### [facility] ([id number]) [address] [place] [address] 05256 BENZODIAZEPINES Negative Normal NEG [facility] Comment on above: Result Comment: Kareem odiazepines screening cut off value = 200 ng/mL Performed By: #### D SALAS #### [facility] ([id number]) [address] [place] [address] 83425 CANNABINOIDS Negative Normal NEG [facility] Comment on above: Result Comment: Catalina abinoids/THC screening cut off value = 50 ng/mL Performed By: #### D SALAS #### [facility] ([id number]) [address] [place] [address] 35787 COCAINE METABOLITE Negative Normal NEG [facility] Comment on above: Result Comment: Coca ine screening cut off value = 300 ng/mL Performed By: #### D SALAS #### [facility] ([id number]) [address] [place] [address] 50232 ECSTASY Negative Normal [facility] Comment on above: Result Comment: Ecst asy screening cut off value = 500 ng/mL This report is intended for use in clinical monitoring or management of patients. Performed By: #### D SALAS #### [facility] ([id number]) [address] [place] [address] 29528 METHADONE Negative Normal NEG [facility] Comment on above: Result Comment: Meth adone screening cut off value = 300 ng/mL. Performed By: #### D SALAS #### [facility] ([id number]) [address] [place] [address] 58711 OPIATES Negative Normal NEG [facility] Comment on above: Result Comment: Opia miguel screening cut off value = 300 ng/mL NOTE: This test is used for the detection of codeine, hydrocodone (>1000 ng/mL), morphine and hydromorphone (>900 ng/mL) in urine. Performed By: #### D SALAS #### [facility] ([id number]) [address] [place] [address] 13568 OXYCODONE Negative Normal NEG [facility] Comment on above: Result Comment: Oxyc odone screening cut off value = 300 ng/mL NOTE: This test is used for the detection of oxycodone and oxymorphone in urine. Performed By: #### D SALAS #### [facility] ([id number]) [address] [place] [address] 88446 PHENCYCLIDINE Negative Normal NEG [facility] Comment on above: Result Comment: Phen cyclidine screening cut off value = 25 ng/mL Performed By: #### D SALAS #### [facility] ([id number]) [address] [place] [address] 01862 ETHANOLon 01-10-2024 Ethanol [Mass/Vol] mg/dL Normal 0.00-0.08 [facility] Comment on above: Result Comment: This report is intended for use in clinical monitoring or management of patients. Performed By: #### B ANA CABALLERO, 6873-4, 5643-2, 27938-0 #### [facility] ([id number]) [address] [place] [address] 45128 Glucose Glucometer (BldC) [M ass/Vol]on 01-10-2024 Glucose [Mass/Vol] 316 mg/dL High 65-99 [facility] MAGNESIUMon 01-10-2024 Magnesium [Mass/Vol] 1.6 mg/dL Low 1.8-2.6 [facility] Comment on above: Performed By: #### B ANA CABALLERO, 6873-4, 5643-2, 80306-7 #### [facility] ([id number]) [address] [place] [address] 53728 URN MACROSCOPIC NURon 2023 BILIRUBIN TERRELL Small Abnormal NEG [facility] Comment on above: Performed By: #### N UM #### [facility] ([id number]) [address] [place] [address] 12750 BLOOD/HGB TERRELL Negative Normal NEG [facility] Comment on above: Performed By: #### N UM #### [facility] ([id number]) [address] [place] [address] 41487 GLUCOSE TERRELL 500 mg/dL Abnormal NEG [facility] Comment on above: Performed By: #### N UM #### [facility] ([id number]) [address] [place] [address] 01051 KETONES TERRELL >=160 Abnormal NEG [facility] Comment on above: Performed By: #### N UM #### [facility] ([id number]) [address] [place] [address] [place] [address] LEUKOCYTE ESTERASE TERRELL Negative Normal NEG [facility] Comment on above: Performed By: #### N UM #### [facility] ([id number]) [address] [place] [address] 33400 NITRITE TERRELL Negative Normal NEG [facility] Comment on above: Performed By: #### N UM #### [facility] ([id number]) [address] [place] [address] 55546 PH TERRELL 5.5 Normal 5.0-8.5 [facility] Comment on above: Performed By: #### N UM #### [facility] ([id number]) [address] [place] [address] 58330 PROTEIN TERRELL 30 mg/dL Abnormal NEG [facility] Comment on above: Performed By: #### N UM #### [facility] ([id number]) [address] [place] [address] 71552 SPECIFIC GRAVITY TERRELL 1.015 Normal 1.003-1.035 [facility] Comment on above: Performed By: #### N UM #### [facility] ([id number]) [address] [place] [address] 69657 UROBILINOGEN TERRELL 0.2 eu/dL Normal <1.1 [facility] Comment on above: Performed By: #### N UM #### [facility] ([id number]) [address] [place] [address] 55687 VENOUS BLOOD GASon 4 LINDSAY'S TEST Normal [facility] Comment on above: Performed By: #### V BG #### [facility] ([id number]) [address] [place] [address] 34980 BASE,DEFICIT 11.0 MMOL/L High 0.0-2.0 [facility] Comment on above: Performed By: #### V BG #### [facility] ([id number]) [address] [place] [id number] Body temperature 98.6 [degF] Normal 37.0 [facility] Comment on above: Performed By: #### V BG #### [facility] ([id number]) [address] [place] [id number] HCO3 (Bld) [Moles/Vol] 13.5 mmol/L Low 20.0-24.0 [facility] Comment on above: Performed By: #### V BG #### [facility] ([id number]) [address] [place] [address] [id number] INSP. O2 CONC. 21 % Normal [facility] Comment on above: Performed By: #### V BG #### [facility] ([id number]) [address] [place] [id number] Oxygen saturation in Blood 92.0 % Normal >80.0 [facility] Comment on above: Performed By: #### V BG #### [facility] ([id number]) [address] [place] [address] [place] [address] OXYGEN SOURCE [employer] [facility] Comment on above: Performed By: #### V BG #### [facility] ([id number]) [address] [place] [id number] PCO2, VENOUS 27.3 MMHG Low 35-50 [facility] Comment on above: Performed By: #### V BG #### [facility] ([id number]) [address] [place] [address] [place] [address] PH, VENOUS 7.303 Low 7.320-7.420 [facility] Comment on above: Performed By: #### V BG #### [facility] ([id number]) [address] [place] [address]995 PO2, VENOUS 69 MMHG High 30-50 [facility] Comment on above: Performed By: #### V BG #### [facility] ([id number]) [address] [place] [address] [place] [address] SAMPLE SITE N/A Normal [facility] Comment on above: Performed By: #### V BG #### [facility] ([id number]) [address] [place] [address]3457 SAMPLE TYPE VENOUS Normal [facility] Comment on above: Performed By: #### V BG #### [facility] ([id number]) [address] [place] [address]19 POCT Influenza A/Influenza B /SARS-COV-2 [facility] 08-05-2023 External Poct Influenza A Antigen Negative [facility] External Poct Influenza B Antigen Negative [facility] SARS-CoV-2 (COVID-19) Ag IA.rapid Ql (Resp) Negative [facility] POCT rapid strep Aon 024 S. pyogenes Ag IA Ql (Unsp spec) Negative Negative [facility] ACETONE SERUMon 06-11-2020 ACETONE SMALL Abnormal NEGATIVE [facility] Comment on above: Performed By: #### A CETON #### Laboratory [address] [place] [address] Latisha Gena AMYLASEon 06-11-2020 Amylase [Catalytic activity/Vol] U/L Critically low 31-110 [facility] Comment on above: Performed By: #### B MP, LIPA, ELLA, LIVER #### Laboratory [address] [place] [address] Latisha Gena CBC AUTO DIFFon 06-11-2020 Basophils (Bld) [#/Vol] 0.1 103/ul Normal 0.0-0.1 [facility] Comment on above: Performed By: #### C BC #### Laboratory [address] [place], [place] [id number] Latisha Gena Basophils/100 WBC (Bld) 0.4 % Normal 0.2-2.0 [facility] Comment on above: Performed By: #### C BC #### Laboratory [address] [place] [address] 713[address] Latisha Gena Eosinophils (Bld) [#/Vol] 0.0 103/ul Normal 0.0-0.7 [facility] Comment on above: Performed By: #### C BC #### Laboratory [address] [place], [place] [address] Latisha Gena Eosinophils/100 WBC (Bld) 0.1 % Critically low 0.9-7.0 [facility] Comment on above: Performed By: #### C BC #### Laboratory [address] [place] [address] 10878 Latisha Gena Erythrocyte distribution width (RBC) [Ratio] 14.8 % Normal 11.0-15.0 [facility] Comment on above: Performed By: #### C BC #### Laboratory [address] [place], [place] [address] Latisha Gena Hematocrit (Bld) [Volume fraction] 51.7 % Normal 42.0-54.0 [facility] Comment on above: Performed By: #### C BC #### Laboratory [address] [id number] Latisha Gena Hemoglobin (Bld) [Mass/Vol] 16.6 g/dL Normal 14.0-18.0 [facility] Comment on above: Performed By: #### C BC #### Laboratory [address] [id number] Latisha Gena IG # 0.10 10e3/ul Critically high 0.00-0.03 [facility] Comment on above: Performed By: #### C BC #### Laboratory [address] [id number] Latisha Gena IG % 0.6 % Critically high 0.0-0.5 [facility] Comment on above: Performed By: #### C BC #### Laboratory [address] [place], [place] [address] Latisha Gena Lymphocytes (Bld) [#/Vol] 0.9 103/ul Critically low 1.2-3.8 [facility] Comment on above: Performed By: #### C BC #### Laboratory [address] [place], [place] [address] Latisha Gena Lymphocytes/100 WBC (Bld) 5.2 % Critically low 20.5-60.0 [facility] Comment on above: Performed By: #### C BC #### Laboratory [address] [place], [place] [address] Latisha Avery MANUAL DIFF REQ NO Normal [facility] Comment on above: Performed By: #### C BC #### Laboratory [address] [place], [place] [address] Latisha Gena MCH (RBC) [Entitic mass] 28.5 pg Normal 25.9-34.0 [facility] Comment on above: Performed By: #### C BC #### Laboratory [address] [id number] Latisha Gena MCHC (RBC) [Mass/Vol] 32.1 g/dL Normal 29.9-35.2 [facility] Comment on above: Performed By: #### C BC #### Laboratory [address] [place], [place] [address] Latisha Gena MCV (RBC) [Entitic vol] 88.7 fL Normal 76.3-90.1 [facility] Comment on above: Performed By: #### C BC #### Laboratory [address] [place], [place] [address] Latisha Gena Monocytes (Bld) [#/Vol] 0.7 103/ul Normal 0.3-0.8 [facility] Comment on above: Performed By: #### C BC #### Laboratory [address] [place] [address] Latisha Gena Monocytes/100 WBC (Bld) 4.3 % Normal 1.7-12.0 [facility] Comment on above: Performed By: #### C BC #### Laboratory [address] [place] [address] 845[address] Latisha Gena Neutrophils (Bld) [#/Vol] 14.6 103/ul Critically high 1.4-6.5 [facility] Comment on above: Performed By: #### C BC #### Laboratory [address] [place] [address] 14088 Latisha Gena Neutrophils/100 WBC (Bld) 89.4 % Critically high 43.0-75.0 [facility] Comment on above: Performed By: #### C BC #### Laboratory [address] [place] [address] 47973 Latisha Gena Platelet mean volume (Bld) [Entitic vol] 12.0 fL Normal 9.5-13.5 [facility] Comment on above: Performed By: #### C BC #### Laboratory [address] [place] [address] 81821 Latisha Gena Platelets (Bld) [#/Vol] 404 103/ul Normal 150-450 [facility] Comment on above: Performed By: #### C BC #### Laboratory [address] [place] [address] Latisha Gena RBC (Bld) [#/Vol] 5.83 106/ul Critically high 3.30-5.40 [facility] Comment on above: Performed By: #### C BC #### Laboratory [address] [place] [address] Latisha Gena WBC (Bld) [#/Vol] 16.3 103/ul Critically high 4.0-11.0 [facility] Comment on above: Performed By: #### C BC #### Laboratory [address] [place] [address] Latishaashly Avery ER URINE PROFILEon 1 Bilirubin [Mass/Vol] SMALL Abnormal NEGATIVE [facility] Comment on above: Performed By: #### ANGE FAMRO #### Laboratory [address] [place] [address] Latisha Gena BLOOD MODERATE Abnormal NEGATIVE [facility] Comment on above: Performed By: #### ANGE FAMRO #### Laboratory [address] [place] [address] Latisha Gena Clarity (U) CLEAR Normal CLEAR [facility] Comment on above: Performed By: #### ANGE FAMRO #### Laboratory [address] [place] [address] Latisha Gena Color (U) LT. YELLOW Normal YELLOW [facility] Comment on above: Performed By: #### ANGE FAMRO #### Laboratory [address] [place] [address] Latisha Gena ERUAHD A micrscopic examination will be performed if indicated. Normal The Comment on above: Performed By: #### ANGE FAMRO #### Laboratory [address] [place] [address] Latisha Gena Glucose [Mass/Vol] >1000 Abnormal NEGATIVE [facility] Comment on above: Performed By: #### ANGE FAMRO #### Laboratory [address] [place] [address] Latisha Gena Ketones Ql (U) >=80 Abnormal NEGATIVE [facility] Comment on above: Performed By: #### KALEB FAM #### Laboratory [address] [place], [place] [address] Latisha Gena Nitrite Ql (U) Negative Normal NEGATIVE [facility] Comment on above: Performed By: #### KALEB FAM #### Laboratory [address] [place], [place] [address] Latisha Gena pH (Bld) 5.5 Normal 5-9 [facility] Comment on above: Performed By: #### KALEB FAM #### Laboratory [address] [place], [place] [address] Latisha Gena Protein (U) [Mass/Vol] 100 mg/dL Abnormal NEGAT ROMY/ TRACE [facility] Comment on above: Performed By: #### KALEB FAM #### Laboratory [address] [place], [place] [address] Latisha Gena SPEC GRAVITY >=1.030 Abnormal 1.005-<=1.025 [facility] Comment on above: Performed By: #### KALEB FAM #### Laboratory [address] [place], [place] [address] Latisha Gena UR MICRO IND INDICATED Normal [facility] Comment on above: Performed By: #### KALEB FAM #### Laboratory [address] [place], [place] [address] Latisha Gena Urobilinogen Qn (U) 0.2 EU/dl Normal 0.2 - 1.0 [facility] Comment on above: Performed By: #### KALEB FAM #### Laboratory [address] [place], [place] [address] Latisha Gena WBC (Bld) [#/Vol] Negative Normal NEGATIVE [facility] Comment on above: Performed By: #### KALEB FAM #### Laboratory [address] [place], [place] [address] Latisha Gena LIPASEon 06-11-2020 Lipase [Catalytic activity/Vol] 88.0 U/L Normal 23.0-300.0 [facility] Comment on above: Performed By: #### B MP, LIPA, ELLA, LIVER #### Laboratory [address] [place], [place] [address] Latishaashly Floweren LIVER PROFILEon 06-11-2020 Albumin [Mass/Vol] 4.5 g/dL Normal 3.5-5.0 [facility] Comment on above: Performed By: #### B LDCX1 #### Laboratory [address] [id number] Latisha Gena Albumin/Globulin [Mass ratio] 0.9 {ratio} Normal [facility] Comment on above: Performed By: #### B LDCX1 #### Laboratory [address] [id number] Latisha Gena ALP [Catalytic activity/Vol] 438 U/L Critically high 65-260 [facility] Comment on above: Performed By: #### B LDCX1 #### Laboratory [address] [place] [address] Latisha Gena ALT [Catalytic activity/Vol] 31 U/L Normal 21-72 [facility] Comment on above: Performed By: #### B LDCX1 #### Laboratory [address] [place], [place] [address] Latisha Gena AST [Catalytic activity/Vol] 10 U/L Critically low 17-59 [facility] Comment on above: Performed By: #### B LDCX1 #### Laboratory [address] [place], [place] [address] Latisha Gena BILI, CONJUGATED 0.2 mg/dL Normal 0.0-0.3 [facility] Comment on above: Performed By: #### B LDCX1 #### Laboratory [address] [place], [place] [address] Latisha Gena Bilirubin Ql (U) 0.6 mg/dL Normal 0.2-1.3 [facility] Comment on above: Performed By: #### B LDCX1 #### Laboratory [address] [id number] Latisha Gena Globulin (S) [Mass/Vol] 4.8 g/dL Normal [facility] Comment on above: Performed By: #### B [id number] #### Laboratory [address] [address] Latishaashly Avery Protein [Mass/Vol] 9.3 g/dL Critically high 6.1-8.2 [facility] Comment on above: Performed By: #### B LDCX1 #### Laboratory [address] [place] [address] Latisha Gena PH VENOUS BLOODon 06-11-2020 PCO2 VENOUS 34.2 mmHg Critically low 40.0-52.0 [facility] Comment on above: Performed By: #### P HVEN #### Laboratory [address] [place] [address] Latisha Gena pH VENOUS 7.09 Critically low 7.33-7.43 [facility] Comment on above: Performed By: #### P HVEN #### Laboratory [address] [place] [address] Latisha Avery POINT OF CARE GLUCOSEon 05-19 Glucose [Mass/Vol] 496 mg/dL Critically high 74-106 [facility] Comment on above: Performed By: #### B [id number] #### Laboratory [address] [place] [address] Latisha Gena Glucose [Mass/Vol] 491 mg/dL Critically high -106 [facility] Comment on above: Performed By: #### P OCGLUC #### Laboratory [address] [place] [address] Latisha Gena Glucose [Mass/Vol] 531 mg/dL Critically high 74-106 [facility] Comment on above: Result Comment: Resu lt Not Confirmed Performed By: #### P OCGLUC #### Laboratory [address] [place] [address] Latisha Gena PROF CHEM 8 (BAS METB)on Anion gap [Moles/Vol] 33.4 mmol/L Normal [facility] Comment on above: Performed By: #### B LDCX1 #### Laboratory [address] [place] [address] Latisha Gena Calcium [Mass/Vol] 10.4 mg/dL Critically high 8.4-10.2 [facility] Comment on above: Performed By: #### B LDCX1 #### Laboratory [address] [place], [place] [address] Latisha Gena Chloride [Moles/Vol] 99 mmol/L Normal 98-107 [facility] Comment on above: Performed By: #### B LDCX1 #### Laboratory [address] [place], [place] [address] Latisha Gena CO2 [Moles/Vol] 9.7 mmol/L Critically low 22.0-30.0 [facility] Comment on above: Performed By: #### B LDCX1 #### Laboratory [address] [place], [place] [address] Latisha Gena Creatinine [Mass/Vol] 2.20 mg/dL Critically high 0.66-1.25 [facility] Comment on above: Performed By: #### B LDCX1 #### Laboratory [address] [place], [place] [address] Latisha Gena EGFR-AF KAZAKH 49 mL/min/1.73m2 Critically low >=60 [facility] Comment on above: Performed By: #### B LDCX1 #### Laboratory [address] [place], [place] [address] Latisha Gena EGFR-NON AF KAZAKH 41 mL/min/1.73m2 Critically low >=60 [facility] Comment on above: Performed By: #### B LDCX1 #### Laboratory [address] [place], [place] [address] Latisha Gena Glucose [Mass/Vol] 584 mg/dL Critically high 74-106 [facility] Comment on above: Result Comment: TEST REPEATED CRITICAL VALUE VERIFIED Performed By: #### B LDCX1 #### Laboratory [address] [place], [place] [address] Latisha Gena Potassium [Moles/Vol] 5.1 mmol/L Critically high 3.4-5.0 [facility] Comment on above: Performed By: #### B LDCX1 #### Laboratory [address] [id number] Latisha Avery Sodium [Moles/Vol] 137 mmol/L Normal 137-145 [facility] Comment on above: Performed By: #### B LDCX1 #### Laboratory [address] [place], [place] [address] Latishaashly Avery Urea nitrogen [Mass/Vol] 21.0 mg/dL Critically high 6.4-19.3 [facility] Comment on above: Performed By: #### B LDCX1 #### Laboratory [address] [place], [place] [address] Latisha Avery Urea nitrogen/Creatinine [Mass ratio] 9.5 mg/mg Normal The Comment on above: Performed By: #### B LDCX1 #### Laboratory [address] [place] [address] Latisha Avery Rapid Covid-19 PCR (CVDRPD)o n 06-11-2020 Pick a Student LDT Info SEE BELOW Normal [facility] Comment on above: Result Comment: This test is not yet approved or cleared by the [place] Food and Drug Administration (FDA) . This test was developed by [email or web address], [place]. The performance characteristics of this test were validated by The Laboratory. The results are not intended to be used as the sole means for clinical diagnosis or patient management decisions. The is authorized under Clinical Laboratory Improvement Amendments (CLIA) to perform high-complexity testing. When diagnostic testing is negative, the possibility of a false negative should be considered in the context of a patients recent exposures and the presence of clinical signs and symptoms consistent with SARS-CoV-2. Performed By: #### B LDCX1 #### Laboratory [address] [place], [place] [address] Latisha Avery SARS-CoV-2 NOT DETECTED Normal NOT DETECTED [facility] Comment on above: Result Comment: . Performed By: #### B LDCX1 #### Laboratory [address] [place], [place] [address] Latisha Avery URINE MICROSCOPIC ONLYon Bacteria LM.HPF (Urine sed) [#/Area] NONE SEEN Normal NONE SEEN The Comment on above: Performed By: #### ANGE FAMRO #### Laboratory [address] [place], [place] [address] Latisha Gena CAST NONE SEEN Normal NONE SEEN The Comment on above: Performed By: #### ANGE FAMRO #### Laboratory [address] [id number] Latisha Gena Crystals LM Nom (Urine sed) NONE SEEN Normal NONE SEEN The Comment on above: Performed By: #### ANGE FAMRO #### Laboratory [address] [place] [address] Latisha Gena CULTURE NOT INDICATED Normal [facility] Comment on above: Performed By: #### ANGE FAMRO #### Laboratory [address] [place], [place] [address] Latisha Gena Epithelial cells LM.HPF (Urine sed) [#/Area] FEW Abnormal NONE SEEN /RARE The Comment on above: Performed By: #### ANGE FAMRO #### Laboratory [address] [place], [place] [address] Latisha Gena MUCOUS SMALL Abnormal NONE SEEN The Comment on above: Performed By: #### ANGE FAMRO #### Laboratory [address] [place], [place] [address] Latisha Gena RBC (U) [#/Vol] 0-2 Normal 0-2 [facility] Comment on above: Performed By: #### ANGE FAMRO #### Laboratory [address] [place], [place] [address] Latisha Gena WBC (Bld) [#/Vol] NONE SEEN Normal NONE SEEN [facility] Comment on above: Performed By: #### ANGE FAMRO #### Laboratory [address] [place], [place] [address] Latisha Gena XR CHEST 1 Von 06-11-2020 [...] by: HOOD PALMA Date: 2020-06-11 10:47 Normal [facility] Vital Signs Date Time Vital Sign Value Performing Clinician Facility 03-07-2024 13:51-0400 Body height 198.1 cm Pj Shannon MD Work Phone: [facility] 03-07-2024 13:51-0400 Body mass index (BMI) [Ratio] 34.21 kg/m2 Pj Shannon MD Work Phone: [facility] 03-07-2024 13:51-0400 Body weight 134.26 kg Pj Shannon MD Work Phone: [facility] 03-07-2024 13:51-0400 Diastolic blood pressure 82 mm[Hg] Pj Shannon MD Work Phone: [facility] 03-07-2024 13:51-0400 Heart rate 87 /min Pj Shannon MD Work Phone: [facility] 03-07-2024 13:51-0400 Respiratory rate 18 /min Pj Shannon MD Work Phone: [facility] 03-07-2024 13:51-0400 Systolic blood pressure 136 mm[Hg] Pj Shannon MD Work Phone: [facility] 02-29-2024 11:55-0400 Body height 203.2 cm Marlyn [employer] Work Phone: [facility] 02-29-2024 11:55-0400 Body mass index (BMI) [Ratio] 33.18 kg/m2 Marlyn Sims APRN-MACHINE WASHER Work Phone: [facility] 02-29-2024 11:55-0400 Body temperature 98.01 [degF] Marlyn Sims APRN-[employer] Work Phone: [facility] [employer] [facility] 02-29-2024 11:55-0400 Body weight 136.99 kg Marlyn Sims APRN-[employer]ICO Work Phone: [facility] [employer] [facility] 02-29-2024 11:55-0400 Diastolic blood pressure 80 mm[Hg] Marlyn Sims APRN-PERICO Work Phone: [facility] [employer] [facility] 02-29-2024 11:55-0400 Heart rate 87 /min Marlyn Sims APRN-[employer]ICO Work Phone: [facility] [employer] [facility] 02-29-2024 11:55-0400 Respiratory rate 18 /min Marlyn Sims APRN-[employer] Work Phone: [facility] 02-29-2024 11:55-0400 SaO2% (BldA) [Mass fraction] 98 % Marlyn Sims APRN-PERICO Work Phone: [facility] [employer] [facility] 02-29-2024 11:55-0400 Systolic blood pressure 140 mm[Hg] Marlyn Sims APRN-[employer]ICO Work Phone: [facility] [employer] [facility] 02-26-2024 12:54-0400 SaO2% (BldA) [Mass fraction] 98 % [facility] Comment on above: Performed By: #### GLORIA, CBCA, 6873-4, 56 43-2, 90925-2 #### [facility] ([id number]) [address] [place] [address], [place] [address] 08-05-2023 08:41-0400 Body height 203.2 cm Marlyn Sims APRN-PERICO Work Phone: [facility] 08-05-2023 08:41-0400 Body mass index (BMI) [Percentile] Per age and sex 99.6 % Marlyn Sims APRN-PERICO Work Phone: [facility] 08-05-2023 08:41-0400 Body mass index (BMI) [Ratio] 41.46 kg/m2 Marlyn Sims APRN-PERICO Work Phone: [facility] 08-05-2023 08:41-0400 Body temperature 98.4 [degF] Marlyn Sims APRN-[employer] Work Phone: [facility] 08-05-2023 08:41-0400 Body weight 171.19 kg Marlyn Sims APRN-PERICO Work Phone: [facility] 08-05-2023 08:41-0400 Diastolic blood pressure 76 mm[Hg] Marlyn Sims APRN-PERICO Work Phone: [facility] 08-05-2023 08:41-0400 Heart rate 63 /min Marlyn Sims APRN-[employer] Work Phone: [facility] 08-05-2023 08:41-0400 Respiratory rate 18 /min Marlyn Sims APRN-[employer] Work Phone: [facility] 08-05-2023 08:41-0400 SaO2% (BldA) [Mass fraction] 98 % Marlyn Sims APRN-[employer]ICO Work Phone: [facility] 08-05-2023 08:41-0400 Systolic blood pressure 126 mm[Hg] Marlyn Sims APRN-PERICO Work Phone: [facility] Encounters Encounter Date Encounter Type Care Provider Facility Start: 03-28-2024 End: 03-28-2024 Emergency department patient visit [facility] Karis [facility] Start: 03-22-2024 End: 03-22-2024 Emergency department patient visit MARLYN J [facility] Start: 03-07-2024 End: 03-07-2024 Keith flowsranjit Shannon MD Work Phone: [facility] Start: 03-07-2024 End: 03-07-2024 Bamboo flowsheet Pj Shannon MD Work Phone: [facility] Start: 03-07-2024 End: 03-07-2024 Office outpatient visit 25 minutes Pj Shannon MD Work Phone: [facility] Comment on above: Type 2 diabetes cory itus with hyperglycemia, without long-term current use of insulin ([facility]) (Primary Dx); Vitamin D deficiency; Encounter for dietary consultation; Class 1 obesity due to excess calories without serious comorbidity with body mass index (BMI) of 34.0 to 34.9 in adult Start: 03-07-2024 End: 03-07-2024 ambulatory PJ SHANNON Not Available Start: 02-29-2024 End: 02-29-2024 ambulatory [facility] Start: 02-29-2024 End: 02-29-2024 Office outpatient visit 15 [facility] [employer]-MACHINE WASHER [facility] Comment on above: Other constipation ( Primary Dx) Start: 02-26-2024 End: 02-28-2024 Evaluation and management of inpatient [facility] Start: 01-10-2024 End: 01-12-2024 Evaluation and management of inpatient [facility] Start: 11-04-2023 End: 11-04-2023 ambulatory [facility] Start: 08-26-2023 End: 08-26-2023 ambulatory [facility] Start: 08-05-2023 End: 08-05-2023 Office outpatient visit 15 minutes Marlyn Tomasillo [employer]-MACHINE WASHER Work Phone: [facility] Comment on above: Epistaxis (Primary D x); Sore throat; Acute cough Start: 08-05-2023 End: 08-05-2023 ambulatory [facility] Start: 06-10-2023 Orders Only Marlyn miller [employer]RAFT[employer]-MACHINE WASHER Work Phone: [facility] Comment on above: Type 2 diabetes cory itus with hyperglycemia, without long-term current use of insulin ([facility]) Start: 05-26-2023 End: 05-26-2023 ambulatory MARLYNELIZABET SIMS [facility] Start: 06-11-2020 End: 06-11-2020 Patient encounter procedure MARIA ISABEL ROMAN Facility: Procedures Date Procedure Procedure Detail Performing Clinician Start: 03-07-2024 Gluc bld gluc mntr d ev cleared fda spec home use Pj Shannon MD Work Phone: Start: 02-29-2024 Adult depression scr eening assessment Marlyn Sims [employer]RAFTSMAN-MACHINE WASHER Work Phone: Start: 08-26-2023 Follow-up visit Follow-up MARLYN SIMS Start: 08-05-2023 POCT INFLUENZA A/INF LUENZA B/SARS-COV-2 VERITOR Marlyn Sims [employer] CRAFTSMAN-MACHINE WASHER Work Phone: Start: 08-05-2023 Iaadiadoo streptococ cus group a Marlyn Sims [employer]ARES[employer]UE CRAFTSMAN-MACHINE WASHER Work Phone: Start: 08-05-2023 Adult depression scr eening assessment Marlyn Sims [employer]AR[employer]UE CRAFTSMAN-MACHINE WASHER Work Phone: Start: 05-26-2023 Adult depression scr eening assessment Marlyn Sims [employer]AR[employer]UE CRAFTSMAN-MACHINE WASHER Work Phone: Start: 02-17-2023 Microalbumin [Mass/v olume] in Urine by Test strip Marlyn Tomasillo [employer] CRAFTSM[employer]-MACHINE WASHER Work Phone: Start: 06-11-2020 End: 06-11-2020 Microscopic examination of blood, culture MARIA ISABEL ROMAN Comment on above: Performed By: #### B [id number] #### Laboratory [address] [place] [address] Latisha Avery Plan of Treatment Date Care Activity Detail Author Start: 12-18-2026 DTaP,Tdap and Td Vaccines (7 - Td or Tdap) DTaP,Tdap and Td Vaccines (7 - Td or Tdap) [facility] Start: 02-28-2025 Adult BMI Follow Up Plan Adult BMI Follow Up Plan [facility] Start: 02-28-2025 Adult BMI Screening Adult BMI Screen ing [facility] Start: 02-28-2025 Depression Screening Depression Scre ening [facility] Start: 02-28-2025 Tobacco Screening Tobacco Screening [facility] Start: 08-04-2024 Adult BMI Screening Adult BMI Screen ing [facility] Start: 08-04-2024 Depression Screening Depression Scre ening [facility] Start: 08-04-2024 Tobacco Screening Tobacco Screening [facility] Start: 06-01-2024 Tobacco Screening Tobacco Screening [facility] Start: 05-28-2024 Hemoglobin A1c measurement Diabetes: Hemoglobin A1C [facility] Start: 05-26-2024 Adult BMI Follow Up Plan Adult BMI Follow Up Plan [facility] Start: 05-26-2024 Adult BMI Screening Adult BMI Screen ing [facility] Start: 05-26-2024 Depression Screening Depression Scre ening [facility] Start: 05-04-2024 End: 05-04-2024 Patient encounter procedure 05/04/2024 1:20 PM EST Office Visit [facility] [address] [place] [address] Pj Shannon MD [address] [place] [address] [facility] Start: 03-07-2024 End: 03-07-2025 25-hydroxyvitamin D3 [Mass/volume] in Serum or Plasma Vitamin D 25 hydroxy Total Lab Routine Vitamin D deficiency Expected: 03/07/2024 (Approximate), Expires: 03/07/2025 [facility] Comment on above: Expected: 03/07/2024 (Approximate), Expires: 03/07/2025 Start: 03-07-2024 End: 03-07-2025 C-peptide C-peptide Lab Routine Type 2 diabetes mellitus with hyperglycemia, without long-term current use of insulin ([facility] Expected: 03/07/2024 (Approximate), Expires: 03/07/2025 [facility] Work Phone: Comment on above: Expected: 03/07/2024 (Approximate), Expires: 03/07/2025 Start: 03-07-2024 End: 03-07-2025 Lipid 1996 panel - Serum or Plasma Lipid panel Lab Routine Type 2 diabetes mellitus with hyperglycemia, without long-term current use of insulin ([facility]) Expected: 03/07/2024 (Approximate), Expires: 03/07/2025 [facility] Comment on above: Expected: 03/07/2024 (Approximate), Expires: 03/07/2025 Start: 03-07-2024 End: 03-07-2025 Microalbumin/Creatini ne panel in random Urine Microalbumin / creatinine urine ratio Lab Routine Type 2 diabetes mellitus with hyperglycemia, without long-term current use of insulin ([facility]) Expected: 03/07/2024 (Approximate), Expires: 03/07/2025 [facility] Comment on above: Expected: 03/07/2024 (Approximate), Expires: 03/07/2025 Start: 03-07-2024 End: 03-07-2024 Patient encounter procedure 03/07/2024 2:00 PM EDT Office Visit [facility] [address] [place] [address] Pj Shannon MD [address] [place] [address] Arrived [facility] Comment on above: Arrived Start: 03-07-2024 End: 03-07-2025 Renal function panel Renal function panel Lab Routine Type 2 diabetes mellitus with hyperglycemia, without long-term current use of insulin ([facility]) Expected: 03/07/2024 (Approximate), Expires: 03/07/2025 [facility] Comment on above: Expected: 03/07/2024 (Approximate), Expires: 03/07/2025 Start: 02-18-2024 Urine screening for protein [facility] Start: 01-17-2024 COVID-19 Vaccine ( season) COVID-19 Vaccine ( season) [facility] Start: 01-17-2024 Influenza vaccination P [facility] Start: 08-26-2023 End: 08-26-2023 Patient encounter procedure 08/26/2023 3:15 PM EDT [facility] [address] [place] [address] Marlyn Sims, [employer]SM[employer]ACHINE WASHER [address] [place] [address] [facility] Internal Medicine - Family Medicine Start: 01-16-2023 COVID-19 Vaccine ( season) COVID-19 Vaccine () [facility] Start: 01-16-2023 Influenza vaccination Influenza Vacc ine [facility] Start: 2022 Diabetic foot examination Diabetic Foot Exam [facility] Start: 2014 Glaucoma screening Diabetes: R etinopathy Screening [facility] Start: 2004 Glaucoma screening Diabetic Op hthalmology Exam [facility] Immunizations Immunization Date Immunization Notes Care Provider Fa cility 10-20-2020 SARS-COV-2 (COVID-19 ) Vaccine, Unspecified Marlyn Sims [employer]RA[employer]SM[employer]MACHINE W[employer]ER Work Phone: [facility] 09-29-2020 SARS-COV-2 (COVID-19 ) Vaccine, Unspecified Marlyn Sims [employer]RA[employer]SM[employer]MACHINE W[employer]ER Work Phone: [facility] 12-16-2017 human papilloma viru s vaccine, quadrivalent Marlyn Sims [employer] CRAFTSM[employer]MACHINE W[employer]ER Work Phone: [facility] 12-18-2016 human papilloma viru s vaccine, quadrivalent Marlyn Sims [employer] CRAFTSM[employer]-MACHINE WASHER Work Phone: [facility] 12-18-2016 meningococcal oligosaccharide (groups A, C, Y and W-135) diphtheria toxoid conjugate vaccine (MCV4O) Marlyn Sims [facility] Work Phone: [facility] 12-18-2016 tetanus toxoid, redu juliane diphtheria toxoid, and acellular pertussis vaccine, adsorbed Marlynelizabet Sims [facility] Work Phone: [facility] 03-31-2011 influenza virus vacc ine, unspecified formulation Marlyn Sims [facility] Work Phone: [facility] 05-30-2010 influenza virus vacc ine, unspecified formulation Marlyn Sims [facility] Work Phone: [facility] 04-01-2010 influenza virus vacc ine, unspecified formulation Marlyn Sims [facility] Work Phone: [facility] 02-05-2009 diphtheria, tetanus toxoids and acellular pertussis vaccine Marlyn Sims [facility] Work Phone: [facility] 02-05-2009 measles, mumps and rubella virus vaccine Marlynelizabet Sims [facility] Work Phone: [facility] 02-05-2009 poliovirus vaccine, inactivated Marlynelizabet Sims [facility] Work Phone: [facility] 02-05-2009 varicella virus vaccine Castaner veda Sims [facility] Work Phone: [facility] 02-11-2008 hepatitis A vaccine, adult dosage Marlyn Sims [facility] Work Phone: [facility] 01-27-2007 hepatitis A vaccine, adult dosage Marlyn Sims [facility] Work Phone: [facility] 05-08-2006 diphtheria, tetanus toxoids and acellular pertussis vaccine Marlyn Sims [facility] Work Phone: [facility] 05-08-2006 haemophilus influenz ae type b vaccine, conjugate unspecified formulation Marlyn Sims [employer]-[facility] Work Phone: [facility] 05-08-2006 pneumococcal conjuga te vaccine, 13 valent Marlyn Sims [employer]-[facility] Work Phone: [facility] 01-21-2006 measles, mumps and rubella virus vaccine Marlyn Sims [employer]-[facility] Work Phone: [facility] 01-21-2006 varicella virus vaccine Castanerstevie Sims [facility] Work Phone: [facility] 07-10-2005 diphtheria, tetanus toxoids and acellular pertussis vaccine Marlny Sims [employer]-[facility] Work Phone: [facility] 07-10-2005 haemophilus influenz ae type b vaccine, conjugate unspecified formulation Marlyn Sims [facility] Work Phone: [facility] 07-10-2005 hepatitis B vaccine, adult dosage Marlyn Levi [employer] Work Phone: [facility] 07-10-2005 pneumococcal conjuga te vaccine, 13 valent Marlyn Sims [employer] Work Phone: [facility] 07-10-2005 poliovirus vaccine, inactivated Marlyn Sims [facility] Work Phone: [facility] 05-08-2005 diphtheria, tetanus toxoids and acellular pertussis vaccine Marlyn Sims [employer] Work Phone: [facility] 05-08-2005 haemophilus influenz ae type b vaccine, conjugate unspecified formulation Marlyn Sims [employer] Work Phone: [facility] 05-08-2005 hepatitis B vaccine, adult dosage Marlyn Levi [employer] Work Phone: [facility] 05-08-2005 pneumococcal conjuga te vaccine, 13 valent Marlyn Sims [employer] Work Phone: [facility] 05-08-2005 poliovirus vaccine, inactivated Marlyn Sims [employer] Work Phone: [facility] 02-27-2005 diphtheria, tetanus toxoids and acellular pertussis vaccine Marlyn Sims [employer] Work Phone: [facility] 02-27-2005 haemophilus influenz ae type b vaccine, conjugate unspecified formulation Marlyn Sims [facility] Work Phone: [facility] 02-27-2005 hepatitis B vaccine, adult dosage Marlyn Sims [facility] Work Phone: [facility] 02-27-2005 pneumococcal conjuga te vaccine, 13 valent Marlyn Sims [facility] Work Phone: [facility] 02-27-2005 poliovirus vaccine, inactivated Marlyn Sims [facility] Work Phone: [facility] Payers Date Payer Category Payer Medicaid [facility] MEDICAID HMO [id number] 2022-Present [phone] [place] [address] [id number] 2022 Medicaid [id number] 2018 Private Health Insurance [facility] MEDICAID [id number] 2004 Unknown [id number] 2004 Unknown [id number] 1286 2004 Unknown [id number]. 1286 2004 Unknown [id number]. 1285 2004 Unknown [id number] 1286 2004 Unknown [id number]. 1259 2004 Unknown [id number] 6 2004 Unknown [id number]. 1285 2004 Unknown [id number] [id number]. 1286 2004 Unknown [id number]. 1286 1976 Unknown [id number] 593 1959 Unknown [id number] Social History Date Type Detail Facility Start: 12-25-2022 Tobacco smoking status [facility] Never smoked tobacco [facility] History of tobacco use Passive smoker [facility] Start: 12-25-2022 Tobacco use and exposure Smokeless tobacco non-user [facility] Start: 06-01-2023 End: 02-29-2024 Alcohol intake Current non-drinker of alcohol (finding) [facility] Start: 02-10-2020 End: 02-26-2024 History of Social function [facility] Start: 02-10-2020 End: 02-26-2024 Alcohol Use Disorder Identification Test - Consumption [AUDIT-C] [facility] Frequency of Alcohol Consumption Never [facility] Start: 12-25-2022 Tobacco Comment mother smokes, lives with grandmother who does not smoke [facility] Start: 2004 Sex Assigned At Not on file [facility] Has the electric, [employer], oil, or water company threatened to shut off services in your home in past 12Mo No [facility] Are you now , , , , never or living with a partner? Never [facility] How often to you hav e a drink containing alcohol? Never [facility] Do you feel stress - tense, restless, nervous, or anxious, or unable to sleep at night because your mind is troubled all the time - these days [OSQ] Not at all [facility] Start: 02-26-2024 Sexual orientation Heterosexual (finding) [facility] Tobacco smoking stat [facility] Tobacco smoking consumption unknown [facility] Medical Equipment Procedure Code Equipment Code Equipment Origin al Text Equipment Identifier Dates Scr Bn 115mm 8mm Cnn Lng Bn - [id number] Start: 02-15-2020 use 1 TEST STRIP to TEST BLOOD SUGAR up to five times a day [id number] Start: 07-02-2021 1 Pen Needle by miscellaneous route in the morning. [id number] Start: 02-17-2023 1 Pen Needle by miscellaneous route in the morning. [id number] Start: 11-04-2023 Goals Date Patient Goal Desired [...] Francisco Winters MD on 03/28/2024 7:52 PM [facility] 03-07-2024 History of Present illness Narrative [...] Followup visit 03/25/21 for followup of diabetes. JMAILAH less than 5, insulin antibody less than [...] Arthralgia of pelvic region and thigh Asthma ([facility]) Attention deficit hyperactivity disorder (ADHD), combined type ([facility]) Class 2 severe obesity due to excess calories with serious comorbidity in adult ([facility]) Diabetic ketoacidosis without coma associated with other specified diabetes mellitus ([facility]) Hyperglycemia due to type 1 diabetes mellitus (HCC) ([facility]) Hypokalemia Hyponatremia Murmur Passive suicidal ideations Proteinuria, unspecified 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 documented in this encounter [facility] 02-29-2024 History of Present illness Narrative Images from the original note were not included. [address] [place] [address] SUBJECTIVE: Patient ID: Zay Garcia is a [...] 02/15/2020 Performed by Romero Hollins MD at [facility] Past Medical History: Diagnosis Date ADHD (attention deficit hyperactivity disorder) Asthma last more than 3 years ago Closed fracture of left foot 2016 Diabetes mellitus ([facility]) Type 2 Diabetes mellitus type 2, controlled ([facility]) DKA (diabetic ketoacidoses) 06/11/2020 Heart murmur last [...] Reynolds 02/29/24 1240 documented in this encounter [employer] 08-05-2023 History of Present illness Narrative Images from the original note were not included[place] [address] SUBJECTIVE: Patient ID: Zay Garcia is a [...] 02/15/2020 Performed by Romero Hollins MD at [facility] Past Medical History: Diagnosis Date ADHD (attention deficit hyperactivity disorder) Asthma last more than 3 years ago Closed fracture of left foot 2016 Diabetes mellitus ([facility]) Type 2 DKA (diabetic ketoacidoses) 06/11/2020 Heart [...] PRN as directed only for epistaxis. Cough- [place] as directed PRN cough. Note written no [...] Reynolds 08/05/23 0935 documented in this encounter [facility] Evaluation note Diagnosis Type 2 diabetes mellitus with hyperglycemia, without long-term current use of insulin ([facility]) documented [facility] Diagnosis Epistaxis- Primary Sore throat Acute pharyngitis Acute cough documented [facility] Diagnosis Other constipation- Primary [facility] Diagnosis Type 2 diabetes mellitus with hyperglycemia, without long-term current use of insulin ([facility])- Primary Vitamin D deficiency Encounter for dietary consultation Class 1 obesity due to excess calories without serious comorbidity with body mass index (BMI) of 34.0 to 34.9 in adult documented in this encounter [facility] HealthcareInstructionsNot on filedocumented in this encounterProMedica Memorial HospitalInstructions* Attachments The following attachments cannot be sent through Care Everywhere. * Nosebleeds Discharge Instructions (Prydeinig) * Sore Throat Discharge Instructions, Adult (Prydeinig) documented in this encounterProMedica Memorial HospitalInstructions* Attachments The following attachments cannot be sent through Care Everywhere. * Constipation in adults (Prydeinig) [facility] Summary Purpose Family History No Family [...] DATE CREATED AUTHOR AUTHOR'S ORGANIZ ATION 03/09/2024 [facility] Specialists EPIC DATE CREATED AUTHOR AUTHOR'S ORGANIZ ATION 03/30/2024 [facility] Care Teams (unrecognized sec tion and content) Aviation Electrical Technician Relationship Specialty Start Date End Date Marlyn Sims [facility] [address] [place] [address] PCP - General Family Medicine 02/12/21 Aviation Electrical Technician Relationship Specialty Start Date End Date Marlyn Sims [facility] [address] [place] [address] PCP - General Family Medicine 02/12/21 Aviation Electrical Technician Relationship Specialty Start Date End Date Marlyn Sims [facility] [address] [place] [address] PCP - General Family Medicine 02/12/21 Aviation Electrical Technician Relationship Specialty Start Date End Date Unallocated, Lucrecia Call MD [address] [place] [address] PCP - General Family Medicine 02/09/24 Aviation Electrical Technician Relationship Specialty Start Date End Date Unallocated, Lucrecia Call MD [address] [facility] [address] PCP - General Family Medicine 02/09/24 Reason [...] BE BASED ON THE PRIMARY CLINICAL RECORDS. [facility]. provides no warranty or guarantee of the accuracy or completeness of information in this document.
--- NOTE | 2024-04-11 04:56 | ED.WEAKNESS1 ---
HPI - Weakness General Chief complaint: Weakness Stated complaint: OTHER Time Seen by Provider: 04/11/24 04:47 Source: patient Mode of arrival: ambulance History of Present Illness HPI Narrative: IDDM. Reportedly not able to access his insulin. Got locked out of his home. Reportedly staying with girlfriend because he was feeling funny . BS 400s and brought to ER. Patient admits to vomiting. Related Data Home Medications ?Medication ?Instructions ?Recorded ?Confirmed metformin 500 mg tablet mg 04/11/24 sitagliptin phosphate 100 mg mg 04/11/24 tablet (Januvia) Previous Rx's ?Medication ?Instructions ?Recorded insulin glargine 100 unit/mL (3 75 unit (0.75 mL) subcut .qhs 30 01/10/24 mL) subcutaneous pen (Lantus days #8 pens Solostar U-100 Insulin) Allergies Allergy/AdvReac Type Severity Reaction Status Date / Time No Known Drug Allergies Allergy Verified 04/11/24 04:37 Review of Systems ROS Status of ROS 10 or more systems reviewed and unremarkable except as noted in history and below [facility] Medical History (Updated 04/11/24 @ 05:43 by Liu Carlson MD) Acute hyperglycemia ?R73.9 - Hyperglycemia, unspecified (ICD-10) Abscess of left axilla ?L02.412 - Cutaneous abscess of left axilla (ICD-10) Poorly controlled type 2 diabetes mellitus ?E11.65 - Type 2 diabetes mellitus with hyperglycemia (ICD-10) Diabetes type 2, controlled ?E11.9 - Type 2 diabetes mellitus without complications (ICD-10) Surgical History (Updated 01/08/24 @ 13:17 by Kori Lagunas) History of hip surgery ?Z98.890 - Other specified postprocedural states (ICD-10) Family History (Updated 01/08/24 @ 13:18 by Kori Lagunas) Father Family history of diabetes mellitus Social History Within the past year, how often did you have a drink containing alcohol: never Score interpretation: A score less than 4 is consistent with normal alcohol consumption. Do you use any of these nicotine containing products: vaping products Non-prescribed substance use: denies use Highest level of school completed/degree received: high school graduate Little interest or pleasure in doing things: not at all Feeling down, depressed, or hopeless: not at all Exam Constitutional Vital Signs, click to edit/add: Last Vital Signs Temp 98.2 F 04/11/24 04:32 Pulse 114 H 04/11/24 05:20 Resp 26 H 04/11/24 05:20 BP 151/79 H 04/11/24 05:30 Pulse Ox 97 04/11/24 05:30 O2 Del Method Room Air 04/11/24 04:32 Other: semi lethargic. States he is tired HENMT Common normals: normocephalic and head/scalp atraumatic Eye Common normals: PERRL Other: conjunctiva injected bilat Respiratory Common normals: normal respiratory effort, no retractions, no use of accessory muscles and clear to auscultation bilaterally Cardio Common normals: S1 normal heart sound and S2 normal heart sound Rate: tachycardic GI Common normals: Normal to inspection, nondistended, normoactive bowel sounds present and soft to palpation Extremity Common normals: normal to inspection and full ROM Neuro Common normals: oriented x3, CN's II-XII intact bilaterally, moves all extremities and no focal motor deficits Course Vital Signs Vital signs: Vital Signs Temperature 98.2 F 04/11/24 04:32 Pulse Rate 117 H 04/11/24 04:32 Respiratory Rate 20 04/11/24 04:32 Blood Pressure 149/79 H 04/11/24 04:32 Pulse Oximetry 97 04/11/24 04:32 Oxygen Delivery Method Room Air 04/11/24 04:32 Temperature 98.2 F 04/11/24 04:32 Pulse Rate 114 H 04/11/24 05:20 Respiratory Rate 26 H 04/11/24 05:20 Blood Pressure 151/79 H 04/11/24 05:30 Pulse Oximetry 97 04/11/24 05:30 Oxygen Delivery Method Room Air 04/11/24 04:32 MDM - Weakness MDM Narrative Medical decision making narrative: IDDM arrives via Squad and is semi lethargic. has been vomiting. Found to be in DKA. IV hydration with normal saline. ABGs with Ph 7.1. Patient given immediate dose of reg insluin 10U ivp and then insulin drip ordered. Lab Data Labs: Lab Results 04/11/24 04/11/24 04/11/24 Range/Units 04:44 05:11 05:25 WBC 15.4 H (4.0-11.0) 10^3/uL RBC 5.88 (4.70-6.10) 10^6/uL Hgb 17.3 (14.0-18.0) g/dL Hct 53.1 (42.0-54.0) % MCV 90.3 (80.0-94.0) fL MCH 29.4 (25.9-34.0) pg MCHC 32.6 (29.9-35.2) g/dL RDW 13.2 (11.0-15.0) % Plt Count 412 (150-450) 10^3/uL MPV 11.6 (9.5-13.5) fL Neut % (Auto) 79.0 H (43.0-75.0) % Lymph % (Auto) 12.6 L (20.5-60.0) % [place] % (Auto) 6.5 (1.7-12.0) % Eos % (Auto) 0.1 L (0.9-7.0) % Baso % (Auto) 0.8 (0.2-2.0) % Neut # (Auto) 12.2 H (1.4-6.5) 10^3/uL Lymph # (Auto) 1.9 (1.2-3.8) 10^3/uL [place] # (Auto) 1.0 H (0.3-0.8) 10^3/uL Eos # (Auto) 0.0 (0.0-0.7) 10^3/uL Baso # (Auto) 0.1 (0.0-0.1) 10^3/uL Abs Immat Gran (auto) 0.15 H (0.00-0.03) 10^3/uL Imm/Tot Granulo (auto) 1.0 H (0.0-0.5) % Puncture Site L radial ABG pH 7.102 L* (7.350-7.450) ABG pCO2 24.0 L (35.0-45.0) mmHg ABG pO2 110.0 H (80.0-100.0) mmHg ABG HCO3 7.5 L (22.0-26.0) mmol/L ABG O2 Saturation 98.1 % ABG Base Excess -22.2 L (-2.0-2.0) mmol/L Mainor Test Positive (POSITIVE) Sodium 141 (136-145) mmol/L Potassium 4.4 (3.5-5.1) mmol/L Chloride 99 (98-107) mmol/L Carbon Dioxide 8.0 L (21.0-32.0) mmol/L Anion Gap 38.4 BUN 14.0 (6.4-19.3) mg/dL Creatinine 2.11 H (0.70-1.30) mg/dL Est GFR ( Amer) 49 L (>=60 mL/min/1.73m^2) Est GFR (Non-Af Amer) 41 L (>=60 mL/min/1.73m^2) BUN/Creatinine Ratio 6.6 Glucose 563 H* (74-106) mg/dL Lactate 1.1 (0.4-2.0) mmol/L Calcium 10.3 H (8.5-10.1) mg/dL Urine Opiates Screen Negative (NEGATIVE) Ur Buprenorphine Scrn Negative (NEGATIVE) Ur Oxycodone Screen Negative (NEGATIVE) Urine Methadone Screen Negative (NEGATIVE) Ur Barbiturates Screen Negative (NEGATIVE) U Tricyclic Antidepress Negative (NEGATIVE) Ur Phencyclidine Scrn Negative (NEGATIVE) Ur Amphetamines Screen Negative (NEGATIVE) U Methamphetamines Scrn Negative (NEGATIVE) U Benzodiazepines Scrn Negative (NEGATIVE) Urine Cocaine Screen Negative (NEGATIVE) U Cannabinoids Screen Negative (NEGATIVE) Discharge Plan Discharge Chief Complaint: Weakness Clinical Impression: DKA, type 2 Patient Disposition: Admitted as Observation
[2024-04-11 05:00] LABS: Basophils Absolute Auto 0.1 10^3/uL (0.0-0.1); Basophils Percent Auto 0.8 % (0.2-2.0); Eosinophils Percent Auto 0.1 % (0.9-7.0); Hematocrit 53.1 % (42.0-54.0); Hemoglobin 17.3 g/dL (14.0-18.0); Immature Granulocytes Abs Auto 0.15 10^3/uL (0.00-0.03); Lymphocytes Absolute Auto 1.9 10^3/uL (1.2-3.8); Lymphocytes Percent Auto 12.6 % (20.5-60.0); Mean Corpuscular HGB Conc 32.6 g/dL (29.9-35.2); Mean Corpuscular Hemoglobin 29.4 pg (25.9-34.0); Mean Corpuscular Volume 90.3 fL (80.0-94.0); Mean Platelet Volume 11.6 fL (9.5-13.5); Monocytes Percent Auto 6.5 % (1.7-12.0); Neutrophils Absolute Auto 12.2 10^3/uL (1.4-6.5); Platelet Count 412 10^3/uL (150-450); Red Blood Count 5.88 10^6/uL (4.70-6.10); Red Cell Distribution Width 13.2 % (11.0-15.0); White Blood Count 15.4 10^3/uL (4.0-11.0)
[2024-04-11] MEDS: INSULIN REGULAR, HUMAN (100 UNIT/ML) 10 ML MDV 10 UNIT IV (05:09)
[2024-04-11] MEDS: ONDANSETRON PF 4 MG/2 ML VIAL IV (05:09)
[2024-04-11] MEDS: 0.9 % SODIUM CHLORIDE 1,000 ML 999 ML IV (05:09)
[2024-04-11 05:14] LABS: Lactate/Lactic Acid 1.1 mmol/L (0.4-2.0)
[2024-04-11 05:16] LABS: Allen Test POSITIVE (POSITIVE); Base Excess ABG -22.2 mmol/L (-2.0-2.0); HCO3 ABG 7.5 mmol/L (22.0-26.0); O2 Mode ROOM AIR; Oxygen Saturation ABG 98.1 %
[2024-04-11 05:17] LABS: Puncture Site L RADIAL
[2024-04-11 05:19] LABS: pH ABG 7.102 (7.350-7.450)
[2024-04-11 05:20] LABS: Anion Gap 38.4; BUN Creatinine Ratio 6.6; Calcium 10.3 mg/dL (8.5-10.1); Chloride 99 mmol/L (98-107); Estimated GFR (African America 49 (>=60 mL/min/1.73m^2); Estimated GFR (Non-African Ame 41 (>=60 mL/min/1.73m^2); Potassium 4.4 mmol/L (3.5-5.1); Sodium 141 mmol/L (136-145)
[2024-04-11 05:28] LABS: Glucose 563 mg/dL (74-106)
--- NOTE | 2024-04-11 05:31 | PC.NURSE ---
this patient provided 1000 ml of clear yellow urine and a sample of this urine taken down to lab dept
--- NOTE | 2024-04-11 05:36 | PC.NURSE ---
Dr Carlson informed of this critical ABG: PH= 7.102
--- NOTE | 2024-04-11 05:44 | ECG_ITS ---
[facility] Test Date: 2024-04-11 Pat Name: ZAY MCFARLAND Department: Room: - Gender: Male [employer]: : 2005 Requested By: [id number] Order Number: [id number] Reading MD: CECY ROBLEDO Measurements Intervals [place] Rate: 121 P: 73 MN: 142 QRS: 67 QRSD: 90 T: 103 QT: 324 QTc: 396 Interpretive Statements 1120 Sinus tachycardia 4068 Nonspecific Twave abnormality 9140 abnormal rhythm ECG Compared to ECG 01/08/2024 09:59:46 Sinus rhythm no longer present Electronically Signed On 04-11-2024 6:56:17 EST by CECY ROBLEDO
[2024-04-11 05:45] LABS: Amphetamine Screen Urine NEGATIVE (NEGATIVE); Barbiturates Screen Urine NEGATIVE (NEGATIVE); Benzodiazepines Screen Urine NEGATIVE (NEGATIVE); Buprenorphine Screen Urine NEGATIVE (NEGATIVE); Cannabinoid Screen Urine NEGATIVE (NEGATIVE); Cocaine Screen Urine NEGATIVE (NEGATIVE); Methadone Screen Urine NEGATIVE (NEGATIVE); Methamphetamines Screen Urine NEGATIVE (NEGATIVE); Opiate Screen Urine NEGATIVE (NEGATIVE); Oxycodone Screen Urine NEGATIVE (NEGATIVE); Phencyclidine Screen Urine NEGATIVE (NEGATIVE); Tricyclic Antidepressant Urine NEGATIVE (NEGATIVE)
[2024-04-11] MEDS: INSULIN REGULAR IN 0.9 % NACL 100 UNIT/100 ML PLAST..BAG IV ×2 (05:59→10:02)
[2024-04-11 06:28] LABS: Glucometer 389 mg/dL (74-106)
[2024-04-11] MEDS: 0.9 % SODIUM CHLORIDE 1,000 ML 1000 ML IV ×2 (06:44→08:45)
--- NOTE | 2024-04-11 06:46 | PC.NURSE ---
this patient is awake and alert sitting upright on the bed watching tv, this patient is aware that he will be admitted to this hospital
[2024-04-11] MEDS: 0.9 % SODIUM CHLORIDE 500 ML IV (07:30)
[2024-04-11 07:34] LABS: Glucometer 328 mg/dL (74-106)
[2024-04-11 08:08] LABS: Glucometer 326 mg/dL (74-106)
--- OUTSIDE RECORDS SUMMARY | 2024-04-11 08:24 | XMS_ITS | CCD ---
Author Organization [facility] Care Team Providers Care Line Maintenance Name Role Phone MARIA ISABEL ROAMN Consulting Unavailable MARIA ISABEL ROMAN Attending Unavailable [facility] Primary Care Unavailable MARIA ISABEL ROMAN Admitting Unavailable Hood Palma Consulting Unavailable Levi [employer]LECTRON [employer] WELDER-[facility]arlyn [facility] Primary Care Provid er MARLYN SIMS [...] VENTURA Admitting Unavailable XU PABON Consulting Unavailable MALRYN SIMS Primary Care Unavailable NANCI NARANJO Attending [...] hyperglycemia, without long-term current use of insulin ([facility]) Take 1 tablet (10 mg total) by mouth in the morning. 30 tablet 4 05/26/2023 Active dextromethorphan hydrobromide 1.5 mg/ml / pyrilamine maleate 1.5 mg/ml oral solution (1 source) Uncompetitive V-dxydki-J-asparta te Receptor Antagonist, Sigma-1 Agonist Start: 08-05-2023 [...] hyperglycemia, without long-term current use of insulin ([facility]) Inject 1.5 mg under the skin every [...] of major depressive disorder without prior episode ([facility]) Take 1 capsule (20 mg total) by [...] hyperglycemia, without long-term current use of insulin ([facility]) Inject 35 Units under the skin nightly. 15 mL 2 05/26/2023 Active Start: 05-26-2023 insulin glargi ne (LANTUS SOLOSTAR U-100 INSULIN) 100 unit/mL (3 mL) insulin pen Indications: Type 2 diabetes mellitus with hyperglycemia, without long-term current use of insulin ([facility]) Inject 35 Units under the skin nightly. [...] hyperglycemia, without long-term current use of insulin ([facility]) Take 2 tablets (1,000 mg) by mouth [...] hyperglycemia, without long-term current use of insulin ([facility]) Take 2 tablets (1,000 mg total) by [...] hyperglycemia, without long-term current use of insulin ([facility]) Take 1 tablet (100 mg) by mouth in the morning. 30 tablet 1 03/07/2024 06/05/2024 Active Start: 05-26-2023 take 1 tablet by rodri th once daily in the morning SITagliptin phosphate (JANUVIA) 100 mg tablet Indications: Type 2 diabetes mellitus with hyperglycemia, without long-term current use of insulin ([facility]) Take 1 tablet (100 mg total) by [...] 02-29-2024 blood-glucose meter,continuous (FREESTYLE NISHA 3 READER) [facility] Indications: Type 2 diabetes mellitus with microalbuminuria, without long-term current use of insulin ([facility]) 1 Device by miscellaneous route in the morning. 1 each 11/04/2023 02/29/2024 Discontinued (Therapy completed) blood-glucose sensor (FREESTYLE NISHA 3 SENSOR) device (1 source) Start: 11-04-2023 End: 02-29-2024 blood-glucose sensor (FREESTYLE NISHA 3 SENSOR) device Indications: Type 2 diabetes mellitus with microalbuminuria, without long-term current use of insulin ([facility]) 1 application. 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 insulin; Translations: [curriculum designer (current) use of insulin] Onset: 05-26-2023 Episodic [...] on 03-07-2024 Glucose Blood, POC 264 mg/dL [facility] CBC AND AUTO DIFFon 02-28-20 ABSOLUTE BASOPHIL 0.1 X10E9/L Normal 0.0-0.2 [facility] Comment on above: Performed By: #### D SALAS #### [facility] ([id number]) [address] [place] [address] 71344 ABSOLUTE NEUTROPHIL 4.2 X10E9/L Normal 1.5-6.6 [facility] Comment on above: Performed By: #### D SALAS #### [facility] ([id number]) [address] [place] [address] 35325 Basophils/100 WBC (Bld) 0.9 % Normal [facility] Comment on above: Performed By: #### D SALAS #### [facility] ([id number]) [address] [place] [address] 81003 Eosinophils (Bld) [#/Vol] 0.2 10*3/uL Normal 0.0-0.4 [facility] Comment on above: Performed By: #### D SALAS #### [facility] ([id number]) [address] [place] [address] 40096 Eosinophils/100 WBC (Bld) 2.3 % Normal [facility] Comment on above: Performed By: #### D SALAS #### [facility] ([id number]) [address] [place] [address] 04527 Erythrocyte distribution width (RBC) [Ratio] 15.0 % Normal 11.5-15.0 [facility] Comment on above: Performed By: #### D SALAS #### [facility] ([id number]) [address] [place] [address] 52076 Hematocrit (Bld) [Volume fraction] 43.5 % Normal 39-49 [facility] Comment on above: Performed By: #### D SALAS #### [facility] ([id number]) [address] [place] [address] 24753 Hemoglobin (Bld) [Mass/Vol] 14.4 g/dL Normal 13.0-17.0 [facility] Comment on above: Performed By: #### D SALAS #### [facility] ([id number]) [address] [place] [address] 15180 Lymphocytes (Bld) [#/Vol] 1.9 10*3/uL Normal 1.0-3.5 [facility] Comment on above: Performed By: #### D SALAS #### [facility] ([id number]) [address] [place] [address] 36485 Lymphocytes/100 WBC (Bld) 27.5 % Normal [facility] Comment on above: Performed By: #### D SALAS #### [facility] ([id number]) [address] [place] [address] 07734 MCH (RBC) [Entitic mass] 29.5 pg Normal 27-34 [facility] Comment on above: Performed By: #### D SALAS #### [facility] ([id number]) [address] [place] [address] [place] [address] MCHC (RBC) [Mass/Vol] 33.2 g/dL Normal 32-36 [facility] Comment on above: Performed By: #### D SALAS #### [facility] ([id number]) [address] [place] [address] 32114 MCV (RBC) [Entitic vol] 89 fL Normal 80-[address] [facility] Comment on above: Performed By: #### D SALAS #### [facility] ([id number]) [address] [place] [address] 52519 Monocytes (Bld) [#/Vol] 0.5 10*3/uL Normal 0-0.9 [facility] Comment on above: Performed By: #### D SALAS #### [facility] ([id number]) [address] [place] [address] 79165 Monocytes/100 WBC (Bld) 7.5 % Normal [facility] Comment on above: Performed By: #### D SALAS #### [facility] ([id number]) [address] [place] [address] 89734 Neutrophils/100 WBC (Bld) 61.8 % Normal [facility] Comment on above: Performed By: #### D SALAS #### [facility] ([id number]) [address] [place] [address] 30688 Platelet mean volume (Bld) [Entitic vol] 10.3 fL Normal 7-12 [facility] Comment on above: Performed By: #### D SALAS #### [facility] ([id number]) [address] [place] [address] 66804 Platelets (Bld) [#/Vol] 169 10*3/uL Normal 150-450 [facility] Comment on above: Performed By: #### D SALAS #### [facility] ([id number]) [address] [place] [address] 46004 RBC COUNT 4.89 X10E12/L Normal 4.10-5.70 [facility] Comment on above: Performed By: #### D SALAS #### [facility] ([id number]) [address] [place] [address] 22428 WBC (Bld) [#/Vol] 6.7 10*3/uL Normal 4.0-11.0 [facility] Comment on above: Performed By: #### D SALAS #### [facility] ([id number]) [address] [place] [address] 91109 COMPREHENSIVE METABOLIC PANE Al 02-28-2024 Albumin [Mass/Vol] 3.3 g/dL Normal 3.2-5.3 [facility] Comment on above: Performed By: #### C ANA CABALLERO, 14716-9 ####[facility] ([id number])[address] [place] [address] 01686 ALP [Catalytic activity/Vol] 90 U/L Normal 39-130 [facility] Comment on above: Performed By: #### C ANA CABALLERO, 92223-7 ####[facility] ([id number])[address] [place] [address] 26761 ALT [Catalytic activity/Vol] 13 U/L Normal 0-40 [facility] Comment on above: Performed By: #### C ANA CABALLERO, 27237-2 ####[facility] ([id number])[address] [place] [address] 29056 Anion gap [Moles/Vol] 12 mmol/L Normal 5-15 [facility] Comment on above: Performed By: #### C ANA CABALLERO, 50098-4 ####[facility] ([id number])[address] [place] [address] 84960 AST [Catalytic activity/Vol] 10 U/L Normal 0-41 [facility] Comment on above: Performed By: #### C ANA CABALLERO, ####[facility] ([id number])[address] [place] [address] 41804 Bilirubin [Mass/Vol] 1.2 mg/dL Normal 0.3-1.2 [facility] Comment on above: Performed By: #### C ANA CABALLERO, ####[facility] ([id number])[address] [place] [address] 28558 Calcium [Mass/Vol] 9.6 mg/dL Normal 8.5-10.5 [facility] Comment on above: Performed By: #### C ANA CABALLERO, ####[facility] ([id number])[address] [place] [address] 06341 Chloride [Moles/Vol] 105 mmol/L Normal 98-109 [facility] Comment on above: Performed By: #### C ANA CABALLERO, ####[facility] ([id number])[address] [place] [address] 85858 CO2 [Moles/Vol] 19 mmol/L Low 22-32 [facility] Comment on above: Performed By: #### C ANA CABALLERO, ####[facility] ([id number])[address] [place] [address] 49917 Creatinine [Mass/Vol] 1.02 mg/dL Normal 0.70-1.20 [facility] Comment on above: Result Comment: METH OD TRACEABLE TO IDMS STANDARD Performed By: #### C ANA CABALLERO, ####[facility] ([id number])[address] [place] [address] 41295 eGFR (CKD-EPI) NON-RACE DEPENDENT >90 Normal >59 [facility] Comment on above: Result Comment: Reported eGFR is based on the CKD-EPI 2020 equation that does not use a race coefficient. Performed By: #### C ANA CABALLERO, ####[facility] ([id number])[address] [place] [address] 55983 Glucose [Mass/Vol] 215 mg/dL High 65-99 [facility] Comment on above: Performed By: #### C ANA CABALLERO, ####[facility] ([id number])[address] [place] [address] 35344 Potassium [Moles/Vol] 2.8 mmol/L Low 3.5-5.0 [facility] Comment on above: Performed By: #### C ANA CABALLERO, ####[facility] ([id number])[address] [place] [address] 80094 Protein [Mass/Vol] 6.5 g/dL Normal 6.0-8.0 [facility] Comment on above: Performed By: #### C ANA CABALLERO, ####[facility] ([id number])[address] [place] [address] 37404 Sodium [Moles/Vol] 136 mmol/L Normal 134-146 [facility] Comment on above: Performed By: #### C ANA CABALLERO, ####[facility] ([id number])[address] [place] [address] [place] [address] Urea nitrogen [Mass/Vol] mg/dL Low 5-23 [facility] Comment on above: Performed By: #### C ANA CABALLERO, ####[facility] ([id number])[address] [place] [address] 00068 MAGNESIUMon 02-28-2024 Magnesium [Mass/Vol] 1.7 mg/dL Low 1.8-2.6 [facility] Comment on above: Performed By: #### C MP, CBCA, ####[facility] ([id number])[address] [place] [address] 09270 POTASSIUMon 02-28-2024 Potassium [Moles/Vol] 3.5 mmol/L Normal 3.5-5.0 [facility] Comment on above: Performed By: #### 2 823-3 ####[facility] ([id number])[address] [place] [address] 28965 Beta hydroxybutyrate [Moles/ Vol]on 02-27-2024 BetaHydroxybutyrate 3.23 mmol/L High 0.02-0.27 [facility] Comment on above: Performed By: #### D SALAS #### [facility] ([id number]) [address] [place] [address] 32426 BetaHydroxybutyrate 2.63 mmol/L High 0.02-0.27 [facility] Comment on above: Performed By: #### V BG #### [facility] ([id number]) [address] [place] [address] 66502 CBC AND AUTO DIFFon 02-27-20 24 ABSOLUTE BASOPHIL 0.0 X10E9/L Normal 0.0-0.2 [facility] Comment on above: Performed By: #### V BG #### [facility] ([id number]) [address] [place] [address] 49532 ABSOLUTE NEUTROPHIL 3.2 X10E9/L Normal 1.5-6.6 [facility] Comment on above: Performed By: #### V BG #### [facility] ([id number]) [address] [place] [address] 20798 Basophils/100 WBC (Bld) 0.9 % Normal [facility] Comment on above: Performed By: #### V BG #### [facility] ([id number]) [address] [place] [address] 62358 Eosinophils (Bld) [#/Vol] 0.1 10*3/uL Normal 0.0-0.4 [facility] Comment on above: Performed By: #### V BG #### [facility] ([id number]) [address] [place] [address] 55418 Eosinophils/100 WBC (Bld) 2.2 % Normal [facility] Comment on above: Performed By: #### V BG #### [facility] ([id number]) [address] [place] [address] 59255 Erythrocyte distribution width (RBC) [Ratio] 14.8 % Normal 11.5-15.0 [facility] Comment on above: Performed By: #### V BG #### [facility] ([id number]) [address] [place] [address] 90439 Hematocrit (Bld) [Volume fraction] 44.8 % Normal 39-49 [facility] Comment on above: Performed By: #### V BG #### [facility] ([id number]) [address] [place] [address] 50511 Hemoglobin (Bld) [Mass/Vol] 15.2 g/dL Normal 13.0-17.0 [facility] Comment on above: Performed By: #### V BG #### [facility] ([id number]) [address] [place] [address] 46977 Lymphocytes (Bld) [#/Vol] 1.4 10*3/uL Normal 1.0-3.5 [facility] Comment on above: Performed By: #### V BG #### [facility] ([id number]) [address] [place] [address] 62739 Lymphocytes/100 WBC (Bld) 26.5 % Normal [facility] Comment on above: Performed By: #### V BG #### [facility] ([id number]) [address] [place] [address] 65730 MCH (RBC) [Entitic mass] 29.9 pg Normal 27-34 [facility] Comment on above: Performed By: #### V BG #### [facility] ([id number]) [address] [place] [address] 85192 MCHC (RBC) [Mass/Vol] 34.0 g/dL Normal 32-36 [facility] Comment on above: Performed By: #### V BG #### [facility] ([id number]) [address] [place] [address] 02864 MCV (RBC) [Entitic vol] 88 fL Normal 80-[address] [facility] Comment on above: Performed By: #### V BG #### [facility] ([id number]) [address] [place] [address] 72653 Monocytes (Bld) [#/Vol] 0.5 10*3/uL Normal 0-0.9 [facility] Comment on above: Performed By: #### V BG #### [facility] ([id number]) [address] [place] [address] 46388 Monocytes/100 WBC (Bld) 9.4 % Normal [facility] Comment on above: Performed By: #### V BG #### [facility] ([id number]) [address] [place] [address] 07996 Neutrophils/100 WBC (Bld) 61.0 % Normal [facility] Comment on above: Performed By: #### V BG #### [facility] ([id number]) [address] [place] [address] 56884 Platelet mean volume (Bld) [Entitic vol] 10.1 fL Normal 7-12 [facility] Comment on above: Performed By: #### V BG #### [facility] ([id number]) [address] [place] [address] 73541 Platelets (Bld) [#/Vol] 187 10*3/uL Normal 150-450 [facility] Comment on above: Performed By: #### V BG #### [facility] ([id number]) [address] [place] [address] 86461 RBC COUNT 5.08 X10E12/L Normal 4.10-5.70 [facility] Comment on above: Performed By: #### V BG #### [facility] ([id number]) [address] [place] [address] 94436 WBC (Bld) [#/Vol] 5.3 10*3/uL Normal 4.0-11.0 [facility] Comment on above: Performed By: #### V BG #### [facility] ([id number]) [address] [place] [address] 76299 COMPREHENSIVE METABOLIC PANE Al 02-27-2024 Albumin [Mass/Vol] 3.3 g/dL Normal 3.2-5.3 [facility] Comment on above: Performed By: #### V BG #### [facility] ([id number]) [address] [place] [address] 85894 ALP [Catalytic activity/Vol] 92 U/L Normal 39-130 [facility] Comment on above: Performed By: #### V BG #### [facility] ([id number]) [address] [place] [address] 06117 ALT [Catalytic activity/Vol] 13 U/L Normal 0-40 [facility] Comment on above: Performed By: #### V BG #### [facility] ([id number]) [address] [place] [address] 39921 Anion gap [Moles/Vol] 7 mmol/L Normal 5-15 [facility] Comment on above: Performed By: #### V BG #### [facility] ([id number]) [address] [place] [address] 74435 AST [Catalytic activity/Vol] 12 U/L Normal 0-41 [facility] Comment on above: Performed By: #### V BG #### [facility] ([id number]) [address] [place] [address] 85861 Bilirubin [Mass/Vol] 1.1 mg/dL Normal 0.3-1.2 [facility] Comment on above: Performed By: #### V BG #### [facility] ([id number]) [address] [place] [address] 12136 Calcium [Mass/Vol] 9.3 mg/dL Normal 8.5-10.5 [facility] Comment on above: Performed By: #### V BG #### [facility] ([id number]) [address] [place] [address] 32803 Chloride [Moles/Vol] 114 mmol/L High 98-109 [facility] Comment on above: Performed By: #### V BG #### [facility] ([id number]) [address] [place] [address] 05714 CO2 [Moles/Vol] 17 mmol/L Low 22-32 [facility] Comment on above: Performed By: #### V BG #### [facility] ([id number]) [address] [place] [address] 82461 Creatinine [Mass/Vol] 1.03 mg/dL Normal 0.70-1.20 [facility] Comment on above: Result Comment: METH OD TRACEABLE TO IDMS STANDARD Performed By: #### V BG #### [facility] ([id number]) [address] [place] [address] 08983 eGFR (CKD-EPI) NON-RACE DEPENDENT >90 Normal >59 [facility] Comment on above: Result Comment: Reported eGFR is based on the CKD-EPI 2020 equation that does not use a race coefficient. Performed By: #### V BG #### [facility] ([id number]) [address] [place] [address] 06194 Glucose [Mass/Vol] 121 mg/dL High 65-99 [facility] Comment on above: Performed By: #### V BG #### [facility] ([id number]) [address] [place] [address] 72251 Potassium [Moles/Vol] 3.4 mmol/L Low 3.5-5.0 [facility] Comment on above: Performed By: #### V BG #### [facility] ([id number]) [address] [place] [address] 06153 Protein [Mass/Vol] 6.9 g/dL Normal 6.0-8.0 [facility] Comment on above: Performed By: #### V BG #### [facility] ([id number]) [address] [place] [address] 68340 Sodium [Moles/Vol] 138 mmol/L Normal 134-146 [facility] Comment on above: Performed By: #### V BG #### [facility] ([id number]) [address] [place] [address] 83849 Urea nitrogen [Mass/Vol] 6 mg/dL Normal 5-23 [facility] Comment on above: Performed By: #### V BG #### [facility] ([id number]) [address] [place] [address] 12526 ELECTROLYTESon 02-27-2024 Anion gap [Moles/Vol] 12 mmol/L Normal 5-15 [facility] Comment on above: Performed By: #### D SALAS #### [facility] ([id number]) [address] [place] [address] 71390 Chloride [Moles/Vol] 105 mmol/L Normal 98-109 [facility] Comment on above: Performed By: #### D SALAS #### [facility] ([id number]) [address] [place] [address], [place] [address] CO2 [Moles/Vol] 18 mmol/L Low 22-32 [facility] Comment on above: Performed By: #### D SALAS #### [facility] ([id number]) [address] [place] [address], [place] [address] Potassium [Moles/Vol] 3.5 mmol/L Normal 3.5-5.0 [facility] Comment on above: Performed By: #### D SALAS #### [facility] ([id number]) [address] [place] [address], [place] [address] Sodium [Moles/Vol] 135 mmol/L Normal 134-146 [facility] Comment on above: Performed By: #### D SALAS #### [facility] ([id number]) [address] [place] [address], [place] [address] Anion gap [Moles/Vol] 6 mmol/L Normal 5-15 [facility] Comment on above: Performed By: #### D SALAS #### [facility] ([id number]) [address] [place] [address], [place] [address] Chloride [Moles/Vol] 114 mmol/L High 98-109 [facility] Comment on above: Performed By: #### D SALAS #### [facility] ([id number]) [address] [place] [address], [place] [address] CO2 [Moles/Vol] 20 mmol/L Low 22-32 [facility] Comment on above: Performed By: #### D SALAS #### [facility] ([id number]) [address] [place] [address], [place] [address] Potassium [Moles/Vol] 3.7 mmol/L Normal 3.5-5.0 [facility] [facility] Comment on above: Performed By: #### D SALAS #### [facility] ([id number]) [address] [place] [address] 61491 Sodium [Moles/Vol] 140 mmol/L Normal 134-146 [facility] Comment on above: Performed By: #### D SALAS #### [facility] ([id number]) [address] [place] [address] 14525 Anion gap [Moles/Vol] 8 mmol/L Normal 5-15 [facility] Comment on above: Performed By: #### V BG #### [facility] ([id number]) [address] [place] [address] 82195 Chloride [Moles/Vol] 115 mmol/L High 98-109 [facility] Comment on above: Performed By: #### V BG #### [facility] ([id number]) [address] [place] [address] [place] [address] CO2 [Moles/Vol] 16 mmol/L Low 22-32 [facility] Comment on above: Performed By: #### V BG #### [facility] ([id number]) [address] [place] [address] [place] [address] Potassium [Moles/Vol] 3.8 mmol/L Normal 3.5-5.0 [facility] Comment on above: Performed By: #### V BG #### [facility] ([id number]) [address] [place] [address] [place] [address] Sodium [Moles/Vol] 139 mmol/L Normal 134-146 [facility] Comment on above: Performed By: #### V BG #### [facility] ([id number]) [address] [place] [address] 21575 Anion gap [Moles/Vol] 9 mmol/L Normal 5-15 [facility] Comment on above: Performed By: #### N UM #### [facility] ([id number]) [address] [place] [address] 35615 Chloride [Moles/Vol] 114 mmol/L High 98-109 [facility] Comment on above: Performed By: #### N UM #### [facility] ([id number]) [address] [place] [address] 07579 CO2 [Moles/Vol] 16 mmol/L Low 22-32 [facility] Comment on above: Performed By: #### N UM #### [facility] ([id number]) [address] [place] [address] 35482 Potassium [Moles/Vol] 3.8 mmol/L Normal 3.5-5.0 [facility] Comment on above: Performed By: #### N UM #### [facility] ([id number]) [address] [place] [address] 87270 Performed By: #### B MP, CBCA, 6873-4, 5643-2, 96200-4 #### [facility] ([id number]) [address] [place] [address] 00279 Sodium [Moles/Vol] 139 mmol/L Normal 134-146 [facility] Comment on above: Performed By: #### N UM #### [facility] ([id number]) [address] [place] [address] 28098 Glucose Glucometer (dC) [M ass/Vol]on 02-27-2024 Glucose [Mass/Vol] 219 mg/dL High 65-99 [facility] Glucose [Mass/Vol] 223 mg/dL High 65-99 [facility] Glucose [Mass/Vol] 163 mg/dL High 65-99 [facility] Glucose [Mass/Vol] 145 mg/dL High 65-99 [facility] Glucose [Mass/Vol] 155 mg/dL High 65-99 [facility] Glucose [Mass/Vol] 147 mg/dL High 65-99 [facility] Glucose [Mass/Vol] 164 mg/dL High 65-99 [facility] Glucose [Mass/Vol] 141 mg/dL High 65-99 [facility] Glucose [Mass/Vol] 107 mg/dL High 65-99 [facility] Glucose [Mass/Vol] 106 mg/dL High 65-99 [facility] Glucose [Mass/Vol] 151 mg/dL High 65-99 [facility] Glucose [Mass/Vol] 167 mg/dL High 65-99 [facility] Glucose [Mass/Vol] 163 mg/dL High 65-99 [facility] Glucose [Mass/Vol] 150 mg/dL High 65-99 [facility] MAGNESIUMon 02-27-2024 Magnesium [Mass/Vol] 2.3 mg/dL Normal 1.8-2.6 [facility] Comment on above: Performed By: #### D SALAS #### [facility] ([id number]) [address] [place] [address] 84938 Magnesium [Mass/Vol] 1.6 mg/dL Low 1.8-2.6 [facility] Comment on above: Performed By: #### V BG #### [facility] ([id number]) [address] [place] [address] 24711 Beta hydroxybutyrate [Moles/ Vol]on 02-26-2024 BetaHydroxybutyrate 4.16 mmol/L High 0.02-0.27 [facility] Comment on above: Performed By: #### N UM #### [facility] ([id number]) [address] [place] [address] 50456 BetaHydroxybutyrate 10.51 mmol/L High 0.02-0.27 [facility] Comment on above: Performed By: #### B MP, CBCA, 6873-4, 5643-2, 69588-4 #### [facility] ([id number]) [address] [place] [address] 82148 C REACTIVE PROTEINon 024 CRP [Mass/Vol] mg/L Normal 0.000-0.744 [facility] Comment on above: Performed By: #### B MP, CBCA, 6873-4, 5643-2, 75446-0 #### [facility] ([id number]) [address] [place] [address] 63841 CBC AND AUTO DIFFon 02-26-20 24 ABSOLUTE BASOPHIL 0.0 X10E9/L Normal 0.0-0.2 [facility] Comment on above: Performed By: #### B MP, CBCA, 6873-4, 5643-2, #### [facility] ([id number]) [address] [place] [address] 82358 ABSOLUTE NEUTROPHIL 5.7 X10E9/L Normal 1.5-6.6 [facility] Comment on above: Performed By: #### B MP, CBCA, 6873-4, 5643-2, #### [facility] ([id number]) [address] [place] [address] 35771 Basophils/100 WBC (Bld) 0.5 % Normal [facility] Comment on above: Performed By: #### B MP, CBCA, 6873-4, 5643-2, #### [facility] ([id number]) [address] [place] [address] 80074 Eosinophils (Bld) [#/Vol] 0.1 10*3/uL Normal 0.0-0.4 [facility] Comment on above: Performed By: #### B MP, CBCA, 6873-4, 5643-2, 52764-1 #### [facility] ([id number]) [address] [place] [address] 79220 Eosinophils/100 WBC (Bld) 0.8 % Normal [facility] Comment on above: Performed By: #### B MP, CBCA, 6873-4, 5643-2, 67303-3 #### [facility] ([id number]) [address] [place] [address] 32338 Erythrocyte distribution width (RBC) [Ratio] 15.1 % High 11.5-15.0 [facility] Comment on above: Performed By: #### B MP, CBCA, 6873-4, 5643-2, #### [facility] ([id number]) [address] [place] [address] 92555 Hematocrit (Bld) [Volume fraction] 51.9 % High 39-49 [facility] Comment on above: Performed By: #### B MP, CBCA, 6873-4, 5643-2, #### [facility] ([id number]) [address] [place] [address] 73676 Hemoglobin (Bld) [Mass/Vol] 17.5 g/dL High 13.0-17.0 [facility] Comment on above: Performed By: #### B ADA, CBCA, 6873-4, 5643-, 82811-1 #### [facility] ([id number]) [address] [place] [address] 22348 Lymphocytes (Bld) [#/Vol] 1.2 10*3/uL Normal 1.0-3.5 [facility] Comment on above: Performed By: #### B MP, CBCA, 6873-4, 5643-2, 78018-0 #### [facility] ([id number]) [address] [place] [address] 47390 Lymphocytes/100 WBC (Bld) 16.1 % Normal [facility] Comment on above: Performed By: #### B MP, CBCA, 6873-4, 5643-2, 43324-4 #### [facility] ([id number]) [address] [place] [address] 30261 MCH (RBC) [Entitic mass] 30.5 pg Normal 27-34 [facility] Comment on above: Performed By: #### B ADA, CBCA, 73-4, 43-2, #### [facility] ([id number]) [address] [place] [address] 16017 MCHC (RBC) [Mass/Vol] 33.8 g/dL Normal 32-36 [facility] Comment on above: Performed By: #### B ADA, CBCA, 73-4, 43-2, #### [facility] ([id number]) [address] [place] [address] 43268 MCV (RBC) [Entitic vol] 90 fL Normal 80-[address] [facility] Comment on above: Performed By: #### B ADA, CBCA, 6872-, 5642-, #### [facility] ([id number]) [address] [place] [address] 59869 Monocytes (Bld) [#/Vol] 0.6 10*3/uL Normal 0-0.9 [facility] Comment on above: Performed By: #### B ADA, CBCA, 73-, 5642-, #### [facility] ([id number]) [address] [place] [address] 38896 Monocytes/100 WBC (Bld) 8.2 % Normal [facility] Comment on above: Performed By: #### B ADA, CBCA, 73-4, 5642-, 91938-1 #### [facility] ([id number]) [address] [place] [address] 58544 Neutrophils/100 WBC (Bld) 74.4 % Normal [facility] Comment on above: Performed By: #### B ADA, CBCA, 6873-4, 5643-2, 75868-3 #### [facility] ([id number]) [address] [place] [address] 19763 Platelet mean volume (Bld) [Entitic vol] 9.3 fL Normal 7-12 [facility] Comment on above: Performed By: #### B MP, CBCA, 6873-4, 5643-2, 17477-8 #### [facility] ([id number]) [address] [place] [address] 85403 Platelets (Bld) [#/Vol] 219 10*3/uL Normal 150-450 [facility] Comment on above: Performed By: #### B MP, CBCA, 6873-4, 5643-2, #### [facility] ([id number]) [address] [place] [address] 67846 RBC COUNT 5.76 X10E12/L High 4.10-5.70 [facility] Comment on above: Performed By: #### B MP, CBCA, 6873-4, 5643-2, 59738-2 #### [facility] ([id number]) [address] [place] [address] 24077 WBC (Bld) [#/Vol] 7.7 10*3/uL Normal 4.0-11.0 [facility] Comment on above: Performed By: #### B MP, CBCA, 6873-4, 5643-2, 05179-5 #### [facility] ([id number]) [address] [place] [address] 45592 COMPREHENSIVE METABOLIC PANE Al 02-26-2024 Albumin [Mass/Vol] 4.3 g/dL Normal 3.2-5.3 [facility] Comment on above: Performed By: #### B MP, CBCA, 6873-4, 5643-2, 33556-9 #### [facility] ([id number]) [address] [place] [address] 18952 ALP [Catalytic activity/Vol] 126 U/L Normal 39-130 [facility] Comment on above: Performed By: #### B ADA, ANA, 6873-4, 5643-2, 43213-2 #### [facility] ([id number]) [address] [place] [address] 71473 ALT [Catalytic activity/Vol] 17 U/L Normal 0-40 [facility] Comment on above: Performed By: #### B ADA, CBCTerry, 6873-4, 5643-2, 75364-5 #### [facility] ([id number]) [address] [place] [address] 63311 Anion gap [Moles/Vol] 18 mmol/L High 5-15 [facility] Comment on above: Performed By: #### B ADA, CBCTerry, 6873-4, 5643-2, 62371-9 #### [facility] ([id number]) [address] [place] [address] 62429 AST [Catalytic activity/Vol] 10 U/L Normal 0-41 [facility] Comment on above: Performed By: #### B ADA, CBCA, 6873-4, 5643-2, 98057-5 #### [facility] ([id number]) [address] [place] [address] 10674 Bilirubin [Mass/Vol] 1.2 mg/dL Normal 0.3-1.2 [facility] Comment on above: Performed By: #### B ADA, CBCTerry, 6873-4, 5643-2, 98282-9 #### [facility] ([id number]) [address] [place] [address] 87281 Calcium [Mass/Vol] 10.1 mg/dL Normal 8.5-10.5 [facility] Comment on above: Performed By: #### B ADA, CBCA, 6873-4, 5643-2, 62992-2 #### [facility] ([id number]) [address] [place] [address] 90637 Chloride [Moles/Vol] 103 mmol/L Normal 98-109 [facility] Comment on above: Performed By: #### B ANA CABALLERO, 6873-4, 5643-2, 67263-8 #### [facility] ([id number]) [address] [place] [address] 31324 CO2 [Moles/Vol] 12 mmol/L Low 22-32 [facility] Comment on above: Performed By: #### B ANA CABALLERO, 6873-4, 56-2, 45759-6 #### [facility] ([id number]) [address] [place] [address] 21677 Creatinine [Mass/Vol] 1.45 mg/dL High 0.70-1.20 [facility] Comment on above: Result Comment: METH OD TRACEABLE TO IDMS STANDARD Performed By: #### B ANA CABALLERO, 6873-4, 5643-2, 90900-5 #### [facility] ([id number]) [address] [place] [address] 55456 GFR/1.73 sq M.predicted among non-blacks MDRD (S/P/Bld) [Vol rate/Area] 71 mL/min/{1.73_m2} Normal >59 [facility] Comment on above: Result Comment: Reported eGFR is based on the CKD-EPI 2020 equation that does not use a race coefficient. Performed By: #### B ANA CABALLERO, 6873-4, 5643-2, 14713-3 #### [facility] ([id number]) [address] [place] [address] 88186 Glucose [Mass/Vol] 256 mg/dL High 65-99 [facility] Comment on above: Performed By: #### B ADA, ANA, 6873-4, 5643-2, 50693-6 #### [facility] ([id number]) [address] [place] [address] 76322 Potassium [Moles/Vol] 4.1 mmol/L Normal 3.5-5.0 [facility] Comment on above: Performed By: #### B ADA, CBCA, 6873-4, 5643-2, 36008-5 #### [facility] ([id number]) [address] [place] [address] [place] [address] Protein [Mass/Vol] 8.6 g/dL High 6.0-8.0 [facility] Comment on above: Performed By: #### B ADA, CBCA, 6873-4, 56-2, 89726-3 #### [facility] ([id number]) [address] [place] [address] 85321 Sodium [Moles/Vol] 133 mmol/L Low 134-146 [facility] Comment on above: Performed By: #### B ADA, CBCA, 6873-4, 5643-2, 55517-1 #### [facility] ([id number]) [address] [place] [address] 63143 Urea nitrogen [Mass/Vol] 8 mg/dL Normal 5-23 [facility] Comment on above: Performed By: #### B ADA, CBCA, 6873-4, 5643-2, 64870-1 #### [facility] ([id number]) [address] [place] [address], [place] [address] ELECTROLYTESon 02-26-2024 Anion gap [Moles/Vol] 8 mmol/L Normal 5-15 [facility] Comment on above: Performed By: #### N UM #### [facility] ([id number]) [address] [place] [address] 52664 Chloride [Moles/Vol] 115 mmol/L High 98-109 [facility] Comment on above: Performed By: #### N UM #### [facility] ([id number]) [address] [place] [address] 58853 CO2 [Moles/Vol] 16 mmol/L Low 22-32 [facility] Comment on above: Performed By: #### N UM #### [facility] ([id number]) [address] [place] [address] 22670 Potassium [Moles/Vol] 3.6 mmol/L Normal 3.5-5.0 [facility] Comment on above: Performed By: #### N UM #### [facility] ([id number]) [address] [place] [address] 02897 Sodium [Moles/Vol] 139 mmol/L Normal 134-146 [facility] Comment on above: Performed By: #### N UM #### [facility] ([id number]) [address] [place] [address] [place] [address] Anion gap [Moles/Vol] 12 mmol/L Normal 5-15 [facility] Comment on above: Performed By: #### B ANA CABALLERO, 6873-4, 5643-2, 28142-5 #### [facility] ([id number]) [address] [place] [address] 52481 Chloride [Moles/Vol] 113 mmol/L High 98-109 [facility] Comment on above: Performed By: #### B ADA CBCA, 6873-4, 5643-2, 79179-8 #### [facility] ([id number]) [address] [place] [address] 56952 CO2 [Moles/Vol] 14 mmol/L Low 22-32 [facility] Comment on above: Performed By: #### B MISSY CABALLEROA, 6873-4, 5643-2, 11021-0 #### [facility] ([id number]) [address] [place] [address] [place] [address] Potassium [Moles/Vol] 3.6 mmol/L Normal 3.5-5.0 [facility] Comment on above: Performed By: #### B ADA, ANA, 6873-4, 5643-2, #### [facility] ([id number]) [address] [place] [address] 62017 Sodium [Moles/Vol] 139 mmol/L Normal 134-146 [facility] Comment on above: Performed By: #### B ADA, CBCA, 6873-4, 5643-2, #### [facility] ([id number]) [address] [place] [address] 78260 Anion gap [Moles/Vol] 13 mmol/L Normal 5-15 [facility] Comment on above: Performed By: #### B ADA, CBCTerry, 6873-4, 5643-2, #### [facility] ([id number]) [address] [place] [address] 54199 Chloride [Moles/Vol] 109 mmol/L Normal 98-109 [facility] Comment on above: Performed By: #### B ADA, CBCA, 6873-4, 5643-2, #### [facility] ([id number]) [address] [place] [address] 96922 CO2 [Moles/Vol] 15 mmol/L Low 22-32 [facility] Comment on above: Performed By: #### B ADA, CBCA, 6873-4, 5643-2, #### [facility] ([id number]) [address] [place] [address] 55292 Sodium [Moles/Vol] 137 mmol/L Normal 134-146 [facility] Comment on above: Performed By: #### B ADA, CBCA, 6873-4, 5643-2, #### [facility] ([id number]) [address] [place] [address], [place] [address] Anion gap [Moles/Vol] 18 mmol/L High 5-15 [facility] Comment on above: Performed By: #### B ADA, ANA, 6873-4, 5643-2, 24174-8 #### [facility] ([id number]) [address] [place] [address], [place] [address] Chloride [Moles/Vol] 106 mmol/L Normal 98-109 [facility] Comment on above: Performed By: #### B ANA CABALLERO, 6873-4, 5643-2, 97336-7 #### [facility] ([id number]) [address] [place] [address], [place] [address] CO2 [Moles/Vol] 11 mmol/L Low 22-32 [facility] Comment on above: Performed By: #### B ANA CABALLERO, 6873-4, 5643-2, 57760-2 #### [facility] ([id number]) [address] [place] [address], [place] [address] Potassium [Moles/Vol] 3.8 mmol/L Normal 3.5-5.0 [facility] Comment on above: Performed By: #### B ANA CABALLERO, 6873-4, 5643-2, 24229-5 #### [facility] ([id number]) [address] [place] [address], [place] [address] Sodium [Moles/Vol] 135 mmol/L Normal 134-146 [facility] Comment on above: Performed By: #### B ANA CABALLERO, 6873-4, 5643-2, 08882-3 #### [facility] ([id number]) [address] [place] [address], [place] [address] Anion gap [Moles/Vol] 17 mmol/L High 5-15 [facility] Comment on above: Performed By: #### B MP, CBCTerry, 6873-4, 5643-2, 79694-6 #### [facility] ([id number]) [address] [place] [address] 30466 Chloride [Moles/Vol] 106 mmol/L Normal 98-109 [facility] Comment on above: Performed By: #### B ADA, ANA, 6873-4, 5643-2, 93624-7 #### [facility] ([id number]) [address] [place] [address] 82741 CO2 [Moles/Vol] 11 mmol/L Low 22-32 [facility] Comment on above: Performed By: #### B ANA CABALLERO, 6873-4, 5643-2, 88843-5 #### [facility] ([id number]) [address] [place] [address] 79578 Potassium [Moles/Vol] 3.8 mmol/L Normal 3.5-5.0 [facility] Comment on above: Performed By: #### B ANA CABALLERO, 6873-4, 5643-2, 97594-2 #### [facility] ([id number]) [address] [place] [address] 68398 Sodium [Moles/Vol] 134 mmol/L Normal 134-146 [facility] Comment on above: Performed By: #### B ADA CBCTerry, 6873-4, 5643-2, 20139-0 #### [facility] ([id number]) [address] [place] [address] 18569 Glucose Glucometer (dC) [M ass/Vol]on 02-26-2024 Glucose [Mass/Vol] 122 mg/dL High 65-99 [facility] Glucose [Mass/Vol] 104 mg/dL High 65-99 [facility] Glucose [Mass/Vol] 141 mg/dL High 65-99 [facility] Glucose [Mass/Vol] 142 mg/dL High 65-99 [facility] Glucose [Mass/Vol] 188 mg/dL High 65-99 [facility] Glucose [Mass/Vol] 194 mg/dL High 65-99 [facility] Glucose [Mass/Vol] 235 mg/dL High 65-99 [facility] Glucose [Mass/Vol] 256 mg/dL High 65-99 [facility] Glucose [Mass/Vol] 242 mg/dL High 65-99 [facility] Glucose [Mass/Vol] 228 mg/dL High 65-99 [facility] Glucose [Mass/Vol] 202 mg/dL High 65-99 [facility] HA1C CONFIRMATION - NO JOSEG Sanchez 02-26-2024 HbA1c (Bld) [Mass fraction] 15.4 % High <=5.6 [facility] Comment on above: Result Comment: NOTE INTERPRETIVE INFORMATION: Hemoglobin A1c HbA1c values of 5.7-6.4 percent indicate an increased risk for developing diabetes mellitus. HbA1c values greater than or equal to 6.5 percent are diagnostic of diabetes mellitus. For diagnosis of diabetes in individuals without unequivocal hyperglycemia, results should be confirmed by repeat testing. Performed By: #### B ADA, CBCA, 6873-4, 5643-2, 41807-7 #### [facility] ([id number]) [address] [place] [id number] HGB A1C (GLYCO-HGB)on 2023 AVERAGE GLUCOSE >398 Normal [facility] Comment on above: Performed By: #### B MP, CBCA, 6873-4, 5643-2, 09851-8 #### [facility] ([id number]) [address] [place] [address] [id number] HbA1c (Bld) [Mass fraction] % High 4.4-5.6 [facility] Comment on above: Result Comment: NOTE ADA Guidelines Result HgbA1c Normal : less than 5.7 % Prediabetes : 5.7 % to 6.4 % Diabetes : > 6.4 % Use with caution in patients with abnormal hemoglobin variants as the half-life of red blood cells and in vivo glycation rates are affected. Performed By: #### B ANA CABALLERO, 6873-4, 5643-2, 14550-2 #### [facility] ([id number]) [address] [place] [address] [id number] HbA1c (Bld) [Mass fraction]o n 02-26-2024 Glucose [Mass/Vol] 395 mg/dL Normal [facility] Comment on above: Result Comment: NOTE Performed By: [employer] [address] [place] [id number] Fuel Manager: Juan Manuel Greene MD, PhD CLIA Number: [id number] Performed By: #### B ANA CABALLERO, 6873-4, 5643-2, 86863-5 #### [facility] ([id number]) [address] [place] [id number] Lactate (P meredith) [Moles/Vol]o n 02-26-2024 LACTATE W/REFLEX 0.9 mmol/L Normal 0.4-2.0 [facility] Comment on above: Result Comment: Result did not trigger repeat Lactate, re-order if needed. Performed By: #### B ANA CABALLERO, 6873-4, 5643-2, 64785-0 #### [facility] ([id number]) [address] [place] [address] [id number] MAGNESIUMon 02-26-2024 Magnesium [Mass/Vol] 2.0 mg/dL Normal 1.8-2.6 [facility] Comment on above: Performed By: #### B ANA CABALLERO, 6873-4, 5643-2, 45116-0 #### [facility] ([id number]) [address] [place] [address] [id number] PHOSPHORUSon 02-26-2024 Phosphate [Mass/Vol] 2.7 mg/dL Normal 2.4-4.9 [facility] Comment on above: Performed By: #### B MP, CBCA, 6873-4, 5643-2, 75858-8 #### [facility] ([id number]) [address] [facility] [place] [address] SARS/FLU A+B/RSV by NAAT/Mol ecularon 02-26-2024 SARS/FLU [...] operators who are performing tests using either ASSURED INFORMATION SECURITY DX or SwarmBuild systems and is limited to laboratories that [...] repeat. Fact Sheet for Healthcare Providers: https://www.fda.gov /media/133292/downl oad Fact Sheet for Patients: https://www.fda.gov /media/624512/downl oad Normal [facility] Comment on above: Performed By: #### B ANA CABALLERO, 6873-4, 5643-2, 55276-5 #### [facility] ([id number]) [address] [place] [address] 21734 VENOUS BLOOD GASon 4 LINDSAY'S TEST Normal [facility] Comment on above: Performed By: #### B ANA CABALLERO, 6873-4, 5643-2, #### [facility] ([id number]) [address] [place] [address] 07956 BASE,DEFICIT 16.0 MMOL/L High 0.0-2.0 [facility] Comment on above: Performed By: #### B ANA CABALLERO, 6873-4, 5643-2, #### [facility] ([id number]) [address] [place] [address] 89565 Body temperature 98.6 [degF] Normal 37.0 [facility] Comment on above: Performed By: #### B ANA CABALLERO, 6873-4, 5643-2, 13515-0 #### [facility] ([id number]) [address] [place] [address] 78114 HCO3 (Bld) [Moles/Vol] 10.9 mmol/L Low 20.0-24.0 P [facility] Comment on above: Performed By: #### B ANA CABALLERO, 6873-4, 5643-2, 32158-2 #### [facility] ([id number]) [address] [place] [address] 85555 INSP. O2 CONC. 21 % Normal [facility] Comment on above: Performed By: #### B ADA, CBCA, 6873-4, 5643-2, 10911-5 #### [facility] ([id number]) [address] [place] [address], [place] [address] Oxygen saturation in Blood 57.0 % Low >80.0 [facility] Comment on above: Performed By: #### B ADA, CBCA, 6873-4, 5643-2, #### [facility] ([id number]) [address] [place] [address] [place] [address] OXYGEN SOURCE RoomAir [facility] Comment on above: Performed By: #### B ADA, CBCA, 6873-4, 5643-2, #### [facility] ([id number]) [address] [place] [address] [place] [address] PCO2, VENOUS 28.9 MMHG Low 35-50 [facility] Comment on above: Performed By: #### B ADA, CBCA, 6873-4, 5643-2, #### [facility] ([id number]) [address] [place] [address], [place] [address] PH, VENOUS 7.184 Low 7.320-7.420 [facility] Comment on above: Performed By: #### B ADA, CBCA, 6873-4, 5643-2, #### [facility] ([id number]) [address] [place] [address] [place] [address] PO2, VENOUS 36 MMHG Normal 30-50 [facility] Comment on above: Performed By: #### B ADA, CBCA, 6873-4, 5643-2, 80896-3 #### [facility] ([id number]) [address] [place] [address], [place] [address] SAMPLE SITE N/A Normal [facility] Comment on above: Performed By: #### B ADA, CBCA, 6873-4, 5643-2, 51458-0 #### [facility] ([id number]) [address] [place] [address] 97453 SAMPLE TYPE VENOUS Normal [facility] Comment on above: Performed By: #### B MP, CBCA, 6873-4, 5643-2, 48207-8 #### [facility] ([id number]) [address] [place] [address] 87610 CBC AND AUTO DIFFon 01-12-20 24 ABSOLUTE BASOPHIL 0.1 X10E9/L Normal 0.0-0.2 [facility] Comment on above: Performed By: #### B MP, CBCA, 6873-4, 5643-2, #### [facility] ([id number]) [address] [place] [address] 17752 ABSOLUTE NEUTROPHIL 4.9 X10E9/L Normal 1.5-6.6 [facility] Comment on above: Performed By: #### B MP, CBCA, 6873-4, 5643-2, 76519-0 #### [facility] ([id number]) [address] [place] [address] 77139 Basophils/100 WBC (Bld) 0.9 % Normal [facility] Comment on above: Performed By: #### B MP, CBCA, 6873-4, 5643-2, 84941-3 #### [facility] ([id number]) [address] [place] [address] 84652 Eosinophils (Bld) [#/Vol] 0.3 10*3/uL Normal 0.0-0.4 [facility] Comment on above: Performed By: #### B MP, CBCA, 6873-4, 5643-2, 93839-9 #### [facility] ([id number]) [address] [place] [address] 44862 Eosinophils/100 WBC (Bld) 3.7 % Normal [facility] Comment on above: Performed By: #### B ADA, CBCA, 6873-4, 5643-2, 12166-8 #### [facility] ([id number]) [address] [place] [address] 78243 Erythrocyte distribution width (RBC) [Ratio] 14.0 % Normal 11.5-15.0 [facility] Comment on above: Performed By: #### B MP, CBCA, 73-4, 5643-2, #### [facility] ([id number]) [address] [place] [address] 10610 Hematocrit (Bld) [Volume fraction] 43.7 % Normal 39-49 [facility] Comment on above: Performed By: #### B ADA, CBCA, 6873-4, 5642-2, #### [facility] ([id number]) [address] [place] [address] 40243 Hemoglobin (Bld) [Mass/Vol] 14.7 g/dL Normal 13.0-17.0 [facility] Comment on above: Performed By: #### B ADA, CBCA, 6873-4, 5642-, 01142-1 #### [facility] ([id number]) [address] [place] [address] 65553 Lymphocytes (Bld) [#/Vol] 2.4 10*3/uL Normal 1.0-3.5 [facility] Comment on above: Performed By: #### B MP, CBCA, 6873-4, 5643-2, 93186-3 #### [facility] ([id number]) [address] [place] [address] 82912 Lymphocytes/100 WBC (Bld) 29.1 % Normal [facility] Comment on above: Performed By: #### B ADA, CBCA, 6873-4, 5643-2, #### [facility] ([id number]) [address] [place] [address] 20100 MCH (RBC) [Entitic mass] 29.2 pg Normal 27-34 [facility] Comment on above: Performed By: #### B MP, CBCA, 6873-4, 5643-2, 06765-5 #### [facility] ([id number]) [address] [place] [address] 07070 MCHC (RBC) [Mass/Vol] 33.6 g/dL Normal 32-36 [facility] Comment on above: Performed By: #### B ADA, CBCA, 6873-4, 43-, #### [facility] ([id number]) [address] [place] [address] 79346 MCV (RBC) [Entitic vol] 87 fL Normal 80-100 P [facility] Comment on above: Performed By: #### B MP, CBCA, 6873-4, 56-, #### [facility] ([id number]) [address] [place] [address] 91140 Monocytes (Bld) [#/Vol] 0.5 10*3/uL Normal 0-0.9 [facility] Comment on above: Performed By: #### B MP, CBCA, 6873-4, 5643-, #### [facility] ([id number]) [address] [place] [address] 45972 Monocytes/100 WBC (Bld) 6.3 % Normal P [facility] Comment on above: Performed By: #### B MP, CBCA, 6873-4, 5643-, 29786-6 #### [facility] ([id number]) [address] [place] [address] 84548 Neutrophils/100 WBC (Bld) 60.0 % Normal [facility] Comment on above: Performed By: #### B MP, CBCA, 6873-4, 5643-2, 81297-4 #### [facility] ([id number]) [address] [place] [address] 58262 Platelet mean volume (Bld) [Entitic vol] 10.7 fL Normal 7-12 [facility] Comment on above: Performed By: #### B MP, CBCA, 6873-4, 5643-2, 62500-6 #### [facility] ([id number]) [address] [place] [address] 58662 Platelets (Bld) [#/Vol] 252 10*3/uL Normal 150-450 [facility] Comment on above: Performed By: #### B MP, CBCA, 6873-4, 5643-2, 72233-2 #### [facility] ([id number]) [address] [place] [address] 80008 RBC COUNT 5.03 X10E12/L Normal 4.10-5.70 [facility] Comment on above: Performed By: #### B MP, CBCA, 6873-4, 5643-2, 88136-0 #### [facility] ([id number]) [address] [place] [address] 77974 WBC (Bld) [#/Vol] 8.1 10*3/uL Normal 4.0-11.0 [facility] Comment on above: Performed By: #### B MP, CBCA, 6873-4, 5643-2, 40808-1 #### [facility] ([id number]) [address] [place] [address] 71189 COMPREHENSIVE METABOLIC PANE Al 01-12-2024 Albumin [Mass/Vol] 3.7 g/dL Normal 3.2-5.3 [facility] Comment on above: Performed By: #### B MP, CBCA, 6873-4, 5643-2, #### [facility] ([id number]) [address] [place] [address] 34350 ALP [Catalytic activity/Vol] 85 U/L Normal 39-130 [facility] Comment on above: Performed By: #### B ADA, CBCA, 6873-4, 5643-2, 25272-2 #### [facility] ([id number]) [address] [place] [address] 53441 ALT [Catalytic activity/Vol] 30 U/L Normal 0-40 [facility] Comment on above: Performed By: #### B ADA, CBCA, 6873-4, 5643-2, 19418-2 #### [facility] ([id number]) [address] [place] [address] 34434 Anion gap [Moles/Vol] 11 mmol/L Normal 5-15 [facility] Comment on above: Performed By: #### B ADA, CBCA, 6873-4, 5643-2, 80028-1 #### [facility] ([id number]) [address] [place] [address] 90746 AST [Catalytic activity/Vol] 16 U/L Normal 0-41 [facility] Comment on above: Performed By: #### B ADA, CBCA, 6873-4, 5643-2, 07611-9 #### [facility] ([id number]) [address] [place] [address] 82923 Bilirubin [Mass/Vol] 0.9 mg/dL Normal 0.3-1.2 [facility] Comment on above: Performed By: #### B ADA, CBCA, 6873-4, 5643-2, 63885-6 #### [facility] ([id number]) [address] [place] [address] 29155 Calcium [Mass/Vol] 9.0 mg/dL Normal 8.5-10.5 [facility] Comment on above: Performed By: #### B ANA CABALLERO, 6873-4, 5643-2, 72697-5 #### [facility] ([id number]) [address] [place] [address] 32458 Chloride [Moles/Vol] 105 mmol/L Normal 98-109 [facility] Comment on above: Performed By: #### B ADA, ANA, 6873-4, 5643-2, 32681-3 #### [facility] ([id number]) [address] [place] [address] 74863 CO2 [Moles/Vol] 20 mmol/L Low 22-32 [facility] Comment on above: Performed By: #### B ADA, ANA, 6873-4, 5643-2, 68511-1 #### [facility] ([id number]) [address] [place] [address] 52947 Creatinine [Mass/Vol] 0.88 mg/dL Normal 0.70-1.20 [facility] Comment on above: Result Comment: METH OD TRACEABLE TO IDMS STANDARD Performed By: #### B ANA CABALLERO, 6873-4, 5643-2, 59451-7 #### [facility] ([id number]) [address] [place] [address] 54244 eGFR (CKD-EPI) NON-RACE DEPENDENT >90 Normal >59 [facility] Comment on above: Result Comment: Reported eGFR is based on the CKD-EPI 2021 equation that does not use a race coefficient. Performed By: #### B ANA CABALLERO, 6873-4, 5643-2, 73652-3 #### [facility] ([id number]) [address] [place] [address] 60072 Glucose [Mass/Vol] 175 mg/dL High 65-99 [facility] Comment on above: Performed By: #### B ADA, ANA, 6873-4, 5643-2, 11256-2 #### [facility] ([id number]) [address] [place] [address] 02992 Potassium [Moles/Vol] 3.2 mmol/L Low 3.5-5.0 [facility] Comment on above: Performed By: #### B ADA, CBCA, 6873-4, 5643-2, 99269-0 #### [facility] ([id number]) [address] [place] [address] 62603 Protein [Mass/Vol] 7.2 g/dL Normal 6.0-8.0 [facility] Comment on above: Performed By: #### B ADA, CBCA, 6873-4, 5643-2, 88048-7 #### [facility] ([id number]) [address] [place] [address] 74785 Sodium [Moles/Vol] 136 mmol/L Normal 134-146 [facility] Comment on above: Performed By: #### B ADA, CBCA, 6873-4, 5643-2, 92509-3 #### [facility] ([id number]) [address] [place] [address] 88395 Urea nitrogen [Mass/Vol] 6 mg/dL Normal 5-23 [facility] Comment on above: Performed By: #### B ADA, CBCA, 6873-4, 5643-2, 74297-4 #### [facility] ([id number]) [address] [place] [address] 38786 ELECTROLYTESon 01-12-2024 Anion gap [Moles/Vol] 8 mmol/L Normal 5-15 [facility] Comment on above: Performed By: #### B ADA, CBCA, 6873-4, 5643-2, 02156-2 #### [facility] ([id number]) [address] [place] [address] 21429 Chloride [Moles/Vol] 108 mmol/L Normal 98-109 [facility] Comment on above: Performed By: #### B ADA, ANA, 6873-4, 5643-2, 48810-1 #### [facility] ([id number]) [address] [place] [address] 56191 CO2 [Moles/Vol] 22 mmol/L Normal 22-32 [facility] Comment on above: Performed By: #### B ADA, ANA, 6873-4, 5643-2, 26220-3 #### [facility] ([id number]) [address] [place] [address] 25146 Potassium [Moles/Vol] 3.6 mmol/L Normal 3.5-5.0 [facility] Comment on above: Performed By: #### B ANA CABALLERO, 6873-4, 5643-2, 78280-9 #### [facility] ([id number]) [address] [place] [address] 15738 Sodium [Moles/Vol] 138 mmol/L Normal 134-146 [facility] Comment on above: Performed By: #### B ANA CABALLERO, 6873-4, 5643-2, 13783-1 #### [facility] ([id number]) [address] [place] [address] 00927 Glucose Glucometer (BldC) [M ass/Vol]on 01-12-2024 Glucose [Mass/Vol] 151 mg/dL High 65-99 [facility] Glucose [Mass/Vol] 164 mg/dL High 65-99 [facility] MAGNESIUMon 01-12-2024 Magnesium [Mass/Vol] 1.7 mg/dL Low 1.8-2.6 [facility] Comment on above: Performed By: #### B ANA CABALLERO, 6873-4, 5643-2, 77908-3 #### [facility] ([id number]) [address] [place] [address] 59493 POTASSIUMon 01-12-2024 Potassium [Moles/Vol] 3.6 mmol/L Normal 3.5-5.0 [facility] Comment on above: Performed By: #### B ANA CABALLERO, 6873-4, 5643-2, 37655-6 #### [facility] ([id number]) [address] [place] [address] 92672 BASIC METABOLIC PANLon 01-10 Anion gap [Moles/Vol] 16 mmol/L High 5-15 [facility] Comment on above: Performed By: #### B ADA, ANA, 6873-4, 5643-2, 35741-2 #### [facility] ([id number]) [address] [place] [address] 27784 Calcium [Mass/Vol] 8.9 mg/dL Normal 8.5-10.5 [facility] Comment on above: Performed By: #### B ANA CABALLERO, 6873-4, 5643-2, #### [facility] ([id number]) [address] [place] [address] 84031 Chloride [Moles/Vol] 103 mmol/L Normal 98-109 [facility] Comment on above: Performed By: #### B ANA CABALLERO, 6873-4, 5643-2, 51467-4 #### [facility] ([id number]) [address] [place] [address] 40766 CO2 [Moles/Vol] 16 mmol/L Low 22-32 [facility] Comment on above: Performed By: #### B ADA, CBCTerry, 6873-4, 5643-2, 55767-6 #### [facility] ([id number]) [address] [place] [address] 58503 Creatinine [Mass/Vol] 1.05 mg/dL Normal 0.70-1.20 [facility] Comment on above: Result Comment: METH OD TRACEABLE TO IDMS STANDARD Performed By: #### B ANA CABALLERO, 6873-4, 5643-2, 91644-5 #### [facility] ([id number]) [address] [place] [address] 72386 eGFR (CKD-EPI) NON-RACE DEPENDENT >90 Normal >59 [facility] Comment on above: Result Comment: Reported eGFR is based on the CKD-EPI 2020 equation that does not use a race coefficient. Performed By: #### B ADA, ANA, 6873-4, 5643-2, 90366-2 #### [facility] ([id number]) [address] [place] [address] 58231 Glucose [Mass/Vol] 272 mg/dL High 65-99 [facility] Comment on above: Performed By: #### B ANA CABALLERO, 6873-4, 5643-2, 15648-2 #### [facility] ([id number]) [address] [place] [address] 13259 Potassium [Moles/Vol] 3.1 mmol/L Low 3.5-5.0 [facility] Comment on above: Performed By: #### B ANA CABALLERO, 6873-4, 5643-, 79834-5 #### [facility] ([id number]) [address] [place] [address] 60499 Sodium [Moles/Vol] 135 mmol/L Normal 134-146 [facility] Comment on above: Performed By: #### B ADA, ANA, 6873-4, 5643-2, 01875-2 #### [facility] ([id number]) [address] [place] [address] 92428 Urea nitrogen [Mass/Vol] 6 mg/dL Normal 5-23 [facility] Comment on above: Performed By: #### B ANA CABALLERO, 6873-4, 5643-2, 61820-1 #### [facility] ([id number]) [address] [place] [address] 49628 Beta hydroxybutyrate [Moles/ Vol]on 01-11-2024 BetaHydroxybutyrate 4.83 mmol/L High 0.02-0.27 [facility] Comment on above: Performed By: #### B MP, CBCA, 6873-4, 5643-2, 50262-1 #### [facility] ([id number]) [address] [place] [address] 90418 BetaHydroxybutyrate 6.27 mmol/L High 0.02-0.27 [facility] Comment on above: Performed By: #### B MP, CBCA, 6873-4, 5643-2, 01897-5 #### [facility] ([id number]) [address] [place] [address] 25524 CBC AND AUTO DIFFon 01-11-20 ABSOLUTE BASOPHIL 0.0 X10E9/L Normal 0.0-0.2 [facility] Comment on above: Performed By: #### B MP, CBCA, 6873-4, 5643-2, 79630-0 #### [facility] ([id number]) [address] [place] [address] 28602 ABSOLUTE NEUTROPHIL 4.4 X10E9/L Normal 1.5-6.6 [facility] Comment on above: Performed By: #### B MP, CBCA, 6873-4, 5643-2, 34843-5 #### [facility] ([id number]) [address] [place] [address] 93061 Basophils/100 WBC (Bld) 0.6 % Normal [facility] Comment on above: Performed By: #### B MP, CBCA, 6873-4, 5643-2, 02824-8 #### [facility] ([id number]) [address] [place] [address] 39943 Eosinophils (Bld) [#/Vol] 0.2 10*3/uL Normal 0.0-0.4 [facility] Comment on above: Performed By: #### B MP, CBCA, 6873-4, 5643-2, 87280-7 #### [facility] ([id number]) [address] [place] [address] 98056 Eosinophils/100 WBC (Bld) 2.8 % Normal [facility] Comment on above: Performed By: #### B MP, CBCA, 73-4, 5643-2, #### [facility] ([id number]) [address] [place] [address] 59249 Erythrocyte distribution width (RBC) [Ratio] 14.1 % Normal 11.5-15.0 [facility] Comment on above: Performed By: #### B MP, CBCA, 73-4, 5642-, #### [facility] ([id number]) [address] [place] [address] 19655 Hematocrit (Bld) [Volume fraction] 40.5 % Normal 39-49 [facility] Comment on above: Performed By: #### B MP, CBCA, 73-4, 5642-, #### [facility] ([id number]) [address] [place] [address] 55091 Hemoglobin (Bld) [Mass/Vol] 13.6 g/dL Normal 13.0-17.0 [facility] Comment on above: Performed By: #### B MP, CBCA, 6873-4, 5643-2, 18057-4 #### [facility] ([id number]) [address] [place] [address] 77553 Lymphocytes (Bld) [#/Vol] 1.9 10*3/uL Normal 1.0-3.5 [facility] Comment on above: Performed By: #### B MP, CBCA, 6873-4, 5643-2, #### [facility] ([id number]) [address] [place] [address] 07618 Lymphocytes/100 WBC (Bld) 26.1 % Normal [facility] Comment on above: Performed By: #### B MP, CBCA, 6873-4, 5643-2, #### [facility] ([id number]) [address] [place] [address] 76568 MCH (RBC) [Entitic mass] 29.1 pg Normal 27-34 [facility] Comment on above: Performed By: #### B MP, CBCA, 73-4, 5642-, #### [facility] ([id number]) [address] [place] [address] 16956 MCHC (RBC) [Mass/Vol] 33.6 g/dL Normal 32-36 [facility] Comment on above: Performed By: #### B MP, CBCA, 73-4, 5642-, #### [facility] ([id number]) [address] [place] [address] 96722 MCV (RBC) [Entitic vol] 87 fL Normal 80-[address] [facility] Comment on above: Performed By: #### B MP, CBCA, 73-4, 43-, #### [facility] ([id number]) [address] [place] [address] 70595 Monocytes (Bld) [#/Vol] 0.7 10*3/uL Normal 0-0.9 [facility] Comment on above: Performed By: #### B MP, CBCA, 73-4, 5643-2, #### [facility] ([id number]) [address] [place] [address] 28508 Monocytes/100 WBC (Bld) 9.2 % Normal [facility] Comment on above: Performed By: #### B MP, CBCA, 6873-4, 5643-2, 34552-4 #### [facility] ([id number]) [address] [place] [address] 11063 Neutrophils/100 WBC (Bld) 61.3 % Normal [facility] Comment on above: Performed By: #### B MP, CBCA, 6873-4, 5643-2, 27760-8 #### [facility] ([id number]) [address] [place] [address] 08061 Platelet mean volume (Bld) [Entitic vol] 9.6 fL Normal 7-12 [facility] Comment on above: Performed By: #### B MP, CBCA, 6873-4, 5643-2, 62783-3 #### [facility] ([id number]) [address] [place] [address] 54944 Platelets (Bld) [#/Vol] 235 10*3/uL Normal 150-450 [facility] Comment on above: Performed By: #### B MP, CBCA, 6873-4, 5643-2, 94635-3 #### [facility] ([id number]) [address] [place] [address] 68075 RBC COUNT 4.68 X10E12/L Normal 4.10-5.70 [facility] Comment on above: Performed By: #### B MP, CBCA, 6873-4, 5643-2, 61729-8 #### [facility] ([id number]) [address] [place] [address] 32999 WBC (Bld) [#/Vol] 7.2 10*3/uL Normal 4.0-11.0 [facility] Comment on above: Performed By: #### B MP, CBCA, 6873-4, 5643-2, 19945-6 #### [facility] ([id number]) [address] [place] [address] [place] [address] COMPREHENSIVE METABOLIC PANE Al 01-11-2024 Albumin [Mass/Vol] 3.4 g/dL Normal 3.2-5.3 [facility] Comment on above: Performed By: #### B ADA, CBCA, 6873-4, 5643-2, 18634-0 #### [facility] ([id number]) [address] [place] [address] 22065 ALP [Catalytic activity/Vol] 79 U/L Normal 39-130 [facility] Comment on above: Performed By: #### B ADA, CBCA, 6873-4, 5643-2, 15893-8 #### [facility] ([id number]) [address] [place] [address] 31272 ALT [Catalytic activity/Vol] 30 U/L Normal 0-40 [facility] Comment on above: Performed By: #### B ADA, CBCA, 6873-4, 5643-2, 61912-9 #### [facility] ([id number]) [address] [place] [address] 17366 Anion gap [Moles/Vol] 13 mmol/L Normal 5-15 [facility] Comment on above: Performed By: #### B ADA, CBCA, 6873-4, 5643-2, 89505-6 #### [facility] ([id number]) [address] [place] [address] 01274 AST [Catalytic activity/Vol] 15 U/L Normal 0-41 [facility] Comment on above: Performed By: #### B ADA, CBCA, 6873-4, 5643-2, 19366-4 #### [facility] ([id number]) [address] [place] [address] 20256 Bilirubin [Mass/Vol] 1.1 mg/dL Normal 0.3-1.2 [facility] Comment on above: Performed By: #### B ADA, CBCA, 6873-4, 5643-2, 04110-9 #### [facility] ([id number]) [address] [place] [address] 63613 Calcium [Mass/Vol] 8.6 mg/dL Normal 8.5-10.5 [facility] Comment on above: Performed By: #### B ADA, ANA, 6873-4, 5643-2, 19310-4 #### [facility] ([id number]) [address] [place] [address] 77583 Chloride [Moles/Vol] 105 mmol/L Normal 98-109 [facility] Comment on above: Performed By: #### B ADA, ANA, 6873-4, 5643-2, 39820-1 #### [facility] ([id number]) [address] [place] [address] 06905 Creatinine [Mass/Vol] 0.91 mg/dL Normal 0.70-1.20 [facility] Comment on above: Result Comment: METH OD TRACEABLE TO IDMS STANDARD Performed By: #### B ADA, ANA, 6873-4, 5643-2, 62823-0 #### [facility] ([id number]) [address] [place] [address] 71293 eGFR (CKD-EPI) NON-RACE DEPENDENT >90 Normal >59 [facility] Comment on above: Result Comment: Reported eGFR is based on the CKD-EPI 2020 equation that does not use a race coefficient. Performed By: #### B ADA, ANA, 6873-4, 5643-2, 04877-4 #### [facility] ([id number]) [address] [place] [address] 62087 Glucose [Mass/Vol] 227 mg/dL High 65-99 [facility] Comment on above: Performed By: #### B ADA, ANA, 6873-4, 5643-2, 33755-9 #### [facility] ([id number]) [address] [place] [address] 69244 Potassium [Moles/Vol] 2.7 mmol/L Critically low 3.5-5.0 [facility] Comment on above: Performed By: #### B ADA, CBCA, 6873-4, 5643-2, 02635-0 #### [facility] ([id number]) [address] [place] [address] 92415 Protein [Mass/Vol] 6.8 g/dL Normal 6.0-8.0 [facility] Comment on above: Performed By: #### B ADA, CBCA, 6873-4, 5643-2, 97723-9 #### [facility] ([id number]) [address] [place] [address] 12357 Sodium [Moles/Vol] 135 mmol/L Normal 134-146 [facility] Comment on above: Performed By: #### B ADA, CBCA, 6873-4, 5643-2, 63399-0 #### [facility] ([id number]) [address] [place] [address] 62001 Urea nitrogen [Mass/Vol] 6 mg/dL Normal 5-23 [facility] Comment on above: Performed By: #### B ADA, CBCA, 6873-4, 5643-2, 98758-3 #### [facility] ([id number]) [address] [place] [address] 83028 ELECTROLYTESon 01-11-2024 Anion gap [Moles/Vol] 9 mmol/L Normal 5-15 [facility] Comment on above: Performed By: #### B ADA, CBCA, 6873-4, 5643-2, 38025-3 #### [facility] ([id number]) [address] [place] [address] 46119 Chloride [Moles/Vol] 108 mmol/L Normal 98-109 [facility] Comment on above: Performed By: #### B ADA, ANA, 6873-4, 5643-2, 54849-4 #### [facility] ([id number]) [address] [place] [address], [place] [address] CO2 [Moles/Vol] 22 mmol/L Normal 22-32 [facility] Comment on above: Performed By: #### B ADA, CBCTerry, 6873-4, 5643-2, #### [facility] ([id number]) [address] [place] [address] [place] [address] Potassium [Moles/Vol] 3.4 mmol/L Low 3.5-5.0 [facility] Comment on above: Performed By: #### B ADA, CBCTerry, 6873-4, 5643-2, #### [facility] ([id number]) [address] [place] [address] [place] [address] Sodium [Moles/Vol] 139 mmol/L Normal 134-146 [facility] Comment on above: Performed By: #### B ADA, ANA, 6873-4, 5643-2, #### [facility] ([id number]) [address] [place] [address] [place] [address] Anion gap [Moles/Vol] 10 mmol/L Normal 5-15 [facility] Comment on above: Performed By: #### B ADA, CBCTerry, 6873-4, 5643-2, 75285-1 #### [facility] ([id number]) [address] [place] [address], [place] [address] Chloride [Moles/Vol] 105 mmol/L Normal 98-109 [facility] Comment on above: Performed By: #### B ADA, CBCA, 6873-4, 5643-2, 61089-6 #### [facility] ([id number]) [address] [place] [address] [place] [address] CO2 [Moles/Vol] 20 mmol/L Low 22-32 [facility] Comment on above: Performed By: #### B ADA, ANA, 6873-4, 5643-2, 42337-2 #### [facility] ([id number]) [address] [place] [address] 17190 Potassium [Moles/Vol] 3.6 mmol/L Normal 3.5-5.0 [facility] Comment on above: Performed By: #### B ADA, CBCTerry, 6873-4, 5643-2, #### [facility] ([id number]) [address] [place] [address] 29947 Sodium [Moles/Vol] 135 mmol/L Normal 134-146 [facility] Comment on above: Performed By: #### B ADA, ANA, 6873-4, 5643-2, #### [facility] ([id number]) [address] [place] [address] 99642 Anion gap [Moles/Vol] 12 mmol/L Normal 5-15 [facility] Comment on above: Performed By: #### B ADA, ANA, 6873-4, 5643-2, 11116-6 #### [facility] ([id number]) [address] [place] [address] 46540 Chloride [Moles/Vol] 107 mmol/L Normal 98-109 [facility] Comment on above: Performed By: #### B ADA, CBCTerry, 6873-4, 5643-2, 81553-2 #### [facility] ([id number]) [address] [place] [address] 71090 CO2 [Moles/Vol] 18 mmol/L Low 22-32 [facility] Comment on above: Performed By: #### B ADA, CBCTerry, 6873-4, 5643-2, 45312-7 #### [facility] ([id number]) [address] [place] [address] 12341 Potassium [Moles/Vol] 4.0 mmol/L Normal 3.5-5.0 [facility] Comment on above: Performed By: #### B ADA, CBCA, 6873-4, 5643-2, 98309-2 #### [facility] ([id number]) [address] [place] [address] 22063 Sodium [Moles/Vol] 137 mmol/L Normal 134-146 [facility] Comment on above: Performed By: #### B ADA, CBCA, 6873-4, 5643-2, 53109-5 #### [facility] ([id number]) [address] [place] [address] 21432 Potassium [Moles/Vol] 3.8 mmol/L Normal 3.5-5.0 [facility] Comment on above: Performed By: #### B ADA, CBCA, 6873-4, 5643-2, 59625-2 #### [facility] ([id number]) [address] [place] [address] 85361 Sodium [Moles/Vol] 136 mmol/L Normal 134-146 [facility] Comment on above: Performed By: #### B ADA, CBCA, 6873-4, 5643-2, 91700-9 #### [facility] ([id number]) [address] [place] [address] 48847 CO2 [Moles/Vol] 17 mmol/L Low 22-32 [facility] Comment on above: Performed By: #### B ADA, CBCA, 6873-4, 5643-2, 36031-0 #### [facility] ([id number]) [address] [place] [address] 07817 Glucose Glucometer (BldC) [M ass/Vol]on 01-11-2024 Glucose [Mass/Vol] 216 mg/dL High 65-99 [facility] Glucose [Mass/Vol] 245 mg/dL High 65-99 [facility] Glucose [Mass/Vol] 299 mg/dL High 65-99 [facility] Glucose [Mass/Vol] 310 mg/dL High 65-99 [facility] Glucose [Mass/Vol] 288 mg/dL High 65-99 [facility] Glucose [Mass/Vol] 249 mg/dL High 65-99 [facility] Glucose [Mass/Vol] 218 mg/dL High 65-99 [facility] Glucose [Mass/Vol] 238 mg/dL High 65-99 [facility] Glucose [Mass/Vol] 226 mg/dL High 65-99 [facility] Glucose [Mass/Vol] 259 mg/dL High 65-99 [facility] HGB A1C (GLYCO-HGB)on 2023 Glucose [Mass/Vol] 335 mg/dL Normal [facility] Comment on above: Performed By: #### B ADA, CBCA, 6873-4, 5643-2, 98118-0 #### [facility] ([id number]) [address] [place] [address] 20355 HbA1c (Bld) [Mass fraction] 13.3 % High 4.4-5.6 [facility] Comment on above: Result Comment: NOTE ADA Guidelines Result HgbA1c Normal : less than 5.7 % Prediabetes : 5.7 % to 6.4 % Diabetes : > 6.4 % Use with caution in patients with abnormal hemoglobin variants as the half-life of red blood cells and in vivo glycation rates are affected. Performed By: #### B MP, CBCA, 6873-4, 5643-2, 96940-8 #### [facility] ([id number]) [address] [place] [address] 84437 MAGNESIUMon 01-11-2024 Magnesium [Mass/Vol] 1.8 mg/dL Normal 1.8-2.6 [facility] Comment on above: Performed By: #### B ADA, CBCA, 6873-4, 5643-2, 98875-8 #### [facility] ([id number]) [address] [place] [address] 37815 VENOUS BLOOD GASon 4 LINDSAY'S TEST Normal [facility] Comment on above: Performed By: #### B ADA, CBCA, 6873-4, 5643-2, #### [facility] ([id number]) [address] [place] [address] 51106 BASE,DEFICIT 9.0 MMOL/L High 0.0-2.0 [facility] Comment on above: Performed By: #### B ADA, CBCA, 6873-4, 5643-2, #### [facility] ([id number]) [address] [place] [address] 71773 Body temperature 98.6 [degF] Normal 37.0 [facility] Comment on above: Performed By: #### B ADA, CBCA, 6873-4, 5643-2, 50866-4 #### [facility] ([id number]) [address] [place] [address] 46301 HCO3 (Bld) [Moles/Vol] 15.7 mmol/L Low 20.0-24.0 P [facility] Comment on above: Performed By: #### B ADA, CBCA, 6873-4, 5643-2, 32592-5 #### [facility] ([id number]) [address] [place] [address] 51961 INSP. O2 CONC. 21 % Normal [facility] Comment on above: Performed By: #### B ADA, CBCA, 6873-4, 5643-2, #### [facility] ([id number]) [address] [place] [address] 48074 Oxygen saturation in Blood 79.0 % Low >80.0 [facility] Comment on above: Performed By: #### B ANA CABALLERO, 6873-4, 5643-2, #### [facility] ([id number]) [address] [place] [address] [place] [address] OXYGEN SOURCE RoomAir [facility] Comment on above: Performed By: #### B ADA, ANA, 6873-4, 5643-2, #### [facility] ([id number]) [address] [place] [address] 50442 PCO2, VENOUS 30.6 MMHG Low 35-50 [facility] Comment on above: Performed By: #### B ANA CABALLERO, 6873-4, 5643-2, #### [facility] ([id number]) [address] [place] [address] [place] [address] PH, VENOUS 7.318 Low 7.320-7.420 [facility] Comment on above: Performed By: #### B ANA CABALLERO, 6873-4, 5643-2, #### [facility] ([id number]) [address] [place] [address] 70622 PO2, VENOUS 46 MMHG Normal 30-50 [facility] Comment on above: Performed By: #### B ANA CABALLERO, 6873-4, 5643-2, #### [facility] ([id number]) [address] [place] [address] 18358 SAMPLE SITE N/A [facility] Comment on above: Performed By: #### B ANA CABALLERO, 6873-4, 5643-2, #### [facility] ([id number]) [address] [place] [address] 23501 SAMPLE TYPE VENOUS Normal [facility] Comment on above: Performed By: #### B ADA, CBCA, 6873-4, 5643-2, 72501-0 #### [facility] ([id number]) [address] [place] [address] 05300 BASIC METABOLIC PANLon 01-09 Anion gap [Moles/Vol] 16 mmol/L High 5-15 [facility] Comment on above: Performed By: #### B ADA, CBCA, 6873-4, 5643-2, #### [facility] ([id number]) [address] [place] [address] 09763 Calcium [Mass/Vol] 9.4 mg/dL Normal 8.5-10.5 [facility] Comment on above: Performed By: #### B ADA, CBCA, 6873-4, 5643-2, #### [facility] ([id number]) [address] [place] [address] 20591 Chloride [Moles/Vol] 101 mmol/L Normal 98-109 [facility] Comment on above: Performed By: #### B ADA, CBCA, 6873-4, 5642-, #### [facility] ([id number]) [address] [place] [address] 80366 CO2 [Moles/Vol] 14 mmol/L Low 22-32 [facility] Comment on above: Performed By: #### B ADA, CBCA, 6873-4, 5643-2, 24644-0 #### [facility] ([id number]) [address] [place] [address] 26004 Creatinine [Mass/Vol] 1.13 mg/dL Normal 0.70-1.20 [facility] Comment on above: Result Comment: METH OD TRACEABLE TO IDMS STANDARD Performed By: #### B ADA, CBCA, 6873-4, 5643-2, #### [facility] ([id number]) [address] [place] [address] 20422 eGFR (CKD-EPI) NON-RACE DEPENDENT >90 Normal >59 [facility] Comment on above: Result Comment: Reported eGFR is based on the CKD-EPI 2020 equation that does not use a race coefficient. Performed By: #### B ANA CABALLERO, 6873-4, 5643-2, #### [facility] ([id number]) [address] [place] [address] 96525 Glucose [Mass/Vol] 394 mg/dL High 65-99 [facility] Comment on above: Performed By: #### B ANA CABALLERO, 6873-4, 56-, #### [facility] ([id number]) [address] [place] [address] 44618 Potassium [Moles/Vol] 3.3 mmol/L Low 3.5-5.0 [facility] Comment on above: Performed By: #### B ANA CABALLERO, 6873-4, 5643-, #### [facility] ([id number]) [address] [place] [address] 13222 Sodium [Moles/Vol] 131 mmol/L Low 134-146 [facility] Comment on above: Performed By: #### B ANA CABALLERO, 6873-4, 5643-, #### [facility] ([id number]) [address] [place] [address] 44446 Urea nitrogen [Mass/Vol] 7 mg/dL Normal 5-23 [facility] Comment on above: Performed By: #### B ANA CABALLERO, 6873-4, 5643-, 95421-1 #### [facility] ([id number]) [address] [place] [address] 46466 Beta hydroxybutyrate [Moles/ Vol]on 01-10-2024 BetaHydroxybutyrate 6.67 mmol/L High 0.02-0.27 [facility] Comment on above: Performed By: #### B MP, CBCA, 6873-4, 5643-2, 23856-4 #### [facility] ([id number]) [address] [place] [address] 32601 CBC AND AUTO DIFFon 01-10-20 ABSOLUTE BASOPHIL 0.0 X10E9/L Normal 0.0-0.2 [facility] Comment on above: Performed By: #### B MP, CBCA, 6873-4, 5643-2, 69913-9 #### [facility] ([id number]) [address] [place] [address] 32519 ABSOLUTE NEUTROPHIL 5.6 X10E9/L Normal 1.5-6.6 [facility] Comment on above: Performed By: #### B MP, CBCA, 6873-4, 5643-2, 99402-4 #### [facility] ([id number]) [address] [place] [address] 91716 Basophils/100 WBC (Bld) 0.3 % Normal [facility] Comment on above: Performed By: #### B MP, CBCA, 6873-4, 5643-2, 66418-7 #### [facility] ([id number]) [address] [place] [address] 12698 Eosinophils (Bld) [#/Vol] 0.1 10*3/uL Normal 0.0-0.4 [facility] Comment on above: Performed By: #### B MP, CBCA, 6873-4, 5643-2, 55288-9 #### [facility] ([id number]) [address] [place] [address] 07798 Eosinophils/100 WBC (Bld) 1.5 % Normal [facility] Comment on above: Performed By: #### B MP, CBCA, 6873-4, 5643-2, 28328-9 #### [facility] ([id number]) [address] [place] [address] 19377 Erythrocyte distribution width (RBC) [Ratio] 13.9 % Normal 11.5-15.0 [facility] Comment on above: Performed By: #### B MP, CBCA, 6873-4, 5643-2, #### [facility] ([id number]) [address] [place] [address] 07731 Hematocrit (Bld) [Volume fraction] 43.9 % Normal 39-49 [facility] Comment on above: Performed By: #### B MP, CBCA, 6873-4, 5643-2, #### [facility] ([id number]) [address] [place] [address] 72790 Hemoglobin (Bld) [Mass/Vol] 14.7 g/dL Normal 13.0-17.0 [facility] Comment on above: Performed By: #### B ADA, CBCA, 6873-4, 5643-, #### [facility] ([id number]) [address] [place] [address] 46808 Lymphocytes (Bld) [#/Vol] 1.5 10*3/uL Normal 1.0-3.5 [facility] Comment on above: Performed By: #### B MP, CBCA, 6873-4, 5643-2, 20034-4 #### [facility] ([id number]) [address] [place] [address] 26441 Lymphocytes/100 WBC (Bld) 18.5 % Normal [facility] Comment on above: Performed By: #### B MP, CBCA, 6873-4, 5643-2, 46498-2 #### [facility] ([id number]) [address] [place] [address] 75557 MCH (RBC) [Entitic mass] 29.1 pg Normal 27-34 [facility] Comment on above: Performed By: #### B ADA, CBCA, 6873-4, 5643-2, #### [facility] ([id number]) [address] [place] [address] 73037 MCHC (RBC) [Mass/Vol] 33.4 g/dL Normal 32-36 [facility] Comment on above: Performed By: #### B ADA, CBCA, 73-4, 5643-2, #### [facility] ([id number]) [address] [place] [address] 32805 MCV (RBC) [Entitic vol] 87 fL Normal 80-[address] [facility] Comment on above: Performed By: #### B DAA, CBCA, 73-4, 5642-, #### [facility] ([id number]) [address] [place] [address] 85239 Monocytes (Bld) [#/Vol] 0.6 10*3/uL Normal 0-0.9 [facility] Comment on above: Performed By: #### B ADA, CBCA, 73-4, 5642-, 21402-4 #### [facility] ([id number]) [address] [place] [address] 78327 Monocytes/100 WBC (Bld) 7.7 % Normal [facility] Comment on above: Performed By: #### B MP, CBCA, 73-4, 43-, 02586-7 #### [facility] ([id number]) [address] [place] [address] 28854 Neutrophils/100 WBC (Bld) 72.0 % Normal [facility] Comment on above: Performed By: #### B MP, CBCA, 73-4, 5643-2, 29735-0 #### [facility] ([id number]) [address] [place] [address] 82011 Platelet mean volume (Bld) [Entitic vol] 10.0 fL Normal 7-12 [facility] Comment on above: Performed By: #### B MP, CBCA, 6873-4, 43-2, #### [facility] ([id number]) [address] [place] [address] 31798 Platelets (Bld) [#/Vol] 253 10*3/uL Normal 150-450 [facility] Comment on above: Performed By: #### B MP, CBCA, 6873-4, 5642-2, #### [facility] ([id number]) [address] [place] [address] 89547 RBC COUNT 5.04 X10E12/L Normal 4.10-5.70 [facility] Comment on above: Performed By: #### B MP, CBCA, 6873-4, 56-, #### [facility] ([id number]) [address] [place] [address] 15468 WBC (Bld) [#/Vol] 7.8 10*3/uL Normal 4.0-11.0 [facility] Comment on above: Performed By: #### B MP, CBCA, 6873-4, 5643-2, 07170-1 #### [facility] ([id number]) [address] [place] [address] [id number] DRUG SCREEN, URINEon 024 AMPHETAMINE/METHAMP Negative Normal NEG [facility] Comment on above: Result Comment: AMPH /METH screening cut off = 1000 ng/mL Performed By: #### D SALAS #### [facility] ([id number]) [address] [place] [address] [phone] BARBITURATES Negative Normal NEG [facility] Comment on above: Result Comment: Earlene iturates screening cut off value = 200 ng/mL Performed By: #### D SALAS #### [facility] ([id number]) [address] [place] [address] [phone] BENZODIAZEPINES Negative Normal NEG [facility] Comment on above: Result Comment: Kareem odiazepines screening cut off value = 200 ng/mL Performed By: #### D SALAS #### [facility] ([id number]) [address] [place] [address] [phone] CANNABINOIDS Negative Normal NEG [facility] Comment on above: Result Comment: Catalina abinoids/THC screening cut off value = 50 ng/mL Performed By: #### D SALAS #### [facility] ([id number]) [address] [place] [address] [id number] COCAINE METABOLITE Negative Normal NEG [facility] Comment on above: Result Comment: Coca ine screening cut off value = 300 ng/mL Performed By: #### D SALAS #### [facility] ([id number]) [address] [place] [address] [phone] ECSTASY Negative Normal [facility] Comment on above: Result Comment: Ecst asy screening cut off value = 500 ng/mL This report is intended for use in clinical monitoring or management of patients. Performed By: #### D SALAS #### [facility] ([id number]) [address] [place] [address] [phone] METHADONE Negative Normal NEG [facility] Comment on above: Result Comment: Meth adone screening cut off value = 300 ng/mL. Performed By: #### D SALAS #### [facility] ([id number]) [address] [place] [address] [id number] OPIATES Negative Normal NEG [facility] Comment on above: Result Comment: Opia miguel screening cut off value = 300 ng/mL NOTE: This test is used for the detection of codeine, hydrocodone (>1000 ng/mL), morphine and hydromorphone (>900 ng/mL) in urine. Performed By: #### D SALAS #### [facility] ([id number]) [address] [place] [address] 98783 OXYCODONE Negative Normal NEG [facility] Comment on above: Result Comment: Oxyc odone screening cut off value = 300 ng/mL NOTE: This test is used for the detection of oxycodone and oxymorphone in urine. Performed By: #### D SALAS #### [facility] ([id number]) [address] [place] [address] 60985 PHENCYCLIDINE Negative Normal NEG [facility] Comment on above: Result Comment: Phen cyclidine screening cut off value = 25 ng/mL Performed By: #### D SALAS #### [facility] ([id number]) [address] [place] [address] 78612 ETHANOLon 01-10-2024 Ethanol [Mass/Vol] mg/dL Normal 0.00-0.08 [facility] Comment on above: Result Comment: This report is intended for use in clinical monitoring or management of patients. Performed By: #### B ANA CABALLERO, 6873-4, 5643-2, 92807-1 #### [facility] ([id number]) [address] [place] [address] 75578 Glucose Glucometer (BldC) [M ass/Vol]on 01-10-2024 Glucose [Mass/Vol] 316 mg/dL High 65-99 [facility] MAGNESIUMon 01-10-2024 Magnesium [Mass/Vol] 1.6 mg/dL Low 1.8-2.6 [facility] Comment on above: Performed By: #### B ANA CABALLERO, 6873-4, 5643-2, 01648-7 #### [facility] ([id number]) [address] [place] [address] 04855 URN MACROSCOPIC NURon 2023 BILIRUBIN TERRELL Small Abnormal NEG [facility] Comment on above: Performed By: #### N UM #### [facility] ([id number]) [address] [place] [address] 82733 BLOOD/HGB TERRELL Negative Normal NEG [facility] Comment on above: Performed By: #### N UM #### [facility] ([id number]) [address] [place] [address] 14190 GLUCOSE TERRELL 500 mg/dL Abnormal NEG [facility] Comment on above: Performed By: #### N UM #### [facility] ([id number]) [address] [place] [address] 10584 KETONES TERRELL >=160 Abnormal NEG [facility] Comment on above: Performed By: #### N UM #### [facility] ([id number]) [address] [place] [address] [place] [address] LEUKOCYTE ESTERASE TERRELL Negative Normal NEG [facility] Comment on above: Performed By: #### N UM #### [facility] ([id number]) [address] [place] [address]139 NITRITE TERRELL Negative Normal NEG [facility] Comment on above: Performed By: #### N UM #### [facility] ([id number]) [address] [place] [address] 22954 PH TERRELL 5.5 Normal 5.0-8.5 [facility] Comment on above: Performed By: #### N UM #### [facility] ([id number]) [address] [place] [address] 97931 PROTEIN TERRELL 30 mg/dL Abnormal NEG [facility] Comment on above: Performed By: #### N UM #### [facility] ([id number]) [address] [place] [address] 81862 SPECIFIC GRAVITY TERRELL 1.015 Normal 1.003-1.035 [facility] Comment on above: Performed By: #### N UM #### [facility] ([id number]) [address] [place] [address] 51841 UROBILINOGEN TERRELL 0.2 eu/dL Normal <1.1 [facility] Comment on above: Performed By: #### N UM #### [facility] ([id number]) [address] [place] [address] 14886 VENOUS BLOOD GASon 4 LINDSAY'S TEST Normal [facility] Comment on above: Performed By: #### V BG #### [facility] ([id number]) [address] [place] [address] 16715 BASE,DEFICIT 11.0 MMOL/L High 0.0-2.0 [facility] Comment on above: Performed By: #### V BG #### [facility] ([id number]) [address] [place] [address] 06533 Body temperature 98.6 [degF] Normal 37.0 [facility] Comment on above: Performed By: #### V BG #### [facility] ([id number]) [address] [place] [address] 33354 HCO3 (Bld) [Moles/Vol] 13.5 mmol/L Low 20.0-24.[address] [facility] Comment on above: Performed By: #### V BG #### [facility] ([id number]) [address] [place] [address] 47623 INSP. O2 CONC. 21 % Normal [facility] Comment on above: Performed By: #### V BG #### [facility] ([id number]) [address] [place] [address] 47173 Oxygen saturation in Blood 92.0 % Normal >80.0 [facility] Comment on above: Performed By: #### V BG #### [facility] ([id number]) [address] [place] [address] [place] [address] OXYGEN SOURCE [employer] [facility] Comment on above: Performed By: #### V BG #### [facility] ([id number]) [address] [place] [address] 48440 PCO2, VENOUS 27.3 MMHG Low 35-50 [facility] Comment on above: Performed By: #### V BG #### [facility] ([id number]) [address] [place] [address] [place] [address] PH, VENOUS 7.303 Low 7.320-7.420 [facility] Comment on above: Performed By: #### V BG #### [facility] ([id number]) [address] [place] [address] 73423 PO2, VENOUS 69 MMHG High 30-50 [facility] Comment on above: Performed By: #### V BG #### [facility] ([id number]) [address] [place] [address] [place] [address] SAMPLE SITE N/A Normal [facility] Comment on above: Performed By: #### V BG #### [facility] ([id number]) [address] [place] [address] 25808 SAMPLE TYPE VENOUS Normal [facility] Comment on above: Performed By: #### V BG #### [facility] ([id number]) [address] [place] [address] 17252 POCT Influenza A/Influenza B /[facility]COV[facility] External Poct Influenza A Antigen Negative [facility] External Poct Influenza B Antigen Negative [facility] SARS-CoV-2 (COVID-19) Ag IA.rapid Ql (Resp) Negative [facility] POCT rapid strep Aon 024 S. pyogenes Ag IA Ql (Unsp spec) Negative Negative [facility] ACETONE SERUMon 06-11-2020 ACETONE SMALL Abnormal NEGATIVE [facility] Comment on above: Performed By: #### A CETON #### [facility] [address] [place] [address] Latisha Gena AMYLASEon 06-11-2020 Amylase [Catalytic activity/Vol] U/L Critically low 31-110 [facility] Comment on above: Performed By: #### B MP, LIPA, ELLA, LIVER #### [facility] [address] [place] [address]24[address] Latisha Gena CBC AUTO DIFFon 06-11-2020 Basophils (Bld) [#/Vol] 0.1 103/ul Normal 0.0-0.1 [facility] Comment on above: Performed By: #### C BC #### [facility] [address] [place], [place] [id number] Latisha Gena Basophils/100 WBC (Bld) 0.4 % Normal 0.2-2.0 [facility] Comment on above: Performed By: #### C BC #### [facility] [address] [place] [address] 96189 Latisha Gena Eosinophils (Bld) [#/Vol] 0.0 103/ul Normal 0.0-0.7 [facility] Comment on above: Performed By: #### C BC #### [facility] [address] [place], [place] [address] Latisha Gena Eosinophils/100 WBC (Bld) 0.1 % Critically low 0.9-7.0 [facility] Comment on above: Performed By: #### C BC #### [facility] [address] [place] [address]60 Latisha Gena Erythrocyte distribution width (RBC) [Ratio] 14.8 % Normal 11.0-15.0 [facility] Comment on above: Performed By: #### C BC #### [facility] [address] [place], [place] [address] Latisha Gena Hematocrit (Bld) [Volume fraction] 51.7 % Normal 42.0-54.0 [facility] Comment on above: Performed By: #### C BC #### [facility] [address] [phone] Latisha Gena Hemoglobin (Bld) [Mass/Vol] 16.6 g/dL Normal 14.0-18.0 [facility] Comment on above: Performed By: #### C BC #### [facility] [address] [id number] Latisha Gena IG # 0.10 10e3/ul Critically high 0.00-0.03 [facility] Comment on above: Performed By: #### C BC #### [facility] [address] [phone] Latisha Gena IG % 0.6 % Critically high 0.0-0.5 [facility] Comment on above: Performed By: #### C BC #### [facility] [address] [place], [place] [address] Latisha Gena Lymphocytes (Bld) [#/Vol] 0.9 103/ul Critically low 1.2-3.8 [facility] Comment on above: Performed By: #### C BC #### [facility] [address] [place], [place] [address] Latisha Gena Lymphocytes/100 WBC (Bld) 5.2 % Critically low 20.5-60.0 [facility] Comment on above: Performed By: #### C BC #### [facility] [address] [place], [place] [address] Latisha Avery MANUAL DIFF REQ NO Normal [facility] Comment on above: Performed By: #### C BC #### [facility] [address] [place], [place] [address] Latisha Gena MCH (RBC) [Entitic mass] 28.5 pg Normal 25.9-34.0 [facility] Comment on above: Performed By: #### C BC #### [facility] [address] [phone] Latisha Gena MCHC (RBC) [Mass/Vol] 32.1 g/dL Normal 29.9-35.2 [facility] Comment on above: Performed By: #### C BC #### [facility] [address] [place], [place] [address] Latisha Gena MCV (RBC) [Entitic vol] 88.7 fL Normal 76.3-90.1 [facility] Comment on above: Performed By: #### C BC #### [facility] [address] [place], [place] [address] Latisha Gena Monocytes (Bld) [#/Vol] 0.7 103/ul Normal 0.3-0.8 [facility] Comment on above: Performed By: #### C BC #### [facility] [address] [place] [address]191 Latisha Gena Monocytes/100 WBC (Bld) 4.3 % Normal 1.7-12.0 [facility] Comment on above: Performed By: #### C BC #### [facility] [address] [place] [address] 15395 Latisha Gena Neutrophils (Bld) [#/Vol] 14.6 103/ul Critically high 1.4-6.5 [facility] Comment on above: Performed By: #### C BC #### [facility] [address] [place] [address]6895 Latisha Gena Neutrophils/100 WBC (Bld) 89.4 % Critically high 43.0-75.0 [facility] Comment on above: Performed By: #### C BC #### [facility] [address] [place] [address] Latisha Gena Platelet mean volume (Bld) [Entitic vol] 12.0 fL Normal 9.5-13.5 [facility] Comment on above: Performed By: #### C BC #### [facility] [address] [place] [address] Latisha Gena Platelets (Bld) [#/Vol] 404 103/ul Normal 150-450 [facility] Comment on above: Performed By: #### C BC #### [facility] [address] [place] [address]684 Latisha Gena RBC (Bld) [#/Vol] 5.83 106/ul Critically high 3.30-5.40 [facility] Comment on above: Performed By: #### C BC #### [facility] [address] [place] [address] Latisha Gena WBC (Bld) [#/Vol] 16.3 103/ul Critically high 4.0-11.0 [facility] Comment on above: Performed By: #### C BC #### [facility] [address] [place] [address] Latishaashly Avery ER URINE PROFILEon 1 Bilirubin [Mass/Vol] SMALL Abnormal NEGATIVE [facility] Comment on above: Performed By: #### ANGE FAMRO #### [facility] [address] [place] [address] Latisha Gena BLOOD MODERATE Abnormal NEGATIVE [facility] Comment on above: Performed By: #### ANGE FAMRO #### [facility] [address] [place] [address] Latisha Gena Clarity (U) CLEAR Normal CLEAR [facility] Comment on above: Performed By: #### ANGE FAMRO #### [facility] [address] [place] [address] Latisha Gena Color (U) LT. YELLOW Normal YELLOW [facility] Comment on above: Performed By: #### ANGE FAMRO #### [facility] [address] [place] [address] Latisha Gena ERUAHD A micrscopic examination will be performed if indicated. Normal [facility] Comment on above: Performed By: #### ANGE FAMRO #### [facility] [address] [place] [address] Latisha Gena Glucose [Mass/Vol] >1000 Abnormal NEGATIVE [facility] Comment on above: Performed By: #### ANGE FAMRO #### [facility] [address] [place] [address] Latisha Gena Ketones Ql (U) >=80 Abnormal NEGATIVE [facility] Comment on above: Performed By: #### KALEB FAM #### [facility] [address] [place], [place] [address] Latisha Gena Nitrite Ql (U) Negative Normal NEGATIVE [facility] Comment on above: Performed By: #### KALEB FAM #### [facility] [address] [place], [place] [address] Latisha Gena pH (Bld) 5.5 Normal 5-9 [facility] Comment on above: Performed By: #### KALEB FAM #### [facility] [address] [place], [place] [address] Latisha Gena Protein (U) [Mass/Vol] 100 mg/dL Abnormal NEGAT ROMY/ TRACE [facility] Comment on above: Performed By: #### KALEB FAM #### [facility] [address] [place], [place] [address] Latisha Gena SPEC GRAVITY >=1.030 Abnormal 1.005-<=1.025 [facility] Comment on above: Performed By: #### KALEB FAM #### [facility] [address] [place], [place] [address] Latisha Gena UR MICRO IND INDICATED Normal [facility] Comment on above: Performed By: #### KALEB FAM #### [facility] [address] [place], [place] [address] Latisha Gena Urobilinogen Qn (U) 0.2 EU/dl Normal 0.2 - 1.0 [facility] Comment on above: Performed By: #### KALEB FAM #### [facility] [address] [place], [place] [address] Latisha Gena WBC (Bld) [#/Vol] Negative Normal NEGATIVE [facility] Comment on above: Performed By: #### KALEB FAM #### [facility] [address] [place], [place] [address] Latisha Gena LIPASEon 06-11-2020 Lipase [Catalytic activity/Vol] 88.0 U/L Normal 23.0-300.0 [facility] Comment on above: Performed By: #### B MP, LIPA, ELLA, LIVER #### [facility] [address] [place], [place] [address] Latishaashly Floweren LIVER PROFILEon 06-11-2020 Albumin [Mass/Vol] 4.5 g/dL Normal 3.5-5.0 [facility] Comment on above: Performed By: #### B [id number] #### [facility] [address] [phone] Latisha Gena Albumin/Globulin [Mass ratio] 0.9 {ratio} Normal [facility] Comment on above: Performed By: #### B [id number] #### [facility] [address] [phone] Latisha Gena ALP [Catalytic activity/Vol] 438 U/L Critically high 65-260 [facility] Comment on above: Performed By: #### B [id number] #### [facility] [address] [place] [address] Latisha Gena ALT [Catalytic activity/Vol] 31 U/L Normal 21-72 [facility] Comment on above: Performed By: #### B [id number] #### [facility] [address] [place], [place] [address] Latisha Gena AST [Catalytic activity/Vol] 10 U/L Critically low 17-59 [facility] Comment on above: Performed By: #### B [id number] #### [facility] [address] [place], [place] [address] Latisha Gena BILI, CONJUGATED 0.2 mg/dL Normal 0.0-0.3 [facility] Comment on above: Performed By: #### B [id number] #### [facility] [address] [place], [place] [address] Latisha Gena Bilirubin Ql (U) 0.6 mg/dL Normal 0.2-1.3 [facility] Comment on above: Performed By: #### B [id number] #### [facility] [address] [phone] Latisha Gena Globulin (S) [Mass/Vol] 4.8 g/dL Normal [facility] Comment on above: Performed By: #### B [id number] #### [facility] [address] [address] Latishaashly Avery Protein [Mass/Vol] 9.3 g/dL Critically high 6.1-8.2 [facility] Comment on above: Performed By: #### B [id number] #### [facility] [address] [place] [address] Latisha Gena PH VENOUS BLOODon 06-11-2020 PCO2 VENOUS 34.2 mmHg Critically low 40.0-52.0 [facility] Comment on above: Performed By: #### P HVEN #### [facility] [address] [place] [address] Latisha Gena pH VENOUS 7.09 Critically low 7.33-7.43 [facility] Comment on above: Performed By: #### P HVEN #### [facility] [address] [place] [address] Latisha Avery POINT OF CARE GLUCOSEon 05-19 Glucose [Mass/Vol] 496 mg/dL Critically high 74-106 [facility] Comment on above: Performed By: #### B [id number] #### [facility] [address] [place] [address] Latisha Gena Glucose [Mass/Vol] 491 mg/dL Critically high -106 [facility] Comment on above: Performed By: #### P OCGLUC #### [facility] [address] [place] [address] Latisha Gena Glucose [Mass/Vol] 531 mg/dL Critically high 74-106 [facility] Comment on above: Result Comment: Resu lt Not Confirmed Performed By: #### P OCGLUC #### [facility] [address] [place] [address] Latisha Gena PROF CHEM 8 (BAS METB)on Anion gap [Moles/Vol] 33.4 mmol/L Normal [facility] Comment on above: Performed By: #### B [id number] #### [facility] [address] [place], [place] [address] Latisha Gena Calcium [Mass/Vol] 10.4 mg/dL Critically high 8.4-10.2 [facility] Comment on above: Performed By: #### B [id number] #### [facility] [address] [place], [place] [address] Latisha Gena Chloride [Moles/Vol] 99 mmol/L Normal 98-107 [facility] Comment on above: Performed By: #### B [id number] #### [facility] [address] [place], [place] [address] Latisha Gena CO2 [Moles/Vol] 9.7 mmol/L Critically low 22.0-30.0 [facility] Comment on above: Performed By: #### B [id number] #### [facility] [address] [place], [place] [address] Latisha Gena Creatinine [Mass/Vol] 2.20 mg/dL Critically high 0.66-1.25 [facility] Comment on above: Performed By: #### B [id number] #### [facility] [address] [place], [place] [address] Latisha Gena EGFR-AF ANGOLAN 49 mL/min/1.73m2 Critically low >=60 [facility] Comment on above: Performed By: #### B [id number] #### [facility] [address] [place], [place] [address] Latisha Gena EGFR-NON AF ANGOLAN 41 mL/min/1.73m2 Critically low >=60 [facility] Comment on above: Performed By: #### B [id number] #### [facility] [address] [place], [place] [address] Latisha Gena Glucose [Mass/Vol] 584 mg/dL Critically high 74-106 [facility] Comment on above: Result Comment: TEST REPEATED CRITICAL VALUE VERIFIED Performed By: #### B [id number] #### [facility] [address] [place], [place] [address] Latisha Gena Potassium [Moles/Vol] 5.1 mmol/L Critically high 3.4-5.0 [facility] Comment on above: Performed By: #### B [id number] #### [facility] [address] [id number] Latisha Avery Sodium [Moles/Vol] 137 mmol/L Normal 137-145 [facility] Comment on above: Performed By: #### B [id number] #### [facility] [address] [place], [place] [address] Latishaashly Avery Urea nitrogen [Mass/Vol] 21.0 mg/dL Critically high 6.4-19.3 [facility] Comment on above: Performed By: #### B [id number] #### [facility] [address] [place], [place] [address] Latisha Avery Urea nitrogen/Creatinine [Mass ratio] 9.5 mg/mg Normal [facility] Comment on above: Performed By: #### B [id number] #### [facility] [facility] [address] [place] [address] Latisha Avery Rapid Covid-19 PCR (CVDRPD)o n 06-11-2020 [employer] LDT Info SEE BELOW Normal [facility] Comment on above: Result Comment: This test is not yet approved or cleared by the [place] Food and Drug Administration (FDA) . This test was developed by [employer], [place]. The performance characteristics of this test were validated by The [facility]. The results are not intended to be used as the sole means for clinical diagnosis or patient management decisions. The [facility] is authorized under Clinical Laboratory Improvement Amendments (CLIA) to perform high-complexity testing. When diagnostic testing is negative, the possibility of a false negative should be considered in the context of a patients recent exposures and the presence of clinical signs and symptoms consistent with SARS-CoV-2. Performed By: #### B [id number] #### [facility] [address] [place], [place] [id number] Latisha Avery SARS-CoV-2 NOT DETECTED Normal NOT DETECTED The [facility] Comment on above: Result Comment: . Performed By: #### B [id number] #### [facility] [address] [place], [place] [id number] Latisha Avery URINE MICROSCOPIC ONLYon Bacteria LM.HPF (Urine sed) [#/Area] NONE SEEN Normal NONE SEEN The [facility] Comment on above: Performed By: #### ANGE FAMRO #### [facility] [address] [place], [place] [id number] Latisha Gean CAST NONE SEEN Normal NONE SEEN The [facility] Comment on above: Performed By: #### ANGE FAMRO #### [facility] [address] [id number] Latisha Gena Crystals LM Nom (Urine sed) NONE SEEN Normal NONE SEEN The [facility] Comment on above: Performed By: #### ANGE FAMRO #### [facility] [address] [place] [address] Latisha Gena CULTURE NOT INDICATED Normal The [facility] Comment on above: Performed By: #### ANGE FAMRO #### [facility] [address] [place], [place] [id number] Latisha Gena Epithelial cells LM.HPF (Urine sed) [#/Area] FEW Abnormal NONE SEEN /RARE The [facility] Comment on above: Performed By: #### ANGE FAMRO #### [facility] [address] [place], [place] [id number] Latisha Gena MUCOUS SMALL Abnormal NONE SEEN The [facility] Comment on above: Performed By: #### ANGE FAMRO #### [facility] [address] [place], [place] [address] Latisha Gena RBC (U) [#/Vol] 0-2 Normal 0-2 The [facility] Comment on above: Performed By: #### ANGE FAMRO #### [facility] [address] [place], [place] [address] Latisha Gena WBC (Bld) [#/Vol] NONE SEEN Normal NONE SEEN The [facility] Comment on above: Performed By: #### ANGE FAMRO #### [facility] [address] [place], [place] [id number] Latisha Gena XR CHEST 1 Von 06-11-2020 [...] by: HOOD PALMA Date: 2020-06-11 10:47 Normal [facility] Vital Signs Date Time Vital Sign Value Performing Clinician Facility 03-07-2024 13:51-0400 Body height 198.1 cm Pj Shannon MD Work Phone: [facility] 03-07-2024 13:51-0400 Body mass index (BMI) [Ratio] 34.21 kg/m2 jP Shannon MD Work Phone: [facility] 03-07-2024 13:51-0400 Body weight 134.26 kg Pj Shannon MD Work Phone: [facility] 03-07-2024 13:51-0400 Diastolic blood pressure 82 mm[Hg] Pj Shannon MD Work Phone: [facility] 03-07-2024 13:51-0400 Heart rate 87 /min Pj Shannon MD Work Phone: [facility] 03-07-2024 13:51-0400 Respiratory rate 18 /min Pj Shannon MD Work Phone: [facility] 03-07-2024 13:51-0400 Systolic blood pressure 136 mm[Hg] Pj Shannon MD Work Phone: [facility] 02-29-2024 11:55-0400 Body height 203.2 cm Marlyn Simsmonica MCFARLANDAsuragen Work Phone: [facility] 02-29-2024 11:55-0400 Body mass index (BMI) [Ratio] 33.18 kg/m2 Marlyn Sims APRN-DRY MIXER Work Phone: [facility] 02-29-2024 11:55-0400 Body temperature 98.01 [degF] Marlyn Sims APRN-PERICO Work Phone: [facility] 02-29-2024 11:55-0400 Body weight 136.99 kg Marlyn Sims APRN-PERICO Work Phone: [facility] 02-29-2024 11:55-0400 Diastolic blood pressure 80 mm[Hg] Marlyn Sims APRN-PERICO Work Phone: [facility] 02-29-2024 11:55-0400 Heart rate 87 /min Marlyn Sims APRN-PERICO Work Phone: [facility] 02-29-2024 11:55-0400 Respiratory rate 18 /min Marlyn Sims APRN-PERICO Work Phone: [facility] 02-29-2024 11:55-0400 SaO2% (BldA) [Mass fraction] 98 % Marlyn Sims APRN-PERICO Work Phone: [facility] 02-29-2024 11:55-0400 Systolic blood pressure 140 mm[Hg] Marlyn Sims APRN-PERICO Work Phone: [facility] 02-26-2024 12:54-0400 SaO2% (BldA) [Mass fraction] 98 % [facility] Comment on above: Performed By: #### GLORIA, CBCA, 6873-4, 56 [id number], 24189-1 #### [facility] ([id number]) [address] [place] [address], [place] [address] 08-05-2023 08:41-0400 Body height 203.2 cm Marlyn Sims APRN-PERICO Work Phone: [facility] 08-05-2023 08:41-0400 Body mass index (BMI) [Percentile] Per age and sex 99.6 % Marlyn Sims APRN-PERICO Work Phone: [facility] 08-05-2023 08:41-0400 Body mass index (BMI) [Ratio] 41.46 kg/m2 Marlyn Sims APRN-PERICO Work Phone: [facility] 08-05-2023 08:41-0400 Body temperature 98.4 [degF] Marlyn Sims APRN-PERICO Work Phone: [facility] 08-05-2023 08:41-0400 Body weight 171.19 kg Marlny Sims APRN-PERICO Work Phone: [facility] 08-05-2023 08:41-0400 Diastolic blood pressure 76 mm[Hg] Marlyn Sims APRN-PERICO Work Phone: [facility] 08-05-2023 08:41-0400 Heart rate 63 /min Marlyn Sims APRN-PERICO Work Phone: [facility] 08-05-2023 08:41-0400 Respiratory rate 18 /min Marlyn Sims APRN-PERICO Work Phone: [facility] 08-05-2023 08:41-0400 SaO2% (BldA) [Mass fraction] 98 % Marlyn Sims APRN-PERICO Work Phone: [facility] 08-05-2023 08:41-0400 Systolic blood pressure 126 mm[Hg] Marlyn Sims APRN-PERICO Work Phone: [facility] Encounters Encounter Date Encounter Type Care Provider Facility Start: 03-28-2024 End: 03-28-2024 Emergency department patient visit [facility] Karis [facility] Start: 03-22-2024 End: 03-22-2024 Emergency department patient visit MARLYN J [facility] Start: 03-07-2024 End: 03-07-2024 Keith flowsranjit Shannon MD Work Phone: [facility] Start: 03-07-2024 End: 03-07-2024 Bamboo flowsheet Pj Shannon MD Work Phone: [facility] Start: 03-07-2024 End: 03-07-2024 Office outpatient visit 25 minutes Pj Shannon MD Work Phone: [facility] Comment on above: Type 2 diabetes cory itus with hyperglycemia, without long-term current use of insulin ([facility]) (Primary Dx); Vitamin D deficiency; Encounter for dietary consultation; Class 1 obesity due to excess calories without serious comorbidity with body mass index (BMI) of 34.0 to 34.9 in adult Start: 03-07-2024 End: 03-07-2024 ambulatory PJ SHANNON Not Available Start: 02-29-2024 End: 02-29-2024 ambulatory [facility] Start: 02-29-2024 End: 02-29-2024 Office outpatient visit 15 minutes Marlyn [facility] [employer] [facility] Comment on above: Other constipation ( Primary Dx) Start: 02-26-2024 End: 02-28-2024 Evaluation and management of inpatient [facility] Start: 01-10-2024 End: 01-12-2024 Evaluation and management of inpatient [facility] Start: 11-04-2023 End: 11-04-2023 ambulatory [facility] Start: 08-26-2023 End: 08-26-2023 ambulatory [facility] Start: 08-05-2023 End: 08-05-2023 Office outpatient visit 15 minutes Marlyn Tomasillo [employer] Work Phone: [facility] Comment on above: Epistaxis (Primary D x); Sore throat; Acute cough Start: 08-05-2023 End: 08-05-2023 ambulatory [facility] Start: 06-10-2023 Orders Only Marlyn miller [employer] Work Phone: [facility] Comment on above: Type 2 diabetes cory itus with hyperglycemia, without long-term current use of insulin ([facility]) Start: 05-26-2023 End: 05-26-2023 ambulatory MARLYNELIZABET SIMS [facility] Start: 06-11-2020 End: 06-11-2020 Patient encounter procedure MARIA ISABEL ROMAN Facility: Procedures Date Procedure Procedure Detail Performing Clinician Start: 03-07-2024 Gluc bld gluc mntr d ev cleared fda spec home use Pj Shannon MD Work Phone: Start: 02-29-2024 Adult depression scr eening assessment Marlyn Sims [employer] Work Phone: Start: 08-26-2023 Follow-up visit Follow-up MARLYN SIMS Start: 08-05-2023 POCT INFLUENZA A/INF LUENZA B/SARS-COV-2 VERITOR Marlyn Sims [employer] Work Phone: Start: 08-05-2023 Iaadiadoo streptococ cus group a Marlyn Sims [employer] Work Phone: Start: 08-05-2023 Adult depression scr eening assessment Marlyn Sims [employer] Work Phone: Start: 05-26-2023 Adult depression scr eening assessment Marlyn Sims [employer] Work Phone: Start: 02-17-2023 Microalbumin [Mass/v olume] in Urine by Test strip Marlyn Tomasillo [employer] Work Phone: Start: 06-11-2020 End: 06-11-2020 Microscopic examination of blood, culture MARIA ISABEL ROMAN Comment on above: Performed By: #### B [id number] #### [facility] [address] [place] [address] Latisha Avery Plan of Treatment Date Care Activity Detail Author Start: 12-18-2026 DTaP,Tdap and Td Vaccines (7 - Td or Tdap) DTaP,Tdap and Td Vaccines (7 - Td or Tdap) [facility] Start: 02-28-2025 Adult BMI Follow Up Plan Adult BMI Follow Up Plan [facility] Start: 02-28-2025 Adult BMI Screening Adult BMI Screen ing [facility] Start: 02-28-2025 Depression Screening Depression Scre ening [facility] Start: 02-28-2025 Tobacco Screening Tobacco Screening [facility] Start: 08-04-2024 Adult BMI Screening Adult BMI Screen ing [facility] Start: 08-04-2024 Depression Screening Depression Scre ening [facility] Start: 08-04-2024 Tobacco Screening Tobacco Screening [facility] Start: 06-01-2024 Tobacco Screening Tobacco Screening [facility] Start: 05-28-2024 Hemoglobin A1c measurement Diabetes: Hemoglobin A1C [facility] Start: 05-26-2024 Adult BMI Follow Up Plan Adult BMI Follow Up Plan [facility] Start: 05-26-2024 Adult BMI Screening Adult BMI Screen ing [facility] Start: 05-26-2024 Depression Screening Depression Scre ening [facility] Start: 05-04-2024 End: 05-04-2024 Patient encounter procedure 05/04/2024 1:20 PM EST Office Visit [facility] [address] [place] [address] Pj Shannon MD [address] [place] [address] [facility] Start: 03-07-2024 End: 03-07-2025 25-hydroxyvitamin D3 [Mass/volume] in Serum or Plasma Vitamin D 25 hydroxy Total Lab Routine Vitamin D deficiency Expected: 03/07/2024 (Approximate), Expires: 03/07/2025 [facility] Comment on above: Expected: 03/07/2024 (Approximate), Expires: 03/07/2025 Start: 03-07-2024 End: 03-07-2025 C-peptide C-peptide Lab Routine Type 2 diabetes mellitus with hyperglycemia, without long-term current use of insulin ([facility]) Expected: 03/07/2024 (Approximate), Expires: 03/07/2025 [facility] Work Phone: Comment on above: Expected: 03/07/2024 (Approximate), Expires: 03/07/2025 Start: 03-07-2024 End: 03-07-2025 Lipid 1996 panel - Serum or Plasma Lipid panel Lab Routine Type 2 diabetes mellitus with hyperglycemia, without long-term current use of insulin ([facility]) Expected: 03/07/2024 (Approximate), Expires: 03/07/2025 [facility] Comment on above: Expected: 03/07/2024 (Approximate), Expires: 03/07/2025 Start: 03-07-2024 End: 03-07-2025 Microalbumin/Creatini ne panel in random Urine Microalbumin / creatinine urine ratio Lab Routine Type 2 diabetes mellitus with hyperglycemia, without long-term current use of insulin ([facility]) Expected: 03/07/2024 (Approximate), Expires: 03/07/2025 [facility] Comment on above: Expected: 03/07/2024 (Approximate), Expires: 03/07/2025 Start: 03-07-2024 End: 03-07-2024 Patient encounter procedure 03/07/2024 2:00 PM EDT Office Visit [facility] [address] [place] [address] Pj Shannon MD [address] [place] [address] Arrived [facility] Comment on above: Arrived Start: 03-07-2024 End: 03-07-2025 Renal function panel Renal function panel Lab Routine Type 2 diabetes mellitus with hyperglycemia, without long-term current use of insulin ([facility]) Expected: 03/07/2024 (Approximate), Expires: 03/07/2025 [facility] Comment on above: Expected: 03/07/2024 (Approximate), Expires: 03/07/2025 Start: 02-18-2024 Urine screening for protein [facility] Start: 01-17-2024 COVID-19 Vaccine ( season) COVID-19 Vaccine ( season) [facility] Start: 01-17-2024 Influenza vaccination P [facility] Start: 08-26-2023 End: 08-26-2023 Patient encounter procedure 08/26/2023 3:15 PM EDT [facility] [address] [place] [address] Marlyn Sims, [employer] [address] [place] [address] [facility] Start: 01-16-2023 COVID-19 Vaccine ( season) COVID-19 Vaccine () [facility] Start: 01-16-2023 Influenza vaccination Influenza Vacc ine [facility] Start: 2022 Diabetic foot examination Diabetic Foot Exam [facility] Start: 2014 Glaucoma screening Diabetes: R etinopathy Screening [facility] Start: 2004 Glaucoma screening Diabetic Op hthalmology Exam [facility] Immunizations Immunization Date Immunization Notes Care Provider Fa cility 10-20-2020 SARS-COV-2 (COVID-19 ) Vaccine, Unspecified Marlyn Sims [employer] Work Phone: [facility] 09-29-2020 SARS-COV-2 (COVID-19 ) Vaccine, Unspecified Marlyn Sims [employer] Work Phone: [facility] 12-16-2017 human papilloma viru s vaccine, quadrivalent Marlyn Sims [employer] Work Phone: [facility] 12-18-2016 human papilloma viru s vaccine, quadrivalent Marlyn Sims [employer] Work Phone: [facility] 12-18-2016 meningococcal oligosaccharide (groups A, C, Y and W-135) diphtheria toxoid conjugate vaccine (MCV4O) Marlyn Sims [facility] Work Phone: [facility] 12-18-2016 tetanus toxoid, redu juliane diphtheria toxoid, and acellular pertussis vaccine, adsorbed Marlynelizabet Sims [facility] Work Phone: [facility] 03-31-2011 influenza virus vacc ine, unspecified formulation Marlyn Sims [facility] Work Phone: [facility] 05-30-2010 influenza virus vacc ine, unspecified formulation Marlyn Sims [facility] Work Phone: [facility] 04-01-2010 influenza virus vacc ine, unspecified formulation Marlyn Sims [facility] Work Phone: [facility] 02-05-2009 diphtheria, tetanus toxoids and acellular pertussis vaccine Marlyn Sims [facility] Work Phone: [facility] 02-05-2009 measles, mumps and rubella virus vaccine Marlynelizabet Sims [facility] Work Phone: [facility] 02-05-2009 poliovirus vaccine, inactivated Marlynelizabet Sims [facility] Work Phone: [facility] 02-05-2009 varicella virus vaccine [place] veda Sims [facility] Work Phone: [facility] 02-11-2008 hepatitis A vaccine, adult dosage Marlyn Sims [facility] Work Phone: [facility] 01-27-2007 hepatitis A vaccine, adult dosage Marlyn Sims [facility] Work Phone: [facility] 05-08-2006 diphtheria, tetanus toxoids and acellular pertussis vaccine Marlyn Sims [facility] Work Phone: [facility] 05-08-2006 haemophilus influenz ae type b vaccine, conjugate unspecified formulation Marlyn Sims [employer]-[facility] Work Phone: [facility] 05-08-2006 pneumococcal conjuga te vaccine, 13 valent Marlyn Sims [employer]-[facility] Work Phone: [facility] 01-21-2006 measles, mumps and rubella virus vaccine Marlyn Sims [employer]-[facility] Work Phone: [facility] 01-21-2006 varicella virus vaccine [place]ora Vist[place]vie Sims [facility] Work Phone: [facility] 07-10-2005 diphtheria, tetanus toxoids and acellular pertussis vaccine Marlyn Sims [employer]-[facility] Work Phone: [facility] 07-10-2005 haemophilus influenz ae type b vaccine, conjugate unspecified formulation Marlyn Sims [facility] Work Phone: [facility] 07-10-2005 hepatitis B vaccine, adult dosage Marlyn Levi [employer]-[facility] Work Phone: [facility] 07-10-2005 pneumococcal conjuga te vaccine, 13 valent Marlyn Sims [employer]-[facility] Work Phone: [facility] 07-10-2005 poliovirus vaccine, inactivated Marlyn Sims [facility] Work Phone: [facility] 05-08-2005 diphtheria, tetanus toxoids and acellular pertussis vaccine Marlyn Sims [employer]-[facility] Work Phone: [facility] 05-08-2005 haemophilus influenz ae type b vaccine, conjugate unspecified formulation Marlyn Sims [employer]-[facility] Work Phone: [facility] 05-08-2005 hepatitis B vaccine, adult dosage Marlyn Levi [employer]-[facility] Work Phone: [facility] 05-08-2005 pneumococcal conjuga te vaccine, 13 valent Marlyn Sims [employer]-[facility] Work Phone: [facility] 05-08-2005 poliovirus vaccine, inactivated Marlyn Sims [employer]-[facility] Work Phone: [facility] 02-27-2005 diphtheria, tetanus toxoids and acellular pertussis vaccine Marlyn Sims [employer]-[facility] Work Phone: [facility] 02-27-2005 haemophilus influenz ae type b vaccine, conjugate unspecified formulation Marlyn Sims [facility] Work Phone: [facility] 02-27-2005 hepatitis B vaccine, adult dosage Marlyn Sims [facility] Work Phone: [facility] 02-27-2005 pneumococcal conjuga te vaccine, 13 valent Marlyn Sims [facility] Work Phone: [facility] 02-27-2005 poliovirus vaccine, inactivated Marlyn Sims [facility] Work Phone: [facility] Payers Date Payer Category Payer Medicaid [facility] MEDICAID HMO [id number] 2022-Present [phone] [place] [address] [id number] 2022 Medicaid [id number] 2018 Private Health Insurance [facility] MEDICAID [id number] 2004 Unknown [id number] 1286 2004 Unknown [id number]. 1286 2004 Unknown [id number]. 1286 2004 Unknown [id number]. 1285 2004 Unknown [id number]. 1286 2004 Unknown [id number] [id number]. 1259 2004 Unknown [id number]. 6 2004 Unknown [id number]. 1285 2004 Unknown [id number]. 1286 2004 Unknown [id number]. 1286 1976 Unknown [id number]. 593 1959 Unknown [id number] Social History Date Type Detail Facility Start: 12-25-2022 Tobacco smoking status [facility] Never smoked tobacco [facility] History of tobacco use Passive smoker [facility] Start: 12-25-2022 Tobacco use and exposure Smokeless tobacco non-user [facility] Start: 06-01-2023 End: 02-29-2024 Alcohol intake Current non-drinker of alcohol (finding) [facility] Start: 02-10-2020 End: 02-26-2024 History of Social function [facility] Start: 02-10-2020 End: 02-26-2024 Alcohol Use Disorder Identification Test - Consumption [AUDIT-C] [facility] Frequency of Alcohol Consumption Never [facility] Start: 12-25-2022 Tobacco Comment mother smokes, lives with grandmother who does not smoke [facility] Start: 2004 Sex Assigned At Not on file [facility] Has the electric, Workable, oil, or water company threatened to shut off services in your home in past 12Mo No [facility] Are you now , , , , never or living with a partner? Never [facility] How often to you hav e a drink containing alcohol? Never [facility] Do you feel stress - tense, restless, nervous, or anxious, or unable to sleep at night because your mind is troubled all the time - these days [OSQ] Not at all [facility] Start: 02-26-2024 Sexual orientation Heterosexual (finding) [facility] Tobacco smoking stat [facility] Tobacco smoking consumption unknown [facility] Medical Equipment Procedure Code Equipment Code Equipment Origin al Text Equipment Identifier Dates Scr Bn 115mm 8mm Cnn Lng Bn - [id number] Start: 02-15-2020 use 1 TEST STRIP to TEST BLOOD SUGAR up to five times a day [id number] Start: 07-02-2021 1 Pen Needle by miscellaneous route in the morning. [id number] Start: 02-17-2023 1 Pen Needle by miscellaneous route in the morning. [id number] Start: 11-04-2023 Goals Date Patient Goal Desired [...] Francisco Winters MD on 03/28/2024 7:52 PM [facility] 03-07-2024 History of Present illness Narrative Zay [...] Arthralgia of pelvic region and thigh Asthma ([facility]) Attention deficit hyperactivity disorder (ADHD), combined type ([facility]) Class 2 severe obesity due to excess calories with serious comorbidity in adult ([facility]) Diabetic ketoacidosis without coma associated with other specified diabetes mellitus ([facility]) Hyperglycemia due to type 1 diabetes mellitus (HCC) ([facility]) Hypokalemia Hyponatremia Murmur Passive suicidal ideations Proteinuria, unspecified 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 documented in this encounter [facility] 02-29-2024 History of Present illness Narrative Images from the original note were not included. [address] [place] [address] SUBJECTIVE: Patient ID: Zay Garcia is a [...] 02/15/2020 Performed by Romero Hollins MD at [facility] Past Medical History: Diagnosis Date ADHD (attention deficit hyperactivity disorder) Asthma last more than 3 years ago Closed fracture of left foot 2016 Diabetes mellitus ([facility]) Type 2 Diabetes mellitus type 2, controlled ([facility]) DKA (diabetic ketoacidoses) 06/11/2020 Heart murmur last [...] Reynolds 02/29/24 1240 documented in this encounter [facility] 08-05-2023 History of Present illness Narrative Images from the original note were not included[place] [address] SUBJECTIVE: Patient ID: Zay Garcia is a [...] 02/15/2020 Performed by Romero Hollins MD at [facility] Past Medical History: Diagnosis Date ADHD (attention deficit hyperactivity disorder) Asthma last more than 3 years ago Closed fracture of left foot 2016 Diabetes mellitus ([facility]) Type 2 DKA (diabetic ketoacidoses) 06/11/2020 Heart [...] PRN as directed only for epistaxis. Cough- [place] as directed PRN cough. Note written no [...] Reynolds 08/05/23 0935 documented in this encounter [facility] Evaluation note Diagnosis Type 2 diabetes mellitus with hyperglycemia, without long-term current use of insulin ([facility]) documented in this encounter [facility]* Diagnosis Epistaxis- Primary Sore throat Acute pharyngitis Acute cough documented in this encounter [facility]* Diagnosis Other constipation- Primary [facility] Diagnosis Type 2 diabetes mellitus with hyperglycemia, without long-term current use of insulin ([facility])- Primary Vitamin D deficiency Encounter for dietary consultation Class 1 obesity due to excess calories without serious comorbidity with body mass index (BMI) of 34.0 to 34.9 in adult documented in this encounter [facility] HealthcareInstructionsNot on filedocumented in this encounterOhio[facility] Hospital[facility]ructions* Attachments The following attachments cannot be sent through Care Everywhere. * Nosebleeds Discharge Instructions (Stateless) * Sore Throat Discharge Instructions, Adult (Stateless) documented [facility]* Attachments The following attachments cannot be sent through Care Everywhere. * Constipation in adults (Stateless) [facility] Summary Purpose Family History No Family [...] DATE CREATED AUTHOR AUTHOR'S ORGANIZ ATION 03/09/2024 [facility] EPIC DATE CREATED AUTHOR AUTHOR'S ORGANIZ ATION 03/30/2024 [facility] Care Teams (unrecognized sec tion and content) Line Maintenance Relationship Specialty Start Date End Date Marlyn Sims [facility] [facility] [address] [place] [address] PCP - General Family Medicine 02/12/21 Line Maintenance Relationship Specialty Start Date End Date Marlyn Sims [facility] [address] [place] [address] PCP - General Family Medicine 02/12/21 Line Maintenance Relationship Specialty Start Date End Date Marlyn Sims [facility] [address] [place] [address] PCP - General Family Medicine 02/12/21 Line Maintenance Relationship Specialty Start Date End Date Unallocated, Lucrecia Call MD [address] [place] [address] PCP - General Family Medicine 02/09/24 Line Maintenance Relationship Specialty Start Date End Date Unallocated, Lucrecia Call MD [address] [facility] [place] [address] PCP - General Family Medicine 02/09/24 Reason [...] BE BASED ON THE PRIMARY CLINICAL RECORDS. [facility]. provides no warranty or guarantee of the accuracy or completeness of information in this document.
[2024-04-11 08:49] LABS: Anion Gap 31.6; BUN Creatinine Ratio 6.5; Calcium 9.5 mg/dL (8.5-10.1); Chloride 106 mmol/L (98-107); Estimated GFR (African America 52 (>=60 mL/min/1.73m^2); Estimated GFR (Non-African Ame 43 (>=60 mL/min/1.73m^2); Glucose 357 mg/dL (74-106); Potassium 4.6 mmol/L (3.5-5.1); Sodium 145 mmol/L (136-145)
[2024-04-11 09:13] LABS: Estimated Average Glucose 286 mg/dL; Glycohemoglobin A1C 11.6 % (4.5-6.2)
[2024-04-11 09:17] LABS: Glucometer 291 mg/dL (74-106)
[2024-04-11] MEDS: HEPARIN SODIUM (PORCINE) 5,000 UNIT/ML VIAL 5000 UNIT SUBQ ×2 (09:53→17:44)
[2024-04-11] MEDS: SODIUM BICARBONATE 8.4 % 50 MEQ/50 ML SYRINGE 100 MEQ IV ×2 (09:53→18:47)
[2024-04-11] MEDS: SODIUM CHLORIDE 0.45 % 1,000 ML 200 ML IV (09:53)
--- NOTE | 2024-04-11 10:37 | CM.NOTE ---
Rounds made with Dr. Johnston. Dr. Johnston reviews plan of care with [facility]. Understanding verbalized.
--- NOTE | 2024-04-11 10:57 | PM.HP ---
HPI H&P: HPI History of Present Illness Chief complaint: OTHER, DKA, TYPE 2 Narrative: 18y o male with hx of T2 DM, could not use his Insulin because he was locked out of his house presented to ED with lethargy, generalized weakness, nausea and vomiting, decreased PO intake x 2 days. Patient found to have DKA - hyperglycemia, AG of 38, ketonuria and acidosis on VBG with pH of only 7.1. Patient received aggressive IV hydration in ED, admitted to ICU for DKA, and started on IV fluids, IV insulin as per DKA protocol. Given the degree of acidosis, and bicarb levels of only 8, he was also given IV HCO3 100meq. Patient at the time of evaluation was still quite lethargic and drowsy. He felt overall weak and did not have the energy to participate in history and exam. Opioid HPI Opioid Management Most Recent Pain and Opioid Data: Last Pain Scale 3 04/01/24 13:00 04/01/24 Last Pain Assessment 04/11/24 10:00 Last ORT Total Score 1 04/11/24 08:09 04/11/24 Last ORT Risk Category Low Risk 04/11/24 08:09 04/11/24 Ur Phencyclidine Scrn Negative (NEGATIVE) 04/11/24 05:25 04/11/24 Review of Systems ROS Status of ROS 10 or more systems reviewed and unremarkable except as noted in history and below [facility] Medical History (Updated 04/11/24 @ 11:03 by Shaikh Vickie MD) Acute hyperglycemia ?R73.9 - Hyperglycemia, unspecified (ICD-10) Abscess of left axilla ?L02.412 - Cutaneous abscess of left axilla (ICD-10) Poorly controlled type 2 diabetes mellitus ?E11.65 - Type 2 diabetes mellitus with hyperglycemia (ICD-10) Diabetes type 2, controlled ?E11.9 - Type 2 diabetes mellitus without complications (ICD-10) Surgical History History of hip surgery ?Z98.890 - Other specified postprocedural states (ICD-10) Family History Father Family history of diabetes mellitus Social History Within the past year, how often did you have a drink containing alcohol: never Score interpretation: A score less than 4 is consistent with normal alcohol consumption. Do you use any of these nicotine containing products: vaping products Non-prescribed substance use: denies use Highest level of school completed/degree received: high school graduate Little interest or pleasure in doing things: not at all Feeling down, depressed, or hopeless: not at all Meds Home Medications and Allergies Home Medications ?Medication ?Instructions ?Recorded ?Confirmed ?Type insulin glargine 100 unit/mL (3 75 unit (0.75 mL) subcut .qhs 30 01/10/24 04/11/24 Rx mL) subcutaneous pen (Lantus days #8 pens Solostar U-100 Insulin) metformin 500 mg tablet 500 mg PO BIDWM 04/11/24 04/11/24 History sitagliptin phosphate 100 mg 100 mg PO QAM 04/11/24 04/11/24 History tablet (Januvia) Allergies Allergy/AdvReac Type Severity Reaction Status Date / Time No Known Drug Allergies Allergy Verified 04/11/24 04:37 Exam Constitutional Vital Signs, click to edit/add: Last Vital Signs Temp 98.1 F 04/11/24 08:09 Pulse 82 04/11/24 10:40 Resp 12 04/11/24 10:30 BP 142/82 H 04/11/24 10:00 Pulse Ox 99 04/11/24 10:40 O2 Del Method Room Air 04/11/24 08:09 Documenting provider has reviewed patient's vital signs: yes Common normals: no apparent distress and oriented x3 General appearance: cooperative, lethargic and ill appearing [facility] Common normals: normocephalic and head/scalp atraumatic Head and scalp: normocephalic and atraumatic Eye Common normals: conjunctivae normal and no scleral icterus Conjunctiva: conjunctiva(e) normal Respiratory Common normals: normal respiratory effort and clear to auscultation bilaterally Effort & inspection: able to speak in complete sentences Auscultation: clear to auscultation bilaterally Cardio Common normals: regular rate, S1 normal heart sound and S2 normal heart sound Rate: regular rate Heart sounds: S1 normal and S2 normal GI Common normals: Normal to inspection, nondistended, normoactive bowel sounds present, soft to palpation, non-tender and no hepatosplenomegaly Palpation: soft and no hepatosplenomegaly Extremity Common normals: no clubbing, cyanosis or edema Neuro Common normals: oriented x3, moves all extremities and no focal motor deficits Sensorium/orientation: lethargic and somnolent Psych Common normals: mental status grossly normal, thought process normal, denies hallucinations, denies homicidal ideation and denies suicidal ideation Results Labs Labs: Short CBC 04/11/24 Range/Units 04:44 WBC 15.4 H (4.0-11.0) 10^3/uL Hgb 17.3 (14.0-18.0) g/dL Hct 53.1 (42.0-54.0) % Plt Count 412 (150-450) 10^3/uL BMP 04/11/24 04/11/24 04:44 08:35 Sodium 141 145 Potassium 4.4 4.6 Chloride 99 106 Carbon Dioxide 8.0 L 12.0 L BUN 14.0 13.0 Creatinine 2.11 H 2.00 H Glucose 563 H* 357 H Calcium 10.3 H 9.5 ABG ABG results: 04/11/24 05:11 ABG pH 7.102 L* ABG pCO2 24.0 L ABG pO2 110.0 H ABG HCO3 7.5 L ABG O2 Saturation 98.1 ABG Base Excess -22.2 L Assessment and Plan Assessment and Plan (1) DKA, type 2: Assessment and Plan: Presented with DKA. On IVF, IV insulin as per DKA protocol. Needs close ICU monitoring, hourly POC glucose, BMP q4. Monitor I/O, tele monitoring. Clear liquid diet for now, IV zofran as needed. Qualifiers: Diabetes mellitus complication detail: without coma Qualified Code(s): E11.10 - Type 2 diabetes mellitus with ketoacidosis without coma (2) Poorly controlled type 2 diabetes mellitus: Assessment and Plan: Poorly controlled T2 DM, A1C > 11 He is just on Long acting insulin and I believe he will benefit from addition of prandial insulin too. (3) CARLOS (acute kidney injury): Assessment and Plan: Normal renal function at baseline. Presented with Cr of 2.1 Likely pre renal, on IVF. Monitor UO, serum cr closely.. (4) Drowsiness: Assessment and Plan: Due to DKA. Monitor closely. (5) Lethargy: Assessment and Plan: Due to DKA. Monitor closely. (6) Generalized weakness: Assessment and Plan: Due to DKA. Monitor closely.
[2024-04-11 14:00] LABS: Anion Gap 22.5; BUN Creatinine Ratio 4.8; Calcium 8.5 mg/dL (8.5-10.1); Carbon Dioxide 17.1 mmol/L (21.0-32.0); Chloride 108 mmol/L (98-107); Estimated GFR (African America >60 (>=60 mL/min/1.73m^2); Estimated GFR (Non-African Ame 53 (>=60 mL/min/1.73m^2); Glucose 176 mg/dL (74-106); Magnesium 1.8 mg/dL (1.8-2.4); Phosphorus 1.7 mg/dL (2.6-4.7); Potassium 3.6 mmol/L (3.5-5.1); Sodium 144 mmol/L (136-145)
[2024-04-11] MEDS: POTASSIUM CHLORIDE 10 MEQ ER TABLET 40 MEQ PO (14:31)
[2024-04-11] MEDS: DEXTROSE 5 %-0.45 % SOD CHLORD 1,000 ML 150 ML IV ×2 (14:32→20:58)
[2024-04-11 17:33] LABS: ABG PCO2 34.2 mmHg (35.0-45.0); Allen Test POSITIVE (POSITIVE); Base Excess ABG -9.7 mmol/L (-2.0-2.0); Fractionated Inspired Oxygen 21 %; HCO3 ABG 16.7 mmol/L (22.0-26.0); O2 Mode RA; Oxygen Saturation ABG 99.2 %
[2024-04-11 17:34] LABS: Puncture Site RR; pH ABG 7.298 (7.350-7.450)
[2024-04-11 17:57] LABS: Glucometer 248 mg/dL (74-106)
[2024-04-11 18:31] LABS: Anion Gap 20.5; Carbon Dioxide 18.5 mmol/L (21.0-32.0); Chloride 106 mmol/L (98-107); Estimated GFR (African America >60 (>=60 mL/min/1.73m^2); Estimated GFR (Non-African Ame 50 (>=60 mL/min/1.73m^2); Glucose 223 mg/dL (74-106); Magnesium 1.8 mg/dL (1.8-2.4); Phosphorus 2.7 mg/dL (2.6-4.7); Sodium 141 mmol/L (136-145)
[2024-04-11 19:10] LABS: Glucometer 236 mg/dL (74-106)
[2024-04-11 20:07] LABS: Glucometer 273 mg/dL (74-106)
[2024-04-11 21:04] LABS: Glucometer 279 mg/dL (74-106)
[2024-04-11 21:46] LABS: Anion Gap 21.2; BUN Creatinine Ratio 3.7; Calcium 8.5 mg/dL (8.5-10.1); Carbon Dioxide 17.6 mmol/L (21.0-32.0); Chloride 104 mmol/L (98-107); Estimated GFR (African America >60 (>=60 mL/min/1.73m^2); Estimated GFR (Non-African Ame 55 (>=60 mL/min/1.73m^2); Glucose 326 mg/dL (74-106); Magnesium 1.5 mg/dL (1.8-2.4); Phosphorus 2.5 mg/dL (2.6-4.7); Potassium 3.8 mmol/L (3.5-5.1); Sodium 139 mmol/L (136-145)
[2024-04-11 22:03] LABS: Glucometer 283 mg/dL (74-106)
[2024-04-11] MEDS: MAGNESIUM SULFATE/D5W 1 GM/100 ML PREMIX IV (22:14)
[2024-04-11 23:03] LABS: Glucometer 274 mg/dL (74-106)
[2024-04-12] VITALS (28 sets, daily range): BP systolic 120–158; BP diastolic 69–83; PULSE 54–78; TEMP 36.7–36.9; O2SAT 95–100
[2024-04-12 00:04] LABS: Glucometer 279 mg/dL (74-106)
[2024-04-12] MEDS: HEPARIN SODIUM (PORCINE) 5,000 UNIT/ML VIAL 5000 UNIT SUBQ ×3 (00:12→16:09)
[2024-04-12 01:04] LABS: Glucometer 231 mg/dL (74-106)
[2024-04-12 01:42] LABS: Anion Gap 15.8; BUN Creatinine Ratio 3.2; Calcium 8.6 mg/dL (8.5-10.1); Carbon Dioxide 20.5 mmol/L (21.0-32.0); Chloride 106 mmol/L (98-107); Estimated GFR (African America >60 (>=60 mL/min/1.73m^2); Estimated GFR (Non-African Ame 57 (>=60 mL/min/1.73m^2); Glucose 258 mg/dL (74-106); Magnesium 1.7 mg/dL (1.8-2.4); Phosphorus 1.8 mg/dL (2.6-4.7); Potassium 3.3 mmol/L (3.5-5.1); Sodium 139 mmol/L (136-145)
[2024-04-12 02:03] LABS: Glucometer 260 mg/dL (74-106)
[2024-04-12] MEDS: POTASSIUM CHLORIDE IN WATER 10 MEQ/100 ML PREMIX 100 MEQ IV ×8 (02:37→23:08)
[2024-04-12 03:05] LABS: Glucometer 211 mg/dL (74-106)
[2024-04-12] MEDS: DEXTROSE 5 %-0.45 % SOD CHLORD 1,000 ML 150 ML IV ×2 (03:29→09:54)
[2024-04-12 04:05] LABS: Glucometer 199 mg/dL (74-106)
[2024-04-12 05:03] LABS: Glucometer 192 mg/dL (74-106)
[2024-04-12 06:03] LABS: Glucometer 181 mg/dL (74-106)
[2024-04-12] MEDS: INSULIN REGULAR IN 0.9 % NACL 100 UNIT/100 ML PLAST..BAG IV (06:54)
[2024-04-12 07:04] LABS: Glucometer 217 mg/dL (74-106)
[2024-04-12 07:06] LABS: Basophils Absolute Auto 0.1 10^3/uL (0.0-0.1); Eosinophils Absolute Auto 0.2 10^3/uL (0.0-0.7); Eosinophils Percent Auto 3.7 % (0.9-7.0); Hematocrit 39.8 % (42.0-54.0); Hemoglobin 13.4 g/dL (14.0-18.0); Immature Granulocytes Abs Auto 0.04 10^3/uL (0.00-0.03); Immature Granulocytes Pct Auto 0.7 % (0.0-0.5); Lymphocytes Absolute Auto 2.7 10^3/uL (1.2-3.8); Lymphocytes Percent Auto 43.2 % (20.5-60.0); Mean Corpuscular HGB Conc 33.7 g/dL (29.9-35.2); Mean Corpuscular Hemoglobin 29.9 pg (25.9-34.0); Mean Corpuscular Volume 88.8 fL (80.0-94.0); Mean Platelet Volume 10.8 fL (9.5-13.5); Monocytes Absolute Auto 0.4 10^3/uL (0.3-0.8); Neutrophils Absolute Auto 2.7 10^3/uL (1.4-6.5); Neutrophils Percent Auto 44.4 % (43.0-75.0); Platelet Count 249 10^3/uL (150-450); Red Blood Count 4.48 10^6/uL (4.70-6.10); Red Cell Distribution Width 13.5 % (11.0-15.0); White Blood Count 6.1 10^3/uL (4.0-11.0)
[2024-04-12 07:30] LABS: Anion Gap 17.3; BUN Creatinine Ratio 2.7; Calcium 8.4 mg/dL (8.5-10.1); Carbon Dioxide 20.6 mmol/L (21.0-32.0); Chloride 105 mmol/L (98-107); Estimated GFR (African America >60 (>=60 mL/min/1.73m^2); Estimated GFR (Non-African Ame >60 (>=60 mL/min/1.73m^2); Glucose 224 mg/dL (74-106); Magnesium 1.6 mg/dL (1.8-2.4); Phosphorus 2.2 mg/dL (2.6-4.7); Potassium 3.9 mmol/L (3.5-5.1); Sodium 139 mmol/L (136-145)
[2024-04-12 08:09] LABS: Glucometer 217 mg/dL (74-106)
[2024-04-12] MEDS: POTASSIUM CHLORIDE 10 MEQ ER TABLET 40 MEQ PO ×2 (08:13→18:45)
[2024-04-12 08:59] LABS: Glucometer 227 mg/dL (74-106)
--- NOTE | 2024-04-12 09:32 | P.IMPN_ITS ---
Progress Note: A&P Assessment and Plan (1) DKA, type 2: Assessment and Plan: Still in DKA with AG of 17. Cw insulin drip, monitor blood glucose closely, BMP Q4H. Will transition to SQ insulin once gap closes. Qualifiers: Diabetes mellitus complication detail: without coma Qualified Code(s): E11.10 - Type 2 diabetes mellitus with ketoacidosis without coma (2) Poorly controlled type 2 diabetes mellitus: Assessment and Plan: A1C > 11. Will need to adjust patient's regimen for T2DM upon discharge. (3) CARLOS (acute kidney injury): Assessment and Plan: Renal function more or less close to baseline. (4) Drowsiness: Assessment and Plan: Improved. (5) Lethargy: Assessment and Plan: Improved overall with hydration/treatment of underlying DKA. (6) Generalized weakness: Assessment and Plan: Feels better today but still weak and tired. (7) Leukocytosis: Assessment and Plan: Improved. Reactive likely due to DKA. Qualifiers: Leukocytosis type: unspecified Qualified Code(s): D72.829 - Elevated white blood cell count, unspecified Internal Medicine - PN: Subj Subjective Interval history: Seen and examined. No overnight events. Patient still feeling tired/lethargic but overall better. Denies nausea/vomiting. Has not eaten anything and reports anorexia and loss of appetite. Exam Constitutional Vital Signs, click to edit/add: Last Vital Signs Temp 98.4 F 04/12/24 04:00 Pulse 63 04/12/24 08:00 Resp 16 04/12/24 08:00 BP 130/74 04/12/24 07:02 Pulse Ox 95 04/12/24 07:02 O2 Del Method Room Air 04/11/24 19:36 Documenting provider has reviewed patient's vital signs: yes Common normals: no apparent distress and oriented x3 General appearance: cooperative and lethargic Respiratory Common normals: normal respiratory effort and clear to auscultation bilaterally Effort & inspection: able to speak in complete sentences Auscultation: clear to auscultation bilaterally Cardio Common normals: regular rate, S1 normal heart sound and S2 normal heart sound Rate: regular rate Heart sounds: S1 normal and S2 normal Extremity Common normals: no clubbing, cyanosis or edema Neuro Common normals: oriented x3, moves all extremities and no focal motor deficits Sensorium/orientation: lethargic Psych Common normals: mental status grossly normal, thought process normal, denies hallucinations, denies homicidal ideation and denies suicidal ideation Internal Medicine - PN: Obj Da Labs Labs: Laboratory Results - last 24 hr 04/11/24 04/11/24 04/11/24 13:43 17:25 17:50 WBC RBC Hgb Hct MCV MCH MCHC RDW Plt Count MPV Neut % (Auto) Lymph % (Auto) [place] % (Auto) Eos % (Auto) Baso % (Auto) Neut # (Auto) Lymph # (Auto) [place] # (Auto) Eos # (Auto) Baso # (Auto) Abs Immat Gran (auto) Imm/Tot Granulo (auto) Puncture Site Rr ABG pH 7.298 L* ABG pCO2 34.2 L ABG pO2 112.0 H ABG HCO3 16.7 L ABG O2 Saturation 99.2 ABG Base Excess -9.7 L Mainor Test Positive FiO2 21 Sodium 144 141 Potassium 3.6 4.0 Chloride 108 H 106 Carbon Dioxide 17.1 L 18.5 L Anion Gap 22.5 20.5 BUN 8.0 7.0 Creatinine 1.67 H 1.75 H Est GFR ( Amer) >60 >60 Est GFR (Non-Af Amer) 53 L 50 L BUN/Creatinine Ratio 4.8 4.0 Glucose 176 H 223 H Calcium 8.5 9.0 Phosphorus 1.7 L 2.7 Magnesium 1.8 1.8 POC Glucose 04/11/24 04/11/24 04/11/24 17:56 19:08 20:05 WBC RBC Hgb Hct MCV MCH MCHC RDW Plt Count MPV Neut % (Auto) Lymph % (Auto) [place] % (Auto) Eos % (Auto) Baso % (Auto) Neut # (Auto) Lymph # (Auto) [place] # (Auto) Eos # (Auto) Baso # (Auto) Abs Immat Gran (auto) Imm/Tot Granulo (auto) Puncture Site ABG pH ABG pCO2 ABG pO2 ABG HCO3 ABG O2 Saturation ABG Base Excess Mainor Test FiO2 Sodium Potassium Chloride Carbon Dioxide Anion Gap BUN Creatinine Est GFR ( Amer) Est GFR (Non-Af Amer) BUN/Creatinine Ratio Glucose Calcium Phosphorus Magnesium POC Glucose 248 H 236 H 273 H 04/11/24 04/11/24 04/11/24 21:02 21:24 22:02 WBC RBC Hgb Hct MCV MCH MCHC RDW Plt Count MPV Neut % (Auto) Lymph % (Auto) [place] % (Auto) Eos % (Auto) Baso % (Auto) Neut # (Auto) Lymph # (Auto) [place] # (Auto) Eos # (Auto) Baso # (Auto) Abs Immat Gran (auto) Imm/Tot Granulo (auto) Puncture Site ABG pH ABG pCO2 ABG pO2 ABG HCO3 ABG O2 Saturation ABG Base Excess Mainor Test FiO2 Sodium 139 Potassium 3.8 Chloride 104 Carbon Dioxide 17.6 L Anion Gap 21.2 BUN 6.0 L Creatinine 1.63 H Est GFR ( Amer) >60 Est GFR (Non-Af Amer) 55 L BUN/Creatinine Ratio 3.7 Glucose 326 H Calcium 8.5 Phosphorus 2.5 L Magnesium 1.5 L POC Glucose 279 H 283 H 04/11/24 04/12/24 04/12/24 23:02 00:03 01:02 WBC RBC Hgb Hct MCV MCH MCHC RDW Plt Count MPV Neut % (Auto) Lymph % (Auto) [place] % (Auto) Eos % (Auto) Baso % (Auto) Neut # (Auto) Lymph # (Auto) [place] # (Auto) Eos # (Auto) Baso # (Auto) Abs Immat Gran (auto) Imm/Tot Granulo (auto) Puncture Site ABG pH ABG pCO2 ABG pO2 ABG HCO3 ABG O2 Saturation ABG Base Excess Mainor Test FiO2 Sodium Potassium Chloride Carbon Dioxide Anion Gap BUN Creatinine Est GFR ( Amer) Est GFR (Non-Af Amer) BUN/Creatinine Ratio Glucose Calcium Phosphorus Magnesium POC Glucose 274 H 279 H 231 H 04/12/24 04/12/24 04/12/24 01:19 02:02 03:02 WBC RBC Hgb Hct MCV MCH MCHC RDW Plt Count MPV Neut % (Auto) Lymph % (Auto) [place] % (Auto) Eos % (Auto) Baso % (Auto) Neut # (Auto) Lymph # (Auto) [place] # (Auto) Eos # (Auto) Baso # (Auto) Abs Immat Gran (auto) Imm/Tot Granulo (auto) Puncture Site ABG pH ABG pCO2 ABG pO2 ABG HCO3 ABG O2 Saturation ABG Base Excess Mainor Test FiO2 Sodium 139 Potassium 3.3 L Chloride 106 Carbon Dioxide 20.5 L Anion Gap 15.8 BUN 5.0 L Creatinine 1.58 H Est GFR ( Amer) >60 Est GFR (Non-Af Amer) 57 L BUN/Creatinine Ratio 3.2 Glucose 258 H Calcium 8.6 Phosphorus 1.8 L Magnesium 1.7 L POC Glucose 260 H 211 H 04/12/24 04/12/24 04/12/24 04:02 05:01 06:02 WBC RBC Hgb Hct MCV MCH MCHC RDW Plt Count MPV Neut % (Auto) Lymph % (Auto) [place] % (Auto) Eos % (Auto) Baso % (Auto) Neut # (Auto) Lymph # (Auto) [place] # (Auto) Eos # (Auto) Baso # (Auto) Abs Immat Gran (auto) Imm/Tot Granulo (auto) Puncture Site ABG pH ABG pCO2 ABG pO2 ABG HCO3 ABG O2 Saturation ABG Base Excess Mainor Test FiO2 Sodium Potassium Chloride Carbon Dioxide Anion Gap BUN Creatinine Est GFR ( Amer) Est GFR (Non-Af Amer) BUN/Creatinine Ratio Glucose Calcium Phosphorus Magnesium POC Glucose 199 H 192 H 181 H 04/12/24 04/12/24 04/12/24 06:59 07:01 08:07 WBC 6.1 RBC 4.48 L Hgb 13.4 L Hct 39.8 L MCV 88.8 MCH 29.9 MCHC 33.7 RDW 13.5 Plt Count 249 MPV 10.8 Neut % (Auto) 44.4 Lymph % (Auto) 43.2 [place] % (Auto) 7.0 Eos % (Auto) 3.7 Baso % (Auto) 1.0 Neut # (Auto) 2.7 Lymph # (Auto) 2.7 [place] # (Auto) 0.4 Eos # (Auto) 0.2 Baso # (Auto) 0.1 Abs Immat Gran (auto) 0.04 H Imm/Tot Granulo (auto) 0.7 H Puncture Site ABG pH ABG pCO2 ABG pO2 ABG HCO3 ABG O2 Saturation ABG Base Excess Mainor Test FiO2 Sodium 139 Potassium 3.9 Chloride 105 Carbon Dioxide 20.6 L Anion Gap 17.3 BUN 4.0 L Creatinine 1.50 H Est GFR ( Amer) >60 Est GFR (Non-Af Amer) >60 BUN/Creatinine Ratio 2.7 Glucose 224 H Calcium 8.4 L Phosphorus 2.2 L Magnesium 1.6 L POC Glucose 217 H 217 H 04/12/24 08:56 WBC RBC Hgb Hct MCV MCH MCHC RDW Plt Count MPV Neut % (Auto) Lymph % (Auto) [place] % (Auto) Eos % (Auto) Baso % (Auto) Neut # (Auto) Lymph # (Auto) [place] # (Auto) Eos # (Auto) Baso # (Auto) Abs Immat Gran (auto) Imm/Tot Granulo (auto) Puncture Site ABG pH ABG pCO2 ABG pO2 ABG HCO3 ABG O2 Saturation ABG Base Excess Mainor Test FiO2 Sodium Potassium Chloride Carbon Dioxide Anion Gap BUN Creatinine Est GFR ( Amer) Est GFR (Non-Af Amer) BUN/Creatinine Ratio Glucose Calcium Phosphorus Magnesium POC Glucose 227 H
--- NOTE | 2024-04-12 09:45 | CM.NOTE ---
Rounds made with Dr. Johnston. Dr. Johnston reviews plan of care. No discharge today.
[2024-04-12 09:58] LABS: Glucometer 292 mg/dL (74-106)
[2024-04-12 10:59] LABS: Glucometer 328 mg/dL (74-106)
[2024-04-12 11:22] LABS: Anion Gap 20.4; Calcium 8.8 mg/dL (8.5-10.1); Carbon Dioxide 18.4 mmol/L (21.0-32.0); Chloride 104 mmol/L (98-107); Estimated GFR (African America >60 (>=60 mL/min/1.73m^2); Estimated GFR (Non-African Ame 60 (>=60 mL/min/1.73m^2); Glucose 334 mg/dL (74-106); Potassium 3.8 mmol/L (3.5-5.1); Sodium 139 mmol/L (136-145)
[2024-04-12 11:54] LABS: Glucometer 337 mg/dL (74-106)
[2024-04-12] MEDS: MAGNESIUM SULFATE/D5W 1 GM/100 ML PREMIX IV (12:56)
[2024-04-12 13:12] LABS: Glucometer 305 mg/dL (74-106)
[2024-04-12] MEDS: SODIUM CHLORIDE 0.45 % 1,000 ML 100 ML IV ×2 (13:43→19:52)
[2024-04-12 15:26] LABS: Anion Gap 17.7; BUN Creatinine Ratio 2.8; Calcium 8.7 mg/dL (8.5-10.1); Carbon Dioxide 19.9 mmol/L (21.0-32.0); Chloride 102 mmol/L (98-107); Estimated GFR (African America >60 (>=60 mL/min/1.73m^2); Estimated GFR (Non-African Ame >60 (>=60 mL/min/1.73m^2); Glucose 286 mg/dL (74-106); Potassium 3.6 mmol/L (3.5-5.1); Sodium 136 mmol/L (136-145)
[2024-04-12 15:27] LABS: Magnesium 1.7 mg/dL (1.8-2.4)
[2024-04-12] MEDS: DEXTROSE 5 %-0.45 % SOD CHLORD 1,000 ML 100 ML IV (16:17)
[2024-04-12 18:20] LABS: Anion Gap 16.3; BUN Creatinine Ratio 2.2; Calcium 9.1 mg/dL (8.5-10.1); Carbon Dioxide 20.8 mmol/L (21.0-32.0); Chloride 103 mmol/L (98-107); Estimated GFR (African America >60 (>=60 mL/min/1.73m^2); Estimated GFR (Non-African Ame >60 (>=60 mL/min/1.73m^2); Glucose 181 mg/dL (74-106); Potassium 3.1 mmol/L (3.5-5.1); Sodium 137 mmol/L (136-145)
[2024-04-12] MEDS: INSULIN GLARGINE 300 UNIT/3 ML INSULN.PEN 60 UNIT SQ (18:44)
[2024-04-12] MEDS: INSULIN ASPART 300 UNIT/3 ML PEN SUBQ (23:08)
[2024-04-13] VITALS (13 sets, daily range): BP systolic 124–142; BP diastolic 53–86; PULSE 52–76; TEMP 36.6–36.9; O2SAT 97–100; BMI 33.3
[2024-04-13] MEDS: HEPARIN SODIUM (PORCINE) 5,000 UNIT/ML VIAL 5000 UNIT SUBQ ×3 (00:15→18:15)
[2024-04-13] MEDS: SODIUM CHLORIDE 0.45 % 1,000 ML 100 ML IV (05:32)
[2024-04-13] MEDS: INSULIN ASPART 300 UNIT/3 ML PEN SUBQ ×4 (05:33→21:25)
[2024-04-13 06:02] LABS: Alanine Aminotransferase 16 U/L (16-63); Albumin Globulin Ratio 0.7; Albumin Level 2.6 g/dL (3.4-5.0); Alkaline Phosphatase 93 U/L (46-116); Anion Gap 21.7; Aspartate Amino Transferase 8 U/L (15-37); BUN Creatinine Ratio 2.8; Bilirubin Total 0.5 mg/dL (0.2-1.0); Calcium 9.1 mg/dL (8.5-10.1); Carbon Dioxide 17.7 mmol/L (21.0-32.0); Chloride 103 mmol/L (98-107); Estimated GFR (African America >60 (>=60 mL/min/1.73m^2); Estimated GFR (Non-African Ame >60 (>=60 mL/min/1.73m^2); Globulin 3.7 g/dL; Glucose 300 mg/dL (74-106); Potassium 3.4 mmol/L (3.5-5.1); Sodium 139 mmol/L (136-145); Total Protein 6.3 g/dL (6.4-8.2)
[2024-04-13] MEDS: INSULIN GLARGINE 300 UNIT/3 ML INSULN.PEN 25 UNIT SQ (09:15)
[2024-04-13] MEDS: INSULIN ASPART 300 UNIT/3 ML PEN 10 UNIT SUBQ ×4 (09:16→21:25)
[2024-04-13] MEDS: SODIUM BICARBONATE 325 MG TABLET 650 MG PO ×3 (09:19→21:27)
--- NOTE | 2024-04-13 09:47 | PM.IMPN1 ---
Progress Note: A&P Assessment and Plan (1) DKA, type 2: Assessment and Plan: Patient's AG closed last evening and he was transitioned to SQ insulin. However, on morning labs, his AG is now 21. He is subjectively feeling better. I will add Lantus 25 units qam and 60 units qhs. Added aspart 10 U TIDAC along with SSI. Since he is subjectively feeling better, I will attempt to manage his DKA with SQ insulin and monitor closely. Added oral bicarbonate. Qualifiers: Diabetes mellitus complication detail: without coma Qualified Code(s): E11.10 - Type 2 diabetes mellitus with ketoacidosis without coma (2) Poorly controlled type 2 diabetes mellitus: Assessment and Plan: A1C > 11. Will need to adjust patient's regimen for T2DM upon discharge. (3) CARLOS (acute kidney injury): Assessment and Plan: Renal function more or less close to baseline. (4) Drowsiness: Assessment and Plan: resolved (5) Lethargy: Assessment and Plan: resolved (6) Generalized weakness: Assessment and Plan: resolved (7) Leukocytosis: Assessment and Plan: resolved. Qualifiers: Leukocytosis type: unspecified Qualified Code(s): D72.829 - Elevated white blood cell count, unspecified Internal Medicine - PN: Subj Subjective Interval history: Seen and examined. Patient subjectively feels better. Denies nausea,vomiting or abdominal pain. His AG closed last evening and he was transitioned to SQ insulin but on his morning labs, his AG again increased to 21. Exam Constitutional Vital Signs, click to edit/add: Last Vital Signs Temp 97.8 F 04/13/24 08:00 Pulse 57 L 04/13/24 08:00 Resp 16 04/13/24 08:00 BP 142/53 H 04/13/24 08:00 Pulse Ox 99 04/13/24 09:17 O2 Del Method Room Air 04/13/24 09:17 Documenting provider has reviewed patient's vital signs: yes Common normals: no apparent distress and oriented x3 General appearance: cooperative Respiratory Common normals: normal respiratory effort and clear to auscultation bilaterally Effort & inspection: able to speak in complete sentences Auscultation: clear to auscultation bilaterally Cardio Common normals: regular rate, S1 normal heart sound and S2 normal heart sound Rate: regular rate Heart sounds: S1 normal and S2 normal Extremity Common normals: no clubbing, cyanosis or edema Neuro Common normals: oriented x3, moves all extremities and no focal motor deficits Psych Common normals: mental status grossly normal, thought process normal, denies hallucinations, denies homicidal ideation and denies suicidal ideation Internal Medicine - PN: Obj Da Labs Labs: Laboratory Results - last 24 hr 04/12/24 04/12/24 04/12/24 09:55 10:57 11:09 Sodium 139 Potassium 3.8 Chloride 104 Carbon Dioxide 18.4 L Anion Gap 20.4 BUN 3.0 L Creatinine 1.51 H Est GFR ( Amer) >60 Est GFR (Non-Af Amer) 60 BUN/Creatinine Ratio 2.0 Glucose 334 H Calcium 8.8 Magnesium Total Bilirubin AST ALT Alkaline Phosphatase Total Protein Albumin Globulin Albumin/Globulin Ratio POC Glucose 292 H 328 H 04/12/24 04/12/24 04/12/24 11:53 13:10 15:03 Sodium 136 Potassium 3.6 Chloride 102 Carbon Dioxide 19.9 L Anion Gap 17.7 BUN 4.0 L Creatinine 1.42 H Est GFR ( Amer) >60 Est GFR (Non-Af Amer) >60 BUN/Creatinine Ratio 2.8 Glucose 286 H Calcium 8.7 Magnesium 1.7 L Total Bilirubin AST ALT Alkaline Phosphatase Total Protein Albumin Globulin Albumin/Globulin Ratio POC Glucose 337 H 305 H 04/12/24 04/13/24 18:06 05:32 Sodium 137 139 Potassium 3.1 L 3.4 L Chloride 103 103 Carbon Dioxide 20.8 L 17.7 L Anion Gap 16.3 21.7 BUN 3.0 L 4.0 L Creatinine 1.36 H 1.41 H Est GFR ( Amer) >60 >60 Est GFR (Non-Af Amer) >60 >60 BUN/Creatinine Ratio 2.2 2.8 Glucose 181 H 300 H Calcium 9.1 9.1 Magnesium Total Bilirubin 0.5 AST 8 L ALT 16 Alkaline Phosphatase 93 Total Protein 6.3 L Albumin 2.6 L Globulin 3.7 Albumin/Globulin Ratio 0.7 POC Glucose
--- NOTE | 2024-04-13 09:53 | CM.NOTE ---
Rounds made with Dr. Johnston. Dr. Johnston reviews plan of care with [facility]. No discharge today.
[2024-04-13 14:22] LABS: Anion Gap 16.2; Calcium 8.9 mg/dL (8.5-10.1); Carbon Dioxide 23.3 mmol/L (21.0-32.0); Chloride 102 mmol/L (98-107); Estimated GFR (African America >60 (>=60 mL/min/1.73m^2); Estimated GFR (Non-African Ame >60 (>=60 mL/min/1.73m^2); Glucose 209 mg/dL (74-106); Potassium 3.5 mmol/L (3.5-5.1); Sodium 138 mmol/L (136-145)
[2024-04-13] MEDS: POTASSIUM CHLORIDE 10 MEQ ER TABLET 40 MEQ PO (16:36)
[2024-04-13] MEDS: INSULIN GLARGINE 300 UNIT/3 ML INSULN.PEN 60 UNIT SQ (21:26)
[2024-04-14] MEDS: HEPARIN SODIUM (PORCINE) 5,000 UNIT/ML VIAL 5000 UNIT SUBQ (05:03)
[2024-04-14] MEDS: SODIUM BICARBONATE 325 MG TABLET 650 MG PO ×2 (05:03→14:15)
[2024-04-14 05:06] VITALS: BP 128/78; PULSE 55; TEMP 36.8; O2SAT 96
[2024-04-14 06:30] LABS: Alanine Aminotransferase 15 U/L (16-63); Albumin Globulin Ratio 0.7; Albumin Level 2.5 g/dL (3.4-5.0); Alkaline Phosphatase 83 U/L (46-116); Anion Gap 14.8; Aspartate Amino Transferase 8 U/L (15-37); BUN Creatinine Ratio 5.8; Bilirubin Total 0.5 mg/dL (0.2-1.0); Calcium 8.8 mg/dL (8.5-10.1); Carbon Dioxide 25.9 mmol/L (21.0-32.0); Chloride 103 mmol/L (98-107); Estimated GFR (African America >60 (>=60 mL/min/1.73m^2); Estimated GFR (Non-African Ame >60 (>=60 mL/min/1.73m^2); Globulin 3.5 g/dL; Glucose 250 mg/dL (74-106); Sodium 141 mmol/L (136-145)
[2024-04-14 06:35] LABS: Potassium 2.7 mmol/L (3.5-5.1)
[2024-04-14 09:05] VITALS: BP 122/72; PULSE 60; TEMP 36.4; O2SAT 99
[2024-04-14] MEDS: INSULIN ASPART 300 UNIT/3 ML PEN 10 UNIT SUBQ ×2 (09:09→11:19)
[2024-04-14] MEDS: POTASSIUM CHLORIDE 10 MEQ ER TABLET 40 MEQ PO (09:09)
[2024-04-14] MEDS: INSULIN ASPART 300 UNIT/3 ML PEN SUBQ ×2 (09:09→11:19)
[2024-04-14] MEDS: POTASSIUM CHLORIDE 40 MEQ in 0.9 % SODIUM CHLORIDE 250 ML 67.5 MEQ IV (09:10)
[2024-04-14] MEDS: INSULIN GLARGINE 300 UNIT/3 ML INSULN.PEN 25 UNIT SQ (09:10)
[2024-04-14 11:05] VITALS: O2SAT 99
[2024-04-14 13:20] LABS: Anion Gap 12.6; BUN Creatinine Ratio 4.9; Calcium 9.4 mg/dL (8.5-10.1); Carbon Dioxide 29.4 mmol/L (21.0-32.0); Chloride 105 mmol/L (98-107); Estimated GFR (African America >60 (>=60 mL/min/1.73m^2); Estimated GFR (Non-African Ame >60 (>=60 mL/min/1.73m^2); Glucose 125 mg/dL (74-106); Sodium 143 mmol/L (136-145)
--- NOTE | 2024-04-14 13:46 | P.DS_ITS ---
DS: Providers Provider Date of admission: 04/11/24 12:24 Primary care physician: Non-Staff Physician, Admitting clinician: Shaikh Vickie Attending physician on admission: Shaikh Vickie Attending physician on discharge: Shaikh Vickie Discharging clinician: Shaikh Vickie Anticipated date of discharge: 04/14/24 DS: Diagnosis Discharge Diagnosis (1) DKA, type 2: Qualifiers: Diabetes mellitus complication detail: without coma Qualified Code(s): E11.10 - Type 2 diabetes mellitus with ketoacidosis without coma (2) Poorly controlled type 2 diabetes mellitus: (3) CARLOS (acute kidney injury): (4) Drowsiness: (5) Lethargy: (6) Generalized weakness: (7) Leukocytosis: Qualifiers: Leukocytosis type: unspecified Qualified Code(s): D72.829 - Elevated white blood cell count, unspecified (8) Hypokalemia: DS: Summary Hospital Course Hospital Course: 18y o male with hx of T2 DM, could not use his Insulin because he was locked out of his house presented to ED with lethargy, generalized weakness, nausea and vomiting, decreased PO intake x 2 days. Patient found to have DKA - hyperglycemia, with AG of 38, ketonuria and acidosis on VBG with pH of only 7.1. Patient received aggressive IV hydration in ED, admitted to ICU for DKA, and started on IV fluids, IV insulin as per DKA protocol. Given the degree of acidosis, and bicarb levels of only 8, he was also given IV HCO3. Patient's anion gap closed and he was transitioned to SQ insulin but subsequently, his blood glucose gradually increased and his AG also increased to 20. but this time, we managed him with SQ insulin. He did well and today, his blood glucose have been reasonably controlled and his AG has remained closed. We had extensive discussion with patient regarding his insulin regimen, diet. He will be discharged on Lantus 45 units q12 alongwith Glipizide 10 q12. He was instructed to closely monitor his Blood glucose and f/u with Endocrine/PCP in 1-2 weeks Status at Discharge Functional status at discharge: independent ambulation Overall status at discharge: patient is back to baseline Time Spent with Patient Time attestation: Total time spent providing and/or coordinating discharge services: Time spent: greater than 30 minutes Exam Constitutional Vital Signs, click to edit/add: Last Vital Signs Temp 97.5 F L 04/14/24 09:05 Pulse 60 04/14/24 09:05 Resp 18 04/14/24 09:05 BP 122/72 04/14/24 09:05 Pulse Ox 99 04/14/24 11:05 O2 Del Method Room Air 04/14/24 11:05 DS: Data Data Completed and Pending Labs on day of discharge: Labs from last 24 hours 04/14/24 04/14/24 04/13/24 13:04 05:37 13:57 Sodium 143 141 138 Potassium 4.0 2.7 L* 3.5 Chloride 105 103 102 Carbon Dioxide 29.4 25.9 23.3 Anion Gap 12.6 14.8 16.2 BUN 6.0 L 7.0 4.0 L Creatinine 1.22 1.20 1.33 H Est GFR ( Amer) >60 >60 >60 Est GFR (Non-Af Amer) >60 >60 >60 BUN/Creatinine Ratio 4.9 5.8 3.0 Glucose 125 H 250 H 209 H Calcium 9.4 8.8 8.9 Total Bilirubin 0.5 AST 8 L ALT 15 L Alkaline Phosphatase 83 Total Protein 6.0 L Albumin 2.5 L Globulin 3.5 Albumin/Globulin Ratio 0.7 Discharge Plan Discharge Disposition: Home, Self-Care Discharge Medications: New glipizide 10 mg tablet 10 mg PO BID Qty: 60 0RF Rx Instructions: Take within 30 minutes of meal metformin 1,000 mg tablet 1,000 mg PO BID Qty: 60 0RF Continued Januvia 100 mg tablet 100 mg PO QAM Changed insulin glargine [Lantus Solostar U-100 Insulin] 100 unit/mL (3 mL) insulin pen 45 unit SUBCUT Q12H 30 Days Qty: 8 0RF Discontinued metformin 500 mg tablet 500 mg PO BIDWM Activity: increase activity as tolerated Diet: diabetic diet Print Language: Barbadian Forms: Portal Instructions Referrals: MARLYN GREGG [Nurse Practitioner] - Follow Up Appointments: F/u with PCP in one week
--- NOTE | 2024-04-15 13:50 | CM.DCFOLLOWU ---
Phone number has been changed or disconnected 04/15/24
== END 2024-04-14 14:30 | disposition home or self-care (01) | DRG 420 ==
LOC: ER 05:58 → ICU 08:02 → MS 04-13 12:57
PROVIDERS: Admitting Provider Internal Medicine; Emergency Provider Internal Medicine; Visit Provider Internal Medicine
DX: E11.10 Type 2 diabetes mellitus with ketoacidosis without coma (principal); N17.9 Acute kidney failure, unspecified; R53.1 Weakness; R53.83 Other fatigue; E87.6 Hypokalemia; D72.829 Elevated white blood cell count, unspecified; T38.3X6A Underdosing of insulin and oral hypoglycemic [antidiabetic] drugs, initial encounter; Z91.138 Patient's unintentional underdosing of medication regimen for other reason; F17.290 Nicotine dependence, other tobacco product, uncomplicated; Z79.4 Long term (current) use of insulin; Z79.84 Long term (current) use of oral hypoglycemic drugs; Z98.890 Other specified postprocedural states
CPT/HCPCS: 36415; 36600; 80048; 80053; 80307; 82805; 82948; 83036; 83605; 83735; 84100; 85025; 93005; 94761; 96361; 96374; 99285; 99406; J1644; J1817; J2405; J3475; J3480